=== PATIENT | male | born 1965 | race Caucasian/White ===

== ENCOUNTER → 2017-12-30 09:20 | Outpatient (CLI) | payer OTHER, SELFPAY ==
[2017-12-30 11:11] LABS: Absolute Lymphocyte Count 2.65 X10^3/ul (0.83-4.51); Absolute Neutrophil Count 7.3 X10^3/uL (2.0-7.7); Basophil# 0.05 X10^3/uL; Basophil% 0.4 % (0-1); Eosinophil# 0.19 X10^3/uL; Eosinophils% 1.7 % (0-5); Hemoglobin 15.2 g/dl (13.0-16.5); Lymphocyte # 2.65 X10^3/ul (4.0); Lymphocyte % 23.2 % (19-41); Mean Corp Hgb Conc 33.8 g/gl (32-36); Mean Corpuscular Hgb 29.5 pg (27.0-32.0); Mean Corpuscular Volume 87.2 fL (80-94); Mean Platelet Vol. 9.4 fl (6.2-12.0); Monocyte# 1.23 X10^3/uL; Monocyte% 10.8 % (0-10); Neutrophil # 7.28 X10^3/uL (2.7-7.7); Neutrophil % 63.7 % (47-70); Platelet Count 234 K/mm3 (150-450); RBC Distribution Width CV 13.5 % (11.6-14.6); RBC Distribution Width SD 42.4 fl (35.1-43.9); Red Blood Count 5.16 M/mm3 (4.6-6.2); White Blood Count 11.4 K/mm3 (4.4-11.0)
[2017-12-30 11:12] LABS: POSITIVE COUNT NO; POSITIVE DIFFERENTIAL NO; POSITIVE MORPHOLOGY NO
[2017-12-30 11:23] LABS: Microalbumin,Random Urine 18.7 mg/L (NO RANGE EST.); Microalbumin:Creatinine Ratio 11.6 mg/g CRE (<30 mg/g CRE)
[2017-12-30 11:26] LABS: AST(SGOT) 32 U/L (15-37); Alanine Aminotransfer ALT/SGPT 61 U/L (16-61); Albumin, Serum 3.6 g/dL (3.2-5.0); Alkaline Phosphatase 103 U/L (45-117); BUN 15 mg/dL (7-18); BUN/Creat Ratio 19.2 RATIO (10-20); Calcium,Total 9.1 mg/dL (8.5-10.1); Creatinine, Serum 0.78 mg/dL (0.70-1.30); EST Glomerular Filtration Rate 110 mL/min (>60); Est Glom Filt Rate - Afr Amer 133 mL/min (>60); Globulin 3.5 g/dL (2.2-4.2); Glucose 86 mg/dL (74-106); Protein, Total 7.1 g/dL (6.4-8.2)
[2017-12-30 11:27] LABS: Anion Gap 6 (5-15); Chloride 104 mmol/L (98-107); Cholesterol 181 mg/dL (200); High Density Lipoprotein 44 mg/dL; PSA,Total - Annual Screen 0.66 ng/mL (0.00-4.00); Sodium Level 138 mmol/L (136-145); Triglycerides 140 mg/dL; Very Low Density Lipoprotein 28 mg/dL (5-40)
[2017-12-30 11:32] LABS: Hemoglobin A1c 8.4 % (4.2-6.3)
== END ==
PROVIDERS: Family Provider Family Medicine; PCP Family Medicine; Referring Provider Family Medicine; Visit Provider Family Medicine
DX: E11.49 Type 2 diabetes mellitus with other diabetic neurological complication (principal); I10 Essential (primary) hypertension; E78.1 Pure hyperglyceridemia; Z12.5 Encounter for screening for malignant neoplasm of prostate
CPT/HCPCS: 36415; 80053; 80061; 82043; 82570; 83036; 84153; 85025; G0103

== ENCOUNTER → 2018-12-24 08:28 | Outpatient (CLI) | payer OTHER, SELFPAY ==
[2018-12-24 12:46] LABS: Microalbumin:Creatinine Ratio 17.8 mg/g CRE (<30 mg/g CRE)
== END ==
PROVIDERS: Family Provider Family Medicine; PCP Family Medicine; Visit Provider Family Medicine
DX: Z00.00 Encounter for general adult medical examination without abnormal findings (principal); E11.49 Type 2 diabetes mellitus with other diabetic neurological complication
CPT/HCPCS: 82043; 82570

== ENCOUNTER → 2019-01-04 09:10 | Outpatient (CLI) | payer OTHER, SELFPAY ==
[2019-01-04 12:29] LABS: Absolute Lymphocyte Count 2.77 X10^3/uL (0.83-4.51); Absolute Neutrophil Count 8.6 X10^3/uL (2.0-7.7); Basophil# 0.08 X10^3/uL; Basophil% 0.6 % (0-1); Eosinophil# 0.64 X10^3/uL; Eosinophils% 4.8 % (0-5); Hematocrit 44.2 % (40-54); Hemoglobin 14.4 g/dL (13.0-16.5); Lymphocyte # 2.77 X10^3/ul (4.0); Lymphocyte % 20.6 % (19-41); Mean Corp Hgb Conc 32.6 g/dL (32-36); Mean Corpuscular Hgb 29.4 pg (27.0-32.0); Mean Corpuscular Volume 90.2 fL (80-94); Mean Platelet Vol. 9.4 fl (6.2-12.0); Monocyte# 1.32 X10^3/uL; Monocyte% 9.8 % (0-10); NRBC Flagged by Analyzer 0 % (0-5); Neutrophil # 8.59 X10^3/uL (2.7-7.7); Neutrophil % 63.8 % (47-70); Platelet Count 281 K/mm3 (150-450); RBC Distribution Width SD 42.5 fl (35.1-43.9); White Blood Count 13.5 K/mm3 (4.4-11.0)
[2019-01-04 13:02] LABS: ALB/GLOB Ratio 1.2 RATIO (0.9-2.4); AST(SGOT) 19 U/L (15-37); Alanine Aminotransfer ALT/SGPT 34 U/L (16-61); Albumin, Serum 3.9 g/dL (3.2-5.0); Alkaline Phosphatase 105 U/L (45-117); Anion Gap 6 (5-15); BUN 15 mg/dL (7-18); BUN/Creat Ratio 20.5 RATIO (10-20); Calcium,Total 9.1 mg/dL (8.5-10.1); Chloride 104 mmol/L (98-107); Cholesterol 177 mg/dL (200); Creatinine, Serum 0.73 mg/dL (0.70-1.30); EST Glomerular Filtration Rate 118 mL/min (>60); Est Glom Filt Rate - Afr Amer 143 mL/min (>60); Globulin 3.2 g/dL (2.2-4.2); Glucose 67 mg/dL (74-106); High Density Lipoprotein 51 mg/dL; PSA,Total - Annual Screen 0.71 ng/mL (0.00-4.00); Potassium 3.6 mmol/L (3.5-5.1); Protein, Total 7.1 g/dL (6.4-8.2); Sodium Level 140 mmol/L (136-145); Triglycerides 138 mg/dL; Very Low Density Lipoprotein 28 mg/dL (5-40)
[2019-01-04 13:03] LABS: Hemoglobin A1c 7.3 % (4.2-6.3)
== END ==
PROVIDERS: Family Provider Family Medicine; PCP Family Medicine; Visit Provider Family Medicine
DX: Z00.00 Encounter for general adult medical examination without abnormal findings (principal); E11.49 Type 2 diabetes mellitus with other diabetic neurological complication
CPT/HCPCS: 36415; 80053; 80061; 83036; 84153; 85025; G0103

== ENCOUNTER → 2019-01-07 08:53 | Outpatient (CLI) | payer OTHER, SELFPAY ==
[2019-01-07 12:25] LABS: Absolute Lymphocyte Count 4.38 X10^3/uL (0.83-4.51); Absolute Neutrophil Count 8.3 X10^3/uL (2.0-7.7); Basophil# 0.11 X10^3/uL; Basophil% 0.7 % (0-1); Eosinophils% 5.3 % (0-5); Hematocrit 46.9 % (40-54); Hemoglobin 15.2 g/dL (13.0-16.5); Lymphocyte # 4.38 X10^3/ul (4.0); Lymphocyte % 28.9 % (19-41); Mean Corp Hgb Conc 32.4 g/dL (32-36); Mean Corpuscular Hgb 29.3 pg (27.0-32.0); Mean Corpuscular Volume 90.5 fL (80-94); Mean Platelet Vol. 9.6 fl (6.2-12.0); Monocyte# 1.45 X10^3/uL; Monocyte% 9.6 % (0-10); NRBC Flagged by Analyzer 0 % (0-5); Neutrophil # 8.34 X10^3/uL (2.7-7.7); Neutrophil % 55.2 % (47-70); POSITIVE MORPHOLOGY YES; Platelet Count 342 K/mm3 (150-450); RBC Distribution Width CV 12.9 % (11.6-14.6); RBC Distribution Width SD 42.4 fl (35.1-43.9); Red Blood Count 5.18 M/mm3 (4.6-6.2); White Blood Count 15.1 K/mm3 (4.4-11.0)
[2019-01-07 12:31] LABS: Erythrocyte Sedimentation Rate 9 mm/hr (0-20)
[2019-01-07 12:32] LABS: Differential Indicated SCAN CRITERIA MET
[2019-01-07 12:43] LABS: CRP < 2.90 mg/L (0.0-3.0)
[2019-01-08 12:31] LABS: Pathologist Review Reviewed
== END ==
PROVIDERS: Family Provider Family Medicine; PCP Family Medicine; Visit Provider Family Medicine
DX: D72.9 Disorder of white blood cells, unspecified (principal)
CPT/HCPCS: 85025; 85652; 86140

== ENCOUNTER → 2019-04-14 08:40 | Outpatient (CLI) | payer OTHER, SELFPAY ==
[2019-03-17 09:54] VITALS: BMI 32.9
[2019-04-14 12:20] LABS: Absolute Lymphocyte Count 2.27 X10^3/uL (0.83-4.51); Absolute Neutrophil Count 6.4 X10^3/uL (2.0-7.7); Basophil# 0.09 X10^3/uL; Basophil% 0.9 % (0-1); Eosinophil# 0.43 X10^3/uL; Eosinophils% 4.2 % (0-5); Hemoglobin 14.2 g/dL (13.0-16.5); Lymphocyte # 2.27 X10^3/ul (4.0); Lymphocyte % 22.4 % (19-41); Mean Corpuscular Hgb 28.3 pg (27.0-32.0); Mean Corpuscular Volume 85.7 fL (80-94); Mean Platelet Vol. 10.2 fl (6.2-12.0); Monocyte# 0.94 X10^3/uL; Monocyte% 9.3 % (0-10); NRBC Flagged by Analyzer 0 % (0-5); Neutrophil # 6.35 X10^3/uL (2.7-7.7); Neutrophil % 62.8 % (47-70); Platelet Count 247 K/mm3 (150-450); RBC Distribution Width CV 12.5 % (11.6-14.6); RBC Distribution Width SD 38.6 fl (35.1-43.9); Red Blood Count 5.02 M/mm3 (4.6-6.2); White Blood Count 10.1 K/mm3 (4.4-11.0)
[2019-04-14 12:33] LABS: Hemoglobin A1c 10.6 % (4.2-6.3)
[2019-04-14 12:39] LABS: Glucose 273 mg/dL (74-106)
== END ==
PROVIDERS: Family Provider Family Medicine; PCP Family Medicine; Visit Provider Family Medicine
DX: E11.49 Type 2 diabetes mellitus with other diabetic neurological complication (principal); D72.829 Elevated white blood cell count, unspecified
CPT/HCPCS: 36415; 82947; 83036; 85025

== ENCOUNTER → 2019-12-25 11:19 | Outpatient (CLI) | payer OTHER, SELFPAY ==
[2019-03-17 09:54] VITALS: BMI 32.9
[2019-12-25 12:11] LABS: Absolute Lymphocyte Count 1.92 X10^3/uL (0.83-4.51); Basophil# 0.06 X10^3/uL; Basophil% 0.6 % (0-1); Eosinophil# 0.42 X10^3/uL; Eosinophils% 3.9 % (0-5); Hemoglobin 14.2 g/dL (13.0-16.5); Lymphocyte # 1.92 X10^3/ul (4.0); Mean Corpuscular Volume 87.9 fL (80-94); Mean Platelet Vol. 9.2 fl (6.2-12.0); Monocyte# 1.07 X10^3/uL; NRBC Flagged by Analyzer 0 % (0-5); Neutrophil # 7.01 X10^3/uL (2.7-7.7); Neutrophil % 65.8 % (47-70); Platelet Count 247 K/mm3 (150-450); RBC Distribution Width CV 12.8 % (11.6-14.6); RBC Distribution Width SD 41.2 fl (35.1-43.9); Red Blood Count 4.89 M/mm3 (4.6-6.2); White Blood Count 10.7 K/mm3 (4.4-11.0)
[2019-12-25 12:12] LABS: AST(SGOT) 12 U/L (15-37); Alanine Aminotransfer ALT/SGPT 27 U/L (16-61); Albumin, Serum 3.6 g/dL (3.2-5.0); Alkaline Phosphatase 124 U/L (45-117); Anion Gap 5 (5-15); BUN 16 mg/dL (7-18); Calcium,Total 8.9 mg/dL (8.5-10.1); Chloride 105 mmol/L (98-107); Cholesterol 189 mg/dL (200); EST Glomerular Filtration Rate 106 mL/min (>60); Est Glom Filt Rate - Afr Amer 129 mL/min (>60); Globulin 3.5 g/dL (2.2-4.2); Glucose 145 mg/dL (74-106); High Density Lipoprotein 45 mg/dL; Potassium 3.9 mmol/L (3.5-5.1); Protein, Total 7.1 g/dL (6.4-8.2); Sodium Level 142 mmol/L (136-145); Triglycerides 143 mg/dL; Very Low Density Lipoprotein 29 mg/dL (5-40)
[2019-12-25 12:13] LABS: Hemoglobin A1c 8.8 % (3.8-5.6)
[2019-12-25 12:15] LABS: Microalbumin,Random Urine 12.2 mg/L (NO RANGE EST.); Microalbumin:Creatinine Ratio 12.2 mg/g CRE (<30 mg/g CRE)
== END ==
PROVIDERS: PCP Family Medicine; Referring Provider Family Medicine; Visit Provider Family Medicine
DX: E11.49 Type 2 diabetes mellitus with other diabetic neurological complication (principal); I10 Essential (primary) hypertension; E78.5 Hyperlipidemia, unspecified; D72.829 Elevated white blood cell count, unspecified
CPT/HCPCS: 36415; 80053; 80061; 82043; 82570; 83036; 85025

== ENCOUNTER → 2020-09-09 11:20 | Outpatient (CLI) | payer OTHER, SELFPAY ==
[2019-03-17 09:54] VITALS: BMI 32.9
--- NOTE | 2020-09-09 11:28 | RAD_ITS ---
STUDY: X-RAY - LUMBAR SPINE REASON FOR EXAM: Male, 55 years old. LOW BACK PAIN, B/L RADICULOPATHY TECHNIQUE: 4 view(s) of the lumbar spine were obtained. COMPARISON: None FINDINGS: Normal lumbar lordosis. There is no substantial scoliosis. 5 mm of anterolisthesis of L4 on L5. Normal vertebral bodies and endplates. Normal disc space heights. Facet hypertrophy in the lower lumbar spine consistent with degenerative disc disease. The soft tissue structures are unremarkable. RAD/L/S Spine Min 4 Views IMPRESSION: Degenerative disc disease lower lumbar spine with 5 mm of anterolisthesis of L4 on L5. MRI would be useful. Electronically Signed: Chance Jeffrey MD at 12:03 EDT Tel , Service support ,
== END ==
PROVIDERS: PCP Family Medicine; Referring Provider Family Medicine; Visit Provider Family Medicine
DX: M54.16 Radiculopathy, lumbar region (principal)
CPT/HCPCS: 72110

== ENCOUNTER → 2020-10-07 08:46 | Outpatient (CLI) | payer OTHER, SELFPAY ==
[2019-03-17 09:54] VITALS: BMI 32.9
--- NOTE | 2020-10-07 08:48 | MRI_ITS ---
STUDY: MRI LUMBAR SPINE WITHOUT CONTRAST REASON FOR EXAM: Male, 55 years old. LUMBAR RADICULOPATHY WITH HX DISC HERNIATION TECHNIQUE: Standardized fat and water weighted pulse sequences were obtained in the sagittal and axial planes COMPARISON: November FINDINGS: T11-T12: Normal endplates. Normal disc height, hydration and morphology. Normal bilateral facet joints. Normal central canal and bilateral lateral recesses. Normal bilateral intervertebral neural foramina. T12-L1: Normal endplates. Normal disc height, hydration and morphology. Normal bilateral facet joints. Normal central canal and bilateral lateral recesses. Normal bilateral intervertebral neural foramina. Normal lumbar lordosis. There is no substantial scoliosis. Normal conus medullaris that terminates at the L1. There is grade 1 anterolisthesis of L4 on L5, less than 5 mm without lysis. L1-2: Normal endplates. Normal disc height, hydration and degenerative morphology with bulge and superimposed left central protrusion. Normal bilateral facet joints. There is mild spondylotic thecal sac stenosis. There is no moderate or high-grade foraminal stenosis. L2-3: Normal endplates. Normal disc height, hydration and mildly degenerative morphology. Normal bilateral facet joints. Normal central canal and bilateral lateral recesses. Normal bilateral intervertebral neural foramina. L3-4: Normal endplates. Normal bilateral facet joints. Normal central canal and bilateral lateral recesses. Normal bilateral intervertebral neural foramina. L4-5: Normal endplates. There is severe disc degeneration with both bulge and central extrusion with superior migration of disc material under the anterior longitudinal ligament. Facets are degenerated. Ligamentum flavum is thickened. Thecal sac is severely stenotic. Foramina are moderately stenotic. There is bilateral lateral recess stenosis. L5-S1: Mildly degenerated endplates. Collapsed disc with decreased height and degenerative morphology. There is a right asymmetric disc bulge and superimposed right central and subarticular and foraminal zone disc protrusion. Canal is patent. There is right lateral recess stenosis with compression of the right traversing S1 nerve root. There is moderate right and mild to moderate left foraminal stenosis. Facet joints are degenerated. Normal visualized sacral ala. Normal visualized paraspinous soft tissue structures. Compared 2016 the L4-L5 anterolisthesis is new and disc degeneration is significantly worse. MRI/Spine Lumbar (Routine) IMPRESSION: 1. Severe spondylotic L4-L5 thecal sac stenosis. Neurosurgical consultation advised. 2. L1-L2, L4-L5 and L5-S1 disc protrusions. 3. Right lateral recess and foraminal stenosis at L5-S1. Electronically Signed: Jody Helton MD at 21:06 EDT Tel , Service support ,
== END ==
PROVIDERS: PCP Family Medicine; Referring Provider Family Medicine; Visit Provider Family Medicine
DX: M51.16 Intervertebral disc disorders with radiculopathy, lumbar region (principal)
CPT/HCPCS: 72148

== ENCOUNTER → 2020-11-13 | Outpatient (CLI) | payer OTHER, SELFPAY ==
[2020-10-25 13:05] VITALS: BMI 30.4
--- NOTE | 2020-11-13 15:55 | EKG12_ITS ---
Test Reason : PREOP Blood Pressure : / mmHG Vent. Rate : 121 BPM Atrial Rate : 121 BPM P-R Int : 116 ms QRS Dur : 086 ms QT Int : 320 ms P-R-T Axes : 041 017 051 degrees QTc Int : 454 ms Sinus tachycardia Otherwise normal ECG Confirmed by STIVEN CORTES, ARIADNE ([id number]), purchasing expeditor ALAN THAO ([id number]) on 11/15/2020 2:00:38 PM Referred By: DONALD Confirmed By:ANNABEL SALEEM MD
[2020-11-13 16:48] LABS: Absolute Lymphocyte Count 2.01 X10^3/uL (0.83-4.51); Absolute Neutrophil Count 11.4 X10^3/uL (2.0-7.7); Basophil# 0.06 X10^3/uL; Basophil% 0.4 % (0-1); Eosinophil# 0.31 X10^3/uL; Eosinophils% 2.1 % (0-5); Hematocrit 41.4 % (40-54); Hemoglobin 13.4 g/dL (13.0-16.5); Lymphocyte # 2.01 X10^3/ul (0.83-4.51); Lymphocyte % 13.4 % (19-41); Mean Corp Hgb Conc 32.4 g/dL (32-36); Mean Corpuscular Hgb 27.9 pg (27.0-32.0); Mean Corpuscular Volume 86.3 fL (80-94); Mean Platelet Vol. 9.7 fl (6.2-12.0); Monocyte# 1.11 X10^3/uL; Monocyte% 7.4 % (0-10); NRBC Flagged by Analyzer 0 % (0-5); Neutrophil # 11.43 X10^3/uL (2.7-7.7); Neutrophil % 76.2 % (47-70); Platelet Count 274 K/mm3 (150-450); RBC Distribution Width CV 13.1 % (11.6-14.6); RBC Distribution Width SD 40.9 fl (35.1-43.9)
[2020-11-13 19:10] LABS: HIV - WCH Non-Reactive (Nonreactive)
[2020-11-13 20:06] LABS: ALB/GLOB Ratio 1.1 RATIO (0.9-2.4); AST(SGOT) 18 U/L (15-37); Alanine Aminotransfer ALT/SGPT 29 U/L (16-61); Albumin, Serum 3.5 g/dL (3.2-5.0); Alkaline Phosphatase 118 U/L (45-117); Anion Gap 11 (5-15); BUN 17 mg/dL (7-18); BUN/Creat Ratio 14.7 RATIO (10-20); Calcium,Total 8.9 mg/dL (8.5-10.1); Chloride 102 mmol/L (98-107); Creatinine, Serum 1.16 mg/dL (0.70-1.30); EST Glomerular Filtration Rate 69 mL/min (>60); Est Glom Filt Rate - Afr Amer 83 mL/min (>60); Globulin 3.2 g/dL (2.2-4.2); Glucose 456 mg/dL (74-106); Magnesium 1.9 mg/dL (1.6-2.6); Potassium 4.2 mmol/L (3.5-5.1); Protein, Total 6.7 g/dL (6.4-8.2); Sodium Level 135 mmol/L (136-145)
[2020-11-14 15:51] LABS: Hepatitis B Surface Antibody Non-Reactive
[2020-11-15 06:07] LABS: HEPATITIS B SURFACE AG Negative (Negative); Hepatitis A IgM Antibody Negative (Negative); Hepatitis B Core AB IgM Negative (Negative)
[2020-11-15 10:06] LABS: Hep C Antibodies <0.1 s/co ratio (0.0-0.9); Hepatitis A AB, Total Negative (Negative)
== END | disposition home or self-care (01) ==
LOC: PAT 12-14 12:56
PROVIDERS: Anesthesiology; PCP Family Medicine; Visit Provider Orthopaedic Surgery
DX: Z01.818 Encounter for other preprocedural examination (principal); R00.0 Tachycardia, unspecified
CPT/HCPCS: 36415; 80053; 80074; 83036; 83735; 85025; 86703; 86704; 86705; 86706; 86708; 86709; 86803; 87340; 93005

== ENCOUNTER 2021-04-24 05:33 | Inpatient (IN) | payer BC, SELFPAY ==
[2021-04-18 14:02] LABS: Absolute Lymphocyte Count 1.98 X10^3/uL (0.83-4.51); Absolute Neutrophil Count 4.1 X10^3/uL (2.0-7.7); Basophil# 0.06 X10^3/uL; Basophil% 0.8 % (0-1); Eosinophil# 0.39 X10^3/uL; Eosinophils% 5.1 % (0-5); Hematocrit 39.8 % (40-54); Hemoglobin 12.2 g/dL (13.0-16.5); Lymphocyte # 1.98 X10^3/ul (0.83-4.51); Lymphocyte % 26.1 % (19-41); Mean Corp Hgb Conc 30.7 g/dL (32-36); Mean Corpuscular Hgb 25.5 pg (27.0-32.0); Mean Corpuscular Volume 83.3 fL (80-94); Mean Platelet Vol. 9.7 fl (6.2-12.0); Monocyte% 14.5 % (0-10); NRBC Flagged by Analyzer 0 % (0-5); Neutrophil # 4.05 X10^3/uL (2.7-7.7); Neutrophil % 53.2 % (47-70); Platelet Count 291 K/mm3 (150-450); RBC Distribution Width SD 42.7 fl (35.1-43.9); Red Blood Count 4.78 M/mm3 (4.6-6.2); White Blood Count 7.6 K/mm3 (4.4-11.0)
[2021-04-18 14:22] LABS: Hemoglobin A1c 6.4 % (3.8-5.6)
[2021-04-18 14:29] LABS: Anion Gap 6 (5-15); BUN 22 mg/dL (7-18); BUN/Creat Ratio 26.6 RATIO (10-20); Calcium,Total 8.8 mg/dL (8.5-10.1); Chloride 103 mmol/L (98-107); Creatinine, Serum 0.83 mg/dL (0.70-1.30); EST Glomerular Filtration Rate 102 mL/min (>60); Est Glom Filt Rate - Afr Amer 123 mL/min (>60); Glucose 62 mg/dL (74-106); Potassium 3.9 mmol/L (3.5-5.1); Sodium Level 139 mmol/L (136-145)
[2021-04-18 14:32] LABS: Magnesium 2.2 mg/dL (1.6-2.6)
[2021-04-18 15:10] LABS: HIV - WCH Non-Reactive (Nonreactive); Hepatitis B Surface Antibody Non-Reactive; Hepatitis C Antibody Non-Reactive (Nonreactive)
[2021-04-20 11:29] LABS: Hepatitis A AB, Total Negative (Negative)
--- NOTE | 2021-04-23 10:59 | PCM.HP.BLA ---
History and Physical Date of Ad[facility]: [facility] [id number] [phone] OFFICE VISITDate of Service: 10/25/20 MR#:[id number]:[id number]: DOMINGO GILLILAND CRep #:[id number] Provider:Dr. Tacos Vallecillo, DOAge/Sex: 55/M Location:[place]:Signed Intake Vital Signs 10/25/20 13:05 Height 5 ft 8 in Weight: 200 lb BMI 30.4 Intake Visit Reasons: Lumbar Spine Accompanied by: Self Is patient in pain?: Yes Pain scale (1-10): 8 Allergies No Known Allergies Allergy (Verified 10/25/20 13:05) Medications lisinopril 10 mg PO DAILY 12/13/16 [History Confirmed 10/25/20] metoprolol succinate 50 mg PO BID 12/13/16 [History Confirmed 10/25/20] pravastatin 40 mg PO DAILY 12/13/16 [History Confirmed 10/25/20] meloxicam 15 mg PO DAILY 01/18/19 [History Confirmed 10/25/20] sucralfate 1 gram tablet See Rx Instructions .ROUTE .COMPLEX #120 tablet 02/17/19 [Rx Confirmed 10/25/20] omeprazole 20 mg capsule,delayed release See Rx Instructions .ROUTE .COMPLEX #60 cap 01/25/20 [Rx Confirmed 10/25/20] gabapentin 100 mg capsule 100 mg PO TID cap 10/25/20 [History Confirmed 10/25/20] insulin detemir U-100 100 unit/mL subcutaneous solution 30 unit SUBCUT BID ml 10/25/20 [History Confirmed 10/25/20] metformin 1,000 mg tablet 1,000 mg PO BID tab 10/25/20 [History Confirmed 10/25/20] PFSH Medical History Colon polyp Depression Diabetes mellitus Erectile dysfunction Fatty liver Hyperlipidemia Hypertension Lumbar disc herniation Osteoarthritis of carpometacarpal (CMC) joint of left thumb Surgical History History of colonoscopy Umbilical hernia Family History Other Adopted Social History (Updated 10/25/20 @ 13:09 by Maddie Yousif) adopted: Yes household members: spouse and children housing: house number of children: 2 current occupational status: employed 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 Tacos Vallecillo, DO 10/25/20 0801. DOMINGO GILLILAND is a 55 year old M here today to establish as a new patient. Referral from Dr. Gianfranco Gonzalez for lumbar pain. Onset: three months, worsening. Patient is having left sided back with sciatica that is now into his right side as well with some radiculopathy. Denies any accident, injures, injections, and surgeries. Last physical therapy for his back was approx two years ago. Patient had a lumbar spine x-ray on: 09/09/20 and a lumbar spine MRI on: 10/07/20. Patient has tried the following conservative treatments for six weeks or greater: RICE, OTC NSAIDs, home exercises provided by a provider, meloxicam, oral corticosteroids, narcotic and non-narcotic analgesic medication(s), gericare aide, PT, bracing, and spinal manipulation. Patient has found no relief and would like to further investigate their s/s. Dominog is a most pleasant gentleman 55 years old that has a chief complaint of low back pain and bilateral leg pain. It started first on the left side and then started going to the right side now it is in both. When he walks his legs both started to feel numb if he sits down to rest he gets some improvement. This has been going on for many months but has gradually worsened. He denies any bowel or bladder dysfunction. He denies history of explained weight loss night fever sweats or chills. On examination he has good motor strength of all major muscle groups of both lower extremities. He has no muscle atrophy. He has 1+ patella and 1+ Achilles reflexes bilaterally. He has no long tract signs. Clonus is absent Babinski's are downgoing. I reviewed plain x-rays and MRI scan of the lumbar spine. He has a degenerative spondylolisthesis of L4 on L5 given him a significant stenosis plus an extruded fragment in the midline has gone up. At L5-S1 he has none only degeneration but he has a herniated disc more to the right side. He wishes to bypass epidural steroid injections as he realizes that that is ongoing to help him or at least not for long. He knows that physical therapy is not indicated either because it simply will make him feel worse. He wishes to have a permanent solution. We will schedule him for a 360 degree fusion at L5-S1 and L4-5 with decompression of L4-5 laminectomy at L5-S1 on the right side. At L4-5 I may do each side individually. I told him to bring his in so she could discuss it with us and ask questions. I told him that it would probably be December before we can do his surgery. We will see him 1 week before the surgery as scheduled. Coding Level of Care Code Off vis,new,level 3 Diagnoses Spinal stenosis at L4-L5 level M48.061 HNP (herniated nucleus pulposus), lumbar M51.26 Time Spent (min) 35 Assessment and Plan Assessment and Plan (1) Spinal stenosis at L4-L5 level: Status: Acute (2) HNP (herniated nucleus pulposus), lumbar:
[2021-04-24] VITALS (13 sets, daily range): BP systolic 84–122; BP diastolic 54–71; PULSE 87–103; RESP 15–18; TEMP 36.1–37.3; O2SAT 92–99; BMI 32.5
[2021-04-24] MEDS: Lactated Ringers 1,000 ML 15 ML IV ×6 (06:20→16:30)
[2021-04-24] MEDS: Insulin Lispro 100 UNIT/ML INSULN.PEN SC ×2 (06:38→21:53)
[2021-04-24] MEDS: Acetaminophen 500 MG Tablet 1000 MG PO ×2 (06:39→19:11)
[2021-04-24 07:05] LABS: Bedside Glucose 213 mg/dL (70-110)
--- NOTE | 2021-04-24 07:30 | RAD_ITS ---
STUDY: X-RAY - LUMBAR SPINE REASON FOR EXAM: Male, 55 years old. 360 FUSION L4-5, L5-S1,RIGHT TECHNIQUE: 1 view(s) of the lumbar spine were obtained. COMPARISON: None FINDINGS: The localization instrument is anterior to the L5-S1 disc space. Another localization instrument is seen anterior to the L3-L4 disc space level. RAD/Spine 1 View Any Level IMPRESSION: A localization instrument is seen along the anterior aspect of the L5-S1 disc space level. A second instrument is seen anterior to the L3-L4 disc space level. Electronically Signed: Ramakrishna Orourke MD at 10:06 EST , Service support ,
[2021-04-24] MEDS: Cefazolin 2 GM in 0.9% Normal Saline 100 ML IV (07:57)
[2021-04-24] MEDS: Heparin 10,000 UNITS/10 ML Vial 10000 UNITS (09:30)
[2021-04-24] MEDS: Heparin 10,000 UNITS/10 ML Vial IV (10:00)
--- NOTE | 2021-04-24 10:50 | RAD_ITS ---
STUDY: X-RAY - LUMBAR SPINE REASON FOR EXAM: Male, 55 years old. 360 FUSION L4-5, L5-S1 RIGHT TECHNIQUE: 1 view(s) of the lumbar spine were obtained. COMPARISON: Comparison is made with prior study done earlier today. FINDINGS: The patient is status post anterior fusion with prosthetic disc at the L5-S1 level. RAD/Spine 1 View Any Level IMPRESSION: Status post anterior fusion with prosthetic disc placement at the L5-S1 level. Electronically Signed: Ramakrishna Orourke MD at 12:00 EST , Service support ,
--- NOTE | 2021-04-24 11:05 | RAD_ITS ---
STUDY: X-RAY - LUMBAR SPINE REASON FOR EXAM: Male, 55 years old. IMAGE 3 360 FUSION, IN O.R. PORTABLE TECHNIQUE: 1 view(s) of the lumbar spine were obtained. COMPARISON: None FINDINGS: The localization instrument is seen along the anterior aspect of the L4-L5 disc space. RAD/Spine 1 View Any Level IMPRESSION: The localization instrument is seen along the anterior aspect of the L4-L5 disc space. Electronically Signed: Ramakrishna Orourke MD at 12:00 EST , Service support ,
--- NOTE | 2021-04-24 12:00 | RAD_ITS ---
STUDY: X-RAY - LUMBAR SPINE REASON FOR EXAM: Male, 55 years old. FUSION TECHNIQUE: 1 view(s) of the lumbar spine were obtained. COMPARISON: Comparison is made with prior study done earlier today. FINDINGS: The patient is status post anterior fusion and disc replacement at the L4-L5 and L5-S1 levels. RAD/Spine 1 View Any Level IMPRESSION: The patient is status post anterior fusion and disc replacement at the L4-L5 and L5-S1 levels. Electronically Signed: Ramakrishna Orourke MD at 12:28 EST , Service support ,
--- NOTE | 2021-04-24 12:07 | RAD_ITS ---
STUDY: X-RAY - LUMBAR SPINE REASON FOR EXAM: Male, 55 years old. Fusion L4-5 and L5-S1. TECHNIQUE: A single lateral cross table view view(s) of the lumbar spine were obtained intraoperatively. COMPARISON: 04/24/2021 (1151) FINDINGS: Normal lumbar lordosis. There is evidence of anterior fusion of L4-5 and L5-S1 with large disc spacers. The hardware appears intact. There is a normal alignment of the vertebrae. There is a surgical probe posterior to the L5 vertebral body. Skin retractors are seen at the surface of the lower back. There are multiple surgical clips anterior to the surgical site. RAD/Spine 1 View Any Level IMPRESSION: Intraoperative image performed during a fusion of the lower lumbar spine. Please refer to the operative report for further details. Electronically Signed: Juve Escobedo DO at 17:05 EST Tel [phone], Service support ,
--- NOTE | 2021-04-24 12:10 | OP.PCM_ITS ---
Problems Associated Problem List Diagnoses (1) Spinal stenosis at L4-L5 level: (2) HNP (herniated nucleus pulposus), lumbar: Report of Operation Date of Procedure: 04/24/21 Pre-Operative Diagnosis: Degenerative disc disease Post-Operative Diagnosis: The same Surgery/Procedure Performed:: 1. Anterior lumbar interbody fusion L4-L5 with 16mm 8 degree cage with BMA and anterior plate with 2 30 mm screws in L4 and 2 30 mm screws into L5. 2. Anterior lumbar interbody fusion L5-S1 with 14 mm cage with BMA and anterior plate with 2 30 mm screws into L5 and 2 25 mm screws into S1 Surgeon: Roosevelt Saenz Type of Anesthesia: General Description of Procedure: Surgeon: Dr. Vallecillo co-surgeon Dr. Roosevelt Saenz Operation: This gentleman was brought to the operating room. Underwent appropriate timeout consent. Underwent appropriate monitoring lines were all placed. Underwent general anesthesia. Was prepped and draped in a sterile fashion. We did a left lower quadrant incision and dissected down to the fascia. We incised the fascia to the midline and then out past the rectus into the obliques. We then got into the retroperitoneal plane after freeing up the anterior fascia superior and inferior. We then got onto the iliopsoas and put in the Omni retractor. Using blunt dissection we were able to dissect down into the L5-S1 disc space. Middle sacral vessels were divided between clips and tied. There are several other venous branches that were divided that allowed the vein to retract superior. We confirmed good position of L5-S1 with x-ray. Patient then underwent the discectomy. Dilated up in a cage was placed. Bone marrow aspirate was obtained. We then filled the cage which was 14 mm and placed this in good po sition. Anterior plate was placed. Using the awl and then screws with 30 mm screws into L5 and then 25 mm screws and S1. Confirmed with x-ray that this was in good position. We then remove the retractors up and then dissected down onto the L4-L5 disc space. We confirmed good position of there with x-ray. We then underwent the discectomy and dilated up and put in a 16mm cage. This was filled with the BMA. We then put on a anterior plate and 30 mm screws in L4 and L5. Completion x-ray showed good position of both cages. There is good hemostasis. Several clips were placed around some of the lymphatic leak. We then closed the anterior fascia with running strata fix. Then 2-0 and 3-0 Vicryl's in layers. Monocryl for the skin. Dermabond was placed. Was then flipped over and the p osterior part or all be done and dictated separately by Dr. Vallecillo.
[2021-04-24] MEDS: THROMBIN (RECOMBINANT) 20,000 UNIT VIAL 20000 UNIT TOPICAL (13:58)
[2021-04-24 15:11] LABS: Bedside Glucose 171 mg/dL (70-110)
--- NOTE | 2021-04-24 16:17 | OP.PCM_ITS ---
Report of Operation Date of Procedure: 04/24/21 Description of Surgical Findings:: Preoperative diagnosis: Herniated disc L4-5 with left L5 radiculopathy Degenerative disc disease L5-S1 Postoperative diagnosis: The same Procedure: #1 anterior lumbar interbody fusion L5-S1 CPT code 14880 #2 application of spine plate L5-S1 CPT code 40675/59 #3 application of spine plate L4-5 CPT code 95974/59 #4 anterior interbody fusion L4-5 CPT code 03950/51 #5 insertion of cage L5-S1 CPT code 04097 #6 insertion of cage L4-5 CPT code 88709 Co-surgeon's: Dr. Vallecillo and Dr. Saenz dental hygiene administrative assistant: Divina REYES Second Procurement Services Manager: Kat Curtis RN Anesthesia: General endotracheal anesthesia administered by [facility] Estimated blood loss: Less than 100 cc Drains: None Complications: None Procedure: Patient was taken to the OR where he was placed in the supine position on the operating table he was then placed under general endotracheal anesthesia. A Berger catheter was inserted. Neuro monitoring placed their leads and the patient. The abdomen was then prepped and draped in standard fashion. Surgical approach is described in Dr. Saenz's operative summary. Once L5-S1 was exposed and identified via an intraoperative x-ray I then remove the anterior annulus with a 10 blade. I removed more nucleus from within the disc base with pituitary rongeurs and ring curettes and bowl curettes all the way back to near the posterior longitudinal ligament. I used a yaya bur to remove a little bit of the posterior and an enlarged the sides of the endplate at the bottom of L5 to better fit the cage. We did a trial cages and found that we needed a 14 mm cage we then used a broach starting with a 12 followed by a 14 mm broach. This gave us good bleeding endplate bone. Thorough irrigation was carried out. At that in the interim we placed a Jamshidi needle over the left iliac crest on the anteriorly tamped it into place and obtained 60 cc of BMA from the patient. This was given to the product support technician in the room who spun it down and the stem cells from the rest of the cells and concentrated the stem cells 8-10 times. This was given back to us. I then filled the 14 mm 8 degree cage with spongy demineralized bone matrix. Note that we use the large cage. We then soaked the demineralized bone matrix punch and the patient's own stem cells. This was then tamped into place and the cage countersunk a couple of millimeters. We then used a 27 mm plate note that it was the pre-bent L5-S1 plate. Once centered I held the plate in place by Dr. Saenz use the awl to punch the holes and entered with the appropriate length screws. We used 230 mm screws at L5 and 225 mm screws at S1. Then activated the locking mechanisms. This was seen in the lateral projection on plain x-ray was found to be quite satisfactory. We then moved up [address] Saenz again did more dissection in order to give us good access at L4-5. Once this was done place a needle in place to double check with an x-ray to make sure we were indeed at L4-5 which we were this was then marked using cautery I then cut the anterior annulus with a 10 blade removed it and removed more nucleus from within the disc base with pituitary rongeurs. We also used ring curettes and bowl curettes to remove cartilage off the endplates and all remaining annulus posteriorly. Once the disc space was completely cleared and we had thoroughly irrigated we then took her measurements for the next cage we decided on a 16mm high large cage for this level. The disc base was prepared again using curettes to remove all the cartilage and nucleus. I then used a 14 and then 16 mm broach to broach the space. I then filled the cage with demineralized bone matrix. This was a spongy type it was then soaked in the patient's own stem cells that were concentrated. We then tapped the cage into place and countersunk it a couple of millimeters to 17 mm anterior plate was used it was put slightly off-center to the left to prevent pulsations with the aorta. While I held in place Dr. Saenz punched each individual hole with an awl. Followed by insertion of 30 mm screws at all 4 points, 2 into L4 and 2 into L5. The locking mechanism was activated by Dr. Saenz. Then covered both cages and amniotic membrane to prevent adhesions to the vessels. The closure is then described in Dr. Saenz's operative summary. This is the end of anterior operative summary on Domingo Celestin. This is Dr. Vallecillo dictating.
--- NOTE | 2021-04-24 16:36 | PCM.OPRPT ---
Report of Operation Date of Procedure: 04/24/21 Description of Surgical Findings:: Note that this is the posterior surgery done on this patient. The anterior surgery was described in a separate operative summary. Preoperative diagnosis #1 herniated disc L4-5 with left L5 radiculopathy #2 degenerative disc disease L5-S1 Postoperative diagnosis: The same Procedures: #1 posterior fusion L5-S1 CPT code 43024 #2 laminectomy discectomy L4-5 on the left CPT code 56964 #3 posterior nonsegmental instrumentation L5-S1 CPT code 52956 #4 posterior nonsegmental instrumentation L4-5 CPT code 54049/51 #5 posterior fusion L4-5 CPT code 60098/51 Surgeon: Dr. Vallecillo sales assistant institutional sales: Divina REYES Second Geothermal Operations Engineer: Kat Curtis RN Anesthesia: General endotracheal anesthesia administered by [facility] Estimated blood loss: 325 cc with 125 cc given back via the Cell Saver for a net loss of 200 cc Drains: None (at the time of closure we had excellent hemostasis) Complications: None Procedure: See anterior procedure was completely finished the patient was then turned over onto the prone position on the Lance frame after appropriate positioning with care to protect his bony prominences his genitalia the ulnar nerves of both elbows the brachial plexus and the facial features the back was prepped and draped in standard fashion. Then made a longitudinal incision centered over L4-5. Elevated the paravertebral muscles after opening the lumbar fascia to the left of the spinous process and elevated them off of the lamina of L5 and the lamina of L4. An intraoperative x-ray was taken with a marker in place to assure that we were indeed at the proper level which we were. I continue to elevate To muscles off the lamina of L4 and the top of the lamina of L5. A Tea retractor was then put in place. I then elevated the ligamentum flavum off to the side of the lamina of L4 on the left and performed laminectomy with 45 degree Kerrison rongeurs. I then released the ligamentum flavum off the underside of L4 and removed it with 45 degree Kerrison rongeurs. I also opened a little bit of the top of the lamina of L5. This was done with the Kerrison rongeurs following this I was able to retract the midline structures toward the middle. Note that he has very large epidural vessels and these were slowly but surely cauterized 1 at a time with bipolar cautery. Some of the disc was removed and note that we could not get to all of the disc but likely it was in the midline once I open the lateral recess and remove the disc there there was no more pressure on the nerve roots on the left side. Note that every 10 to 15 minutes in the course of the case we thoroughly irrigated with copious amounts of sterile saline to prevent infection. Following this we prepared for the internal fixation. Note that we used spacers between the spinous process of L4-5 and L5-S1 we measured for them to use the appropriate size spacers that were indeed bony spacers. Once these were in place we applied the internal fixation devices at both levels. These were then tightened and the locking mechanisms were activated at both levels. Note that we prior to doing this of course we placed our SPARC bone in both gutters. We also placed amnionic membrane directly over the laminotomy site to prevent adhesions. Note that we had such good hemostasis at the end of the case that we did not feel we needed to put a drain in so we did not. We then closed the lumbar fascia using [id number] suture with #1 Vicryl followed by closure of subcutaneous tissues with 0 Vicryl and 2-0 Vicryl in layers in interrupted fashion and the skin was approximated using skin clips. Sterile dressings were then applied. This is the end of operative summary on Domingo Celestin. This is Dr. Vallecillo dictating.
[2021-04-24 17:00] LABS: Bedside Glucose 168 mg/dL (70-110)
[2021-04-24] MEDS: Gabapentin 100 MG Capsule PO (19:10)
[2021-04-24] MEDS: Ensure Surgery 237 ML LIQUID PO (19:11)
--- NOTE | 2021-04-24 19:14 | PCM.PN.HOSP ---
Subjective Subjective Patient is a 55-year-old male with a significant history of hypertension; diabetes and anterior lumbar interbody fusion L5-S1 postop day 1; application of spine plates L5-S1 postop day 1; application of spanning plate plate L4-5 postop day 1; anterior interbody fusions L4-L5 postop day 1; insertion of cage L5-S1 postop day 1; and insertion of cage L4-5 postop day 1. Internal medicine service has been consulted for medical management. Patient denies any symptoms at this time. Of note patient blood pressure is low. Objective Data Objective Data Vital Signs: Vital Signs Temp Pulse Resp BP Pulse Ox 97.6 F L 96 16 88/57 L 92 04/24/21 18:14 04/24/21 18:14 04/24/21 18:14 04/24/21 18:14 04/24/21 18:14 Oxygen Flow Rate (L/min) 2 Oxygen Delivery Method Nasal Cannula Weight: 97 kg Body Mass Index (BMI) 32.5 Intake & Output: Intake and Output for Last 24 Hours 04/22/21 04/23/21 04/24/21 23:59 23:59 23:59 Intake Total 5215.5 / 5215.5 Output Total 90 / 90 Balance 5125.5 / 5125.5 Lab / Micro Data Result Diagrams: 04/18/21 13:02 04/18/21 13:02 Labs: Laboratory Results - last 24 hr 04/24/21 06:23: POC Glucose 213 H 04/24/21 14:42: POC Glucose 171 H 04/24/21 16:52: POC Glucose 168 H Micro: Microbiology 04/18/21 13:02 Swab (Method) Nasal Screen MRSA/MSSA - Final Radiography Diagnostic Testing: Radiology Impression Spine X-Ray 04/24/21 07:30 IMPRESSION: A localization instrument is seen along the anterior aspect of the L5-S1 disc space level. A second instrument is seen anterior to the L3-L4 disc space level. Electronically Signed: Ramakrishna Orourke MD at 10:06 EST , Service support , Spine X-Ray 04/24/21 10:50 IMPRESSION: Status post anterior fusion with prosthetic disc placement at the L5-S1 level. Electronically Signed: Ramakrishna Oruorke MD at 12:00 EST , Service support , Spine X-Ray 04/24/21 11:05 IMPRESSION: The localization instrument is seen along the anterior aspect of the L4-L5 disc space. Electronically Signed: Ramakrishna Orourke MD at 12:00 EST , Service support , Spine X-Ray 04/24/21 12:00 IMPRESSION: The patient is status post anterior fusion and disc replacement at the L4-L5 and L5-S1 levels. Electronically Signed: Ramakrishna Orourke MD at 12:28 EST , Service support , Spine X-Ray 04/24/21 12:07 IMPRESSION: Intraoperative image performed during a fusion of the lower lumbar spine. Please refer to the operative report for further details. Electronically Signed: Juve Escobedo DO at 17:05 EST Tel [phone], Service support , Physical Exam Narrative Physical exam: General: Well-nourished, well-developed. Head: Normocephalic, atraumatic, no tenderness Eyes: PERRLA, EOMI ENT, no trauma, moist mucous membranes, no rhinorrhea Neck: Nontender, full range of motion, no spinal tenderness, deformities, step-off CVS: Regular rate and rhythm. S1-S2 present. No murmur, gallop or rub. Respiratory : clear to auscultation bilaterally, chest wall nontender, no wheezing Abdomen: Soft, nontender, nondistended, normal bowel sounds, no masses : Deferred Back: Nontender, no CVA tenderness, no midline spinal tenderness, deformities, step-offs Extremities: Dressing on lower back is dry and intact. Skin: Normal color, no trauma, abrasions Neuro: Alert, oriented, cranial nerves II through XII grossly intact. Psychiatry: Normal mood. Normal affect. Not depressed. Not anxious. Assessment & Plan Assessment/Plan (1) Spinal stenosis at L4-L5 level: (2) Benign hypertension: (3) Diabetes: QUALIFIERS: Diabetes mellitus type: type 2 Diabetes mellitus assistant terminal manager insulin use: with jail use Diabetes mellitus complication status: with hyperglycemia Qualified Code(s): E11.65 - Type 2 diabetes mellitus with hyperglycemia; Z79.4 - manager intermediate (current) use of insulin PLAN: Spinal stenosis Postop day 1. Management by spinal surgeon. Hypotension Hold metoprolol and lisinopril. Trend blood pressure. Trend CBC. Check BNP Diabetes mellitus Review of records show that A1c on 04/18/2021 was 6.4; and on 11/13/2020 was 12. On home metformin; glimepiride and NPH insulin which has been continued by primary. Will check Accu-Cheks. DVT prophylaxis SCDs Charges/Coding Visit Charges Inpatient E&M: 40007 Subs Hosp L2
[2021-04-24 20:11] LABS: Bedside Glucose 215 mg/dL (70-110)
[2021-04-24] MEDS: 0.9% Normal Saline 1,000 ML 999 ML IV (20:39)
[2021-04-24 20:49] LABS: Absolute Lymphocyte Count 1.28 X10^3/uL (0.83-4.51); Absolute Neutrophil Count 14.6 X10^3/uL (2.0-7.7); Basophil# 0.04 X10^3/uL; Basophil% 0.2 % (0-1); Eosinophil# 0.01 X10^3/uL; Eosinophils% 0.1 % (0-5); Hematocrit 32.4 % (40-54); Lymphocyte # 1.28 X10^3/ul (0.83-4.51); Lymphocyte % 6.9 % (19-41); Mean Corp Hgb Conc 30.9 g/dL (32-36); Mean Corpuscular Hgb 25.8 pg (27.0-32.0); Mean Corpuscular Volume 83.5 fL (80-94); Mean Platelet Vol. 9.4 fl (6.2-12.0); Monocyte# 2.32 X10^3/uL; Monocyte% 12.6 % (0-10); NRBC Flagged by Analyzer 0 % (0-5); Neutrophil # 14.62 X10^3/uL (2.7-7.7); Neutrophil % 79.1 % (47-70); POSITIVE DIFFERENTIAL YES; Platelet Count 327 K/mm3 (150-450); RBC Distribution Width CV 13.7 % (11.6-14.6); RBC Distribution Width SD 41.8 fl (35.1-43.9); Red Blood Count 3.88 M/mm3 (4.6-6.2); White Blood Count 18.5 K/mm3 (4.4-11.0)
[2021-04-24 21:06] LABS: Differential Indicated SCAN CRITERIA MET
[2021-04-24 21:25] LABS: Anisocytosis 1+; Microcytosis 1+; Platelet Estimate ADEQUATE (ADEQ); Red Cell Morphology N CHROM NORMAL (NORM C&C)
[2021-04-24 21:26] LABS: Ovalocyte RARE
[2021-04-24] MEDS: Cefazolin 1 GM/50 ML BAG IV (21:53)
[2021-04-24] MEDS: Pravastatin 40 MG Tablet PO (21:53)
[2021-04-24] MEDS: oxyCODONE 5 MG Tablet PO (22:03)
[2021-04-25] VITALS (17 sets, daily range): BP systolic 89–127; BP diastolic 55–68; PULSE 103–125; RESP 16–96; TEMP 36.7–38.8; O2SAT 93–98
[2021-04-25] MEDS: Morphine 4 MG/ML Syringe IV (01:17)
[2021-04-25] MEDS: Acetaminophen 500 MG Tablet 1000 MG PO ×3 (05:05→22:16)
[2021-04-25] MEDS: Gabapentin 100 MG Capsule PO ×3 (05:05→22:16)
[2021-04-25] MEDS: Cefazolin 1 GM/50 ML BAG IV (05:06)
[2021-04-25] MEDS: oxyCODONE 5 MG Tablet PO ×2 (06:53→18:05)
[2021-04-25 06:55] LABS: Absolute Lymphocyte Count 1.99 X10^3/uL (0.83-4.51); Absolute Neutrophil Count 9.9 X10^3/uL (2.0-7.7); Basophil# 0.04 X10^3/uL; Basophil% 0.3 % (0-1); Eosinophil# 0.04 X10^3/uL; Eosinophils% 0.3 % (0-5); Hematocrit 29.9 % (40-54); Hemoglobin 9.7 g/dL (13.0-16.5); Lymphocyte # 1.99 X10^3/ul (0.83-4.51); Lymphocyte % 13.9 % (19-41); Mean Corp Hgb Conc 32.4 g/dL (32-36); Mean Corpuscular Hgb 26.5 pg (27.0-32.0); Mean Corpuscular Volume 81.7 fL (80-94); Mean Platelet Vol. 9.2 fl (6.2-12.0); Monocyte# 2.23 X10^3/uL; Monocyte% 15.6 % (0-10); NRBC Flagged by Analyzer 0 % (0-5); Neutrophil % 69.3 % (47-70); POSITIVE DIFFERENTIAL YES; Platelet Count 290 K/mm3 (150-450); RBC Distribution Width CV 14.1 % (11.6-14.6); RBC Distribution Width SD 41.9 fl (35.1-43.9); Red Blood Count 3.66 M/mm3 (4.6-6.2); White Blood Count 14.3 K/mm3 (4.4-11.0)
[2021-04-25 06:55] LABS: Bedside Glucose 204 mg/dL (70-110)
[2021-04-25 06:58] LABS: Differential Indicated SCAN CRITERIA MET
[2021-04-25 07:10] LABS: Differential Comment SCANNED
[2021-04-25 07:17] LABS: Anion Gap 6 (5-15); BUN 22 mg/dL (7-18); BUN/Creat Ratio 21.8 RATIO (10-20); Chloride 104 mmol/L (98-107); Creatinine, Serum 1.01 mg/dL (0.70-1.30); EST Glomerular Filtration Rate 81 mL/min (>60); Est Glom Filt Rate - Afr Amer 98 mL/min (>60); Estimated Creatinine Clearance 78.07 ml/min; Glucose 196 mg/dL (74-106); Potassium 4.5 mmol/L (3.5-5.1); Sodium Level 136 mmol/L (136-145)
--- NOTE | 2021-04-25 07:48 | PCS.PANDOC ---
PANDEMIC DOCUMENTATION INITIATED: Date: 11/20/2020 Time: 1900 emergency staffing/pandemic documentation
[2021-04-25] MEDS: metFORMIN HCl 1,000 MG Tablet 1000 MG PO (07:53)
[2021-04-25] MEDS: Insulin Lispro 100 UNIT/ML INSULN.PEN SC ×3 (07:54→22:16)
[2021-04-25] MEDS: Glimepiride 4 MG Tablet PO (07:54)
[2021-04-25] MEDS: Insulin NPH Human 100 UNITS/ML PEN 35 UNITS SC (07:54)
--- NOTE | 2021-04-25 09:24 | CASEMGMT ---
JAMISON CERRATO Assessment: Face to Face with pt for initial transition planning/care coordination assessment. RN SAQIB introduced self and role at [facility], pt voices understanding and consents to assessment. Pt is A/O x4 and answers all questions appropriately at this time. Pt sitting up in chair in no distress. Care providers, pharmacy, and demographics verified/updated. Admitting Dx: 360lumbar fusion L5-S1, L4-L5 PCP: Lisa Specialists: Avel, spine surgeon Preferred Pharmacy: [facility] while inpatient Insurance: [employer] Prescription Benefit: yes LW/HPOA: Pt states he has a LW/DPOA and his DPOA is his , Liz Celestin. He is aware this is not on file at [facility] and he may bring in to be scanned into the chart. LNOK: Liz Celestin, Living Arrangements: Pt lives with and 2 adult sons in a two story house with 2 steps to enter without a rail. Pt reports he was I in ADL's and denies concerns at home. Transportation: Pt drives self and denies concerns with transportation. DME/HHC/SNF: Pt has a FWW and a cane he is using from family members. Pt also has a BGM with sufficient supplies. Pt checks his blood sugar twice a day. He also has supplies and adequate supply of insulin. Pt denies hx of HHC or SNF stays. Pt states no concerns with going home at time of dc. Pt states no further concerns/needs. CM to follow. Advised pt to ask CM if any further question/concerns/needs arise, voices understanding. Pt Goal: Home Plan: Home
[2021-04-25 12:21] LABS: Bedside Glucose 176 mg/dL (70-110)
[2021-04-25] MEDS: 0.9% Saline Lock 10 ML Syringe IV (12:35)
--- NOTE | 2021-04-25 12:39 | PCM.PN.HOSP ---
Subjective Subjective Follow-up for postop medical management/Hypotension: Patient was seen and examined. His blood pressures were low with this diastolic in the 80s. He received fluid boluses with improvement. He denied any chest pain or palpitation. He did have dizziness with exertion. Objective Data Objective Data Vital Signs: Vital Signs Temp Pulse Resp BP Pulse Ox 98.0 F 112 H 18 89/61 L 93 04/25/21 12:14 04/25/21 12:14 04/25/21 12:14 04/25/21 12:14 04/25/21 12:14 Oxygen Flow Rate (L/min) 2 Oxygen Delivery Method Room Air Weight: 97 kg Body Mass Index (BMI) 32.5 Intake & Output: Intake and Output for Last 24 Hours 04/23/21 04/24/21 04/25/21 23:59 23:59 23:59 Intake Total 5328.0 / 6328.0 2850 / 2850 Output Total 90 / 490 900 / 900 Balance 5238.0 / 5838.0 1950 / 1950 Lab / Micro Data Result Diagrams: 04/25/21 06:37 04/25/21 06:37 Labs: Laboratory Results - last 24 hr 04/24/21 14:42: POC Glucose 171 H 04/24/21 16:52: POC Glucose 168 H 04/24/21 19:55: POC Glucose 215 H 04/24/21 20:23: WBC 18.5 H, RBC 3.88 L, Hgb 10.0 L, Hct 32.4 L, MCV 83.5, MCH 25.8 L, MCHC 30.9 L, RDW Std Deviation 41.8, RDW Coeff of [place]yl[place] 13.7, Plt Count 327, MPV 9.4, Immature Gran % (Auto) 1.100 H, Neut % (Auto) 79.1 H, Lymph % (Auto) 6.9 L, [place] % (Auto) 12.6 H, Eos % (Auto) 0.1, Baso % (Auto) 0.2, Absolute Neuts (auto) 14.6 H, Absolute Lymphs (auto) 1.28, Nucleated RBC % 0, Differential Comment SEE COMMENT, Diff Path Review May foll, Platelet Estimate ADEQUATE, RBC Morphology N CHROM, Anisocytosis 1+, Microcytosis 1+, Ovalocytes RARE 04/25/21 06:37: WBC 14.3 H, RBC 3.66 L, Hgb 9.7 L, Hct 29.9 L, MCV 81.7, MCH 26.5 L, MCHC 32.4, RDW Std Deviation 41.9, RDW Coeff of [place] 14.1, Plt Count 290, MPV 9.2, Immature Gran % (Auto) 0.600, Neut % (Auto) 69.3, Lymph % (Auto) 13.9 L, [place] % (Auto) 15.6 H, Eos % (Auto) 0.3, Baso % (Auto) 0.3, Absolute Neuts (auto) 9.9 H, Absolute Lymphs (auto) 1.99, Nucleated RBC % 0, Differential Comment SCANNED, Diff Path Review August04/25/21 06:37: Sodium 136, Potassium 4.5, Chloride 104, Carbon Dioxide 26.0, Anion Gap 6, BUN 22 H, Creatinine 1.01, Estim Creat Clear Calc 78.07, Est GFR (MDRD) Af Amer 98, Est GFR (MDRD) Non-Af 81, BUN/Creatinine Ratio 21.8 H, Glucose 196 H, Calcium 8.0 L 04/25/21 06:48: POC Glucose 204 H 04/25/21 12:09: POC Glucose 176 H Micro: Microbiology 04/18/21 13:02 Swab (Method) Nasal Screen MRSA/MSSA - Final Radiography Diagnostic Testing: Radiology Impression Spine X-Ray 04/24/21 12:07 IMPRESSION: Intraoperative image performed during a fusion of the lower lumbar spine. Please refer to the operative report for further details. Electronically Signed: Juve Escobedo DO at 17:05 EST Tel [phone], Service support , Physical Exam Narrative Physical exam: General: Alert, Oriented x3, Cooperative, No apparent distress, Well developed HEENT: Atraumatic Oral: Moist Mucosa Neck: Supple Lungs: Clear to auscultation Cardiovascular: HS I+II, regular, no murmurs Abdomen: Bowel Sounds Present, Soft, Non Tender, dressing over his back is dry, tenderness over the low back. 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 Postop day #1 status post lumbar surgery, patient has pain is fairly controlled Start him on scheduled Tylenol, as needed oxycodone Further surgical recommendation per primary neurosurgery team 2. Hypotension, postop, home metoprolol and lisinopril on hold Blood pressure improved with fluid bolus Continue on gentle IV fluids 3. Type II DM, blood sugars fairly controlled, Hold metformin on account of hypotension Continue on NPH insulin, glimepiride, insulin sliding scale blood glucose checks 4. DVT prophylaxis with SCDs Charges/Coding Visit Charges Inpatient E&M: 10395 Subs Hosp L2
[2021-04-25] MEDS: 0.9% Normal Saline 1,000 ML 999 ML IV (13:06)
[2021-04-25 13:14] LABS: Pathologist Review Reviewed
[2021-04-25 13:17] LABS: Pathologist Review Reviewed
--- NOTE | 2021-04-25 13:25 | PCM.PN.ORT ---
Subjective Subjective Domingo is doing quite well 1 day postop from his 360 degree fusion at L4-5 and L5-S1. His dressings are both dry. He is sitting up in a chair and states that his back pain is not too bad. He is already been up and ambulating with therapy. Basically he has no complaints. Neurologically he is intact in both lower extremities. Progress is satisfactory. Objective Data Objective Data Vital Signs: Vital Signs Temp Pulse Resp BP Pulse Ox 98.0 F 112 H 18 89/61 L 93 04/25/21 12:14 04/25/21 12:14 04/25/21 12:14 04/25/21 12:14 04/25/21 12:14 Oxygen Flow Rate (L/min) 2 Oxygen Delivery Method Room Air Weight: 213 lb 13.574 oz Body Mass Index (BMI) 32.5 Intake & Output: Intake and Output for Last 24 Hours 04/23/21 04/24/21 04/25/21 23:59 23:59 23:59 Intake Total 5328.0 / 6328.0 2850 / 2850 Output Total 90 / 490 900 / 900 Balance 5238.0 / 5838.0 1950 / 1950 Lab / Micro Data Result Diagrams: 04/25/21 06:37 04/25/21 06:37 Labs: Laboratory Results - last 24 hr 04/24/21 14:42: POC Glucose 171 H 04/24/21 16:52: POC Glucose 168 H 04/24/21 19:55: POC Glucose 215 H 04/24/21 20:23: WBC 18.5 H, RBC 3.88 L, Hgb 10.0 L, Hct 32.4 L, MCV 83.5, MCH 25.8 L, MCHC 30.9 L, RDW Std Deviation 41.8, RDW Coeff of Ayl[place] 13.7, Plt Count 327, MPV 9.4, Immature Gran % (Auto) 1.100 H, Neut % (Auto) 79.1 H, Lymph % (Auto) 6.9 L, [place] % (Auto) 12.6 H, Eos % (Auto) 0.1, Baso % (Auto) 0.2, Absolute Neuts (auto) 14.6 H, Absolute Lymphs (auto) 1.28, Nucleated RBC % 0, Differential Comment SEE COMMENT, Diff Path Review Reviewed, Platelet Estimate ADEQUATE, RBC Morphology N CHROM, Anisocytosis 1+, Microcytosis 1+, Ovalocytes RARE 04/25/21 06:37: WBC 14.3 H, RBC 3.66 L, Hgb 9.7 L, Hct 29.9 L, MCV 81.7, MCH 26.5 L, MCHC 32.4, RDW Std Deviation 41.9, RDW Coeff of Ayl[place] 14.1, Plt Count 290, MPV 9.2, Immature Gran % (Auto) 0.600, Neut % (Auto) 69.3, Lymph % (Auto) 13.9 L, [place] % (Auto) 15.6 H, Eos % (Auto) 0.3, Baso % (Auto) 0.3, Absolute Neuts (auto) 9.9 H, Absolute Lymphs (auto) 1.99, Nucleated RBC % 0, Differential Comment SCANNED, Diff Path Review Reviewed 04/25/21 06:37: Sodium 136, Potassium 4.5, Chloride 104, Carbon Dioxide 26.0, Anion Gap 6, BUN 22 H, Creatinine 1.01, Estim Creat Clear Calc 78.07, Est GFR (MDRD) Af Amer 98, Est GFR (MDRD) Non-Af 81, BUN/Creatinine Ratio 21.8 H, Glucose 196 H, Calcium 8.0 L 04/25/21 06:48: POC Glucose 204 H 04/25/21 12:09: POC Glucose 176 H Micro: Microbiology 04/18/21 13:02 Swab (Method) Nasal Screen MRSA/MSSA - Final Radiography Diagnostic Testing: Radiology Impression Spine X-Ray 04/24/21 12:07 IMPRESSION: Intraoperative image performed during a fusion of the lower lumbar spine. Please refer to the operative report for further details. Electronically Signed: Juve Escobedo DO at 17:05 EST Tel [phone], Service support ,
--- NOTE | 2021-04-25 15:19 | CHAPLAIN ---
Type of Pastoral Visit _x__ Initial Visit ___ Follow-up Visit ___ On-call Visit ___ General Patient Visit ___ Spiritual Assessment ___ Family Conference ___ Bereavement ___ Rapid Response ___ Code Blue ___ Other (describe below) Pastoral Care Referral From _x__ Patient ___ Family ___ Nurse ___ Physician ___ Hand Bookbinder ___ Ui Software Developer ___ Other (describe below) Sacrament/Intervention _x__ Active listening ___ Anointing ___ Yarsani ___ Bereavement ___ Communion ___ Sharon exploration ___ ___ Life review _x__ Prayer ___ Reconciliation ___ Sacrament of Sick _x__ Supportive presence ___ Wedding ___ Other (describe below) Pastoral Comments
[2021-04-25 16:45] LABS: Bedside Glucose 109 mg/dL (70-110)
[2021-04-25] MEDS: Pravastatin 40 MG Tablet PO (22:16)
[2021-04-25 22:30] LABS: Bedside Glucose 152 mg/dL (70-110)
[2021-04-25 23:29] LABS: Mucous, Urine 0 SEEN /hpf (<or=2+); Squamous Epithelial Cells - UA 0 SEEN /hpf (0-5)
[2021-04-25 23:36] LABS: Color, Urine Yellow (Yellow); Glucose, Dipstick Normal (Normal); Ketone-Dipstick Negative (Negative); Leukocyte Esterase-Dipstick Negative /ul (Negative); Nitrite-Dipstick Negative (Negative); Occult Blood-Urine 10 /ul (Negative); Protein-Dipstick Negative (Negative); Urine Bilirubin Dipstick Negative (Negative); Urine Clarity Clear (Clear); Urine Urobilinogen Normal (Normal)
[2021-04-25 23:47] LABS: Bacteria RARE /hpf (None Seen); Red Blood Cells-Urine 0-5 SEEN /hpf (0-5); White Blood Cells 0-5 SEEN /hpf (0-5)
[2021-04-26] VITALS (16 sets, daily range): BP systolic 107–151; BP diastolic 53–86; PULSE 100–127; RESP 18; TEMP 36.6–37.7; O2SAT 94–99
[2021-04-26] MEDS: Ibuprofen 400 MG Tablet PO (03:55)
[2021-04-26] MEDS: Acetaminophen 500 MG Tablet 1000 MG PO ×3 (06:02→21:10)
[2021-04-26] MEDS: Gabapentin 100 MG Capsule PO ×3 (06:02→21:10)
[2021-04-26 06:40] LABS: Absolute Lymphocyte Count 1.56 X10^3/uL (0.83-4.51); Basophil# 0.04 X10^3/uL; Basophil% 0.3 % (0-1); Eosinophil# 0.06 X10^3/uL; Eosinophils% 0.4 % (0-5); Hematocrit 25.3 % (40-54); Hemoglobin 7.9 g/dL (13.0-16.5); Lymphocyte # 1.56 X10^3/ul (0.83-4.51); Lymphocyte % 11.4 % (19-41); Mean Corp Hgb Conc 31.2 g/dL (32-36); Mean Corpuscular Hgb 25.9 pg (27.0-32.0); Mean Platelet Vol. 9.4 fl (6.2-12.0); Monocyte% 13.9 % (0-10); NRBC Flagged by Analyzer 0 % (0-5); Neutrophil # 10.02 X10^3/uL (2.7-7.7); Neutrophil % 73.5 % (47-70); POSITIVE DIFFERENTIAL YES; Platelet Count 240 K/mm3 (150-450); RBC Distribution Width CV 14.2 % (11.6-14.6); RBC Distribution Width SD 42.7 fl (35.1-43.9); Red Blood Count 3.05 M/mm3 (4.6-6.2); White Blood Count 13.7 K/mm3 (4.4-11.0)
[2021-04-26 06:45] LABS: Differential Indicated SCAN CRITERIA MET
[2021-04-26 07:04] LABS: ALB/GLOB Ratio 0.8 RATIO (0.9-2.4); AST(SGOT) 25 U/L (15-37); Alanine Aminotransfer ALT/SGPT 36 U/L (16-61); Albumin, Serum 2.4 g/dL (3.2-5.0); Alkaline Phosphatase 82 U/L (45-117); Anion Gap 5 (5-15); BUN 13 mg/dL (7-18); BUN/Creat Ratio 17.5 RATIO (10-20); Calcium,Total 8.2 mg/dL (8.5-10.1); Chloride 108 mmol/L (98-107); Creatinine, Serum 0.74 mg/dL (0.70-1.30); EST Glomerular Filtration Rate 115 mL/min (>60); Est Glom Filt Rate - Afr Amer 139 mL/min (>60); Estimated Creatinine Clearance 106.55 ml/min; Globulin 3.1 g/dL (2.2-4.2); Glucose 201 mg/dL (74-106); Potassium 3.9 mmol/L (3.5-5.1); Protein, Total 5.5 g/dL (6.4-8.2); Sodium Level 138 mmol/L (136-145)
[2021-04-26 07:14] LABS: Differential Comment SCANNED
[2021-04-26 07:15] LABS: Anisocytosis RARE; Microcytosis RARE; Ovalocyte RARE
[2021-04-26] MEDS: oxyCODONE 5 MG Tablet PO ×2 (08:18→14:38)
[2021-04-26] MEDS: Pantoprazole Sodium 20 MG Tablet PO (08:18)
[2021-04-26] MEDS: Glimepiride 4 MG Tablet PO (08:18)
[2021-04-26] MEDS: Insulin NPH Human 100 UNITS/ML PEN 35 UNITS SC (08:19)
[2021-04-26] MEDS: Insulin Lispro 100 UNIT/ML INSULN.PEN SC ×2 (08:19→11:29)
[2021-04-26 11:36] LABS: Bedside Glucose 152 mg/dL (70-110)
--- NOTE | 2021-04-26 12:52 | PN.HOSP_ITS ---
Subjective Subjective Follow-up for postop medical management/Hypotension: Patient was seen and examined. He denied any Dizziness or palpitations. He has been slightly tachycardic. Objective Data Objective Data Vital Signs: Vital Signs Temp Pulse Resp BP Pulse Ox 98.8 F 103 H 18 125/69 H 96 04/26/21 11:28 04/26/21 11:28 04/26/21 11:28 04/26/21 11:28 04/26/21 11:28 Oxygen Flow Rate (L/min) 2 Oxygen Delivery Method Room Air Weight: 97 kg Body Mass Index (BMI) 32.5 Intake & Output: Intake and Output for Last 24 Hours 04/24/21 04/25/21 04/26/21 23:59 23:59 23:59 Intake Total 5328.0 / 6328.0 4700 / 4700 1908.75 / 1908.75 Output Total 90 / 490 900 / 900 1500 / 1500 Balance 5238.0 / 5838.0 3800 / 3800 408.75 / 408.75 Lab / Micro Data Result Diagrams: 04/26/21 13:25 04/26/21 05:54 Labs: Laboratory Results - last 24 hr 04/24/21 20:23: Diff Path Review Reviewed 04/25/21 06:37: Diff Path Review Reviewed 04/25/21 16:42: POC Glucose 109 04/25/21 22:09: POC Glucose 152 H 04/25/21 23:20: Urine Color Yellow, Urine Clarity Clear, Urine pH 5.0, Ur Specific [place] 1.010, Urine Protein Negative, Urine Glucose (UA) Normal, Urine Ketones Negative, Urine Occult Blood 10 H, Urine Nitrite Negative, Urine Bilirubin Negative, Urine Urobilinogen Normal, Ur Leukocyte Esterase Negative, Urine RBC 0-5 SEEN, Urine WBC 0-5 SEEN, Ur Squamous Epith Cells 0 SEEN, Urine Bacteria RARE, Urine Mucus 0 SEEN 04/26/21 05:54: WBC 13.7 H, RBC 3.05 L, Hgb 7.9 L, Hct 25.3 L, MCV 83.0, MCH 25.9 L, MCHC 31.2 L, RDW Std Deviation 42.7, RDW Coeff of Aylin 14.2, Plt Count 240, MPV 9.4, Immature Gran % (Auto) 0.500, Neut % (Auto) 73.5 H, Lymph % (Auto) 11.4 L, [place] % (Auto) 13.9 H, Eos % (Auto) 0.4, Baso % (Auto) 0.3, Absolute Neuts (auto) 10.0 H, Absolute Lymphs (auto) 1.56, Nucleated RBC % 0, Differential Comment SCANNED, Diff Path Review May foll, Anisocytosis RARE, Microcytosis RARE, Ovalocytes RARE 04/26/21 05:54: Sodium 138, Potassium 3.9, Chloride 108 H, Carbon Dioxide 25.0, Anion Gap 5, BUN 13, Creatinine 0.74, Estim Creat Clear Calc 106.55, Est GFR (MDRD) Af Amer 139, Est GFR (MDRD) Non-Af 115, BUN/Creatinine Ratio 17.5, Glucose 201 H, Calcium 8.2 L, Total Bilirubin 0.70, AST 25, ALT 36, Alkaline Phosphatase 82, Total Protein 5.5 L, Albumin 2.4 L, Globulin 3.1, Albumin /Globulin Ratio 0.8 L 04/26/21 11:25: POC Glucose 152 H Micro: Microbiology 04/25/21 23:00 Nasal Secretion SARS-CoV-2 Antigen (Rapid) - Final 04/18/21 13:02 Swab (Method) Nasal Screen MRSA/MSSA - Final Physical Exam Narrative Physical exam: General: Alert, Oriented x3, Cooperative, No apparent distress, Well developed HEENT: Atraumatic Oral: Moist Mucosa Neck: Supple Lungs: Clear to auscultation Cardiovascular: HS I+II, regular, no murmurs Abdomen: Bowel Sounds Present, Soft, Non Tender, dressing over his back is dry, tenderness over the low back. 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 Postop day #2 status post lumbar surgery, patient has pain is fairly controlled Start him on scheduled Tylenol, as needed oxycodone Further surgical recommendation per primary neurosurgery team 2. Hypotension, postop, resolved with IV fluids Home metoprolol resumed at a lower dose Continue to hold lisinopril Dc IVF 3. Type II DM, blood sugars fairly controlled, Continue to hold metformin Continue on NPH insulin, glimepiride, insulin sliding scale blood glucose checks 4. DVT prophylaxis with SCDs Charges/Coding Visit Charges Inpatient E&M: 87577 Subs Hosp L2
--- NOTE | 2021-04-26 12:57 | PCM.PN.ORT ---
Subjective Subjective Domingo is post-op day 2 from a 360 degree fusion at L4-5 and L5-S1. Upon entering the room the patient is seated and resting comfortably. He states that today he is having some back pain, but that his pains are well controlled with pain medication. He is ambulating with PT and having no concerns. In fact, he states that walking makes him feel better. States that he has had some flatulence, but denies having a bowel movement. He is still on a clear liquid diet. He denies shortness of breath, chest pain, nausea, vomiting, fever or chills. He has no complaints. He is neurologically intact in both lower extremities. Abdomen is soft and non-tender to light palpation. His dressings are both dry, but the back dressing was starting to curl up at the distal end. Upon inspection of the back incision it is dry and without signs of infection. This was replaced with a new ABD and tape. Overall, he is doing well. Objective Data Objective Data Vital Signs: Vital Signs Temp Pulse Resp BP Pulse Ox 98.8 F 103 H 18 125/69 H 96 04/26/21 11:28 04/26/21 11:28 04/26/21 11:28 04/26/21 11:28 04/26/21 11:28 Oxygen Flow Rate (L/min) 2 Oxygen Delivery Method Room Air Weight: 213 lb 13.574 oz Body Mass Index (BMI) 32.5 Intake & Output: Intake and Output for Last 24 Hours 04/24/21 04/25/21 04/26/21 23:59 23:59 23:59 Intake Total 5328.0 / 6328.0 4700 / 4700 1908.75 / 1908.75 Output Total 90 / 490 900 / 900 1500 / 1500 Balance 5238.0 / 5838.0 3800 / 3800 408.75 / 408.75 Lab / Micro Data Result Diagrams: 04/27/21 08:00 04/26/21 05:54 Labs: Laboratory Results - last 24 hr 04/24/21 20:23: Diff Path Review Reviewed 04/25/21 06:37: Diff Path Review Reviewed 04/25/21 16:42: POC Glucose 109 04/25/21 22:09: POC Glucose 152 H 04/25/21 23:20: Urine Color Yellow, Urine Clarity Clear, Urine pH 5.0, Ur Specific [place] 1.010, Urine Protein Negative, Urine Glucose (UA) Normal, Urine Ketones Negative, Urine Occult Blood 10 H, Urine Nitrite Negative, Urine Bilirubin Negative, Urine Urobilinogen Normal, Ur Leukocyte Esterase Negative, Urine RBC 0-5 SEEN, Urine WBC 0-5 SEEN, Ur Squamous Epith Cells 0 SEEN, Urine Bacteria RARE, Urine Mucus 0 SEEN 04/26/21 05:54: WBC 13.7 H, RBC 3.05 L, Hgb 7.9 L, Hct 25.3 L, MCV 83.0, MCH 25.9 L, MCHC 31.2 L, RDW Std Deviation 42.7, RDW Coeff of Aylin 14.2, Plt Count 240, MPV 9.4, Immature Gran % (Auto) 0.500, Neut % (Auto) 73.5 H, Lymph % (Auto) 11.4 L, [place] % (Auto) 13.9 H, Eos % (Auto) 0.4, Baso % (Auto) 0.3, Absolute Neuts (auto) 10.0 H, Absolute Lymphs (auto) 1.56, Nucleated RBC % 0, Differential Comment SCANNED, Diff Path Review May foll, Anisocytosis RARE, Microcytosis RARE, Ovalocytes RARE 04/26/21 05:54: Sodium 138, Potassium 3.9, Chloride 108 H, Carbon Dioxide 25.0, Anion Gap 5, BUN 13, Creatinine 0.74, Estim Creat Clear Calc 106.55, Est GFR (MDRD) Af Amer 139, Est GFR (MDRD) Non-Af 115, BUN/Creatinine Ratio 17.5, Glucose 201 H, Calcium 8.2 L, Total Bilirubin 0.70, AST 25, ALT 36, Alkaline Phosphatase 82, Total Protein 5.5 L, Albumin 2.4 L, Globulin 3.1, Albumin/Globulin Ratio 0.8 L 04/26/21 11:25: POC Glucose 152 H Micro: Microbiology 04/25/21 23:00 Nasal Secretion SARS-CoV-2 Antigen (Rapid) - Final 04/18/21 13:02 Swab (Method) Nasal Screen MRSA/MSSA - Final Physical Exam Const alert and oriented x3 General Appearance: cooperative and comfortable Back/Spine Back/Spine Narrative: Abdominal and back dressings are dry. However, back dressing was lifting slightly at the distal portion. This was replaced with an ABD and taped on. No signs of infection. Neurologically intact. Assessment & Plan Assessment/Plan (1) Orthopedic aftercare:
[2021-04-26 13:41] LABS: Hematocrit 26.3 % (40-54); Hemoglobin 8.1 g/dL (13.0-16.5)
[2021-04-26] MEDS: Metoprolol Tartrate 25 MG Tablet 12.5 MG PO ×2 (14:38→21:10)
[2021-04-26] MEDS: 0.9% Saline Lock 10 ML Syringe IV (14:39)
[2021-04-26 16:55] LABS: Bedside Glucose 92 mg/dL (70-110)
[2021-04-26] MEDS: Ferrous Sulfate 325 MG Tablet PO (17:02)
[2021-04-26] MEDS: Ascorbic Acid 500 MG Tablet PO (17:03)
[2021-04-26] MEDS: Pravastatin 40 MG Tablet PO (21:09)
[2021-04-27] VITALS (12 sets, daily range): BP systolic 91–149; BP diastolic 64–80; PULSE 104–112; RESP 16–18; TEMP 36.8–38.1; O2SAT 95–98
[2021-04-27] MEDS: Gabapentin 100 MG Capsule PO ×3 (05:49→20:12)
[2021-04-27] MEDS: oxyCODONE 5 MG Tablet PO ×2 (05:49→18:27)
[2021-04-27] MEDS: Acetaminophen 500 MG Tablet 1000 MG PO ×3 (05:49→20:12)
[2021-04-27 05:50] LABS: Bedside Glucose 103 mg/dL (70-110)
[2021-04-27 08:15] LABS: Bedside Glucose 182 mg/dL (70-110)
[2021-04-27 08:44] LABS: Absolute Lymphocyte Count 2.13 X10^3/uL (0.83-4.51); Absolute Neutrophil Count 10.3 X10^3/uL (2.0-7.7); Basophil# 0.04 X10^3/uL; Basophil% 0.3 % (0-1); Eosinophil# 0.24 X10^3/uL; Eosinophils% 1.7 % (0-5); Hemoglobin 8.3 g/dL (13.0-16.5); Lymphocyte # 2.13 X10^3/ul (0.83-4.51); Lymphocyte % 15.3 % (19-41); Mean Corp Hgb Conc 31.9 g/dL (32-36); Mean Corpuscular Hgb 26.3 pg (27.0-32.0); Mean Corpuscular Volume 82.3 fL (80-94); Mean Platelet Vol. 9.5 fl (6.2-12.0); Monocyte# 1.15 X10^3/uL; Monocyte% 8.2 % (0-10); NRBC Flagged by Analyzer 0 % (0-5); Neutrophil # 10.27 X10^3/uL (2.7-7.7); Neutrophil % 73.7 % (47-70); Platelet Count 251 K/mm3 (150-450); RBC Distribution Width CV 14.2 % (11.6-14.6); RBC Distribution Width SD 43.1 fl (35.1-43.9); Red Blood Count 3.16 M/mm3 (4.6-6.2); White Blood Count 13.9 K/mm3 (4.4-11.0)
[2021-04-27] MEDS: Insulin Lispro 100 UNIT/ML INSULN.PEN SC ×3 (08:48→16:28)
[2021-04-27] MEDS: Insulin NPH Human 100 UNITS/ML PEN 35 UNITS SC ×2 (08:48→16:30)
[2021-04-27] MEDS: Ascorbic Acid 500 MG Tablet PO ×2 (08:53→16:31)
[2021-04-27] MEDS: Glimepiride 4 MG Tablet PO (08:53)
[2021-04-27 09:10] LABS: ALB/GLOB Ratio 0.6 RATIO (0.9-2.4); AST(SGOT) 19 U/L (15-37); Alanine Aminotransfer ALT/SGPT 31 U/L (16-61); Albumin, Serum 2.4 g/dL (3.2-5.0); Alkaline Phosphatase 94 U/L (45-117); Anion Gap 6 (5-15); BUN 11 mg/dL (7-18); BUN/Creat Ratio 14.8 RATIO (10-20); Calcium,Total 8.7 mg/dL (8.5-10.1); Chloride 106 mmol/L (98-107); Creatinine, Serum 0.74 mg/dL (0.70-1.30); EST Glomerular Filtration Rate 115 mL/min (>60); Est Glom Filt Rate - Afr Amer 139 mL/min (>60); Estimated Creatinine Clearance 106.55 ml/min; Globulin 3.8 g/dL (2.2-4.2); Glucose 163 mg/dL (74-106); Potassium 3.8 mmol/L (3.5-5.1); Protein, Total 6.2 g/dL (6.4-8.2); Sodium Level 137 mmol/L (136-145)
[2021-04-27] MEDS: Ferrous Sulfate 325 MG Tablet PO ×2 (11:10→16:28)
[2021-04-27 11:51] LABS: Bedside Glucose 153 mg/dL (70-110)
--- NOTE | 2021-04-27 12:06 | PCM.PN.HOSP ---
Subjective Subjective Follow-up for postop medical management/Hypotension: Patient was seen and examined. He denied any dizziness or palpitations. No acute events Objective Data Objective Data Vital Signs: Vital Signs Temp Pulse Resp BP Pulse Ox 98.2 F 106 H 18 91/66 98 04/27/21 08:44 04/27/21 09:16 04/27/21 08:44 04/27/21 08:51 04/27/21 08:44 Oxygen Flow Rate (L/min) 2 Oxygen Delivery Method Room Air Weight: 97 kg Body Mass Index (BMI) 32.5 Intake & Output: Intake and Output for Last 24 Hours 04/25/21 04/26/21 04/27/21 23:59 23:59 23:59 Intake Total 4700 / 4700 2721.25 / 2721.25 900 / 900 Output Total 900 / 900 1500 / 1500 1600 / 1600 Balance 3800 / 3800 1221.25 / 1221.25 -700 / -700 Lab / Micro Data Result Diagrams: 04/27/21 08:00 04/27/21 08:00 Labs: Laboratory Results - last 24 hr 04/26/21 13:25: Hgb 8.1 L, Hct 26.3 L 04/26/21 16:49: POC Glucose 92 04/26/21 21:09: POC Glucose 103 04/27/21 08:00: WBC 13.9 H, RBC 3.16 L, Hgb 8.3 L, Hct 26.0 L, MCV 82.3, MCH 26.3 L, MCHC 31.9 L, RDW Std Deviation 43.1, RDW Coeff of Aylin 14.2, Plt Count 251, MPV 9.5, Immature Gran % (Auto) 0.800, Neut % (Auto) 73.7 H, Lymph % (Auto) 15.3 L, [place] % (Auto) 8.2, Eos % (Auto) 1.7, Baso % (Auto) 0.3, Absolute Neuts (auto) 10.3 H, Absolute Lymphs (auto) 2.13, Nucleated RBC % 0 04/27/21 08:00: Sodium 137, Potassium 3.8, Chloride 106, Carbon Dioxide 25.0, Anion Gap 6, BUN 11, Creatinine 0.74, Estim Creat Clear Calc 106.55, Est GFR (MDRD) Af Amer 139, Est GFR (MDRD) Non-Af 115, BUN/Creatinine Ratio 14.8, Glucose 163 H, Calcium 8.7, Total Bilirubin 0.60, AST 19, ALT 31, Alkaline Phosphatase 94, Total Protein 6.2 L, Albumin 2.4 L, Globulin 3.8, Albumin/Globulin Ratio 0.6 L 04/27/21 08:13: POC Glucose 182 H 04/27/21 11:05: POC Glucose 153 H Micro: Microbiology 04/25/21 23:30 Urine, Clean Catch Urine Culture - Preliminary Culture exhibits no growth. 04/25/21 23:00 Nasal Secretion SARS-CoV-2 Antigen (Rapid) - Final 04/18/21 13:02 Swab (Method) Nasal Screen MRSA/MSSA - Final Physical Exam Narrative Physical exam: General: Alert, Oriented x3, Cooperative, No apparent distress, Well developed HEENT: Atraumatic Oral: Moist Mucosa Neck: Supple Lungs: Clear to auscultation Cardiovascular: HS I+II, regular, no murmurs Abdomen: Bowel Sounds Present, Soft, Non Tender, dressing over his back is dry, tenderness over the low back. Extremities: No edema Assessment & Plan Assessment/Plan (1) Spinal stenosis at L4-L5 level: (2) Benign hypertension: (3) Diabetes: QUALIFIERS: Diabetes mellitus type: type 2 Diabetes mellitus buttermaker continuous churn insulin use: with buttermaker continuous churn use Diabetes mellitus complication status: with hyperglycemia Qualified Code(s): E11.65 - Type 2 diabetes mellitus with hyperglycemia; Z79.4 - long term care social worker (current) use of insulin PLAN: 1. POD#3 status post lumbar surgery, pain is controlled Continue on on scheduled Tylenol, as needed oxycodone Further surgical recommendations per primary neurosurgery team 2. Hypotension, postop, resolved with IV fluids 3. Hypertension, controlled, continue metoprolol 25 mg twice daily Continue to hold lisinopril 4. Type II DM, blood sugars fairly controlled, Continue to hold metformin; can be resumed on discharge Continue on NPH insulin, glimepiride, insulin sliding scale blood glucose checks 5. DVT prophylaxis with SCDs Charges/Coding Visit Charges Inpatient E&M: 49286 Subs Hosp L2
--- NOTE | 2021-04-27 13:23 | PCM.PN.ORT ---
Objective Data Objective Data Vital Signs: Vital Signs Temp Pulse Resp BP Pulse Ox 98.2 F 106 H 18 91/66 98 04/27/21 08:44 04/27/21 09:16 04/27/21 08:44 04/27/21 08:51 04/27/21 08:44 Oxygen Flow Rate (L/min) 2 Oxygen Delivery Method Room Air Weight: 213 lb 13.574 oz Body Mass Index (BMI) 32.5 Intake & Output: Intake and Output for Last 24 Hours 04/25/21 04/26/21 04/27/21 23:59 23:59 23:59 Intake Total 4700 / 4700 2721.25 / 2721.25 900 / 900 Output Total 900 / 900 1500 / 1500 1600 / 1600 Balance 3800 / 3800 1221.25 / 1221.25 -700 / -700 Lab / Micro Data Result Diagrams: 04/27/21 08:00 04/27/21 08:00 Labs: Laboratory Results - last 24 hr 04/26/21 13:25: Hgb 8.1 L, Hct 26.3 L 04/26/21 16:49: POC Glucose 92 04/26/21 21:09: POC Glucose 103 04/27/21 08:00: WBC 13.9 H, RBC 3.16 L, Hgb 8.3 L, Hct 26.0 L, MCV 82.3, MCH 26.3 L, MCHC 31.9 L, RDW Std Deviation 43.1, RDW Coeff of Aylin 14.2, Plt Count 251, MPV 9.5, Immature Gran % (Auto) 0.800, Neut % (Auto) 73.7 H, Lymph % (Auto) 15.3 L, [place] % (Auto) 8.2, Eos % (Auto) 1.7, Baso % (Auto) 0.3, Absolute Neuts (auto) 10.3 H, Absolute Lymphs (auto) 2.13, Nucleated RBC % 0 04/27/21 08:00: Sodium 137, Potassium 3.8, Chloride 106, Carbon Dioxide 25.0, Anion Gap 6, BUN 11, Creatinine 0.74, Estim Creat Clear Calc 106.55, Est GFR (MDRD) Af Amer 139, Est GFR (MDRD) Non-Af 115, BUN/Creatinine Ratio 14.8, Glucose 163 H, Calcium 8.7, Total Bilirubin 0.60, AST 19, ALT 31, Alkaline Phosphatase 94, Total Protein 6.2 L, Albumin 2.4 L, Globulin 3.8, Albumin/Globulin Ratio 0.6 L 04/27/21 08:13: POC Glucose 182 H 04/27/21 11:05: POC Glucose 153 H Micro: Microbiology 04/25/21 23:30 Urine, Clean Catch Urine Culture - Preliminary Culture exhibits no growth. 04/25/21 23:00 Nasal Secretion SARS-CoV-2 Antigen (Rapid) - Final 04/18/21 13:02 Swab (Method) Nasal Screen MRSA/MSSA - Final Procedure Criteria Elective Risks - COVID COVID Risk Discussion: Domingo is here on postop day #3. Overall he is doing quite well he has some hyposounds and he is passing a lot of gas. He is up and walking around and doing well his back does not hurt all too much and his leg pain is all gone. We will start advancing his diet to a soft diet now and hopefully he will be able to go home tomorrow. His dressings are dry progress is satisfactory.
[2021-04-27 16:41] LABS: Bedside Glucose 198 mg/dL (70-110)
[2021-04-27] MEDS: Metoprolol Tartrate 25 MG Tablet PO (20:11)
[2021-04-27] MEDS: Pravastatin 40 MG Tablet PO (20:11)
[2021-04-27 20:21] LABS: Bedside Glucose 145 mg/dL (70-110)
[2021-04-28] VITALS (8 sets, daily range): BP systolic 122–131; BP diastolic 67–75; PULSE 83–99; RESP 16; TEMP 36.8–37.2; O2SAT 96–98
[2021-04-28] MEDS: oxyCODONE 5 MG Tablet PO ×2 (01:43→12:52)
[2021-04-28 05:57] LABS: Absolute Lymphocyte Count 2.34 X10^3/uL (0.83-4.51); Absolute Neutrophil Count 8.5 X10^3/uL (2.0-7.7); Basophil# 0.06 X10^3/uL; Basophil% 0.5 % (0-1); Eosinophil# 0.53 X10^3/uL; Eosinophils% 4.2 % (0-5); Hematocrit 25.9 % (40-54); Hemoglobin 8.8 g/dL (13.0-16.5); Lymphocyte # 2.34 X10^3/ul (0.83-4.51); Lymphocyte % 18.4 % (19-41); Mean Corpuscular Hgb 26.5 pg (27.0-32.0); Mean Platelet Vol. 9.3 fl (6.2-12.0); Monocyte# 1.22 X10^3/uL; Monocyte% 9.6 % (0-10); NRBC Flagged by Analyzer 0 % (0-5); Neutrophil # 8.47 X10^3/uL (2.7-7.7); Neutrophil % 66.4 % (47-70); Platelet Count 314 K/mm3 (150-450); RBC Distribution Width CV 14.1 % (11.6-14.6); RBC Distribution Width SD 39.9 fl (35.1-43.9); Red Blood Count 3.32 M/mm3 (4.6-6.2); White Blood Count 12.7 K/mm3 (4.4-11.0)
[2021-04-28] MEDS: Gabapentin 100 MG Capsule PO ×2 (06:29→14:46)
[2021-04-28] MEDS: Acetaminophen 500 MG Tablet 1000 MG PO ×2 (06:29→14:45)
[2021-04-28 06:30] LABS: ALB/GLOB Ratio 0.6 RATIO (0.9-2.4); AST(SGOT) 23 U/L (15-37); Alanine Aminotransfer ALT/SGPT 35 U/L (16-61); Albumin, Serum 2.4 g/dL (3.2-5.0); Alkaline Phosphatase 114 U/L (45-117); Anion Gap 6 (5-15); BUN 13 mg/dL (7-18); BUN/Creat Ratio 18.6 RATIO (10-20); Chloride 103 mmol/L (98-107); EST Glomerular Filtration Rate 124 mL/min (>60); Est Glom Filt Rate - Afr Amer 150 mL/min (>60); Estimated Creatinine Clearance 112.64 ml/min; Globulin 4.2 g/dL (2.2-4.2); Glucose 97 mg/dL (74-106); Potassium 3.6 mmol/L (3.5-5.1); Protein, Total 6.6 g/dL (6.4-8.2); Sodium Level 135 mmol/L (136-145)
[2021-04-28 07:05] LABS: Bedside Glucose 104 mg/dL (70-110)
[2021-04-28] MEDS: Glimepiride 4 MG Tablet PO (07:46)
[2021-04-28] MEDS: Ascorbic Acid 500 MG Tablet PO (07:47)
[2021-04-28] MEDS: Insulin NPH Human 100 UNITS/ML PEN 35 UNITS SC (08:17)
[2021-04-28] MEDS: Metoprolol Tartrate 25 MG Tablet PO (10:14)
--- NOTE | 2021-04-28 10:35 | PCM.PN.HOSP ---
Subjective Subjective Follow-up for postop medical management/Hypotension: Patient was seen and examined. He feels well. No new complaint. No acute events Objective Data Objective Data Vital Signs: Vital Signs Temp Pulse Resp BP Pulse Ox 99.0 F 90 16 122/68 H 96 04/28/21 02:40 04/28/21 10:14 04/28/21 02:40 04/28/21 02:40 04/28/21 02:40 Oxygen Flow Rate (L/min) 2 Oxygen Delivery Method Room Air Weight: 97 kg Body Mass Index (BMI) 32.5 Intake & Output: Intake and Output for Last 24 Hours 04/26/21 04/27/21 04/28/21 23:59 23:59 23:59 Intake Total 2721.25 / 2721.25 1300 / 1300 Output Total 1500 / 1500 2575 / 2575 525 / 525 Balance 1221.25 / 1221.25 -1275 / -1275 -525 / -525 Lab / Micro Data Result Diagrams: 04/28/21 05:34 04/28/21 05:34 Labs: Laboratory Results - last 24 hr 04/27/21 11:05: POC Glucose 153 H 04/27/21 16:27: POC Glucose 198 H 04/27/21 20:11: POC Glucose 145 H 04/28/21 05:34: WBC 12.7 H, RBC 3.32 L, Hgb 8.8 L, Hct 25.9 L, MCV 78.0 L D, MCH 26.5 L, MCHC 34.0 D, RDW Std Deviation 39.9, RDW Coeff of Aylin 14.1, Plt Count 314, MPV 9.3, Immature Gran % (Auto) 0.900, Neut % (Auto) 66.4, Lymph % (Auto) 18.4 L, [place] % (Auto) 9.6, Eos % (Auto) 4.2, Baso % (Auto) 0.5, Absolute Neuts (auto) 8.5 H, Absolute Lymphs (auto) 2.34, Nucleated RBC % 0 04/28/21 05:34: Sodium 135 L, Potassium 3.6, Chloride 103, Carbon Dioxide 26.0, Anion Gap 6, BUN 13, Creatinine 0.70, Estim Creat Clear Calc 112.64, Est GFR (MDRD) Af Amer 150, Est GFR (MDRD) Non-Af 124, BUN/Creatinine Ratio 18.6, Glucose 97, Calcium 9.0, Total Bilirubin 0.60, AST 23, ALT 35, Alkaline Phosphatase 114, Total Protein 6.6, Albumin 2.4 L, Globulin 4.2, Albumin/Globulin Ratio 0.6 L 04/28/21 06:28: POC Glucose 104 Micro: Microbiology 04/25/21 23:30 Urine, Clean Catch Urine Culture - Final Culture exhibits no growth. 04/25/21 23:00 Nasal Secretion SARS-CoV-2 Antigen (Rapid) - Final 04/18/21 13:02 Swab (Method) Nasal Screen MRSA/MSSA - Final Physical Exam Narrative Physical exam: General: Alert, Oriented x3, Cooperative, No apparent distress, Well developed HEENT: Atraumatic Oral: Moist Mucosa Neck: Supple Lungs: Clear to auscultation Cardiovascular: HS I+II, regular, no murmurs Abdomen: Bowel Sounds Present, Soft, Non Tender, dressing over his back is dry, tenderness over the low back. Extremities: No edema Assessment & Plan Assessment/Plan (1) Spinal stenosis at L4-L5 level: (2) Benign hypertension: (3) Diabetes: QUALIFIERS: Diabetes mellitus type: type 2 Diabetes mellitus long term acute care registered nurse insulin use: with long term acute care registered nurse use Diabetes mellitus complication status: with hyperglycemia Qualified Code(s): E11.65 - Type 2 diabetes mellitus with hyperglycemia; Z79.4 - correction (current) use of insulin PLAN: 1. POD#4 status post lumbar surgery, pain is controlled Continue on on scheduled Tylenol, as needed oxycodone Further surgical recommendations per primary neurosurgery team 2. Hypotension, postop, resolved with IV fluids 3. Hypertension, controlled, continue metoprolol 25 mg twice daily Continue to hold lisinopril 4. Type II DM, blood sugars fairly controlled, Continue to hold metformin; can be resumed on discharge Continue on NPH insulin, glimepiride, insulin sliding scale blood glucose checks 5. DVT prophylaxis with SCDs Charges/Coding Visit Charges Inpatient E&M: 38979 Subs Hosp L2
[2021-04-28 12:06] LABS: Bedside Glucose 165 mg/dL (70-110)
[2021-04-28] MEDS: Ferrous Sulfate 325 MG Tablet PO (12:50)
--- NOTE | 2021-04-28 14:55 | PCM.DC ---
Discharge Instructions Diet Discharge Diet: 2000 mg Sodium Diet Activity Discharge Activity: Return to Normal Activity Follow Up Care Test Results: Test results from this visit will be discussed in further detail at your follow-up appointment, if applicable. Discharge Plan Admission Admit Date/Time: 04/24/21 05:33 Primary Reason for Your Visit: Back surgery Attending Provider: Tacos Vallecillo Primary Care Provider: Gianfranco Gonzalez Consulting Providers: Paulina Mckeon ; Trisha Carreon ; Robb Garza ; Erick Avelar ; Dieter Mcarthur ; Olivia Sesay ; Sanjiv Coats ; Kian Powers ; Josué Pradhan ; Robbi Charles ; Cindy Benson ; Gianfranco Thurston ; Liza Beckham ; Romero Morgan ; Ezequiel Brenner ; Fabiano Rader ; Bert Pierce ; Mariana Bell ; Penelope Qiu NP ; Nhan Kwong ; Bess Reynolds ; Hayley Lopez Instructions Additional Instructions / Restrictions: Continue to do your exercises as you have been taught. You can take the dressing off tomorrow. Okay to shower on 04/08/21. Follow-up with Dr. Vallecillo and your primary care doctor within 1-2 weeks. Take note of changes to your medications. Check your blood pressure daily. Let your primary care doctor know if your blood pressure is less than 90/60 Discharge Orders/Prescriptions Prescriptions: New acetaminophen 500 mg Tablet 1,000 mg PO Q8 PRN (Reason: Pain (Scale Score 7-10)) Qty: 0 RF: 0 ascorbic acid (vitamin C) 500 mg Tablet 500 mg PO BIDCM 30 Days Qty: 60 RF: 0 ferrous sulfate [FeroSul] 325 mg (65 mg iron) Tablet 325 mg PO 1200,1700 30 Days Qty: 60 RF: 0 metoprolol tartrate 25 mg Tablet 25 mg PO BID 30 Days Qty: 60 RF: 0 sennosides-docusate sodium [Senokot-S] 8.6-50 mg tablet 2 tab-cap PO BID PRN (Reason: constipation) 15 Days Qty: 60 RF: 0 oxycodone 5 mg capsule 5 mg PO Q6H PRN (Reason: pain) 5 Days Qty: 20 RF: 0 Continued gabapentin 100 mg capsule 100 mg PO TID RF: 0 metformin 1,000 mg tablet 1,000 mg PO BID RF: 0 pravastatin 40 MG tablet 40 mg PO QHS RF: 0 omeprazole 20 mg capsule,delayed release(DR/EC) 20 mg PO DAILY PRN PRN (Reason: GERD) RF: 0 glimepiride 4 mg tablet 4 mg PO DAILY RF: 0 Novolin N NPH U-100 Insulin 100 unit/mL Suspension 35 unit SUBCUT 1200 RF: 0 Discontinued tramadol 50 mg tablet 50 mg PO BID RF: 0 metoprolol succinate 50 MG tablet extended release 24 hr 50 mg PO BID RF: 0 lisinopril 10 MG tablet 10 mg PO DAILY RF: 0 meloxicam 15 MG tablet 15 mg PO DAILY RF: 0 No Action Novolin N NPH U-100 Insulin 100 unit/mL Suspension 35 unit SUBCUT 1800 RF: 0 Referrals / Follow Up: Tacos Vallecillo DO [STAFF PHYSICIAN] - Within 2 Weeks Gianfranco Gonzalez DO [Primary Care Provider] - Within 2 Weeks Disposition Disposition (needs filled in before D/C Order can be placed): Home, Self Care
[2021-04-30 09:24] LABS: Pathologist Review Reviewed
--- NOTE | 2021-05-07 16:03 | DS.PCM_ITS ---
Providers Date of Admission: 04/24/21 Primary Care Physician: Dr. Gianfranco Gonzalez, Consultations 04/24/21 18:06 Consult: Hospitalist Routine Consulting Provider: Gudelia Sneed Reason for Consult: Medical Management EMERGENT Consult: No MD Notified: Yes Date Notified: 04/24/21 Time Notified: 19:00 Method of Notification: Text Reason For Visit: 360 LUMBAR FUSION L5-S1, L4- L5 Diagnosis Discharge Diagnosis (1) Spinal stenosis at L4-L5 level: Status: Acute Code(s): M48.061 - Spinal stenosis, lumbar region without neurogenic claudication (2) Benign hypertension: Status: Chronic Code(s): I10 - Essential (primary) hypertension (3) Diabetes: Status: Chronic Code(s): E11.9 - Type 2 diabetes mellitus without complications Qualifiers: Diabetes mellitus type: type 2 Diabetes mellitus termite control servicer insulin use: with shelter use Diabetes mellitus complication status: with hyperglycemia Qualified Code(s): E11.65 - Type 2 diabetes mellitus with hyperglycemia; Z79.4 - nursing home (current) use of insulin Medications at Discharge Home Medications pravastatin 40 mg PO QHS 12/13/16 gabapentin 100 mg capsule 100 mg PO TID cap 10/25/20 metformin 1,000 mg tablet 1,000 mg PO BID tab 10/25/20 omeprazole 20 mg PO DAILY PRN PRN 11/13/20 Novolin N NPH U-100 Insulin 35 unit SUBCUT 1200 04/11/21 glimepiride 4 mg PO DAILY 04/11/21 insulin NPH isoph U-100 human [Novolin N NPH U-100 Insulin] 35 unit SUBCUT 1800 04/11/21 acetaminophen 1,000 mg PO Q8 PRN #0 tab 04/28/21 ascorbic acid (vitamin C) 500 mg PO BIDCM 30 Days #60 tab 04/28/21 ferrous sulfate [FeroSul] 325 mg PO 1200,1700 30 Days #60 tab 04/28/21 metoprolol tartrate 25 mg PO BID 30 Days #60 tab 04/28/21 oxycodone 5 mg PO Q6H PRN 5 Days #20 cap 04/28/21 sennosides-docusate sodium [Senokot-S] 2 tab-cap PO BID PRN 15 Days #60 tab 04/28/21 Hospital Course Summary of Care Provided Hospital Course: This is Dr. Vallecillo dictating a discharge summary on Domingo Celestin. This patient was admitted on April 24, 2021. The date of admission he underwent 360 degree fusion at the L4-5 and L5-S1 levels. He tolerated the procedure well. He did well postoperatively. As all 360 degree fusion patient's he had a temporary ileus that resolved quickly. At discharge he was doing well. He was ambulating well with a walker. Neurologically he was intact. Both of his incisions were healing well. Was given post 360 protocol regarding his activities. He was to see me in my office 13 days later. He was told that he could shower 2 days after discharge. The dressings were to be removed the next day and left open to the air. He was told to advance his diet slowly over the course of several days. For now he is not to drive. Consultations while in the hospital was for hospitalist for medical management. He was kept on his normal medications for home. This is the end of discharge summary on Domingo Celestin. This is Dr. Vallecillo dictating. Weight / BMI Weight Weight: 213 lb 13.574 oz Body Mass Index (BMI) 32.5 ABG / Lab / Microbiology Data Result Diagrams: 04/28/21 05:34 04/28/21 05:34 Microbiology: Microbiology 04/26/21 00:10 Blood Culture (Wb) - Anticubital Left Blood Culture - Final No growth in 5 days. 04/25/21 23:15 Blood Culture (Wb) - Anticubital Right Blood Culture - Final No growth in 5 days. 04/25/21 23:30 Urine, Clean Catch Urine Culture - Final Culture exhibits no growth. 04/25/21 23:00 Nasal Secretion SARS-CoV-2 Antigen (Rapid) - Final 04/18/21 13:02 Swab (Method) Nasal Screen MRSA/MSSA - Final D/C Instructions Discharge Diet: 2000 mg Sodium Diet Meaningful Use Info Meaningful Use Diagnoses (Choose all that apply): None applicable Discharge Plan Admission Admit Date/Time: 04/24/21 05:33 Primary Reason for Your Visit: Back surgery Attending Provider: Tacos Vallecillo Primary Care Provider: Gianfranco Gonzalez Consulting Providers: Paulina Mckeon ; Trisha Carreon ; Robb Garza ; Erick Avelar ; Dieter Mcarthur ; Olivia Sesay ; Sanjiv Coats ; Kian Powers ; Josué Pradhan ; Robbi Charles ; Cindy Benson ; Gianfranco Thurston ; Liza Beckham ; Romero Morgan ; Ezequiel Brenner ; Fabiano Rader ; Bert Pierce ; Mariana Bell ; Penelope Qiu NP ; Nhan Kwong ; Bess Reynolds ; Hayley Lopez Instructions Additional Instructions / Restrictions: Continue to do your exercises as you have been taught. You can take the dressing off tomorrow. Okay to shower on 04/08/21. Follow-up with Dr. Vallecillo and your primary care doctor within 1-2 weeks. Take note of changes to your medications. Check your blood pressure daily. Let your primary care doctor know if your blood pressure is less than 90/60 Discharge Orders/Prescriptions Prescriptions: New acetaminophen 500 mg Tablet 1,000 mg PO Q8 PRN (Reason: Pain (Scale Score 7-10)) Qty: 0 RF: 0 ascorbic acid (vitamin C) 500 mg Tablet 500 mg PO BIDCM 30 Days Qty: 60 RF: 0 ferrous sulfate [FeroSul] 325 mg (65 mg iron) Tablet 325 mg PO 1200,1700 30 Days Qty: 60 RF: 0 metoprolol tartrate 25 mg Tablet 25 mg PO BID 30 Days Qty: 60 RF: 0 sennosides-docusate sodium [Senokot-S] 8.6-50 mg tablet 2 tab-cap PO BID PRN (Reason: constipation) 15 Days Qty: 60 RF: 0 oxycodone 5 mg capsule 5 mg PO Q6H PRN (Reason: pain) 5 Days Qty: 20 RF: 0 Continued gabapentin 100 mg capsule 100 mg PO TID RF: 0 metformin 1,000 mg tablet 1,000 mg PO BID RF: 0 pravastatin 40 MG tablet 40 mg PO QHS RF: 0 omeprazole 20 mg capsule,delayed release(DR/EC) 20 mg PO DAILY PRN PRN (Reason: GERD) RF: 0 glimepiride 4 mg tablet 4 mg PO DAILY RF: 0 Novolin N NPH U-100 Insulin 100 unit/mL Suspension 35 unit SUBCUT 1200 RF: 0 Discontinued tramadol 50 mg tablet 50 mg PO BID RF: 0 metoprolol succinate 50 MG tablet extended release 24 hr 50 mg PO BID RF: 0 lisinopril 10 MG tablet 10 mg PO DAILY RF: 0 meloxicam 15 MG tablet 15 mg PO DAILY RF: 0 No Action Novolin N NPH U-100 Insulin 100 unit/mL Suspension 35 unit SUBCUT 1800 RF: 0 Referrals / Follow Up: Tacos Vallecillo DO [STAFF PHYSICIAN] - Within 2 Weeks Gianfranco Gonzalez DO [Primary Care Provider] - Within 2 Weeks Disposition Disposition (needs filled in before D/C Order can be placed): Home, Self Care
== END 2021-04-28 16:53 | disposition home or self-care (01) | DRG 460 ==
LOC: ACINP 05:36 → MS3 16:53
PROVIDERS: Anesthesiology; Hospitalist; Internal Medicine; Admitting Provider Orthopaedic Surgery; PCP Family Medicine; Referring Provider Orthopaedic Surgery; Visit Provider Orthopaedic Surgery
PROC: 0SG30A0 Fusion of Lumbosacral Joint with Interbody Fusion Device, Anterior Approach, Anterior Column, Open Approach (ICD-10-PCS; principal; 2021-04-24 07:00)
DX: M48.061 Spinal stenosis, lumbar region without neurogenic claudication (principal); E11.65 Type 2 diabetes mellitus with hyperglycemia; Z79.4 Long term (current) use of insulin; E78.5 Hyperlipidemia, unspecified; M51.17 Intervertebral disc disorders with radiculopathy, lumbosacral region; M43.16 Spondylolisthesis, lumbar region; M51.16 Intervertebral disc disorders with radiculopathy, lumbar region; I10 Essential (primary) hypertension; M18.12 Unilateral primary osteoarthritis of first carpometacarpal joint, left hand; M51.26 Other intervertebral disc displacement, lumbar region; K21.9 Gastro-esophageal reflux disease without esophagitis; I95.81 Postprocedural hypotension; Z87.891 Personal history of nicotine dependence; R00.0 Tachycardia, unspecified; Z79.899 Other long term (current) drug therapy; F32.A Depression, unspecified; E66.9 Obesity, unspecified; Z20.822 Contact with and (suspected) exposure to COVID-19; Z68.32 Body mass index [BMI] 32.0-32.9, adult
CPT/HCPCS: 36415; 72020; 80048; 80053; 81001; 82962; 83036; 83735; 85014; 85018; 85025; 86703; 86706; 86708; 86803; 87040; 87081; 87086; 87426; 97116; 97162; 97530; 99251; 99406; C1713; J7030; J7040; J7120; A4216; G0463; J0330

== ENCOUNTER → 2021-12-12 | Outpatient (CLI) | payer BC, SELFPAY ==
[2021-12-12 13:17] LABS: Absolute Lymphocyte Count 2.31 X10^3/uL (0.83-4.51); Absolute Neutrophil Count 6.6 X10^3/uL (2.0-7.7); Basophil# 0.08 X10^3/uL; Basophil% 0.8 % (0-1); Eosinophil# 0.56 X10^3/uL; Eosinophils% 5.3 % (0-5); Hematocrit 38.8 % (40-54); Hemoglobin 11.9 g/dL (13.0-16.5); Lymphocyte # 2.31 X10^3/ul (0.83-4.51); Lymphocyte % 21.8 % (19-41); Mean Corp Hgb Conc 30.7 g/dL (32-36); Mean Corpuscular Hgb 25.6 pg (27.0-32.0); Mean Corpuscular Volume 83.4 fL (80-94); Mean Platelet Vol. 9.3 fl (6.2-12.0); Monocyte# 1.03 X10^3/uL; Monocyte% 9.7 % (0-10); NRBC Flagged by Analyzer 0 % (0-5); Neutrophil # 6.59 X10^3/uL (2.7-7.7); Neutrophil % 61.9 % (47-70); Platelet Count 292 K/mm3 (150-450); RBC Distribution Width CV 14.2 % (11.6-14.6); Red Blood Count 4.65 M/mm3 (4.6-6.2); White Blood Count 10.6 K/mm3 (4.4-11.0)
[2021-12-12 13:52] LABS: AST(SGOT) 16 U/L (15-37); Alanine Aminotransfer ALT/SGPT 34 U/L (16-61); Albumin, Serum 3.4 g/dL (3.2-5.0); Alkaline Phosphatase 94 U/L (45-117); Anion Gap 7 (5-15); BUN 18 mg/dL (7-18); BUN/Creat Ratio 21.9 RATIO (10-20); Calcium,Total 8.8 mg/dL (8.5-10.1); Chloride 106 mmol/L (98-107); Cholesterol 167 mg/dL (200); Creatinine, Serum 0.82 mg/dL (0.70-1.30); EST Glomerular Filtration Rate 102 mL/min (>60); Est Glom Filt Rate - Afr Amer 123 mL/min (>60); Globulin 3.5 g/dL (2.2-4.2); Glucose 141 mg/dL (74-106); High Density Lipoprotein 37 mg/dL; PSA,Total - Annual Screen 1.03 ng/mL (0.00-4.00); Potassium 4.2 mmol/L (3.5-5.1); Protein, Total 6.9 g/dL (6.4-8.2); Sodium Level 139 mmol/L (136-145); Thyroid Stim Hormone (TSH) 1.59 uIU/mL (0.358-3.74); Triglycerides 183 mg/dL; Very Low Density Lipoprotein 37 mg/dL (5-40)
[2021-12-12 14:11] LABS: Hemoglobin A1c 6.3 % (3.8-5.6)
[2021-12-12 14:14] LABS: Microalbumin,Random Urine 30.5 mg/L (NO RANGE EST.); Microalbumin:Creatinine Ratio 15.2 mg/g CRE (<30 mg/g CRE)
== END | disposition home or self-care (01) ==
LOC: LAB 12:07
PROVIDERS: PCP Family Medicine; Referring Provider Family Medicine; Visit Provider Family Medicine
DX: Z00.00 Encounter for general adult medical examination without abnormal findings (principal); E11.49 Type 2 diabetes mellitus with other diabetic neurological complication; I10 Essential (primary) hypertension; Z12.5 Encounter for screening for malignant neoplasm of prostate
CPT/HCPCS: 36415; 80053; 80061; 82043; 82570; 83036; 84153; 84443; 85025; G0103

== ENCOUNTER → 2023-01-23 | Outpatient (CLI) | payer BC, SELFPAY ==
[2023-01-23 12:00] LABS: Absolute Lymphocyte Count 2.34 X10^3/uL (0.83-4.51); Absolute Neutrophil Count 5.8 X10^3/uL (2.0-7.7); Basophil# 0.07 X10^3/uL; Basophil% 0.7 % (0-1); Eosinophil# 0.43 X10^3/uL; Eosinophils% 4.4 % (0-5); Hematocrit 39.5 % (40-54); Lymphocyte # 2.34 X10^3/ul (0.83-4.51); Lymphocyte % 23.9 % (19-41); Mean Corp Hgb Conc 30.4 g/dL (32-36); Mean Corpuscular Hgb 25.6 pg (27.0-32.0); Mean Corpuscular Volume 84.4 fL (80-94); Mean Platelet Vol. 9.1 fl (6.2-12.0); Monocyte# 1.09 X10^3/uL; Monocyte% 11.1 % (0-10); NRBC Flagged by Analyzer 0 % (0-5); Neutrophil % 59.3 % (47-70); Platelet Count 320 K/mm3 (150-450); RBC Distribution Width CV 15.6 % (11.6-14.6); RBC Distribution Width SD 48.3 fl (35.1-43.9); Red Blood Count 4.68 M/mm3 (4.6-6.2); White Blood Count 9.8 K/mm3 (4.4-11.0)
[2023-01-23 13:34] LABS: AST(SGOT) 14 U/L (15-37); Alanine Aminotransfer ALT/SGPT 30 U/L (16-61); Albumin, Serum 3.5 g/dL (3.2-5.0); Alkaline Phosphatase 77 U/L (45-117); Anion Gap 4 (5-15); BUN 23 mg/dL (7-18); BUN/Creat Ratio 26.1 RATIO (10-20); Calcium,Total 8.7 mg/dL (8.5-10.1); Chloride 109 mmol/L (98-107); Cholesterol 162 mg/dL (200); Creatinine, Serum 0.88 mg/dL (0.70-1.30); EST Glomerular Filtration Rate 94 mL/min (>60); Est Glom Filt Rate - Afr Amer 114 mL/min (>60); Globulin 3.4 g/dL (2.2-4.2); Glucose 126 mg/dL (74-106); High Density Lipoprotein 44 mg/dL; PSA,Total - Annual Screen 1.28 ng/mL (0.00-4.00); Potassium 4.3 mmol/L (3.5-5.1); Protein, Total 6.9 g/dL (6.4-8.2); Sodium Level 140 mmol/L (136-145); Triglycerides 93 mg/dL; Very Low Density Lipoprotein 19 mg/dL (5-40)
[2023-01-23 13:45] LABS: Microalbumin,Random Urine 84.8 mg/L (NO RANGE EST.); Microalbumin:Creatinine Ratio 39.8 mg/g CRE (<30 mg/g CRE)
[2023-01-23 19:50] LABS: Hemoglobin A1c 6.6 % (3.8-5.6)
== END | disposition home or self-care (01) ==
LOC: LAB 11:19
PROVIDERS: PCP Family Medicine; Referring Provider Family Medicine; Visit Provider Family Medicine
DX: Z00.00 Encounter for general adult medical examination without abnormal findings (principal); E11.49 Type 2 diabetes mellitus with other diabetic neurological complication
CPT/HCPCS: 36415; 80053; 80061; 82043; 82570; 83036; 84153; 85025; G0103

== ENCOUNTER → 2023-01-28 | Outpatient (CLI) | payer BC, SELFPAY | END | disposition home or self-care (01) | LOC: LAB.FUTURE 13:42 | PROVIDERS: PCP Family Medicine; Referring Provider Family Medicine; Visit Provider Family Medicine | DX: E11.49 Type 2 diabetes mellitus with other diabetic neurological complication (principal); I10 Essential (primary) hypertension; E78.5 Hyperlipidemia, unspecified ==

== ENCOUNTER 2023-04-11 06:28 | Day surgery (SDC) | payer BC, SELFPAY ==
--- OUTSIDE RECORDS SUMMARY | 2023-04-11 06:31 | XMS RPT_ITS | CCD ---
Author Name Unknown Address [address] [place] [address] Organization [facility] Care Team Providers Care Vascular Nurse Name Role Phone Alicia CORTES, Marshall Mae [phone] Medications Completed/Discontinued Medications Medication Drug Class(es) Dates Sig (Normalized) Sig (Original) aspirin 81 mg oral strip (5 sources) Nonsteroidal Anti-inflammatory Drug Start: 11-22-2016 ADULT ASPIRIN EC LOW STRENGTH 81 MG [facility] ASPIRIN [id number] Marshall Vargas MD Problems Active Problems Problem Classification Problem Date Documented Da te Episodic/Chronic Diabetes mellitus without complication (5 sources) Type 1 diabetes mellitus; Translations: [Type 1 diabetes mellitus without complications] Onset: 11-22-2016 11-22-2016 Chronic Disorders of lipid metabolism (5 sources) Hypercholesterolemi a; Translations: [Disorder of bile acid and cholesterol metabolism, unspecified] Onset: 11-22-2016 11-22-2016 Chronic Essential hypertension (5 sources) Hypertensive disorder; Translations: [Essential (primary) hypertension] Onset: 11-22-2016 11-22-2016 Chronic Unclassified (3 sources) Screening for malignant neoplasm of colon ; Translations: [Encounter for screening for malignant neoplasm of colon] Onset: 11-22-2016 11-25-2016 Past or Other Problems Problem Classification Problem Date Documented Da te Episodic/Chronic Abdominal hernia (5 sources) Umbilical hernia; Translations: [Umbilical hernia without obstruction or gangrene] Onset: 11-22-2016 11-25-2016 Episodic Abdominal pain (5 sources) Left lower quadrant pain; Translations: [Left lower quadrant pain] Onset: 11-22-2016 11-22-2016 Episodic Results Test Name Value Interpretation Reference Range Facil ity Vital Signs Date Time Vital Sign Value Performing Clinician Facility 12-04-2016 08:40-0400 BMI (Body Mass Index) 34.67 kg/m2 Marshall Vargas MD [facility] [employer] Work Phone: 12-04-2016 08:40-0400 Height 173.99 cm Marshall Vargas MD [facility] [employer] Work Phone: 12-04-2016 08:40-0400 Respiratory Rate 18 /min Marshall Vargas MD [facility] [employer] Work Phone: 12-04-2016 08:40-0400 Weight 104.96 kg Marshall Vargas MD [facility] [employer] Work Phone: 11-22-2016 14:42-0400 BMI (Body Mass Index) 34.4 kg/m2 Marshall Vargas MD [facility] Work Phone: 11-22-2016 14:42-0400 BP Diastolic 73 mm[Hg] Marshall Vargas MD [facility] [employer] Work Phone: 11-22-2016 14:42-0400 BP Systolic 149 mm[Hg] Marshall Vargas MD [facility] [employer] Work Phone: 11-22-2016 14:42-0400 Height 173.99 cm Marshall Vargas MD [facility] [employer] Work Phone: 11-22-2016 14:42-0400 Pulse (Heart Rate) 71 /min Marshall Vargas MD [facility] [employer] Work Phone: 11-22-2016 14:42-0400 Respiratory Rate 18 /min Marshall Vargas MD [facility] [employer] Work Phone: 11-22-2016 14:42-0400 Weight 104.15 kg Marshall Vargas MD [facility] [employer] Work Phone: Procedures Date Procedure Procedure Detail Performing Clinician Start: 11-22-2016 End: 12-13-2016 Diagnostic colonoscopy Marshall akbar MD Work Phone: Start: 11-22-2016 Screening for malign ant neoplasm of colon Screening, colon ca Marshall Vargas MD Plan of Treatment Date Care Activity Detail Author Start: 12-13-2016 End: 12-13-2016 Appointment Appointment [facility] [employer] Work Phone: Start: 11-22-2016 End: 11-25-2016 Ct abd & pelvis w/o contrast CT Abdomen and pelvis; without contrast material [facility] Work Phone: Start: 11-22-2016 End: 12-12-2016 Diagnostic colonoscopy Colonoscopy [facility] Work Phone: Additional Source Comments FOR RECORDS PERTAINING TO PATIENTS WHO ARE OR HAVE BEEN ENROLLED IN A CHEMICAL DEPENDENCY/SUBSTANCEABUSE PROGRAM, SOME INFORMATION MAY BE OMITTED. This clinical summary was aggregated from multiple sources. Caution should be exercised in using it in the provision of clinical care. This summary normalizes information from multiple sources, and as a consequence, information in this document may materially change the coding, format and clinical context of patient data. In addition, data may be omitted in some cases. CLINICAL DECISIONS SHOULD BE BASED ON THE PRIMARY CLINICAL RECORDS. [facility] [employer] [facility]. provides no warranty or guarantee of the accuracy or completeness of information in this document.
--- NOTE | 2023-04-11 06:49 | PCM.HP.BLA ---
History and Physical Date of Admission: 04/11/23 Intake Vital Signs 04/24/2217:43 02/25/2311:04 Height 5 ft 8 in 5 ft 8 in Weight: 216 lb BMI 32.8 BP 137/84 H Blood Pressure Location Rt brachial Position Sitting Respiration 17 Pulse 88 Pulse Source Monitor Temp 97 F L Temp Source Temporal Pulse Oximetry (%) 98 Oxygen Delivery Method room air Intake Visit Reasons: Gastroesophageal reflux disease (GERD) Chief Complaint: gerd Is patient in pain?: Yes Allergies No Known Allergies Allergy (Verified 02/25/23 11:06) Medications metformin 1,000 mg tablet 1,000 mg PO BID blood glucose 10/25/20 [History Confirmed 02/25/23] glimepiride 4 mg tablet 4 mg PO DAILY DIABETES 04/11/21 [History Confirmed 02/25/23] insulin NPH isoph U-100 human 100 unit/mL subcutaneous suspension (Novolin N NPH U-100 Insulin isophane) 35 unit subcut 1200 DIABETES 04/11/21 [History Confirmed 02/25/23] insulin NPH isoph U-100 human 100 unit/mL subcutaneous suspension (Novolin N NPH U-100 Insulin isophane) 35 unit subcut 1800 DIABETES 04/11/21 [History Confirmed 02/25/23] acetaminophen 500 mg tablet 1,000 mg (2 x 500 mg) PO Q8 PRN Pain (Scale Score 7-10) #0 tabs 04/28/21 [Rx Confirmed 04/24/22] ascorbic acid (vitamin C) 500 mg tablet 500 mg PO BIDCM 30 days #60 tabs 04/28/21 [Rx Confirmed 04/24/22] ferrous sulfate 325 mg (65 mg iron) tablet (FeroSul) 325 mg PO 1200,1700 30 days #60 tabs 04/28/21 [Rx Confirmed 04/24/22] metoprolol tartrate 25 mg tablet 25 mg PO BID 30 days #60 tabs 04/28/21 [Rx Confirmed 02/25/23] sennosides 8.6 mg-docusate sodium 50 mg tablet (Senokot-S) 2 tab-cap (2 x 8.6-50 mg) PO BID PRN constipation 15 days #60 tabs 04/28/21 [Rx Confirmed 04/24/22] lisinopril 10 mg tablet 10 mg PO DAILY 02/25/23 [History Confirmed 02/25/23] meloxicam 15 mg tablet 15 mg PO DAILY 02/25/23 [History Confirmed 02/25/23] omeprazole 40 mg capsule,delayed release 40 mg PO DAILY #60 caps 02/25/23 [Rx Confirmed 02/25/23] sucralfate 1 gram tablet (Carafate) 1 g PO QACHS 2 weeks #56 tabs 02/25/23 [Rx Confirmed 02/25/23] PFSH Medical History (Updated 02/25/23 @ 11:04 by Mabel Osborne) Anxiety Back pain Benign hypertension Colon polyp Depression Diabetes Dietary restriction Erectile dysfunction Fatty liver Gastric reflux Hemoglobin A1C greater than 9%, indicating poor diabetic control High cholesterol Hyperlipidemia Hypertension Insulin dependent diabetes mellitus Lumbar disc herniation Obesity Osteoarthritis of carpometacarpal (CMC) joint of left thumb Smoker Wears glasses Surgical History History of colonoscopy History of umbilical hernia repair Hx of bilateral inguinal hernia repair Hx of meniscectomy of right knee Family History Other Adopted Social History adopted: Yes household members: spouse and children housing: house number of children: 2 current occupational status: employed 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 He reports that he was here 4 years ago and saw me and he was put on a PPI and reports that he has been doing well since. He was taken off of his PPI and then he reports all of his reflux came back but he did not try to restart the PPI. He says he is constantly having reflux and epigastric pain. ROS General General: No weight change, appetite, fatigue, colon cancer, breast cancer or weakness HEENT HEENT: No difficulty swallowing, eye injury, eye surgery, swollen glands or hoarseness Endo Endocrine: Yes diabetes mellitus; No thyroid disease, thyroid cancer, Hair loss, heat intolerance or cold intolerance Skin Skin: No rash or changing moles Musc Musculoskeletal: Yes gout; No back problems, arthritis, rheumatoid arthritis or joint pain Cardio Cardiovascular: Yes high blood pressure; No murmur, pacemaker, heart disease, atrial fibrillation, heart attack, heart stent, palpitations, shortness of breat with exertion or chest pain Psych Psychiatric: No depression, anxiety or hearing voices Resp Respiratory: No shortness of breath, No sleep apnea, No cough, No COPD, No asthma, No emphysema and No wheezing Gastro Gastrointestinal: Yes abdominal pain, Yes nausea or vomiting, No diarrhea, No constipation, No blood in stool, Yes acid reflux, No hemorrhoids, No ulcers, No gallbladder problem and No black,tarry stools Eric Hematologic: No blood thinners, No blood disorders, No bleeding, No anemia and No blood clots Neuro Neurologic: No system reviewed and no additional complaints, except as documented, No as per HPI, No abnormal gait, No abnormal hearing, No abnormal movements, No abnormal speech, No behavioral changes, No burning sensations, No confusion, No convulsions, No disequilibrium, No dizziness, No localized weakness, No frequent falls, No headache(s), No lack of coordination, No loss of vision, No memory loss, No numbness, No other visual disturbances, No radicular pain, No restless legs, No sensory deficit, No syncope, No tingling, No tremor(s), No weakness and No other Exam Const General: cooperative Orientation: alert and oriented x3 HENMT Head: normal to inspection Neck Neck: normal visual inspection and full ROM Chest Chest palpation & inspection: normal inspection of the chest Resp Effort & Inspection: normal respiratory effort Auscultation: clear to auscultation bilaterally Cardio Rate: regular rate Rhythm: regular rhythm GI Inspection: non-distended Palpation: soft and nontender Skin General: no rashes or lesions noted Neuro General: patient alert and patient oriented x3 Extrem General: full ROM Psych Appearance: grossly normal Mental Status: mental status grossly normal Assessment and Plan Assessment and Plan (1) Gastroesophageal reflux disease: Qualifiers: Esophagitis presence: esophagitis presence not specified Qualified Code(s): K21.9 - Gastro-esophageal reflux disease without esophagitis Plan: The patient has GERD. He has longstanding GERD and I cannot see any record of EGD so I would recommend performing EGD at this time. I will also put him back on a PPI until EGD can be performed. I explained endoscopy in detail to the patient. I explained the risks including but not limited to stroke or heart attack with anesthesia, perforation of the GI tract, bleeding, infection. I explained that any of these could necessitate further emergency surgery. The patient understands and all questions were answered sufficiently. The patient wishes to proceed with procedure. Marshall Vargas MD Pager: [facility] [address] [place] [address] [address] [place] [address] Office: I have seen the patient and reviewed the H&P. There are no changes
[2023-04-11 06:55] VITALS: BP 110/66; PULSE 82; RESP 16; TEMP 36.6; O2SAT 98; BMI 33.8
[2023-04-11] MEDS: Lactated Ringers 1,000 ML 15 ML IV (07:13)
[2023-04-11 07:35] LABS: Bedside Glucose 128 mg/dL (74-106)
[2023-04-11 07:52] VITALS: BP 110/66; BP 99/57; PULSE 77; RESP 17; TEMP 36.3; O2SAT 93
[2023-04-11 07:55] VITALS: BP 110/66; BP 96/57; PULSE 79; RESP 18; O2SAT 94
[2023-04-11 08:00] VITALS: BP 110/66; BP 93/55; PULSE 79; RESP 18; O2SAT 95
--- NOTE | 2023-04-11 08:00 | OP.EGD_ITS ---
Patient Name: Domingo Celestin Procedure Date: 04/11/2023 7:34 AM Date of : 1965 Age: 57 Procedure: Upper GI endoscopy Indications: Epigastric abdominal pain Providers: Marshall Vargas MD Referring MD: Marshall Vargas MD Medicines: Monitored Anesthesia Care Patient Profile: This is a 57 year old male. Refer to note in patient chart for documentation of history and physical. Complications: No immediate complications. Estimated blood loss: Minimal. Procedure: Pre-Anesthesia Assessment: - Prior to the procedure, a History and Physical was performed, and patient medications and allergies were reviewed. The patient's tolerance of previous anesthesia was also reviewed. The risks and benefits of the procedure and the sedation options and risks were discussed with the patient. All questions were answered, and informed consent was obtained. Prior Anticoagulants: The patient has taken no anticoagulant or antiplatelet agents. After reviewing the risks and benefits, the patient was deemed in satisfactory condition to undergo the procedure. After obtaining informed consent, the endoscope was passed under direct vision. Throughout the procedure, the patient's blood pressure, pulse, and oxygen saturations were monitored continuously. The Endoscope was introduced through the mouth, and advanced to the third part of duodenum. The upper GI endoscopy was accomplished without difficulty. The patient tolerated the procedure well. Scope In: 7:44:07 AM Scope Out: 7:47:04 AM Total Procedure Duration Time 0 hours 2 minutes 57 seconds Findings: The esophagus was normal. The stomach was normal. The examined duodenum was normal. A large amount of food (residue) was found in the entire examined stomach. Impression: - Normal esophagus. - Normal stomach. - Normal examined duodenum. - A large amount of food (residue) in the stomach. - No specimens collected. Recommendation: - Discharge patient to home. - Resume previous diet. - Continue present medications. - Do a gastric emptying study at appointment to be scheduled. Procedure Code(s): --- Professional --- 41455, Esophagogastroduodenoscopy, flexible, transoral; diagnostic, including collection of specimen(s) by brushing or washing, when performed (separate procedure) Diagnosis Code(s): --- Professional --- R10.13, Epigastric pain CPT copyright 2021 [employer]. All rights reserved. The codes documented in this report are preliminary and upon certified medical coder review may be revised to meet current compliance requirements. Marshall Vargas MD 04/11/2023 7:59:30 AM This report has been signed electronically. Number of Addenda: 0 Note Initiated On: 04/11/2023 7:34 AM
--- NOTE | 2023-04-11 08:00 | OP.CCLET_ITS ---
04/11/2023 Gianfranco Gonzalez [address] [place] [address] Re : Upper GI endoscopy procedure for Domingo Sabi Dear Dr. Gonzalez This procedure was performed on Tuesday, April 11, 2023. My impressions and recommendations are as follows: Impressions : - Normal esophagus. - Normal stomach. - Normal examined duodenum. - A large amount of food (residue) in the stomach. - No specimens collected. Recommendations : - Discharge patient to home. - Resume previous diet. - Continue present medications. - Do a gastric emptying study at appointment to be scheduled. My findings are described in the full procedure note, which is enclosed. If I can be of further assistance, please feel free to contact me at Doctor phone number(s): , Work: . Sincerely, Marshall Vargas MD 04/11/2023 7:59:30 AM This report has been signed electronically.
[2023-04-11 08:08] VITALS: BP 110/66; BP 98/64; PULSE 77; RESP 16; TEMP 36.4; O2SAT 94
[2023-04-11 08:21] VITALS: BP 110/66
== END 2023-04-11 08:27 | disposition home or self-care (01) ==
LOC: EN 06:30 → AC 06:31
PROVIDERS: PCP Family Medicine; Referring Provider Family Medicine; Visit Provider Surgery
PROC: 0DJ08ZZ Inspection of Upper Intestinal Tract, Via Natural or Artificial Opening Endoscopic (ICD-10-PCS; CPT 43235; principal; 2023-04-11 07:25)
DX: R10.13 Epigastric pain (principal); Z79.4 Long term (current) use of insulin; E11.9 Type 2 diabetes mellitus without complications; K21.9 Gastro-esophageal reflux disease without esophagitis; Z79.84 Long term (current) use of oral hypoglycemic drugs; E66.9 Obesity, unspecified; F17.210 Nicotine dependence, cigarettes, uncomplicated; Z68.32 Body mass index [BMI] 32.0-32.9, adult; E78.5 Hyperlipidemia, unspecified; I10 Essential (primary) hypertension
CPT/HCPCS: 43235; 82962; J7120

== ENCOUNTER → 2023-04-25 | Outpatient (CLI) | payer BC, SELFPAY ==
--- NOTE | 2023-04-25 11:57 | NM_ITS ---
CLINICAL: 57-year-old male with history of clinical gastroparesis. SEMI-SOLID PHASE 99m Tc SULFUR COLLOID GASTRIC EMPTYING STUDY COMPARISON: None available FINDINGS: The patient was administered 1.1 mCi of 99m Tc sulfur colloid mixed with oatmeal and consumed per os. Image acquisitions in the anterior-posterior projections were obtained for 60 minutes. There is prompt visualization of the stomach. There is no gastroesophageal reflux identified. The T ? raw data emptying was calculated to be 36.89 minutes, (Normal: 12-56 minutes). NM/Gastric Emptying Study IMPRESSION: 1. NORMAL 99m Tc sulfur colloid semi-solid phase (oatmeal) gastric emptying imaging examination. A. There is normal and preserved semi-solid phase gastric emptying compared to normal controls. (Annie et al, J Nucl Med Tech 38: 186, 2010). Electronically Signed: Chance Emanuel DO at 16:02 EST ,
--- OUTSIDE RECORDS SUMMARY | 2023-04-25 12:03 | XMS RPT_ITS | CCD ---
Author Name Unknown Address [address] [place] [address] Organization [facility] Care Team Providers Care Ob/Gyn Name Role Phone Alicia CORTES, Marshall Mae [phone] Medications Completed/Discontinued Medications Medication Drug Class(es) Dates Sig (Normalized) Sig (Original) aspirin 81 mg oral strip (5 sources) Nonsteroidal Anti-inflammatory Drug Start: 11-22-2016 ADULT ASPIRIN EC LOW STRENGTH 81 MG [facility] ASPIRIN [id number] Marshall Vargas MD Problems Active Problems Problem [...] Mass Index) 34.67 kg/m2 Marshall Vargas MD [facility] [employer] Work Phone: 12-04-2016 08:40-0400 Height 173.99 cm Marshall Vargas MD [facility] [employer] Work Phone: 12-04-2016 08:40-0400 Respiratory Rate 18 /min Marshall Vargas MD [facility] [employer] Work Phone: 12-04-2016 08:40-0400 Weight 104.96 kg Marshall Vargas MD [facility] [employer] Work Phone: 11-22-2016 14:42-0400 BMI (Body Mass Index) 34.4 kg/m2 Marshall Vargas MD [facility] [employer] Work Phone: 11-22-2016 14:42-0400 BP Diastolic 73 mm[Hg] Marshall Vargas MD [facility] [employer] Work Phone: 11-22-2016 14:42-0400 BP Systolic 149 mm[Hg] Marshall Vargas MD [facility] [employer] Work Phone: 11-22-2016 14:42-0400 Height 173.99 cm Marshall Vargas MD [facility] [employer] Work Phone: 11-22-2016 14:42-0400 Pulse (Heart Rate) 71 /min Marshall Vargas MD [facility] [employer] Work Phone: 11-22-2016 14:42-0400 Respiratory Rate 18 /min Marshall Vargas MD [facility] [employer] Work Phone: 11-22-2016 14:42-0400 Weight 104.15 kg Marshall Vargas MD [facility] [employer] Work Phone: Procedures Date Procedure Procedure Detail Performing Clinician Start: 11-22-2016 End: 12-13-2016 Diagnostic colonoscopy Marshall akbar MD Work Phone: Start: 11-22-2016 Screening for malign ant neoplasm of colon Screening, colon ca Marshall Vargas MD Plan of Treatment Date Care Activity Detail Author Start: 12-13-2016 End: 12-13-2016 Appointment Appointment [facility] [employer] Work Phone: Start: 11-22-2016 End: 11-25-2016 Ct abd & pelvis w/o contrast CT Abdomen and pelvis; without contrast material [facility] [employer] Work Phone: Start: 11-22-2016 End: 12-12-2016 Diagnostic colonoscopy Colonoscopy [facility] [employer] Work Phone: Additional Source Comments FOR RECORDS [...] BE BASED ON THE PRIMARY CLINICAL RECORDS. [facility] [employer] [facility]. provides no warranty or guarantee of the accuracy or completeness of information in this document.
== END | disposition home or self-care (01) ==
LOC: NM 11:55
PROVIDERS: PCP Family Medicine; Referring Provider Surgery; Visit Provider Surgery
DX: Z87.19 Personal history of other diseases of the digestive system (principal)
CPT/HCPCS: 78264; A9541

== ENCOUNTER → 2023-05-30 | Outpatient (CLI) | payer BC, SELFPAY ==
--- NOTE | 2023-05-30 07:39 | CT_ITS ---
STUDY: CT ABDOMEN AND PELVIS WITH CONTRAST REASON FOR EXAM: Male, 57 years old. Left upper quadrant abdominal pain for several months. RADIATION DOSAGE (If Supplied By Facility): CTDIvol = ( 17.37 ) mGy, DLP = ( 1185.66 ) mGycm TECHNIQUE: Transaxial images were obtained from the dome of the diaphragm to the symphysis pubis with oral contrast. Oral and amp; IV Readi-CAT and amp; 100mL Isovue-370 was administered. Sagittal and coronal images were reconstructed. Individualized dose optimization techniques were used for this CT. COMPARISON: Comparison is made with prior study dated November 30, 2016. FINDINGS: The visualized lung bases are unremarkable. Coronary artery calcification. There is decreased attenuation of the liver consistent with steatosis. The gallbladder is contracted. Questionable sludge or tiny gallstones within the contracted gallbladder. Correlation with ultrasound is recommended if clinically indicated. Mild splenomegaly. Normal pancreas. Normal bilateral adrenal glands. There is a 2.8 cm cyst in the upper pole of the right kidney. Tiny nonobstructive right intrarenal calculi in the lower pole. 2 mm calculus in the mid posterior calyx of the left kidney. Normal visualized stomach. Normal small intestine. There are scattered colonic diverticula consistent with diverticulosis. The appendix is visualized and appears normal. Normal abdominal aorta. Normal inferior vena cava. There is borderline retroperitoneal lymphadenopathy with enlarged nodes no greater than 10mm in the short axis diameter. Normal urinary bladder. There are prostatic calcifications. There is evidence of prior umbilical hernia repair with a mesh. Patient is status post 360 degree fixation at the L4-L5 and L5-S1 levels with prosthetic disc placement. CT/Abdomen/Pelvis WITH Contrast IMPRESSION: Fatty infiltration of the liver. Mild splenomegaly. Sigmoid diverticulosis. Contracted gallbladder. Questionable tiny gallstones versus sludge within the gallbladder lumen. Correlation with ultrasound is recommended. Nonobstructive right intrarenal calculi. Electronically Signed: Ramakrishna Orourke MD at 10:58 EST ,
--- NOTE | 2023-05-30 07:39 | US_ITS ---
STUDY: ABDOMINAL ULTRASOUND - RIGHT UPPER QUADRANT REASON FOR VISIT: Male, 57 years old gallstones, epigastric pain, nausea TECHNIQUE: Ultrasound evaluation of the right upper quadrant was performed with real-time and static diaz-scale imaging. TECHNICAL QUALITY: Adequate. COMPARISON: Comparison is made with prior CT scan of abdomen and pelvis done earlier today. FINDINGS: Liver: The liver measures 14.1 cm. There is increased echogenicity consistent with fatty infiltration. The bile ducts are within normal limits. There is hepatic color flow. The direction of portal flow is hepatopetal. There is no demonstrated mass lesion. Gallbladder: There is a contracted gallbladder. The gallbladder wall measures 2 mm. There is a negative sonographic Lowery''s sign. There is no pericholecystic fluid. Increased echoes are seen within the contracted gallbladder. This may be a combination of tiny gallstones and sludge within the gallbladder lumen. Common Bile Duct (C.B.D.): The common bile duct measures 2.7 mm. Pancreas: Normal size of the head, body and tail of the pancreas. There is normal echogenicity of the pancreas. There is no demonstrated pancreatic mass or cyst. Right Kidney: Normal size of the right kidney. The right kidney measures 11.6 cm x 5.9 cm x 6.7 cm. Normal renal cortex. The right cortex measures 2.1 cm. 2.3 cm x 2.3 cm x 2.1 cm cyst in the upper pole. 2. Nonobstructive right intrarenal calculi. The larger measures 8 mm x 6 mm x 3 mm. There is no right hydronephrosis. US/Gallbladder IMPRESSION: Fatty infiltration of the liver. Contracted gallbladder containing sludge and findings suggesting small gallstones. Right renal cyst and nonobstructive right intrarenal calculi. Electronically Signed: Ramakrishna Orourke MD at 12:40 EST ,
--- OUTSIDE RECORDS SUMMARY | 2023-05-30 07:48 | XMS RPT_ITS | CCD ---
Author Name Unknown Address [address] [place] [address] Organization [facility] Care Team Providers Care Electrical Service Technician Name Role Phone Alicia CORTES, Marshall Mae [phone] Medications Completed/Discontinued Medications Medication Drug Class(es) Dates Sig (Normalized) Sig (Original) aspirin 81 mg oral strip (5 sources) Nonsteroidal Anti-inflammatory Drug Start: 11-22-2016 ADULT ASPIRIN EC LOW STRENGTH 81 MG [facility] ASPIRIN [id number] Marshall Vargas MD Problems Active Problems Problem [...] Mass Index) 34.67 kg/m2 Marshall Vargas MD [facility] [employer] Work Phone: 12-04-2016 08:40-0400 Height 173.99 cm Marshall Vargas MD [facility] [employer] Work Phone: 12-04-2016 08:40-0400 Respiratory Rate 18 /min Marshall Vargas MD [facility] [employer] Work Phone: 12-04-2016 08:40-0400 Weight 104.96 kg Marshall Vargas MD [facility] [employer] Work Phone: 11-22-2016 14:42-0400 BMI (Body Mass Index) 34.4 kg/m2 Marshall Vargas MD [facility] [employer] Work Phone: 11-22-2016 14:42-0400 BP Diastolic 73 mm[Hg] Marshall Vargas MD [facility] [employer] Work Phone: 11-22-2016 14:42-0400 BP Systolic 149 mm[Hg] Marshall Vargas MD [facility] [employer] Work Phone: 11-22-2016 14:42-0400 Height 173.99 cm Marshall Vargas MD [facility] [employer] Work Phone: 11-22-2016 14:42-0400 Pulse (Heart Rate) 71 /min Marshall Vargas MD [facility] [employer] Work Phone: 11-22-2016 14:42-0400 Respiratory Rate 18 /min Marshall Vargas MD [facility] [employer] Work Phone: 11-22-2016 14:42-0400 Weight 104.15 kg Marshall Vargas MD [facility] [employer] Work Phone: Procedures Date Procedure Procedure Detail Performing Clinician Start: 11-22-2016 End: 12-13-2016 Diagnostic colonoscopy Marshall akbar MD Work Phone: Start: 11-22-2016 Screening for malign ant neoplasm of colon Screening, colon ca Marshall Vargas MD Plan of Treatment Date Care Activity Detail Author Start: 12-13-2016 End: 12-13-2016 Appointment Appointment [facility] [employer] Work Phone: Start: 11-22-2016 End: 11-25-2016 Ct abd & pelvis w/o contrast CT Abdomen and pelvis; without contrast material [facility] [employer] Work Phone: Start: 11-22-2016 End: 12-12-2016 Diagnostic colonoscopy Colonoscopy [facility] [employer] Work Phone: Additional Source Comments FOR RECORDS [...] BE BASED ON THE PRIMARY CLINICAL RECORDS. [facility] [employer] [facility]. provides no warranty or guarantee of the accuracy or completeness of information in this document.
[2023-05-30 08:25] LABS: CREATININE FINGERSTICK 1.1 mg/dL (0.70-1.30); EGFR FINGERSTICK > 60.0000 mL/min (>60)
== END | disposition home or self-care (01) ==
LOC: CT 07:38
PROVIDERS: PCP Family Medicine; Referring Provider Surgery; Visit Provider Surgery
DX: R10.9 Unspecified abdominal pain (principal); K21.9 Gastro-esophageal reflux disease without esophagitis
CPT/HCPCS: 74177; 76705; Q9967; A4216

== ENCOUNTER 2023-07-09 10:21 | Day surgery (SDC) | payer BC, SELFPAY ==
--- NOTE | 2023-07-01 10:14 | EKG12_ITS ---
Test Reason : PREOP Blood Pressure : / mmHG Vent. Rate : 080 BPM Atrial Rate : 080 BPM P-R Int : 122 ms QRS Dur : 084 ms QT Int : 354 ms P-R-T Axes : 028 021 030 degrees QTc Int : 408 ms Normal sinus rhythm Normal ECG Confirmed by Jethro Castillo ([id number]), video effects editor ISAIAH RICO ([id number]) on 07/02/2023 9:42:17 AM Referred By: Marshall Vargas Confirmed By:Jethro Castillo
[2023-07-01 11:16] LABS: Hematocrit 35.3 % (40-54); Hemoglobin 10.7 g/dL (13.0-16.5); Mean Corp Hgb Conc 30.3 g/dL (32-36); Mean Corpuscular Hgb 25.2 pg (27.0-32.0); Mean Corpuscular Volume 83.3 fL (80-94); Platelet Count 294 K/mm3 (150-450); RBC Distribution Width CV 15.9 % (11.6-14.6); RBC Distribution Width SD 47.5 fl (35.1-43.9); Red Blood Count 4.24 M/mm3 (4.6-6.2); White Blood Count 9.5 K/mm3 (4.4-11.0)
[2023-07-01 11:43] LABS: Anion Gap 8 (5-15); BUN 20 mg/dL (7-18); BUN/Creat Ratio 20.9 RATIO (10-20); Chloride 108 mmol/L (98-107); Creatinine, Serum 0.96 mg/dL (0.70-1.30); EST Glomerular Filtration Rate 85 mL/min (>60); Est Glom Filt Rate - Afr Amer 103 mL/min (>60); Glucose 80 mg/dL (74-106); Potassium 4.1 mmol/L (3.5-5.1); Sodium Level 143 mmol/L (136-145)
[2023-07-01 11:59] LABS: Hemoglobin A1c 7.1 % (3.8-5.6)
[2023-07-09] VITALS (13 sets, daily range): BP systolic 103–145; BP diastolic 57–82; PULSE 82–98; RESP 12–16; TEMP 36–37; O2SAT 91–99; BMI 33.2
--- NOTE | 2023-07-09 | IMM_PTH ---
PATIENT: NENO GILLILAND LOC: [facility] U#:[id number] AGE/SX: 58/M ROOM: RE07/09/[address]: Dr. Marshall Vargas MD : 1965 BED: DIS: 07/09/2023 SPEC #: [id number] RECD: 07/10/23 16:03 STATUS: COLBY REQ #: [id number] MAL: 07/09/23 00:[address]: Marshall Vargas DEPT: IMMUNOHISTOCHEMISTRY RECD BY: Kristian Noel ENTERED: 07/10/23 16:03 SP TYPE: IMMUNO OTHR DR: MD Dr. Gianfranco Hernández DO Tissues: Liver, NOS Procedures: CD20 (add) CD45 (add) CD5 (add) CD79A (add) CD3 (initial) PHYSICIAN & INSTITUTION [place] [address] SPECIMEN INFORMATION: Tissue Source: A. Liver biopsy Clinical Info: Left upper quadrant abdominal pain Specimen Number: [id number] CPT code: 90108,51508v5 METHODOLOGY: Deparaffinized sections of prefer/formalin-fixed tissue or PAP/DQ stained slides are incubated with monoclonal/polyclonal antibodies/oligonucleotide probes. Localization is made via biotin free immunoperoxidase method. Appropriate controls are performed and reacted as expected. Results on target cell population are indicated in the following table: RESULTS: ANTIBODY / CLONE RESULT Block A CD3 (PS1) positive CD5 (SP10) positive CD20 (L26) positive CD45 (RP2/18) positive CD79a (11E3) positive These tests were developed and their performance characteristics determined by [facility]. They may not have been cleared or approved by the U.S. Food and Drug Administration. The FDA has determined that such clearance or approval is not necessary. The above immunohistochemical/dualISH markers are ordered and reviewed by the Pathologist. INTERPRETATION: A. Liver biopsy: A few minute lymphoid aggregates, polytypic in nature, favor benign. SJ/mr 07/11/23
--- NOTE | 2023-07-09 10:51 | PCM.HP.BLA ---
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 Is patient in pain?: No Allergies No Known Allergies Allergy (Verified 06/09/23 08:07) Medications metformin 1,000 mg tablet 1,000 mg PO BID blood glucose 10/25/20 [History Confirmed 06/09/23] glimepiride 4 mg tablet 4 mg PO DAILY DIABETES 04/11/21 [History Confirmed 06/09/23] insulin NPH isoph U-100 human 100 unit/mL subcutaneous suspension (Novolin N NPH U-100 Insulin isophane) 35 unit subcut 1200 DIABETES 04/11/21 [History Confirmed 06/09/23] insulin NPH isoph U-100 human 100 unit/mL subcutaneous suspension (Novolin N NPH U-100 Insulin isophane) 35 unit subcut 1800 DIABETES 04/11/21 [History Confirmed 06/09/23] acetaminophen 500 mg tablet 1,000 mg (2 x 500 mg) PO Q8 PRN Pain (Scale Score 7-10) #0 tabs 04/28/21 [Rx Confirmed 06/09/23] ascorbic acid (vitamin C) 500 mg tablet 500 mg PO BIDCM 30 days #60 tabs 04/28/21 [Rx Confirmed 06/09/23] ferrous sulfate 325 mg (65 mg iron) tablet (FeroSul) 325 mg PO 1200,1700 30 days #60 tabs 04/28/21 [Rx Confirmed 06/09/23] metoprolol tartrate 25 mg tablet 25 mg PO BID 30 days #60 tabs 04/28/21 [Rx Confirmed 06/09/23] sennosides 8.6 mg-docusate sodium 50 mg tablet (Senokot-S) 2 tab-cap (2 x 8.6-50 mg) PO BID PRN constipation 15 days #60 tabs 04/28/21 [Rx Confirmed 06/09/23] lisinopril 10 mg tablet 10 mg PO DAILY 02/25/23 [History Confirmed 06/09/23] meloxicam 15 mg tablet 15 mg PO DAILY 02/25/23 [History Confirmed 06/09/23] omeprazole 40 mg capsule,delayed release 40 mg PO DAILY #60 caps 02/25/23 [Rx Confirmed 06/09/23] PFSH Medical History (Updated 06/09/23 @ 08:10 by Fela Fontenot) Abdominal pain Arthritis Back pain Benign hypertension Colon polyp Depression Diabetes Dietary restriction Erectile dysfunction Fatty liver Gallstones Gastric reflux Hemoglobin A1C greater than 9%, indicating poor diabetic control High cholesterol Hyperlipidemia Hypertension Insulin dependent diabetes mellitus Left upper quadrant abdominal pain Leg cramps Obesity Osteoarthritis of carpometacarpal (CMC) joint of left thumb Smoker Wears glasses Surgical History History of colonoscopy History of esophagogastroduodenoscopy (EGD) History of fusion of lumbar spine History of umbilical hernia repair Hx of bilateral inguinal hernia repair Hx of meniscectomy of right knee Family History Other Adopted Social History adopted: Yes household members: spouse and children housing: house number of children: 2 current occupational status: employed 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 The patient had EGD and during EGD was found that he had food bezoar inside the stomach. He was sent for a gastric emptying study which is normal. He was still having left upper quadrant pain so we sent for a CT and ultrasound of the gallbladder. CAT and ultrasound the gallbladder suggested sludge and stones in the gallbladder. Patient still having left upper quadrant pain a few times a day. ROS General General: No weight change, appetite, fatigue, colon cancer, breast cancer or weakness HEENT HEENT: No difficulty swallowing, eye injury, eye surgery, swollen glands or hoarseness Endo Endocrine: Yes diabetes mellitus; No thyroid disease, thyroid cancer, Hair loss, heat intolerance or cold intolerance Skin Skin: No rash or changing moles Musc Musculoskeletal: Yes gout; No back problems, arthritis, rheumatoid arthritis or joint pain Cardio Cardiovascular: Yes high blood pressure; No murmur, pacemaker, heart disease, atrial fibrillation, heart attack, heart stent, palpitations, shortness of breat with exertion or chest pain Psych Psychiatric: No depression, anxiety or hearing voices Resp Respiratory: No shortness of breath, No sleep apnea, No cough, No COPD, No asthma, No emphysema and No wheezing Gastro Gastrointestinal: Yes abdominal pain, Yes nausea or vomiting, No diarrhea, No constipation, No blood in stool, Yes acid reflux, No hemorrhoids, No ulcers, No gallbladder problem and No black,tarry stools Eric Hematologic: No blood thinners, No blood disorders, No bleeding, No anemia and No blood clots Neuro Neurologic: No system reviewed and no additional complaints, except as documented, No as per HPI, No abnormal gait, No abnormal hearing, No abnormal movements, No abnormal speech, No behavioral changes, No burning sensations, No confusion, No convulsions, No disequilibrium, No dizziness, No localized weakness, No frequent falls, No headache(s), No lack of coordination, No loss of vision, No memory loss, No numbness, No other visual disturbances, No radicular pain, No restless legs, No sensory deficit, No syncope, No tingling, No tremor(s), No weakness and No other Exam Const General: cooperative Orientation: alert and oriented x3 HENMT Head: normal to inspection Neck Neck: normal visual inspection and full ROM Chest Chest palpation & inspection: normal inspection of the chest Resp Effort & Inspection: normal respiratory effort Auscultation: clear to auscultation bilaterally Cardio Rate: regular rate Rhythm: regular rhythm GI Inspection: non-distended Palpation: soft and nontender Skin General: no rashes or lesions noted Neuro General: patient alert and patient oriented x3 Extrem General: full ROM Psych Appearance: grossly normal Mental Status: mental status grossly normal Assessment and Plan Assessment and Plan (1) Left upper quadrant abdominal pain: Status: Acute Plan: Patient is still having ongoing left upper quadrant pain. Gastric emptying study was normal. He had an ultrasound and CT which only showed sludge and stones in the gallbladder and no other abnormalities. Given the fact that is the only positive we have had on his abdominal workup I do recommend laparoscopic cholecystectomy at this point. I did discuss that this may not take care of his pain but it was the only area of concern we could find on all of his workup. I explained that there are some people that feel gallbladder pain in the left upper quadrant. Patient understands and is willing to proceed with laparoscopic cholecystectomy. I discussed the procedure in detail with the patient. I discussed the risks, benefits, and alternatives of the procedure. I discussed the risks including but not limited to bleeding, infection, injury to surrounding organs such as the liver, bile duct, bowels. I did discuss the possibility of having to convert to an open procedure as well as the possibility that if any injuries occurred this may necessitate further surgery at a tertiary care center. Marshall Vargas MD Pager: [facility] [address] [place] [address], [address] [place] [address] Office: I have examined the patient and the H&P has been reviewed. There are no clinical changes since date of exam.
[2023-07-09] MEDS: Lactated Ringers 1,000 ML 15 ML IV (10:57)
--- NOTE | 2023-07-09 11:00 | RAD_ITS ---
STUDY: INTRAOPERATIVE CHOLANGIOGRAM. REASON FOR EXAM: Male, 58 years old. PAIN -- -- 18.7 SEC FLUORO, 12.10 MGY, 1 CINE RUN TECHNIQUE: An intraoperative cholangiogram was performed by the surgeon. Imaging was submitted. COMPARISON: None. FINDINGS: The visualized intra and extrahepatic biliary ducts are unremarkable. Free flow of contrast into the duodenum. RAD/Cholangiogram/ O R,Initial IMPRESSION: Normal intraoperative cholangiogram. Electronically Signed: Ramakrishna Orourke MD at 13:04 EDT ,
[2023-07-09 11:25] LABS: Bedside Glucose 129 mg/dL (74-106)
[2023-07-09] MEDS: Cefotetan 2 GM in 0.9% NS 100 ML IV (11:37)
--- NOTE | 2023-07-09 12:00 | LIVB_PTH ---
PATIENT: NENO GILLILAND [place] [facility] [id number] AGE/SX: 58/M ROOM: RE07/09/[address]: Dr. Marshall Vargas MD : 1965 BED: DIS: 07/09/2023 SPEC #: [id number] RECD: 07/09/23 13:14 STATUS: COLBY RE #: [id number] MAL: 07/09/23 12:[address]: Marshall Vargas DEPT: SURGICAL PATHOLOGY RECD BY: Alexandria Faulkner ENTERED: 07/09/23 14:00 SP TYPE: LIVER BX OTHR DR: MD Dr. Gianfranco Hernández DO Tissues: A - Liver, NOS B - Gallbladder, NOS Procedures: PAS with Diastase (control) Trichrome (control) Special Stain Group II Special Stain Group I PAS Stain (control) Surgery Specimen Level III Surgery Specimen Level V AFB Stain (control) GMS Stain (control) Retic (control) Iron Stain (control) HEADER OPERATION: Laparoscopic, Cholecystectomy with IOC PRE-OP DIAGNOSIS: Left upper quadrant abdominal pain TISSUE SUBMITTED: A- Liver biopsy, B- Gallbladder MICROSCOPIC DIAGNOSIS A. Liver, core biopsy: Liver parenchymal tissue with focal minimal macro and micro vesicular steatosis, lobular and portal chronic inflammation. See microscopic description and comment. B. Gallbladder, cholecystectomy: Chronic cholecystitis and cholelithiasis. SJ/mr 07/10/23 COMMENT A. Correlation with clinical, laboratory findings and appropriate follow up are necessary. Immunohistochemistry ([id number]) supports shows lymphoid aggregates to be polytypic in nature, favor benign. If there is high suspicion of hepatitis, correlation with laboratory studies is necessary. Case has been reviewed in consultation with Dr. Sweet who concurs with the above diagnosis. IDC:AM MICROSCOPIC DESCRIPTION Slides are reviewed. A. The specimen shows liver parenchymal tissue with preserved lobular architecture. Hepatocytes shows minimal macro and micro vesicular steatosis. A few lipogranuloma and non-necrotizing granulomas are also noted. Focal minimal lobular inflammation is noted. Portal area shows mild to moderate chronic inflammatory cell infiltrate predominantly consists of lymphocyte and a few eosinophils. Significant interface inflammation is not seen. Minute lymphoid aggregates and non-necrotizing granuloma and lipogranulomas are also noted. Iron stain shows absent iron. Reticulate stain shows preserved lobular architecture. Trichrome stain shows increased portal and periportal fibrosis. Bridging fibrosis or cirrhosis is not seen. PAS stain with or without diastase do not show any abnormal accumulation of protein. Special stains for acid fast bacilli and fungi are negative for organisms. All stains are performed with appropriate match controls. GROSS DESCRIPTION A. Received in fixative is one container labeled with the patient's name and designated Liver biopsy. The specimen consists of two elongated fragments of jean soft tissue that in aggregate measure 1.5cm in length and 0.1cm in diameter. The specimen is totally submitted in one cassette. B. Received is one container labeled with the patient's name and designated gallbladder. The specimen consists of a gallbladder measuring 5.0 cm in length and up to 2.5 cm in diameter. The external surface is pink-jean, smooth and glistening for the most part. Focally it is granular, hemorrhagic and contains cautery artifact. The gallbladder contains small amount of yellow mucoid bile and multiple black irregular stones and stone fragments measuring in aggregate 2.0 x 1.5 x 1.0cm and 0.2 to 2.0 cm in greatest dimension. The mucosa is bile-stained and without any mass lesions. The gallbladder wall measures up to 0.3cm in thickness. Certified Respiratory Therapist sections from the gallbladder and the cystic duct are submitted in one cassette. / RADHA: 07/09/23 TC:3 CPT: 21791 ,05610,[id number],[id number]
[2023-07-09] MEDS: Bupiv/Epi 0.25% 30 ML Vial (12:19)
--- NOTE | 2023-07-09 12:20 | OP.PCM_ITS ---
Report of Operation Date of Procedure: 07/09/23 Pre-Operative Diagnosis: Biliary colic and cholelithiasis Post-Operative Diagnosis: Same Surgery/Procedure Performed:: 1. Laparoscopic cholecystectomy with cholangiograms 2. Laparoscopic liver biopsy Description of Surgical Findings:: The patient had a cirrhotic appearing liver and it was biopsied Type of Anesthesia: General/Regional Specimen's removed: Liver biopsy and gallbladder Estimated Blood Loss (mL): 20 Description of Procedure: After obtaining informed consent patient was brought back to the operating room. General anesthesia was induced. The abdomen was prepped and draped in usual sterile fashion. A small midline incision was made superior to the umbilicus and deepened to the level of fascia. The fascia was elevated and incised. Next the peritoneum was elevated and incised in the same fashion. Finger sweep was performed and the Seo trocar was placed into the abdomen. The balloon was inflated. The abdomen was inflated to 15 mmHg. Next a camera was introduced into the abdomen and the abdomen was inspected. Next under direct visualization three 5-mm ports were placed one subxiphoid and 2 subcostal. Next the gallbladder was elevated and retracted toward the right shoulder. The peritoneum was stripped from the gallbladder. The infundibulum was located and retracted laterally. Next the triangle of Calot was dissected and the cystic duct and cystic artery were identified. Cholangiograms were performed. The Abel clamp was used to clamp across the infundibulum and the catheter needle was inserted into the gallbladder. Under fluoroscopy contrast was instilled into the gallbladder and the common duct, cystic duct as well as proximal hepatic ducts were identified. There was good filling of the duodenum. There were no filling defects noted in the common bile duct. The clamp was removed as well as the needle and the infundibulum was grasped once more. Three hemolock clips were placed across the cystic duct. The cystic duct was then divided leaving 2 clips on the stump. The cystic artery was clipped and divided in the same fashion. The hook cautery was then used to take the gallbladder off of the gallbladder bed. Hemostasis was obtained. Gallbladder fossa was irrigated and no active bleeding or bile leakage was noted. Next the camera was introduced in the subxiphoid port. An Endopouch bag was placed through the umbilical port and the gallbladder was placed into it. The gallbladder was then removed through the umbilical incision. The camera was then reinserted through the umbilical port. The gallbladder fossa was inspected once more and noted to be hemostatic with no leaking bile. The abdomen was suctioned dry. The liver did appear to have cirrhotic changes. I performed a laparoscopic liver biopsy of the right lobe of the liver anteriorly using a Naren-Cut biopsy needle. The area was cauter ized and there was good hemostasis. The 5 mm ports were removed under direct visualization. The umbilical port was then removed and the air was removed from the abdomen. Next using an 0 Vicryl suture the umbilical fascia was closed in a [id number] fashion. The umbilical port site was irrigated local anesthetic was administered to all the incisions. All the incisions were closed with inte rrupted subcuticular 4-0 Monocryl sutures followed by Steri-Strips and dressings. The patient was awoken and taken to PACU in stable condition. Admit VTE Documentation VTE Mechan Device Prophylaxis: SCD's
--- NOTE | 2023-07-09 12:23 | DCINST_ITS ---
Discharge Instructions Procedure Gallbladder Diet Discharge Diet: Light diet - advance as tolerated Activity Discharge Activity: May Not Drive (for 2-3 days or while taking narcotic pain medications.) and - (Do not drive, work heavy equipment or sign legal documents for 24 hours.) May shower in (days): 1 Lifting Restrictions: 20 lbs for 2 weeks Additional Activity Instructions:: Pain medication may cause nausea. You should typically eat light foods as you take your pain medications. Pain medication may also cause constipation. If this is a problem for you, please discuss with your doctor. Dressing / Incision Call your doctor if your incision/area has: Continuous Slow Oozing, Sudden Increased Bleeding, Increased Pain/ Swelling, Increased Redness and Foul Smelling Discharge Call your doctor if you observe: Fever of 101 or Higher Suture Line Care: Avoid Pulling/Pushing and Avoid Pinching/Bending Remove Dressing in: 2 days Additional Dressing/Incision Instructions:: Leave operative bandaids on for 2 days. When you remove dressing, leave Steri-Strips on until your follow-up appointment, or until the Steri-Strips fall off on their own. Follow Up Care Please Follow Up With: Marshall Vargas MD When: Please call to schedule 2 week follow up appointment. [phone] Test Results: Test results from this visit will be discussed in further detail at your follow- up appointment, if applicable. Discharge Plan Admission Attending Provider: Marshall Vargas Primary Care Provider: Gianfranco Gonzalez Consulting Providers: Tommy Mullins Discharge Orders/Prescriptions Prescriptions: New oxycodone 5 mg Tablet 5 - 10 mg PO Q4H PRN PRN (Reason: Pain Score 4-10/10) 5 Days Qty: 20 0RF Continued metformin 1,000 mg tablet 1,000 mg PO BID Patient Comments: TAKE 1 TABLET BY MOUTH TWICE DAILY meloxicam 15 mg tablet 15 mg PO DAILY lisinopril 10 mg tablet 10 mg PO DAILY omeprazole 40 mg capsule,delayed release(DR/EC) 40 mg PO DAILY Qty: 60 1RF glimepiride 4 mg tablet 4 mg PO DAILY Novolin N NPH U-100 Insulin 100 unit/mL Suspension 35 unit SUBCUT 1200 Novolin N NPH U-100 Insulin 100 unit/mL Suspension 32 unit SUBCUT 1800 acetaminophen 500 mg Tablet 1,000 mg PO Q8 PRN (Reason: Pain (Scale Score 7-10)) Qty: 0 0RF ascorbic acid (vitamin C) 500 mg Tablet 500 mg PO BIDCM 30 Days Qty: 60 0RF ferrous sulfate [FeroSul] 325 mg (65 mg iron) Tablet 325 mg PO 1200,1700 30 Days Qty: 60 0RF metoprolol tartrate 25 mg Tablet 25 mg PO BID 30 Days Qty: 60 0RF Referrals / Follow Up: Gianfranco Gonzalez DO [Primary Care Provider] - Disposition Disposition (needs filled in before D/C Order can be placed): Home, Self Care
[2023-07-09] MEDS: Acetaminophen 325 MG Tablet 650 MG PO ×2 (15:19→15:25)
[2023-07-09] MEDS: oxyCODONE 5 MG Tablet PO (15:19)
== END 2023-07-09 16:15 | disposition home or self-care (01) ==
LOC: SDC 10:22 → AC 10:22
PROVIDERS: Anesthesiology; PCP Family Medicine; Referring Provider Surgery; Visit Provider Surgery
PROC: (CPT 47610; principal; 2023-07-09 11:40)
DX: K80.10 Calculus of gallbladder with chronic cholecystitis without obstruction (principal); K73.9 Chronic hepatitis, unspecified; E11.9 Type 2 diabetes mellitus without complications; Z79.4 Long term (current) use of insulin; F17.210 Nicotine dependence, cigarettes, uncomplicated; Z68.32 Body mass index [BMI] 32.0-32.9, adult; E78.00 Pure hypercholesterolemia, unspecified; K83.8 Other specified diseases of biliary tract; E66.9 Obesity, unspecified; Z79.84 Long term (current) use of oral hypoglycemic drugs; I10 Essential (primary) hypertension; Z98.1 Arthrodesis status; Z87.19 Personal history of other diseases of the digestive system
CPT/HCPCS: 47563; 47379; 00790; 36415; 74300; 76000; 80048; 82962; 83036; 85027; 88304; 88307; 88312; 88313; 88341; 88342; 93005; 94640; J7120; J2405

== ENCOUNTER → 2023-07-28 | Outpatient (CLI) | payer BC, SELFPAY ==
[2023-07-28 15:23] LABS: Absolute Neutrophil Count 5.5 X10^3/uL (2.0-7.7); Basophil# 0.07 X10^3/uL; Basophil% 0.8 % (0-1); Eosinophil# 0.36 X10^3/uL; Eosinophils% 4.2 % (0-5); Hematocrit 35.6 % (40-54); Hemoglobin 10.7 g/dL (13.0-16.5); Mean Corp Hgb Conc 30.1 g/dL (32-36); Mean Corpuscular Volume 83.2 fL (80-94); Mean Platelet Vol. 9.5 fl (6.2-12.0); Monocyte# 0.81 X10^3/uL; Monocyte% 9.5 % (0-10); NRBC Flagged by Analyzer 0 % (0-5); Neutrophil # 5.51 X10^3/uL (2.7-7.7); Platelet Count 316 K/mm3 (150-450); RBC Distribution Width CV 15.1 % (11.6-14.6); RBC Distribution Width SD 45.5 fl (35.1-43.9); Red Blood Count 4.28 M/mm3 (4.6-6.2); White Blood Count 8.5 K/mm3 (4.4-11.0)
[2023-07-28 16:04] LABS: Ferritin 8 ng/mL (26-388); Iron 29 ug/dL (65-175); LDH 190 U/L (87-241); Vitamin B12 117 pg/mL (211-911)
== END | disposition home or self-care (01) ==
LOC: BFHLAB 11:09
PROVIDERS: PCP Family Medicine; Referring Provider Family Medicine; Visit Provider Family Medicine
DX: D64.9 Anemia, unspecified (principal)
CPT/HCPCS: 36415; 82607; 82728; 83540; 83615; 85025

== ENCOUNTER 2024-01-16 19:31 | Emergency (ER) | payer BC, SELFPAY ==
[2024-01-16 19:33] VITALS: BP 109/65; PULSE 145; RESP 20; TEMP 36.7; O2SAT 98; O2SAT 99; BMI 30.4
--- NOTE | 2024-01-16 20:03 | CT_ITS ---
EXAM: CT HEAD WITHOUT INTRAVENOUS CONTRAST CLINICAL INDICATION: vertigo,syncope TECHNIQUE: Multiple axial images were obtained of the head without intravenous contrast. This CT exam was performed using one or more of the following dose reduction techniques: automated exposure control, adjustment of the mA and/or kV according to patient size, and/or use of iterative reconstruction technique. RADIATION DOSE: CTDIvol = 44.99 mGy, DLP = 829.85 mGy-cm. COMPARISON: No relevant prior studies available. FINDINGS: BRAIN AND EXTRA-AXIAL SPACES: Unremarkable. No intra- or extra-axial hemorrhage. No evidence of acute infarct. No intracranial mass or mass effect. There is preservation of the diaz/white matter interface. Posterior fossa structures are unremarkable. Ventricles are appropriate for age. No hydrocephalus. Basal cisterns are patent. BONES/JOINTS: Unremarkable. No discrete lytic or blastic abnormalities. SINUSES: Unremarkable as visualized. Clear. MASTOID AIR CELLS: Unremarkable. Clear. ORBITS: Visualized globes, extraocular muscles, optic nerves and retrobulbar fat appear unremarkable. CT/Brain/Head without Contrast IMPRESSION: Negative head/brain CT without intravenous contrast. Electronically Signed: Dina Montiel MD at 21:03 EDT ,
--- NOTE | 2024-01-16 20:05 | EX.ED.DYSGE1 ---
HPI History of Present Illness Chief Complaint: Syncope Detail of Chief Complaint: Syncope and dizziness Informant: patient and spouse/S.O. Narrative Narrative: Patient presents to the emergency department with complaint of syncopal episode tonight. Patient states that he has been having some dizziness that was mild for approximately 5 days. He was seen by his primary care physician yesterday and started on prednisone because he had some discomfort in his ears. This morning he woke up and was still dizzy could not get out of bed. Complains of severe dizziness with standing and had turning and position. He had nausea and vomiting today with this. Patient then had a syncopal episode while standing fell to the ground and was unconscious for about 2 minutes or so. Patient denies chest pain. He denies abdominal pain. He denies recent illness otherwise. [facility] Medical History Gallstones Left upper quadrant abdominal pain Abdominal pain Arthritis Leg cramps Insulin dependent diabetes mellitus High cholesterol Back pain Dietary restriction Smoker Wears glasses Obesity Benign hypertension Diabetes Hemoglobin A1C greater than 9%, indicating poor diabetic control Gastric reflux Osteoarthritis of carpometacarpal (CMC) joint of left thumb Depression Colon polyp Erectile dysfunction Fatty liver Hyperlipidemia Hypertension Home Medications ?Medication ?Instructions ?Recorded ?Last Taken ?Type metformin 1,000 mg tablet 1,000 mg PO BID blood glucose 10/25/20 07/08/23 History glimepiride 4 mg tablet 4 mg PO DAILY DIABETES 04/11/21 07/08/23 History ferrous sulfate 325 mg (65 mg 325 mg PO 1200,1700 30 days #60 04/28/21 07/07/23 Rx iron) tablet (FeroSul) tabs lisinopril 10 mg tablet 10 mg PO DAILY 02/25/23 07/08/23 History meloxicam 15 mg tablet 15 mg PO DAILY 02/25/23 07/08/23 History blood-glucose meter,continuous #1 ea 09/18/23 Unknown Rx (FreeStyle Eriberto 3 Imnaha) blood-glucose sensor (FreeStyle #2 ea 09/18/23 Unknown Rx Eriberto 3 Sensor device) insulin NPH isoph U-100 human 100 35 unit subcut BID 09/18/23 Unknown History unit/mL (3 mL) subcutaneous pen (Humulin N NPH U-100 Insulin KwikPen) metoprolol succinate 50 mg 50 mg PO BID 09/18/23 Unknown History tablet,extended release 24 hr insulin NPH isoph U-100 human 100 32 unit subcut DAILY 01/16/24 Unknown History unit/mL subcutaneous suspension (Humulin N NPH U-100 Insulin (isophane susp)) Allergy/AdvReac Type Severity Reaction Status Date / Time No Known Allergies Allergy Verified 01/16/24 19:32 Family History Other Adopted Surgical History Status post cholecystectomy History of esophagogastroduodenoscopy (EGD) History of fusion of lumbar spine Hx of meniscectomy of right knee Hx of bilateral inguinal hernia repair History of umbilical hernia repair History of colonoscopy Social History adopted: Yes household members: spouse and children housing: house number of children: 2 current occupational status: employed 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 [employer] Smoking Status: Current every day smoker tobacco type: cigarettes Tobacco: How many years used: 30 alcohol intake: never what type of physical activity do you participate in: walking frequency: 3-4 times per week do you feel safe at home: Yes ROS ROS ED Review of Systems ROS Unobtainable: other Constitutional Constitutional ED: Reports lethargy; Denies chills, fever(s), sweats or weight loss Eyes Eyes: Denies blurry vision, change in vision or diplopia ENT ENT ED: Denies rhinorrhea or sore throat Cardiovascular Cardiovascular: Denies chest pain, orthopnea or racing heartbeat Respiratory/Chest Respiratory/Chest: Denies cough, dyspnea, dyspnea on exertion, orthopnea or sputum Gastrointestinal Gastrointestinal: Reports nausea and vomiting; Denies abdominal pain or diarrhea Genitourinary Genitourinary ED: Denies dysuria, hematuria or urinary frequency Musculoskeletal Musculoskeletal: Denies arthralgias, back pain, myalgias or neck pain Integumentary Denies abscess, Abrasions or rash Neurologic Neurologic: Reports other Details: Vertigo ; Denies headache(s) or weakness Psychiatric Psychiatric: Denies anxiety, depression or suicidal thoughts Endocrine Endocrinology: Denies polydipsia, polyphagia or polyuria Hematologic/Lymphatic Hematologic/Lymphatic: Denies easy bleeding, easy bruising or lymphadenopathy Allergic/Immunologic Allergic/Immunologic ED: Denies mouth swelling, tongue swelling or urticaria EXAM Physical Exam Const Vital Signs: 01/16/24 19:33 01/16/24 19:38 01/16/24 21:32 Temperature 98.0 F Temperature Source Oral Pulse Rate 145 H 136 H Respiratory Rate 20 H 20 H Respiratory Effort Normal Non-Labored Respiratory Pattern Normal Blood Pressure 109/65 102/62 Blood Pressure Mean 79 75 Blood Pressure Source Blood Pressure Position Blood Pressure Location Pulse Ox 99 100 Oxygen Delivery Method Room Air Room Air 01/16/24 21:32 01/16/24 21:48 01/16/24 21:55 Temperature 98.5 F 98.5 F Temperature Source Oral Pulse Rate 139 H 136 H 136 H Respiratory Rate 21 H 20 H 20 H Respiratory Effort Respiratory Pattern Blood Pressure 102/62 107/62 102/62 Blood Pressure Mean 75 77 75 Blood Pressure Source Blood Pressure Position Blood Pressure Location Pulse Ox 99 100 100 Oxygen Delivery Method Room Air Room Air 01/16/24 22:26 Temperature Temperature Source Pulse Rate 138 H Respiratory Rate 18 Respiratory Effort Respiratory Pattern Blood Pressure 102/62 Blood Pressure Mean 75 Blood Pressure Source Monitor Blood Pressure Position Semi-Fowlers Blood Pressure Location Right Arm Pulse Ox 97 Oxygen Delivery Method Room Air Positive well nourished and well developed Constitutional Narrative: Power General Appearance ED: well developed and NAD HEENT Reports TM's clear and moist mucous membranes normocephalic and atraumatic; Negative for trauma or tenderness Tympanic Membrane ED: Yes TM's clear Eyes PERRL and EOMs intact bilaterally General Eye ED: Negative for pale conjunctiva or scleral icterus Neck no lymphadenopathy, supple and no JVD General: Negative for tenderness Chest Wall inspection of chest normal and palpation of chest normal Chest: Negative for tenderness Resp clear to auscultation bilaterally Resp Narrative: Mild tachypnea Effort and Inspection: Negative for respiratory distress or pain with movement Auscultation: Negative for rhonchi, wheezes or diminished lung sounds Cardio regular rhythm, S1 normal heart sound, S2 normal heart sound and no murmurs; Negative for regular rate Rate: tachycardic Peripheral Pulses: pulses 2+ throughout GI normal to inspection, nondistended, normoactive bowel sounds, soft to palpation, non-tender, non-distended and no masses GI Narrative: Rectal exam performed and patient has black tarry stool and some maroon-colored stool Back/Spine no CVA tenderness and no thoracic nor lumbar tenderness Extremity normal to inspection General Extremety ED: Negative for edema General Extremity: Negative for edema Neuro oriented x3, CN's II-XII intact bilaterally, no sensory deficits noted and gait normal Neuro Narrative: Attempted Hallpike maneuver however patient could not tolerate very well. There was some subtle nystagmus noted when head turned to the right when I laid him down. He became nauseated. Sensorium / Orientation: awake, alert, oriented to person, oriented to place and oriented to time Motor Exam: strength 5/5 throughout and strength abnormal Psych mental status grossly normal Skin no rashes or lesions noted and no wounds MDM MDM MDM Narrative Medical decision making narrative: Patient presents to the emergency department with complaint of dizziness and syncopal episode. CT scan of the brain without contrast obtained was unremarkable. EKG obtained showed a sinus tachycardia with ventricular rate of 145 bpm with no acute ST segment changes. Patient had a CBC with differential that showed an elevated white count of 52,000 with hemoglobin of 5.5 and platelet count of of 472. Chemistries significant for a glucose of 496 with a BUN of 54 and creatinine of 1.89. CO2 was 13 and anion gap was 21. Lactate was 11.5. LFTs unremarkable. Troponin was elevated at 979. Hemoglobin did not return right away and only had that resolved later in the visit. After noting he had a hemoglobin of 5.5 I asked about blood in stool or black tarry stool and he states that yes he did have some black stool today and there may have been some blood in it. On rectal exam he was noted to have maroon-colored stool and black tarry stools. Patient was started on Protonix IV. He was given 2 L normal saline fluid boluses. He was started on a insulin drip. I ordered 2 units of trauma blood. Case discussed with hospitalist who recommended transfer to tertiary care center. Discussed case with [facility] MICU physician who accepted transfer to their facility. Patient will be transferred via helicopter given critical condition. Lab Data Attestation: I reviewed the patient's lab results. Labs: Laboratory Results - last 24 hr 01/16/24 01/16/24 01/16/24 19:40 20:53 21:22 WBC 51.8 H* RBC 1.80 L Hgb 5.5 L* Hct 18.5 L MCV 102.8 H MCH 30.6 MCHC 29.7 L RDW Std Deviation 61.0 H RDW Coeff of Aylin 17.2 H Plt Count 472 H MPV 10.1 Immature Gran % (Auto) 4.600 H Neut % (Auto) 66.8 Lymph % (Auto) 18.4 L [place] % (Auto) 9.8 Eos % (Auto) 0.1 Baso % (Auto) 0.3 Absolute Neuts (auto) 34.6 H Absolute Lymphs (auto) 9.55 H Nucleated RBC % 0.8 Diff Path Review May foll Platelet Estimate ADEQUATE Polychromasia 1+ Anisocytosis 2+ PT INR APTT D-Dimer Quant (PE/DVT) 0.27 Sodium 138 Potassium 4.6 Chloride 104 Carbon Dioxide 13.0 L Anion Gap 21 H BUN 54 H Creatinine 1.86 H Estim Creat Clear Calc 46.21 Est GFR (MDRD) Af Amer 48 L Est GFR (MDRD) Non-Af 40 L BUN/Creatinine Ratio 29.0 H Glucose 459 H* Lactic Acid 11.5 H* Calcium 8.8 Total Bilirubin 0.20 AST 11 L ALT 22 Alkaline Phosphatase 70 Troponin I High Sens 979 H* Total Protein 5.5 L Albumin 2.9 L Globulin 2.6 Albumin/Globulin Ratio 1.1 Acetone Level NEGATIVE POC Glucose 443 H 01/16/24 22:00 WBC RBC Hgb Hct MCV MCH MCHC RDW Std Deviation RDW Coeff of Aylin Plt Count MPV Immature Gran % (Auto) Neut % (Auto) Lymph % (Auto) [place] % (Auto) Eos % (Auto) Baso % (Auto) Absolute Neuts (auto) Absolute Lymphs (auto) Nucleated RBC % Diff Path Review Platelet Estimate Polychromasia Anisocytosis PT 20.8 H INR 1.8 APTT 31.4 D-Dimer Quant (PE/DVT) Sodium Potassium Chloride Carbon Dioxide Anion Gap BUN Creatinine Estim Creat Clear Calc Est GFR (MDRD) Af Amer Est GFR (MDRD) Non-Af BUN/Creatinine Ratio Glucose Lactic Acid Calcium Total Bilirubin AST ALT Alkaline Phosphatase Troponin I High Sens Total Protein Albumin Globulin Albumin/Globulin Ratio Acetone Level POC Glucose ABG Data ABG results: ABG 01/16/24 22:06 Specimen Type ART Sample Site R Radial pH 7.36 Bicarbonate Actual 15.6 L Total CO2 17 Base Excess -10 L O2 Saturation 96 ABG pCO2 27.4 L ABG pO2 85 Estrada Test Positive O2 Delivery Device Room Air Vent Mode Not entered Radiography Diagnostic Testing: Clinical Impression(s) from Imaging Studies Brain CT 01/16/24 20:03 IMPRESSION: Negative head/brain CT without intravenous contrast. Electronically Signed: Dina Montiel MD at 21:03 EDT Reading Location ID and State: [facility] / [place] Tel , Service support , EKG Initial EKG: Attestation: I personally reviewed and interpreted this EKG as follows: Comments: Sinus tachycardia with ventricular rate of 145 bpm with no acute ST segment changes Critical Care Time Critical care time (excluding procedures): 30-74 minutes, Including time spent:, Discussing w/Patient &/or Family/Education Courses Sales Representative, Discussing w/Consultants, Arranging Admission or Transfer, Performing Direct Patient Care at Bedside and - Discharge Plan Triage Chief Complaint: Syncope ED Provider: Juan Forman Dx/Rx/DC Orders Clinical Impression: Acute upper GI bleed, Leukocytosis, SHY (acute kidney injury), DKA (diabetic ketoacidosis), Anemia, Elevated troponin Prescriptions: No Action metformin 1,000 mg tablet 1,000 mg PO BID Patient Comments: TAKE 1 TABLET BY MOUTH TWICE DAILY meloxicam 15 mg tablet 15 mg PO DAILY lisinopril 10 mg tablet 10 mg PO DAILY metoprolol succinate 50 mg tablet extended release 24 hr 50 mg PO BID Humulin N NPH Insulin KwikPen 100 unit/mL (3 mL) insulin pen 35 unit subcut BID (DME) FreeStyle Eriberto 3 Sensor Device See Rx Instructions .Route Qty: 2 5RF Rx Instructions: 1 sensor q 14 days (DME) FreeStyle Eriberto 3 Imnaha Misc See Rx Instructions .Route Qty: 1 0RF Rx Instructions: As directed glimepiride 4 mg tablet 4 mg PO DAILY ferrous sulfate [FeroSul] 325 mg (65 mg iron) Tablet 325 mg PO 1200,1700 30 Days Qty: 60 0RF Humulin N NPH U-100 Insulin 100 unit/mL suspension 32 unit subcut DAILY Primary Care Provider: Gianfranco Gonzalez Referrals: Gianfranco Gonzalez, DO [Primary Care Provider] - Print Language: Kazakh Disposition Disposition: DC/Tx to Another Type of HCF
[2024-01-16 20:14] LABS: Absolute Lymphocyte Count 9.55 X10^3/uL (0.83-4.51); Absolute Neutrophil Count 34.6 X10^3/uL (2.0-7.7); Basophil# 0.16 X10^3/uL; Basophil% 0.3 % (0-1); Eosinophil# 0.03 X10^3/uL; Eosinophils% 0.1 % (0-5); Hematocrit 18.5 % (40-54); Lymphocyte # 9.55 X10^3/ul (0.83-4.51); Lymphocyte % 18.4 % (19-41); Mean Corp Hgb Conc 29.7 g/dL (32-36); Mean Corpuscular Hgb 30.6 pg (27.0-32.0); Mean Corpuscular Volume 102.8 fL (80-94); Mean Platelet Vol. 10.1 fl (6.2-12.0); Monocyte# 5.05 X10^3/uL; Monocyte% 9.8 % (0-10); NRBC Flagged by Analyzer 0.8 % (0-5); Neutrophil % 66.8 % (47-70); POSITIVE COUNT YES; POSITIVE DIFFERENTIAL YES; POSITIVE MORPHOLOGY YES; Platelet Count 472 K/mm3 (150-450); RBC Distribution Width CV 17.2 % (11.6-14.6)
[2024-01-16] MEDS: LORazepam 2 MG/ML Syringe 1 MG IV (20:18)
[2024-01-16] MEDS: Ondansetron 4 MG/2 ML Vial IV (20:18)
[2024-01-16] MEDS: Meclizine HCl 25 MG Tablet PO (20:18)
[2024-01-16] MEDS: 0.9% Normal Saline (1000mL) 1,000 ML 1000 ML IV (20:19)
[2024-01-16 20:23] LABS: White Blood Count 51.8 K/mm3 (4.4-11.0)
[2024-01-16 20:24] LABS: Differential Indicated SCAN CRITERIA MET
[2024-01-16 20:41] LABS: ALB/GLOB Ratio 1.1 RATIO (0.9-2.4); AST(SGOT) 11 U/L (15-37); Alanine Aminotransfer ALT/SGPT 22 U/L (16-61); Albumin, Serum 2.9 g/dL (3.2-5.0); Alkaline Phosphatase 70 U/L (45-117); Anion Gap 21 (5-15); BUN 54 mg/dL (7-18); Calcium,Total 8.8 mg/dL (8.5-10.1); Chloride 104 mmol/L (98-107); Creatinine, Serum 1.86 mg/dL (0.70-1.30); EST Glomerular Filtration Rate 40 mL/min (>60); Est Glom Filt Rate - Afr Amer 48 mL/min (>60); Estimated Creatinine Clearance 46.21 ml/min; Globulin 2.6 g/dL (2.2-4.2); Glucose 459 mg/dL (74-106); Potassium 4.6 mmol/L (3.5-5.1); Protein, Total 5.5 g/dL (6.4-8.2); Sodium Level 138 mmol/L (136-145); Troponin-I HS 979 pg/mL (3.0-78.0)
[2024-01-16 20:52] LABS: Hemoglobin 5.5 g/dL (13.0-16.5)
[2024-01-16 20:54] LABS: Platelet Estimate ADEQUATE (ADEQ)
[2024-01-16 20:55] LABS: Anisocytosis 2+; Polychromasia 1+
[2024-01-16] MEDS: Insulin Lispro 100 UNIT in 0.9% Normal Saline (100mL Bag) 99 ML 9.1 UNIT CONT INF (21:19)
[2024-01-16] MEDS: 0.9% Normal Saline (1000mL) 1,000 ML 999 ML IV (21:19)
[2024-01-16 21:29] LABS: D-Dimer Quantitative (DVT/PE) 0.27 FEU/ug/m (0.27-0.49)
[2024-01-16 21:32] VITALS: BP 102/62; PULSE 136; PULSE 139; RESP 20; RESP 21; O2SAT 100; O2SAT 99
[2024-01-16 21:33] LABS: Lactic Acid 11.5 mmol/L (0.4-1.9)
[2024-01-16 21:44] LABS: Bedside Glucose 443 mg/dL (74-106)
[2024-01-16 21:48] VITALS: BP 107/62; PULSE 136; RESP 20; TEMP 36.9; O2SAT 100
[2024-01-16 21:55] VITALS: BP 102/62; PULSE 136; RESP 20; TEMP 36.9; O2SAT 100
[2024-01-16 22:09] LABS: Allen Test Positive; Base Excess -10 mmol/L (-2 to +2); Bicarbonate 15.6 mmol/L (22-26); Blood Gas Specimen Type ART; Mode Not entered; O2 Delivery Device Room Air; PO2 85 mmHG (75-100); SITE R Radial; SO2 96 % (95-99); Total Carbon Dioxide 17 mmol/L; pCO2 27.4 mmHg (35-45); pH 7.36 (7.35-7.45)
[2024-01-16 22:22] LABS: International Normalized Ratio 1.8; Prothrombin Time (Protime)PT. 20.8 SECONDS (11.7-14.9)
[2024-01-16 22:23] LABS: Partial Thromboplast Time 31.4 Seconds (24.1-36.2)
[2024-01-16 22:26] VITALS: BP 102/62; PULSE 138; RESP 18; O2SAT 97
--- NOTE | 2024-01-16 22:27 | ED.RN ---
Trauma blood hung, verified with second RN, no fenwal bracelet available
[2024-01-16] MEDS: Piperacil/Tazobactam 4.5 GM in 0.9% Normal Saline (100mL MB+) 100 ML IV (23:09)
[2024-01-16 23:38] LABS: Bedside Glucose 302 mg/dL (74-106)
[2024-01-17 00:59] LABS: Reflex Lactate? Y
[2024-01-19 13:37] LABS: Pathologist Review Reviewed
== END 2024-01-16 23:20 | disposition short-term general hospital (02) ==
PROVIDERS: Emergency Provider Emergency Medicine; PCP Family Medicine; Visit Provider Emergency Medicine
DX: K92.2 Gastrointestinal hemorrhage, unspecified (principal); E11.10 Type 2 diabetes mellitus with ketoacidosis without coma; Z79.4 Long term (current) use of insulin; N17.9 Acute kidney failure, unspecified; E78.00 Pure hypercholesterolemia, unspecified; R79.89 Other specified abnormal findings of blood chemistry; R55 Syncope and collapse; D64.9 Anemia, unspecified; I10 Essential (primary) hypertension; D72.829 Elevated white blood cell count, unspecified; F17.210 Nicotine dependence, cigarettes, uncomplicated; Z79.84 Long term (current) use of oral hypoglycemic drugs; Z79.899 Other long term (current) drug therapy
CPT/HCPCS: 36430; 36600; 70450; 80053; 82009; 82803; 82962; 83605; 84484; 85025; 85379; 85610; 85730; 86900; 86901; 87040; 87631; 93005; 96361; 96374; 96375; 99284; J7030; J7040; P9016; A4216; J2405

== ENCOUNTER → 2024-01-30 | Outpatient (CLI) | payer BC, SELFPAY ==
--- OUTSIDE RECORDS SUMMARY | 2024-01-30 15:03 | XMS RPT_ITS | CCD ---
Author Organization [facility] Care Team Providers Care Manager Business Continuity Name Role Phone Alicia CORTES, Marshall Rivas Unavailable PROVIDER, UNKNOWN Attending Unavailable PROVIDER, UNKNOWN Admitting Unavailable IZZY YOUNG Admitting Unavailable SHEKHAR WALLS Attending Unavailable AREN AGUIRRE Referring Unavailable MICHAEL RAIN Consulting Unavailable COREY ADAMS Attending Unavailable ZOILA KELLOGG Referring Unavailable STEVE GONZALEZ Primary Care Unavailable COREY ADAMS Attending Unavailable ZOILA KELLOGG Referring Unavailable STEVE GONZALEZ Primary Care Unavailable Medications Completed/Discontinued Medications Medication Drug Class(es) Dates Sig (Normalized) Sig (Original) aspirin 81 mg oral strip (5 sources) Nonsteroidal Anti-inflammatory Drug Start: 11-22-2016 ADULT ASPIRIN EC LOW STRENGTH 81 MG [facility] ASPIRIN [id number] Marshall Vargas MD Start: 11-22-2016 ADULT ASPIRIN EC LOW STRENGTH 81 MG [facility] ASPIRIN [id number] Marshall Vargas MD glimepiride 2 mg oral tablet (5 sources) Sulfonylurea Start: 11-22-2016 take 1 tablet by mouth twice daily AMARYL 2 MG TABS One tablet by mouth twice daily GLIMEPIRIDE [id number] Marshall Vargas MD INSULIN DETEMIR (5 sources) Insulin Analogue Start: 11-22-2016 LEVEMIR 100 UNIT/ML SOLN 20 u daily INSULIN DETEMIR [id number] Marshall Vargas MD Start: 11-22-2016 LEVEMIR 100 UN IT/ML SOLN 20 u daily INSULIN DETEMIR [id number] Marshall Vargas MD lisinopril 10 mg oral tablet (5 sources) Angiotensin Converting Enzyme Inhibitor Start: 11-22-2016 take 1 tablet by mouth once daily LISINOPRIL 10 MG TABS One tablet by mouth daily LISINOPRIL [id number] Marshall Vargas MD metFORMIN hydrochloride 500 mg oral tablet (5 sources) Biguanide Start: 11-22-2016 take 1 tablet by mouth twice daily GLUCOPHAGE 500 MG TABS One tablet by mouth twice daily METFORMIN HCL [id number] Marshall Vargas MD metoprolol tartrate 50 mg oral tablet (5 sources) beta-Adrenergic Anival Start: 11-22-2016 LOPRESSOR 50 MG TABS METOPROLOL TARTRATE [id number] Marshall Vargas MD pravastatin sodium 40 mg oral tablet (5 sources) HMG-CoA Reductase Inhibitor Start: 11-22-2016 PRAVACHOL 40 MG TABS PRAVASTATIN SODIUM [id number] Marshall Vargas MD tadalafil 20 mg oral tablet (5 sources) Phosphodiesterase 5 Inhibitor Start: 11-22-2016 CIALIS 20 MG TABS TADALAFIL [id number] Marshall Vargas MD Problems Active Problems Problem Classification Problem Date Documented Da te Episodic/Chronic Diabetes mellitus without complication (5 sources) Type 1 diabetes mellitus; Translations: [Type 1 diabetes mellitus without complications] Onset: 7 11-22-2016 Chronic Disorders of lipid metabolism (5 sources) Hypercholesterolemia; Translations: [Disorder of bile acid and cholesterol metabolism, unspecified] Onset: 7 11-22-2016 Chronic Essential hypertension (5 sources) Hypertensive disorder; Translations: [Essential (primary) hypertension] Onset: 7 11-22-2016 Chronic Gastrointestinal hemorrhage (1 source) Gastrointestinal hemorrhage, unspecified; Translations: [Gastrointestinal hemorrhage, unspecified gastrointestinal hemorrhage type] Onset: 4 Episodic Unclassified (3 sources) Screening for malignant neoplasm of colon ; Translations: [Encounter for screening for malignant neoplasm of colon] Onset: 7 11-25-2016 Past or Other Problems Problem Classification Problem Date Documented Da te Episodic/Chronic Abdominal hernia (5 sources) Umbilical hernia; Translations: [Umbilical hernia without obstruction or gangrene] Onset: 11-22-2016 11-25-2016 Episodic Abdominal pain (5 sources) Left lower quadrant pain; Translations: [Left lower quadrant pain] Onset: 11-22-2016 11-22-2016 Episodic Results Test Name Value Interpretation Reference Range Facility CBC W Auto Differential pane l (Bld)on 01-22-2024 Basophils (Bld) [#/Vol] 0.04 10*3/uL Normal <0.11 [facility] Comment on above: Order Comment: Speci men Type: BLOOD SPECIMEN Ordering Facility: [facility] Address: [address] [place] [address] Performed By: #### 7 -7 #### [facility] CLIA [id number] [address] [place] Basophils/100 WBC (Bld) 0.3 % Normal [facility] Comment on above: Order Comment: Speci men Type: BLOOD SPECIMEN Ordering Facility: [facility] Address: [address] [place] [address] Performed By: #### 7 7 #### [facility] CLIA [id number] [address] OF [facility] Differential cell count method Nom (Bld) Auto Normal [facility] Comment on above: Order Comment: Speci men Type: BLOOD SPECIMEN Ordering Facility: [facility] Address: [address] [place] [address] Performed By: #### 7 18-7 #### [facility] CLIA [id number] [address] [place] Eosinophils (Bld) [#/Vol] 0.49 10*3/uL High <0.46 [facility] Comment on above: Order Comment: Speci men Type: BLOOD SPECIMEN Ordering Facility: [facility] Address: [address] [place] [address] Performed By: #### 7 18-7 #### [facility] CLIA [id number] [address] Eosinophils/100 WBC (Bld) 3.9 % Normal [facility] Comment on above: Order Comment: Speci men Type: BLOOD SPECIMEN Ordering Facility: [facility] Address: [address] [place] [address] Performed By: #### 7 18-7 #### [facility] CLIA [id number] [address] Erythrocyte distribution width (RBC) [Ratio] 15.1 % High 11.5-15.0 [facility] Comment on above: Order Comment: Speci men Type: BLOOD SPECIMEN Ordering Facility: [facility] Address: [address] [place] [address] Performed By: #### 7 18-7 #### [facility] CLIA [id number] [address] Hematocrit (Bld) [Volume fraction] 25.3 % Low 39.0-51.0 [facility] Comment on above: Order Comment: Speci men Type: BLOOD SPECIMEN Ordering Facility: [facility] Address: [address] [place] [address] Performed By: #### 7 18-7 #### [facility] CLIA [id number] [address] Hemoglobin (Bld) [Mass/Vol] 7.9 g/dL Low 13.0-17.0 [facility] Comment on above: Order Comment: Speci men Type: BLOOD SPECIMEN Ordering Facility: [facility] Address: [address] [place] [address] Performed By: #### 7 18-7 #### [facility] CLIA [id number] [address] Immature granulocytes (Bld) [#/Vol] 0.10 10*3/uL High <0.10 [facility] Comment on above: Order Comment: Speci men Type: BLOOD SPECIMEN Ordering Facility: [facility] Address: [address] [place] [address] Performed By: #### 7 18-7 #### [facility] CLIA [id number] [address] Immature granulocytes/100 WBC (Bld) 0.8 % Normal [facility] Comment on above: Order Comment: Speci men Type: BLOOD SPECIMEN Ordering Facility: [facility] Address: [address] [place] [address] Performed By: #### 7 18-7 #### [facility] CLIA [id number] [address] [place] Lymphocytes (Bld) [#/Vol] 2.40 10*3/uL Normal 1.00-4.00 [facility] Comment on above: Order Comment: Speci men Type: BLOOD SPECIMEN Ordering Facility: [facility] Address: [address] [place] [address] Performed By: #### 7 18-7 #### [facility] CLIA [id number] [address] Lymphocytes/100 WBC (Bld) 19.3 % Normal [facility] Comment on above: Order Comment: Speci men Type: BLOOD SPECIMEN Ordering Facility: [facility] Address: [address] [place] [address] Performed By: #### 7 18-7 #### [facility] CLIA [id number] [address] [place] [facility] MCH (RBC) [Entitic mass] 28.5 pg Normal 26.0-34.0 [facility] Comment on above: Order Comment: Speci men Type: BLOOD SPECIMEN Ordering Facility: [facility] Address: [address] [place] [address] Performed By: #### 7 18-7 #### [facility] CLIA [id number] [address] MCHC (RBC) [Mass/Vol] 31.2 g/dL Normal 30.5-36.0 [facility] Comment on above: Order Comment: Speci men Type: BLOOD SPECIMEN Ordering Facility: [facility] Address: [address] [place] [address] Performed By: #### 7 18-7 #### [facility] CLIA [id number] [address] [place] MCV (RBC) [Entitic vol] 91.3 fL Normal 80.0-100.0 [facility] Comment on above: Order Comment: Speci men Type: BLOOD SPECIMEN Ordering Facility: [facility] Address: [address] [place] [address] Performed By: #### 7 18-7 #### [facility] CLIA [id number] [address] [place] Monocytes (Bld) [#/Vol] 1.43 10*3/uL High <0.87 [facility] Comment on above: Order Comment: Speci men Type: BLOOD SPECIMEN Ordering Facility: [facility] Address: [address] [place] [address] Performed By: #### 7 18-7 #### [facility] CLIA [id number] [address] Monocytes/100 WBC (Bld) 11.5 % Normal [facility] Comment on above: Order Comment: Speci men Type: BLOOD SPECIMEN Ordering Facility: [facility] Address: [address] [place] [address] Performed By: #### 7 18-7 #### [facility] CLIA [id number] [address] [place] Neutrophils (Bld) [#/Vol] 7.95 10*3/uL High 1.45-7.50 [facility] Comment on above: Order Comment: Speci men Type: BLOOD SPECIMEN Ordering Facility: [facility] Address: [address] [place] [address] Performed By: #### 7 18-7 #### [facility] CLIA [id number] [address] [place] Neutrophils/100 WBC (Bld) 64.2 % Normal [facility] Comment on above: Order Comment: Speci men Type: BLOOD SPECIMEN Ordering Facility: [facility] Address: [address] [place] [address] Performed By: #### 7 18-7 #### [facility] CLIA [id number] [address] [place] Nucleated RBC (Bld) [#/Vol] 10*3/uL Normal <0.01 [facility] Comment on above: Order Comment: Speci men Type: BLOOD SPECIMEN Ordering Facility: [facility] Address: [address] [place] [address] Performed By: #### 7 18-7 #### [facility] CLIA [id number] [address] [place] Nucleated RBC/100 WBC (Bld) [Ratio] 0.0 /100 WBC Normal [facility] Comment on above: Order Comment: Speci men Type: BLOOD SPECIMEN Ordering Facility: [facility] Address: [address] [place] [address] Performed By: #### 7 18-7 #### [facility] CLIA [id number] [address] [place] [address] [place] Platelet mean volume (Bld) [Entitic vol] 10.0 fL Normal 9.0-12.7 [facility] Comment on above: Order Comment: Speci men Type: BLOOD SPECIMEN Ordering Facility: [facility] Address: [address] [place] [address] Performed By: #### 7 18-7 #### [facility] CLIA [id number] [address] [place] Platelets (Bld) [#/Vol] 298 10*3/uL Normal 150-400 [facility] Comment on above: Order Comment: Speci men Type: BLOOD SPECIMEN Ordering Facility: [facility] Address: [facility] [place] [address] Performed By: #### 7 18-7 #### [facility] CLIA [id number] [address] [place] [address] [place] RBC (Bld) [#/Vol] 2.77 10*6/uL Low 4.20-6.00 [facility] Comment on above: Order Comment: Speci men Type: BLOOD SPECIMEN Ordering Facility: [facility] Address: [address] [place] [id number] Performed By: #### 7 18-7 #### [facility] CLIA [id number] [address] [facility] WBC (Bld) [#/Vol] 12.41 10*3/uL High 3.70-11.00 [facility] Comment on above: Order Comment: Specandrei men Type: BLOOD SPECIMEN Ordering Facility: [facility] Address: [address] [place] [id number] Performed By: #### 7 18-7 #### [facility] CLIA [id number] [address] CNDSon 01-22-2024 CNDS HNO ID: [id number] Author: SHEKHAR WALLS MD Service: Hospital Medicine Author Type: Physician Type: Discharge Summary Filed: 01/22/2024 17:00 Note Text: DISCHARGE SUMMARY PATIENT NAME: Domingo Gillis Code Status: Full Code Highest Readmission Risk Score: 14 The 30 day readmissions risk score is derived from an internally validated risk model which evaluates patient level characteristics, utilization history, medication orders and lab results up until the day of discharge. Patients with a score of 40 or above are considered highest risk for readmission. Specific patient level drivers will be listed at the bottom of the summary. Admission Information Admission Information ADMIT DATE: 01/16/2024 DISCHARGE DATE: 01/22/2024 MY DOCTORS AND MEDICAL TEAM: My Main Hospital Doctor: Shekhar Walls MD Primary Care Provider: Steve Gonzalez DO My Medical Team Members: Treatment Team: Attending Provider: Shekhar Walls MD Consulting: Savanna Castellon MD Primary Service: LUANNE EDGAR Consulting: Michael Rain MD MY CONDITION AT DISCHARGE: REASON I WAS IN THE HOSPITAL: SUMMARY OF WHAT HAPPENED WHILE I WAS IN THE HOSPITAL: Patient was admitted for . Mr. Gillis presented with dizziness, nausea, vomiting, abdominal pain with an episode of loss of consciousness while standing with black tarry stool. In the ED he was tachycardic, relatively hypotensive with hemoglobin of 5.5 and hyperglycemia 496 with elevated anion gap. He was initially admitted to MICU for acute anemia with suspected GI bleed, SHY and DKA. 1. Anemia suspected to be acute due to suspected due to acute blood loss: Hemoglobin on admission 5.9. No previous blood work to compare. S/p 2 units PRBC at outside hospital and here another 5 units of PRBC. MCV in the 90s. Reticulocyte's 8.7 Vitamin B12 low at 223. Iron studies suggest iron deficiency. Treated with IV Ferrlecit-received 2 doses of 125 mg. At discharge-will continue on home oral iron. Also treated with 1 dose of IM cyanocobalamin 1000 mcg x 1. At discharge-oral cyanocobalamin. Evaluated by cilnical scientist and underwent endoscopic evaluation as below. Given EGD and colonoscopy were unrevealing for GI bleed, hemato- oncology was consulted to rule out any non-GI causes. Haptoglobin and LDH are not suggestive of hemolysis. Methylmalonic acid level pending. Homocystine level normal. Celiac disease panel has been ordered and the full result is pending. Serum protein electrophoresis, immunofixation are pending GI recommended outpatient follow-up where they may consider CT enterography and capsule endoscopy. Hemato- oncology recommended outpatient follow-up. 2. Reported melena suspected GI bleed: Takes Excedrin about twice a week. S/p EGD 01/18-normal. S/p colonoscopy 01/20-nonthrombosed external hemorrhoids; nonbleeding internal reach, rectal polyp-s/p removal with cold biopsy forceps (sent for pathology); rest of colon normal. Treated with IV PPI. At discharge-continue on oral PPI empirically Bowel movements now normal. Eval by gastroenterology. GI recommended workup for non-GI causes for anemia. GI also recommend outpatient follow-up where they may consider CT enterography and capsule endoscopy 3. Diabetic ketoacidosis on admission: A1c 6.2 (but was done with severe anemia) At home-on glimepiride 4 mg daily, metformin 1 g twice daily and NPH 32 units daily. Initially treated with IV insulin and IV fluid resuscitation. Treated with NPH, preprandial humalog and SSI. Recommended to continue on NPH and preprandial Humalog 4. SHY: Creatinine on admission at [facility] 1.8. Treated with IV hydration. Home meloxicam on hold Creatinine improved to 0.8 Other medical conditions 1. Hypertension: On metoprolol. Home lisinopril on hold. 2. Hyperlipidemia: At home-rosuvastatin 3. Arthritis: Meloxicam held He will be discharged home. He has been recommended follow-up PCP in a week, cilnical scientist and hemato-oncologist. Recommended to check CBC in a week OTHER PROBLEMS/DIAGNOSIS: Principal Problem: Acute blood loss anemia Active Problems: DKA, type 2, not at goal (HCC) SHY (acute kidney injury) (HCC) Nicotine use disorder, F17.2 Type 2 diabetes mellitus with hyperglycaemia (HCC) Type 2 diabetes mellitus with hyperglycemia, with long-term current use of insulin (HCC) Acute GI bleeding Class 1 obesity due to excess calories with serious comorbidity and body mass index (BMI) of 30.0 to 30.9 in adult Resolved Problems: * No resolved hospital problems. * OPERATIONS PERFORMED WHILE IN THE HOSPITAL: IMPORTANT TEST/PROCEDURES: TEST RESULTS NOT AVAILABLE AT THIS TIME: The plan for following up on pending results below is Lab results-cyanocobalamin level, celiac disease panel, SPEP, MALINDA are pending. Assistant Auto Center Manager and hemato-oncologist to follow these results. Discharge Disposition Dis (more content not included)... Normal [facility] CONSULTon 01-22-2024 CONSULT HNO ID: [id number] Author: SUNNY ADORNO MD Service: Hematology/Oncology Author Type: Physician Type: Consults Filed: 01/22/2024 16:26 Note Text: Hematology/oncology inpatient consultation Domingo Gillis 1965 January 22, 2024 HPI: Domingo Gillis is a 58 year old male who presented with dizziness, nausea, vomiting, abdominal pain and an episode of syncope in the setting of black tarry stool for 2 to 3 days prior to admission. Upon presentation he was tachycardic, relatively hypotensive, and had a hemoglobin of 5.9 g/dL and hyperglycemia with an anion gap. He was admitted to the MICU for acute anemia and suspected GI bleed with SHY and DKA. Since admission he has received 5 units of packed red blood cells. B12 was low (223). Iron studies consistent with iron deficiency (ferritin 25, iron saturation 8.2%). We are consulted to evaluate his anemia. Haptoglobin 287. EGD on 01/19/2024 was normal. Colonoscopy on 01/21/2024 identified nonthrombosed external hemorrhoids, nonbleeding internal hemorrhoids, rectal polyp (path pending) and no other abnormal findings identified. Bowel movements have normalized. Gastroenterology recommended anemia evaluation for non-GI causes of anemia. Celiac panel pending. We had a comprehensive discussion today. He eats well. His bowel movements are usually normal. He does not have typical symptoms of celiac disease. We reviewed workup to date. He agrees with proceeding as outlined. All of his questions were answered to his satisfaction. PAST MEDICAL HISTORY Diagnosis Date Delayed emergence from general anesthesia Diabetes (HCC) Hypertension PAST SURGICAL HISTORY Procedure Laterality Date BACK SURGERY HX HERNIA REPAIR HX TOTAL KNEE REPLACEMENT Left Current Facility-Administered Medications Medication Dose Route Frequency Provider Last Rate Last Admin insulin lispro 10 Units injection (rapid acting) (ADMElog) 10 Units SUBCUTANEOUS w MEALS Corey Adams MD 10 Units at 01/22/24 0857 insulin NPH 20 Units injection (intermediate acting) 20 Units SUBCUTANEOUS BID 8A/BEDTIME Corey Adams MD 20 Units at 01/22/24 0855 cyanocobalamin 1,000 mcg tab(s) (VITAMIN B-12) 1,000 mcg ORAL DAILY Corey Adams MD 1,000 mcg at 01/22/24 0859 lidocaine 10 mg/mL (1 %) 10-100 mg injection (XYLOCAINE) 1-10 mL INTRADERMAL DIRECTED PRN Corey Adams MD pantoprazole DR 40 mg tab(s) (PROTONIX) 40 mg ORAL DAILY (6 AM) Shekhar Walls MD 40 mg at 01/22/24 0600 ferric gluconate 125 mg in NaCl 0.9% 100 mL (FERRLECIT) 125 mg INTRAVENOUS DAILY AT 6 PM Shekhar Walls MD Stopped at 01/21/24 1804 metoprolol tartrate (short acting) 12.5 mg tab(s) (LOPRESSOR) 12.5 mg ORAL q 12 H Corey Adams MD 12.5 mg at 01/21/242000 acetaminophen 650 mg tab(s) (TYLENOL) 650 mg ORAL q 4 H PRN Corey Adams MD 650 mg at 01/20/24 1708 insulin lispro injection (rapid acting) (ADMElog) SUBCUTANEOUS w MEALS Corey Adams MD 2 Units at 01/22/24 0857 NaCl 0.9% iv flush bag 20 mL INTRAVENOUS PRN Corey Adams MD dextrose 15 gram/32 mL 15 g (TRUEPLUS) 15 g ORAL PRN Corey Adams MD Or glucagon 1 mg injection 1 mg INTRAMUSCULAR PRN Corey Adams MD Or dextrose 10% iv bolus 12.5 g INTRAVENOUS PRN Corey Adams MD ALLERGIES No Known Allergies No family history on file. Social History Tobacco Use Smoking status: Every Day Current packs/day: 0.00 Types: Cigarettes Last attempt to quit: 01/16/1994 Years since quittin.0 Smokeless tobacco: Never Substance Use Topics Alcohol use: Not Currently Drug use: Never Review of Systems A complete ROS is negative or noncontributory other than as mentioned in the HPI Physical Exam Vitals reviewed. Constitutional: General: He is not in acute distress. Appearance: He is not ill-appearing. HENT: Head: Normocephalic. Cardiovascular: Rate and Rhythm: Normal rate and regular rhythm. Pulmonary: Effort: No respiratory distress. Breath sounds: No stridor. Abdominal: General: There is no distension. Tenderness: There is no abdominal tenderness. There is no guarding or rebound. Musculoskeletal: General: No swelling or tenderness. Skin: Coloration: Skin is not jaundiced. Findings: No rash. Neurological: General: No focal deficit present. Mental Status: He is alert. Psychiatric: Mood and Affect: Mood normal. Behavior: Behavior normal. BP 103/60 Pulse 92 Temp (Src) 97 (Temporal) Resp 19 Ht 5' 8 (1.73m) Wt 194 lb 0.1 oz (88.0kg) SpO2 97% BMI 29.51 kg/(m2). O2 Therapy: Room Air Labs: Reviewed Radiology: Reviewed Pathology: Reviewed Assessment and Plan: 01/22/2024: Inpatient consultation hematology/oncology: Domingo is a pleasant 58-year-old gentleman who presented with dizziness, nausea, vomiting, abdominal pain, DKA, acute kidney injury, black tarry stool for 2 to 3 days prior to admi (more content not included)... Normal [facility] CONSULT PROGon 01-22-2024 CONSULT PROG HNO ID: [id number] Author: SAVANNA CASTELLON MD Service: Endocrinology Author Type: Physician Type: Consult Progress Note Filed: 01/22/2024 07:52 Note Text: ENDOCRINOLOGY CONSULT PROGRESS NOTE SERVICE DATE: 01/22/2024 SERVICE TIME: 5:45 AM Subjective INTERVAL HPI: Following for DM type 2. Notes and orders reviewed. Below is pertinent historical data that will be updated during this visit to reflect the patients current status. Diet: DIET CARBOHYDRATE CONTROLLED p.o intake good, following diet. Activity:Up AdLib Review of Systems: No nausea, no diarrhea. No lightheadedness or dizziness. 01/17: Currently on NPH 24 units bid, humalog 8 units qac tid plus correction scale 1 qac; BS's improving, still >200. 01/18: NPO for EGD today. BS >300 last pm, better after humalog increased. 01/19: Tr to stepdown. FBS ok. 01/20: BS >300 at 11 am. Was on clear liquid last p.m.; insulin held last pm/hs (pt declined NPH last night ?). 01/21: Had colonoscopy on 01/20. NPH and SSI was NOT given in am despite clear orders ?? HPI: Mr. Domingo Gillis is a 58 year old male with a 10+ year history of Diabetes Mellitus Type 2 hyperglycemia who was admitted on 01/16/2024 for GI bleed, currently receiving blood (2 units of PRBC). Past medical history significant for type 2 diabetes, hypertension. Patient presented to [place] ED from home with 5-day history of lightheadedness, dizziness, 1 episode of dark stool and a syncopal episode the day of admission. He was transferred to ICU at [facility] for management of GI bleed and DKA. Was started on IV insulin drip and IV fluids. Anion gap normalized and recently converted to subcu insulin. Received 1 dose of NPH 32 units this morning. Blood sugar still elevated in the 200s. Patient awake alert and oriented. States BS's at home fairly controlled 120-160 mg/dl. No family h/o diabetes mellitus Current Facility-Administered Medications Medication Dose Route Frequency NaCl 0.9% iv flush bag 20 mL INTRAVENOUS PRN dextrose 15 gram/32 mL 15 g (TRUEPLUS) 15 g ORAL PRN Or glucagon 1 mg injection 1 mg INTRAMUSCULAR PRN Or dextrose 10% iv bolus 12.5 g INTRAVENOUS PRN insulin lispro injection (rapid acting) (ADMElog) SUBCUTANEOUS w MEALS acetaminophen 650 mg tab(s) (TYLENOL) 650 mg ORAL q 4 H PRN metoprolol tartrate (short acting) 12.5 mg tab(s) (LOPRESSOR) 12.5 mg ORAL q 12 H insulin lispro 10 Units injection (rapid acting) (ADMElog) 10 Units SUBCUTANEOUS w MEALS insulin NPH 20 Units injection (intermediate acting) 20 Units SUBCUTANEOUS BID 8A/BEDTIME cyanocobalamin 1,000 mcg tab(s) (VITAMIN B-12) 1,000 mcg ORAL DAILY lidocaine 10 mg/mL (1 %) 10-100 mg injection (XYLOCAINE) 1-10 mL INTRADERMAL DIRECTED PRN pantoprazole DR 40 mg tab(s) (PROTONIX) 40 mg ORAL DAILY (6 AM) ferric gluconate 125 mg in NaCl 0.9% 100 mL (FERRLECIT) 125 mg INTRAVENOUS DAILY AT 6 PM Objective PHYSICAL EXAM: BP 103/60 Pulse 106 Temp (Src) 98.2 (Temporal) Resp 16 Ht 5' 8 (1.73m) Wt 194 lb 0.1 oz (88.0kg) SpO2 93% BMI 29.51 kg/(m2). O2 Therapy: Room Air Appearance: Well appearing, alert, in no acute distress, well-hydrated. Eyes: PERRLA, conjunctiva and sclera normal Neck: Supple, no adenopathy; thyroid symmetric, normal size, no bruits Heart: RR with tachycardia; no murmur Lungs: clear to auscultation, no labored breathing Abdomen: bowel sounds normoactive, no bruits, soft, non-tender, non-distended, no organomegaly or palpable masses Extremities: No deformities, edema, skin discoloration, clubbing or cyanosis Neuro: Awake, alert and oriented x 3, No gross deficits Skin: Color, texture, turgor normal. No rashes or lesions DATA: Diagnostic tests reviewed for today's visit: Most recent labs and imaging results.Last 24 hr BS reviewed. Recent Labs 01/22/24 0717 01/22/24 0013 01/21/24 1959 01/21/24 1602 01/21/24 0708 01/20/242007 GLUC -- 212* -- -- -- -- PCGLUCOSE 199* -- 204* 343* 203* 151* Assessment/Plan Diabetes mellitus type 2, insulin requiring; diagnosed >10 years ago; at home on glimepiride 4 mg daily, metformin 1 g twice daily and NPH 32 units daily. - Hemoglobin A1c will not be accurate as patient received transfusion of packed red blood cells. 01/16; DKA resolved with IN insulin. On NPH bid and Humalog 8 units tid qac with SSI 01/17: Continue NPH 24 units bid; increase prandial humalog to 12 units qac tid (hold if NPO) plus correction scale 1 qac tid. Do not hold NPH if NPO (give 16 units bid while NPO) 01/18: BS >200, >300 once. Cont NPH 24-0-0-24 and Humalog 12 units tid qac. Change SSI to med dose. 01/19: BS Stable in am, >300 at 11 am(am insulin given late at 9 am). Rx contd. 01/20: BS 89 last pm, insulin held. Pt declined NPH last night; FBS >200. NPO for colonoscopy today. - Reduce NPH 20 units bid; 1/2 dose if NPO. Reduce Humalog to 10 units tid with SSI. 01/21: Blood sugar over 300 last p.m.; AM NPH n (more content not included)... Normal [facility] COPPER BLOODon 01-22-2024 Copper [Mass/Vol] 114 ug/dL Normal 70-140 [facility] Comment on above: Order Comment: Speci men Type: BLOOD SPECIMEN Ordering Facility: [facility] Address: [address] [place] [address] Result Comment: This test was developed, and its performance characteristics determined by the [facility] Department of Pathology and Laboratory Medicine. It has not been cleared or approved by the FDA. The [facility] Department of Pathology and Laboratory Medicine is regulated under CLIA as qualified to perform high-complexity testing. This test is used for clinical purposes. It should not be regarded as investigational or for research. Performed By: #### T SCR #### [facility] CLIA [id number] [address] [place] Folate SerPl-mCncon 01-22-20 Folate [Mass/Vol] 13.6 ng/mL Normal >4.7 [facility] Comment on above: Order Comment: Speci men Type: BLOOD SPECIMEN Ordering Facility: [facility] Address: [address] [place] [address] Performed By: #### 7 18-7 #### [facility] CLIA [id number] [address] [place] Hcys SerPl-sCncon 01-22-2024 Homocysteine [Moles/Vol] 13.4 umol/L Normal <15.1 [facility] Comment on above: Order Comment: Speci men Type: BLOOD SPECIMEN Ordering Facility: [facility] Address: [address] [place] [address] Performed By: #### 7 18-7 #### [facility] CLIA [id number] [address] [place] Hgb Bld-mCncon 01-22-2024 Hemoglobin (Bld) [Mass/Vol] 8.8 g/dL Low 13.0-17.0 [facility] Comment on above: Order Comment: Speci men Type: BLOOD SPECIMENOrdering Facility: [facility] Address: [address] [place] [address] Performed By: #### 7 18-7 ####[facility] [id number] [address] [place] Hemoglobin (Bld) [Mass/Vol] 8.6 g/dL Low 13.0-17.0 [facility] Comment on above: Order Comment: Speci men Type: BLOOD SPECIMEN Ordering Facility: [facility] Address: [address] [place] [address] Performed By: #### 7 18-7 #### [facility] CLIA [id number] [address] OF [facility] IMMUNOFIXATION SCREEN, SERUM on 01-22-2024 MPA RESULT No M protein is identified. Normal No M protein is identified. [facility] Comment on above: Order Comment: Speci men Type: BLOOD SPECIMENOrdering Facility: [facility] Address: [address] [place] [address] Performed By: #### I FESC ####[facility] [id number] [address] [place] STAFF REVIEW (MPA) Reviewed by Adan Valladares M.D. Normal [facility] Comment on above: Order Comment: Speci men Type: BLOOD SPECIMENOrdering Facility: [facility] Address: [address] [place] [address] Performed By: #### I FES ####[facility] [id number] [place] [address] [place] Methylmalonate SerPl-sCncon 01-22-2024 Methylmalonate [Moles/Vol] 0.59 umol/L High <=0.40 [facility] Comment on above: Order Comment: Speci men Type: BLOOD SPECIMEN Ordering Facility: [facility] Address: [address] [place] [address] Result Comment: This test was developed, and its performance characteristics determined by the [facility] Department of Pathology and Laboratory Medicine. It has not been cleared or approved by the FDA. The [facility] Department of Pathology and Laboratory Medicine is regulated under CLIA as qualified to perform high-complexity testing. This test is used for clinical purposes. It should not be regarded as investigational or for research. Performed By: #### 7 18-7 #### [facility] CLIA [id number] [address] [place] PROTEIN ELECTROPHORESIS SERU M (P)on 01-22-2024 Albumin [Mass/Vol] 3.05 g/dL Low 3.43-5.41 [facility] Comment on above: Order Comment: Speci men Type: BLOOD SPECIMEN Ordering Facility: [facility] Address: [address] [place] [address] Performed By: #### T SCR #### [facility] CLIA [id number] [address] Alpha 1 globulin Elph [Mass/Vol] 0.41 g/dL Normal 0.18-0.43 [facility] Comment on above: Order Comment: Speci men Type: BLOOD SPECIMEN Ordering Facility: [facility] Address: [address] [place] [address] Performed By: #### T SCR #### [facility] CLIA [id number] [address] Alpha 2 globulin Elph [Mass/Vol] 0.77 g/dL Normal 0.42-0.98 [facility] Comment on above: Order Comment: Speci men Type: BLOOD SPECIMEN Ordering Facility: [facility] Address: [address] [place] [address] Performed By: #### T SCR #### [facility] CLIA [id number] [address] Beta globulin Elph [Mass/Vol] 0.77 g/dL Normal 0.61-1.17 [facility] Comment on above: Order Comment: Speci men Type: BLOOD SPECIMEN Ordering Facility: [facility] Address: [address] [place] [address] Performed By: #### T SCR #### [facility] CLIA [id number] [address] Gamma globulin Elph [Mass/Vol] 0.40 g/dL Low 0.53-1.51 [facility] Comment on above: Order Comment: Speci men Type: BLOOD SPECIMEN Ordering Facility: [facility] Address: [address] [place] [address] Performed By: #### T SCR #### [facility] CLIA [id number] [address] INTERPRETATION COMMENT FOR PROTEIN ELECTROPHORESIS Hypogammaglobulinemia is present, which can be seen in the setting of monoclonal gammopathy. If clinically indicated, monoclonal protein analysis and serum free light chain analysis are suggested to evaluate further for monoclonal gammopathy. Normal [facility] Comment on above: Order Comment: Speci men Type: BLOOD SPECIMEN Ordering Facility: [facility] Address: [address] [place] [address] Performed By: #### T SCR #### [facility] CLIA [id number] [address] M-PROTEIN LOCATION Normal [facility] Comment on above: Order Comment: Speci men Type: BLOOD SPECIMEN Ordering Facility: [facility] Address: [address] [place] [address] Result Comment: Not Applicable. Performed By: #### T SCR #### [facility] CLIA [id number] [address] Protein Fractions [Interp] No definitive M protein is identified on protein electrophoresis. Normal No definitive M protein is identified on protein electrophore sis. [facility] Comment on above: Order Comment: Speci men Type: BLOOD SPECIMEN Ordering Facility: [facility] Address: [address] [place] [address] Performed By: #### T SCR #### [facility] [place] [id number] [address] Protein.monoclonal Elph [Mass/Vol] 0.00 g/dL Normal <=0.00 [facility] Comment on above: Order Comment: Speci men Type: BLOOD SPECIMEN Ordering Facility: [facility] Address: [address] [place] [address] Performed By: #### T SCR #### [facility] [place] [id number] [address] SPE STAFF REVIEW Reviewed by Dr. German Hollingsworth MD [facility] Comment on above: Order Comment: Speci men Type: BLOOD SPECIMEN Ordering Facility: [facility] Address: [address] [place] [address] Performed By: #### T SCR #### [facility] CLIA [id number] [address] [place] Prot SerPl-mCncon 01-22-2024 Protein [Mass/Vol] 5.4 g/dL Low 6.3-8.0 [facility] Comment on above: Order Comment: Speci men Type: BLOOD SPECIMEN Ordering Facility: [facility] Address: [address] [place] [address] Performed By: #### C ONABO #### [facility] CLIA [id number] [address] [place] Renal function 2000 panelon 01-22-2024 Albumin [Mass/Vol] 3.2 g/dL Low 3.9-4.9 [facility] Comment on above: Order Comment: Speci men Type: BLOOD SPECIMEN Ordering Facility: [facility] Address: [address] [place] [address] Performed By: #### 7 18-7 #### [facility] CLIA [id number] [address] [place] Anion gap [Moles/Vol] 9 mmol/L Normal 8-15 [facility] Comment on above: Order Comment: Speci men Type: BLOOD SPECIMEN Ordering Facility: [facility] Address: [address] [place] [address] Performed By: #### 7 18-7 #### [facility] CLIA [id number] [address] STATES OF [facility] Calcium [Mass/Vol] 8.4 mg/dL Low 8.5-10.2 [facility] Comment on above: Order Comment: Speci men Type: BLOOD SPECIMEN Ordering Facility: [facility] Address: [address] [place] [address] Performed By: #### 7 18-7 #### [facility] CLIA [id number] [address] [place] Chloride [Moles/Vol] 100 mmol/L Normal 98-107 [facility] Comment on above: Order Comment: Speci men Type: BLOOD SPECIMEN Ordering Facility: [facility] Address: [address] [place] [address] Performed By: #### 7 18-7 #### [facility] CLIA [id number] [address] CO2 [Moles/Vol] 25 mmol/L Normal 22-30 [facility] Comment on above: Order Comment: Speci men Type: BLOOD SPECIMEN Ordering Facility: [facility] Address: [address] [place] [address] Performed By: #### 7 18-7 #### [facility] CLIA [id number] [address] [place] Creatinine [Mass/Vol] 0.88 mg/dL Normal 0.73-1.22 [facility] Comment on above: Order Comment: Speci men Type: BLOOD SPECIMEN Ordering Facility: [facility] Address: [address] [place] [address] Performed By: #### 7 18-7 #### [facility] CLIA [id number] [address] Creatinine and Glomerular filtration rate.predicted panel (S/P/Bld) 98 mL/min/1.73m??? Normal >=60 [facility] Comment on above: Order Comment: Speci men Type: BLOOD SPECIMEN Ordering Facility: [facility] Address: [address] [place] [address] Result Comment: Freda mated Glomerular Filtration Rate (eGFR) is calculated using the 2020 CKD-EPI creatinine equation. This equation utilizes serum creatinine, sex, and age as parameters. The creatinine assay has traceable calibration to isotope dilution-mass spectrometry. Refer to KDIGO guidelines for clinical interpretation. In patients with unstable renal function, e.g. those with acute kidney injury, the eGFR may not accurately reflect actual GFR. Performed By: #### 7 18-7 #### [facility] CLIA [id number] [address] [place] Glucose [Mass/Vol] 212 mg/dL High 74-99 [facility] Comment on above: Order Comment: Speci men Type: BLOOD SPECIMEN Ordering Facility: [facility] Address: [address] [place] [address] Result Comment: The [place] Diabetes Association (ADA) provides guidance for cutoff values for fasting glucose and random glucose. The ADA defines fasting as no caloric intake for at least 8 hours. Fasting plasma glucose results between 100 to 125 mg/dL indicate increased risk for diabetes (prediabetes). Fasting plasma glucose results greater than or equal to 126 mg/dL meet the criteria for diagnosis of diabetes. In the absence of unequivocal hyperglycemia, results should be confirmed by repeat testing. In a patient with classic symptoms of hyperglycemia or hyperglycemic crisis, random plasma glucose results greater than or equal to 200 mg/dL meet the criteria for diagnosis of diabetes. Reference: Standards of Medical Care in Diabetes 2016, [place] [employer] Association. Diabetes Care. 2016.39(Suppl 1). Performed By: #### 7 18-7 #### [facility] CLIA [id number] [address] [place] Phosphate [Mass/Vol] 3.7 mg/dL Normal 2.7-4.8 [facility] Comment on above: Order Comment: Speci men Type: BLOOD SPECIMEN Ordering Facility: [facility] Address: [address] [place] [address] Performed By: #### 7 18-7 #### [facility] CLIA [id number] 1 [place] [address] [place] Potassium [Moles/Vol] 4.7 mmol/L Normal 3.7-5.1 [facility] Comment on above: Order Comment: Speci men Type: BLOOD SPECIMEN Ordering Facility: [facility] Address: [address] [place] [address] Performed By: #### 7 18-7 #### [facility] CLIA [id number] 1 [place] [address] [place] Sodium [Moles/Vol] 134 mmol/L Low 136-144 [facility] Comment on above: Order Comment: Speci men Type: BLOOD SPECIMEN Ordering Facility: [facility] Address: [address] [place] [address] Performed By: #### 7 18-7 #### [facility] CLIA [id number] 1 [place] [address] [place] Urea nitrogen [Mass/Vol] 17 mg/dL Normal 9-24 [facility] Comment on above: Order Comment: Speci men Type: BLOOD SPECIMEN Ordering Facility: [facility] Address: [facility] [address] Performed By: #### 7 18-7 #### [facility] CLIA [id number] 1 [place] [id number] [place] ANES POSTPROC EVALon 024 ANES POSTPROC EVAL HNO ID: [id number] Author: ALAINA TERAN MD Service: Anesthesiology Author Type: Anesthesiologist Type: Anesthesia Postprocedure Evaluation Filed: 01/21/2024 13:41 Note Text: POST ANESTHESIA EVALUATION NOTE : 1965 Procedure Summary Date: 01/21/24 Room / Location: [facility] Anesthesia Start: 1129 Anesthesia Stop: 1154 Procedure: COLONOSCOPY DIAGNOSTIC Diagnosis: (Iron deficiency anemia) Scheduled Providers: Corey Adams MD Responsible Provider: Alaina Teran MD Anesthesia Type: MAC ASA Status: 4 Anesthesia Type: MAC Last Vitals Vitals Value Taken Time BP 102/72 01/21/24 1237 Temp 36.7 ?C (98 ?F) 01/21/24 1152 HR SpO2 97 01/21/24 1242 Resp 19 01/21/24 1242 SpO2 94 % 01/21/24 1242 Vitals shown include unfiled device data. Post Anesthesia Patient Status Patient Evaluation: PACU. PACU/ICU Patient Condition: stable. Anticipated Disposition: inpatient floor planned admission. Neurological Status: aware and responsive. Cardiovascular Status: stable. Pain Management: clinically adequate Postoperative Hydration: acceptable. Intraoperative Events: no significant anesthesia events Post Operative Nausea/Vomiting Status: no significant post operative nausea or vomiting Recommendation: further care per PACU/ICU/floor team. Anesthesia Observations No Documentation SIGNATURE: Alaina Teran MD PATIENT NAME: Domingo Gillis DATE: January 21, 2024 TIME: 1:41 PM CSN: [id number] Normal [facility] ANES PRE-OPon 01-21-2024 ANES PRE-OP HNO ID: [id number] Author: ALAINA TERAN MD Service: Anesthesiology Author Type: Anesthesiologist Type: Anesthesia Preprocedure Evaluation Filed: 01/21/2024 10:45 Note Text: ANESTHESIOLOGY DAY OF SURGERY NOTE : 1965 Procedure Information Date/Time: 01/21/24 1130 Scheduled providers: Corey Adams MD Procedure: COLONOSCOPY DIAGNOSTIC Location: [facility] Estimated body mass index is 29.5 kg/m? as calculated from the following: Height as of 01/20/24: 172.7 cm (5' 8 ). Weight as of 01/20/24: 88 kg (194 lb 0.1 oz). Most recent hematocrit and potassium results: Hematocrit 31.7 01/21/2024 Potassium 4.6 01/18/2024 Other history: Admit 01/15 with GI bleed and DKA, s/p 5 units pRBCs S/p EGD 01/18 WNL Hgb 9.6 T2DM - OFF insulin gtt, gap closed; A1c 6.2 HTN +tobacco - 04/10 ppd Relevant Problems ENDO (+) Type 2 diabetes mellitus with hyperglycemia, with long-term current use of insulin (HCC) -RENAL (+) SHY (acute kidney injury) ([facility]) I - PHYSICAL EVALUATION AIRWAY Patient intubated: No. Tracheostomy tube not present Mallampati: III. TM distance: >3 FB. Neck ROM: full ROM without neurological symptoms. Mouth opening: adequate. Short neck: no. Thick neck: no DENTAL Dental findings: teeth intact. II - ANESTHESIA PLAN ASA Score: 4 Anesthetic Plan: MAC The patient is a current smoker. NPO Status: adequate Beta Anival Monitoring Plan Monitoring plan: standard ASA. Post Procedure Analgesic Plan Informed Consent Anesthetic risks, benefits, alternatives, personnel and consent discussed: yes. Patient / Responsible Alliance Party agrees to proceed: yes Patient / Surrogate agrees to blood products: Yes Significant changes in the patient condition since the History and Physical, not otherwise documented in primary service progress note: no. Potential Anesthesia issues that may suggest increased risk of complications or contraindication to planned procedure: none. No vitals data found for the desired time range. Facility-Administered Medications as of 01/21/2024 Medication Dose Route Frequency insulin lispro 10 Units injection (rapid acting) (ADMElog) 10 Units SUBCUTANEOUS w MEALS insulin NPH 20 Units injection (intermediate acting) 20 Units SUBCUTANEOUS BID 8A/BEDTIME cyanocobalamin 1,000 mcg tab(s) (VITAMIN B-12) 1,000 mcg ORAL DAILY lidocaine 10 mg/mL (1 %) 10-100 mg injection (XYLOCAINE) 1-10 mL INTRADERMAL DIRECTED PRN metoprolol tartrate (short acting) 12.5 mg tab(s) (LOPRESSOR) 12.5 mg ORAL q 12 H acetaminophen 650 mg tab(s) (TYLENOL) 650 mg ORAL q 4 H PRN pantoprazole 40 mg injection (PROTONIX) 40 mg INTRAVENOUS BID AC (0600/1600) insulin lispro injection (rapid acting) (ADMElog) SUBCUTANEOUS w MEALS NaCl 0.9% iv flush bag 20 mL INTRAVENOUS PRN dextrose 15 gram/32 mL 15 g (TRUEPLUS) 15 g ORAL PRN Or glucagon 1 mg injection 1 mg INTRAMUSCULAR PRN Or dextrose 10% iv bolus 12.5 g INTRAVENOUS PRN No current outpatient medications on file as of 01/21/2024. I have interviewed and examined the patient. I have reviewed the medical record and/or the pre-anesthesia evaluation, pertinent labs, and test results. This contains updated information obtained within 48 hours of Surgery/Procedure. SIGNATURE: Alaina Teran MD PATIENT NAME: Domingo Gillis DATE: January 21, 2024 TIME: 10:29 AM CSN: [id number] Normal [facility] CBC panel Auto (Bld)on 01-20 Erythrocyte distribution width (RBC) [Ratio] 15.9 % High 11.5-15.0 [facility] Comment on above: Order Comment: Specandrei ritter Type: BLOOD SPECIMEN Ordering Facility: [facility] Address: [address] [place] [address] Performed By: #### C ONABO #### [facility] CLIA [id number] [address] [place] [address] [place] Hematocrit (Bld) [Volume fraction] 31.7 % Low 39.0-51.0 [facility] Comment on above: Order Comment: Ana ritter Type: BLOOD SPECIMEN Ordering Facility: [facility] Address: [facility] [place] [address] Performed By: #### C ONABO #### [facility] CLIA [id number] 1 [place] [address] [place] Hemoglobin (Bld) [Mass/Vol] 9.6 g/dL Low 13.0-17.0 [facility] Comment on above: Order Comment: Speci men Type: BLOOD SPECIMEN Ordering Facility: [facility] Address: [address] [place] [address] Performed By: #### C ONABO #### [facility] CLIA [id number] [address] MCH (RBC) [Entitic mass] 29.3 pg Normal 26.0-34.0 [facility] Comment on above: Order Comment: Speci men Type: BLOOD SPECIMEN Ordering Facility: [facility] Address: [address] [place] [address] Performed By: #### C ONABO #### [facility] CLIA [id number] [address] MCHC (RBC) [Mass/Vol] 30.3 g/dL Low 30.5-36.0 [facility] Comment on above: Order Comment: Speci men Type: BLOOD SPECIMEN Ordering Facility: [facility] Address: [address] [place] [address] Performed By: #### C ONABO #### [facility] CLIA [id number] [address] MCV (RBC) [Entitic vol] 96.6 fL Normal 80.0-100.0 [facility] Comment on above: Order Comment: Speci men Type: BLOOD SPECIMEN Ordering Facility: [facility] Address: [address] [place] [address] Performed By: #### C ONABO #### [facility] CLIA [id number] [address] Nucleated RBC (Bld) [#/Vol] 0.02 10*3/uL High <0.01 [facility] Comment on above: Order Comment: Speci men Type: BLOOD SPECIMEN Ordering Facility: [facility] Address: [address] [place] [address] Performed By: #### C ONABO #### [facility] CLIA [id number] [address] [place] Platelet mean volume (Bld) [Entitic vol] 10.3 fL Normal 9.0-12.7 [facility] Comment on above: Order Comment: Speci men Type: BLOOD SPECIMEN Ordering Facility: [facility] Address: [address] [place] [address] Performed By: #### C ONABO #### [facility] CLIA [id number] [address] [place] Platelets (Bld) [#/Vol] 262 10*3/uL Normal 150-400 [facility] Comment on above: Order Comment: Speci men Type: BLOOD SPECIMEN Ordering Facility: [facility] Address: [address] [place] [address] Performed By: #### C ONABO #### [facility] CLIA [id number] [address] RBC (Bld) [#/Vol] 3.28 10*6/uL Low 4.20-6.00 [facility] Comment on above: Order Comment: Speci men Type: BLOOD SPECIMEN Ordering Facility: [facility] Address: [address] [place] [address] Performed By: #### C ONABO #### [facility] CLIA [id number] [address] [place] WBC (Bld) [#/Vol] 16.04 10*3/uL High 3.70-11.00 [facility] Comment on above: Order Comment: Speci men Type: BLOOD SPECIMEN Ordering Facility: [facility] Address: [address] [place] [address] Performed By: #### C ONABO #### [facility] CLIA [id number] [address] CONSULT PROGon 01-21-2024 CONSULT PROG HNO ID: [id number] Author: SAVANNA CASTELLON MD Service: Endocrinology Author Type: Physician Type: Consult Progress Note Filed: 01/21/2024 08:28 Note Text: ENDOCRINOLOGY CONSULT PROGRESS NOTE SERVICE DATE: 01/21/2024 SERVICE TIME: 5:49 AM Subjective INTERVAL HPI: Following for DM type 2. Notes and orders reviewed. Below is pertinent historical data that will be updated during this visit to reflect the patients current status. Diet: DIET NPO Activity:Up AdLib Review of Systems: No nausea, no pain abdomen, no diarrhea. No blood in stools. 01/17: Currently on NPH 24 units bid, humalog 8 units qac tid plus correction scale 1 qac; BS's improving, still >200. 01/18: NPO for EGD today. BS >300 last pm, better after humalog increased. 01/19: Tr to stepdown. FBS ok. 01/20: BS >300 once, then stable. Was on clear liquid last p.m.; insulin held last pm/hs (pt declined NPH last night). - For colonoscopy today. HPI: Mr. Domingo Gillis is a 58 year old male with a 10+ year history of Diabetes Mellitus Type 2 hyperglycemia who was admitted on 01/16/2024 for GI bleed, currently receiving blood (2 units of PRBC). Past medical history significant for type 2 diabetes, hypertension. Patient presented to [place] ED from home with 5-day history of lightheadedness, dizziness, 1 episode of dark stool and a syncopal episode the day of admission. He was transferred to ICU at [facility] for management of GI bleed and DKA. Was started on IV insulin drip and IV fluids. Anion gap normalized and recently converted to subcu insulin. Received 1 dose of NPH 32 units this morning. Blood sugar still elevated in the 200s. Patient awake alert and oriented. States BS's at home fairly controlled 120-160 mg/dl. No family h/o diabetes mellitus Current Facility-Administered Medications Medication Dose Route Frequency NaCl 0.9% iv flush bag 20 mL INTRAVENOUS PRN dextrose 15 gram/32 mL 15 g (TRUEPLUS) 15 g ORAL PRN Or glucagon 1 mg injection 1 mg INTRAMUSCULAR PRN Or dextrose 10% iv bolus 12.5 g INTRAVENOUS PRN pantoprazole 40 mg injection (PROTONIX) 40 mg INTRAVENOUS BID AC (0600/1600) insulin lispro injection (rapid acting) (ADMElog) SUBCUTANEOUS w MEALS acetaminophen 650 mg tab(s) (TYLENOL) 650 mg ORAL q 4 H PRN insulin lispro 12 Units injection (rapid acting) (ADMElog) 12 Units SUBCUTANEOUS w MEALS insulin NPH 24 Units injection (intermediate acting) 24 Units SUBCUTANEOUS BID 8A/BEDTIME metoprolol tartrate (short acting) 12.5 mg tab(s) (LOPRESSOR) 12.5 mg ORAL q 12 H Objective PHYSICAL EXAM: BP 95/67 Pulse 97 Temp (Src) 97.4 (Temporal) Resp 16 Ht 5' 8 (1.73m) Wt 194 lb 0.1 oz (88.0kg) SpO2 95% BMI 29.51 kg/(m2). O2 Therapy: Room Air Appearance: Well appearing, alert, in no acute distress, well-hydrated. Eyes: PERRLA, conjunctiva and sclera normal Neck: Supple, no adenopathy; thyroid symmetric, normal size, no bruits Heart: RR with tachycardia; no murmur Lungs: clear to auscultation, no labored breathing Abdomen: bowel sounds normoactive, no bruits, soft, non-tender, non-distended, no organomegaly or palpable masses Extremities: No deformities, edema, skin discoloration, clubbing or cyanosis Neuro: Awake, alert and oriented x 3, No gross deficits Skin: Color, texture, turgor normal. No rashes or lesions DATA: Diagnostic tests reviewed for today's visit: Most recent labs and imaging results.Last 24 hr BS reviewed. Recent Labs 01/21/24 0708 01/20/24 2008 01/20/24 1606 01/20/24 1107 01/20/24 0724 PCGLUCOSE 203* 151* 89 304* 291* Assessment/Plan Diabetes mellitus type 2, insulin requiring; diagnosed >10 years ago; at home on glimepiride 4 mg daily, metformin 1 g twice daily and NPH 32 units daily. - Hemoglobin A1c will not be accurate as patient received transfusion of packed red blood cells. 01/16; DKA resolved with IN insulin. On NPH bid and Humalog 8 units tid qac with SSI 01/17: Continue NPH 24 units bid; increase prandial humalog to 12 units qac tid (hold if NPO) plus correction scale 1 qac tid. Do not hold NPH if NPO (give 16 units bid while NPO) 01/18: BS >200, >300 once. Cont NPH 24-0-0-24 and Humalog 12 units tid qac. Change SSI to med dose. 01/19: BS Stable in am, >300 at 11 am(am insulin given late at 9 am). Rx contd. 01/20: BS 89 last pm, insulin held. Pt declined NPH last night; FBS >200. NPO for colonoscopy today. - Reduce NPH 20 units bid; 1/2 dose if NPO. Reduce Humalog to 10 units tid with SSI. HAGMA with DKA and lactic acidosis; resolved GI bleed; EGD normal on 01/18. For colonoscopy. Anemia due to acute blood loss; given blood transfusion Acute kidney injury; resolved post fluid resuscitation and transfusion Diabetic peripheral neuropathy - Some elements copied from my notes, which have been updated where appropriate, and all reflect current medical decision making from today, January 21, 2024 - Physical Exam was complete (more content not included)... Normal [facility] Colonoscopyon 01-21-2024 Colonoscopy [facility] Gastrointestinal Endoscopy Patient Name: Domingo Gillis Procedure Date: 01/21/2024 11:21 AM Date of : 1965 Admit Type: Inpatient Room: [place] [address] Gender: Male Note Status: Finalized Attending MD: Corey Adams MD, [id number] Procedure: Colonoscopy Indications: Iron deficiency anemia Providers: Corey Adams MD Patient Profile: Refer to note in patient chart for documentation of history and physical. Last Colonoscopy: Referring Physician: Zoila Kellogg (Referring MD) Medicines: Monitored Anesthesia Care, See the Anesthesia note for documentation of the administered medications Complications: No immediate complications. Procedure: Pre-Anesthesia Assessment: - Prior to the procedure, a History and Physical was performed, and patient medications and allergies were reviewed. The patient's tolerance of previous anesthesia was also reviewed. The risks and benefits of the procedure and the sedation options and risks were discussed with the patient. All questions were answered, and informed consent was obtained. Prior Anticoagulants: The patient has taken no anticoagulant or antiplatelet agents. ASA Grade Assessment: See anesthesia record. After reviewing the risks and benefits, the patient was deemed in satisfactory condition to undergo the procedure. After I obtained informed consent, the scope was passed under direct vision. Throughout the procedure, the patient's blood pressure, pulse, and oxygen saturations were monitored continuously. The Colonoscope was introduced through the anus and advanced to the terminal ileum, with identification of the appendiceal orifice and IC valve. I was present and participated during the entire procedure, including non-kessler portions, and during the administration and monitoring of Moderate Sedation. The colonoscopy was performed without difficulty. The patient tolerated the procedure well. The quality of the bowel preparation was good. The ileocecal valve, appendiceal orifice, and rectum were photographed. Scope Withdrawal Time: 0 hours 9 minutes 0 seconds Moderate Sedation: MAC anesthesia was administered by the anesthesia team. Exam was performed under monitored anesthesia care (MAC) Findings: The exam was otherwise without abnormality on direct and retroflexion views. The digital rectal exam findings include non-thrombosed external hemorrhoids. Pertinent negatives include normal sphincter tone and no palpable rectal lesions. Non-bleeding internal hemorrhoids were found during retroflexion. The hemorrhoids were small. A 2 mm polyp was found in the rectum. The polyp was sessile. The polyp was removed with a cold biopsy forceps. Resection and retrieval were complete. The pathology specimen was placed into Bottle Number 1. The terminal ileum appeared normal. The colon (entire examined portion) appeared normal. Estimated Blood Loss: Estimated blood loss was minimal. Impression: - The examination was otherwise normal on direct and retroflexion views. - Non-thrombosed external hemorrhoids found on digital rectal exam. - Non-bleeding internal hemorrhoids. - One 2 mm polyp in the rectum, removed with a cold biopsy forceps. Resected and retrieved. - The examined portion of the ileum was normal. - The entire examined colon is normal. Recommendation: - Patient has a contact number available for emergencies. The signs and symptoms of potential delayed complications were discussed with the patient. Return to normal activities tomorrow. Written discharge instructions were provided to the patient. - Resume previous diet. - Continue present medications. - Repeat colonoscopy in 7-10 years for surveillance based on pathology results. - Return to referring physician as previously scheduled. - The patient is not currently taking anticoagulant or antiplatelet agents. Procedure Code(s): --- Professional --- 37181, Colonoscopy, flexible; with biopsy, single or multiple --- Technical --- 96042, Colonoscopy, flexible; with biopsy, single or multiple Diagnosis Code(s): --- Professional --- K64.4, Residual hemorrhoidal skin tags K64.8, Other hemorrhoids D12.8, Benign neoplasm of rectum D50.9, Iron deficiency anemia, unspecified --- Technical --- K64.4, Residual hemorrhoidal skin tags K64.8, Other hemorrhoids D12.8, Benign neoplasm of rectum D50.9, Iron deficiency anemia, unspecified CPT copyright 2020 [employer]. All rights reserved. The codes documented in this report are preliminary and upon senior chemical process engineer review may be revised to meet current compliance requirements. Attending Participation: I personally performed the entire procedure. Scope In: 11:33:39 AM Scope Out: 11:46:31 AM MD Corey Allan MD 01/21/2024 12:03:40 PM (more content not included)... Normal [facility] Endomysium IgA Titr Ser IFon 01-21-2024 Endomysium IgA IF (S) [Titer] <1:10 Normal <1:10, Test Not Indicated [facility] Comment on above: Order Comment: Ana ritter Type: BLOOD SPECIMEN Ordering Facility: [facility] Address: [address] [place] [address] Performed By: #### 7 18-7 #### [facility] CLIA [id number] [address] OF [facility] GLIADIN (DEAMIDATED) AB, IGA on 01-21-2024 GLIAD DEAMIDATED IGA QUAL Negative Normal Negative, Test not Indicated [facility] Comment on above: Order Comment: Ana ritter Type: BLOOD SPECIMENOrdering Facility: [facility] Address: [address] [place] [address] Result Comment: This is used as an aid in diagnosis of celiac disease. Clinical correlation is required. The following results were obtained with an Com[employer] QUANTA Lite Gliadin IgA CRISTINA Gliadin. Gliadin IgA values obtained with different manufacturers' assay methods may not be used interchangeably. The magnitude of the reported IgA levels cannot be correlated to an endpoint titer. Performed By: #### G NIKOLE SANDOVAL ####[facility] [id number] [place] [address] [place] Gliadin peptide IgA Qn (S) 3 Units Normal <20 [facility] Comment on above: Order Comment: Speci men Type: BLOOD SPECIMENOrdering Facility: [facility] Address: [address] [place] [address] Performed By: #### NIKOLE EUCEDA ####[facility] [id number] [place] [address] [place] GLIADIN (DEAMIDATED) AB, IGG on 01-21-2024 GLIAD DEAMIDATED IGG QUAL Negative Normal Negative, Test not Indicated [facility] Comment on above: Order Comment: Speci men Type: BLOOD SPECIMENOrdering Facility: [facility] Address: [address] [place] [address] Result Comment: This test is used as an aid in diagnosis of celiac disease in IgA-deficient individuals only. Clinical correlation is required. The following results were obtained with an ComHear QUANTA Lite Gliadin IgG CRISTINA Gliadin. Gliadin IgG values obtained with different manufacturers' assay methods may not be used interchangeably. The magnitude of the reported IgG levels cannot be correlated to an endpoint titer. Performed By: #### NIKOLE EUCEDA ####[facility] [id number] [place] [address] [place] Gliadin peptide IgG Qn (S) 5 Units Normal <20 [facility] Comment on above: Order Comment: Speci men Type: BLOOD SPECIMENOrdering Facility: [facility] Address: [address] [place] [address] Performed By: #### NIKOLE EUCEDA ####[facility] [id number] [place] [id number] [place] Haptoglob SerPl-mCncon 01-20 Haptoglobin [Mass/Vol] 287 mg/dL High 31-238 [facility] Comment on above: Order Comment: Speci men Type: BLOOD SPECIMEN Ordering Facility: [facility] Address: [address] [place] [address] Performed By: #### 7 18-7 #### [facility] CLIA [id number] [address] [place] Hgb Bld-mCncon 01-21-2024 Hemoglobin (Bld) [Mass/Vol] 8.5 g/dL Low 13.0-17.0 [facility] Comment on above: Order Comment: [facility]i [facility] Type: BLOOD SPECIMENOrdering Facility: [facility] Address: [address] [place] [address] Performed By: #### 7 18-7 ####[facility]ORY[facility]IA [id number] [address] [place] IgA SerPl-mCncon 01-21-2024 IgA [Mass/Vol] 177 mg/dL Normal 70-400 [facility] Comment on above: Order Comment: Speci [facility] Type: BLOOD SPECIMENOrdering Facility: [facility] Address: [address] [place] [address] Performed By: #### K [facility], 2458-8 ####[facility] [id number] [place] [address] [place] KAPPA/CERVANTES,FREE,SERon 2023 Immunoglobulin light chains.kappa.free (S) [Mass/Vol] 23.3 mg/L High 3.3-19.4 [facility] Comment on above: Order Comment: [facility] Type: BLOOD SPECIMEN Ordering Facility: [facility] Address: [address] [place] [address] Result Comment: Rare ly, increased serum free light chains levels may not be detected or accurately quantified due to prozone phenomenon or in high viscosity samples using this immunoturbidimetric assay. Correlation with other laboratory results and clinical findings is recommended. The [place] Free Light Chain was performed using the Binding Site Optilite immunoturbidimetric method. Result obtained with different assay methods or kits cannot be used interchangeably. Performed By: #### C ONABO #### [facility] [place] [id number] [address] STATES OF [facility] Immunoglobulin light chains.kappa/Immunog lobulin light chains.lambda (S) [Mass ratio] 1.09 Normal 0.26-1.65 [facility] Comment on above: Order Comment: Speci men Type: BLOOD SPECIMEN Ordering Facility: [facility] Address: [address] [place] [address] Performed By: #### C ONABO #### [facility] [place] [id number] [address] [place] Immunoglobulin light chains.lambda.free [Mass/Vol] 21.3 mg/L Normal 5.7-26.3 [facility] Comment on above: Order Comment: Speci men Type: BLOOD SPECIMEN Ordering Facility: [facility] Address: [address] [place] [address] Result Comment: Rare ly, increased serum free light chains levels may not be detected or accurately quantified due to prozone phenomenon or in high viscosity samples using this immunoturbidimetric assay. Correlation with other laboratory results and clinical findings is recommended. The [place] Free Light Chain was performed using the Binding Site Optilite immunoturbidimetric method. Result obtained with different assay methods or kits cannot be used interchangeably. Performed By: #### C ONABO #### [facility] [place] [id number] [address] [place] LDH SerPl-cCncon 01-21-2024 LDH [Catalytic activity/Vol] 273 U/L High 135-225 [facility] Comment on above: Order Comment: Speci men Type: BLOOD SPECIMEN Ordering Facility: [facility] Address: [address] [place] [address] Performed By: #### 7 18-7 #### [facility] [id number] [address] [place] Retics #on 01-21-2024 Reticulocytes (Bld) [#/Vol] 0.52521 10*3/uL High 0.018-0.100 [facility] Comment on above: Order Comment: Speci men Type: BLOOD SPECIMEN Ordering Facility: [facility] Address: [address] [place] [address] Performed By: #### C ONABO #### [facility] CLIA [id number] [address] [place] Reticulocytes (Bld) [#/Vol]o n 01-21-2024 Reticulocytes/100 RBC (Bld) 8.7 % High 0.4-2.0 [facility] Comment on above: Order Comment: Speci men Type: BLOOD SPECIMEN Ordering Facility: [facility] Address: [address] [place] [address] Performed By: #### C ONABO #### [facility] CLIA [id number] [address] SURGICAL PATHOLOGYon CASE REPORT Normal [facility] Comment on above: Order Comment: Speci men Type: TISSUE SPECIMEN Ordering Facility: [facility] Address: [address] [place] [address] Result Comment: Surg ical Pathology Report Case: [id number] Authorizing Provider: Corey Adams MD Collected: 01/21/2024 11:49 AM Ordering Location: [facility] Received: 01/22/2024 09:07 AM Pathologist: Dixie Jasmine MD Specimen: Rectum, Polyp Performed By: #### S #### [facility] CLIA [id number] [address] FINAL DIAGNOSIS Normal [facility] Comment on above: Order Comment: Speci men Type: TISSUE SPECIMEN Ordering Facility: [facility] Address: [address] [place] [address] Result Comment: A. C olon, rectum, polyp: - Hyperplastic polyp. Performed By: #### S #### [facility] CLIA [id number] [address] OF [facility] FINAL PERFORMING LAB Normal [facility] Comment on above: Order Comment: Speci men Type: TISSUE SPECIMEN Ordering Facility: [facility] Address: [address] [place] [address] Result Comment: Diag nostic interpretation performed at [facility], [address] [place] [address] CLIA# [id number] Dialysis Nurse: Dieter Wolfe M.D. Performed By: #### S #### [facility] CLIA [id number] [address] [place] [address] GROSS DESCRIPTION Normal [facility] Comment on above: Order Comment: [facility] Type: TISSUE SPECIMEN Ordering Facility: [facility] Address: [address] [place] [address] Result Comment: A. R ectum, Polyp Received in formalin labeled rectum polyp are multiple jean segments of tissue aggregating to 0.5 x 0.3 x 0.1 cm. The specimens are totally submitted in formalin in 1 cassette. Gross examination performed at [facility], [address] [place] [address] KVB January 22, 2024 11:24 AM Performed By: #### S #### [facility] CLIA [id number] [address] [place] [address] tTG IgA Qn (S)on 01-21-2024 TRANSGLUTAMINASE IGA ABS INTERPRETATION Negative Normal Negative [facility] Comment on above: Order Comment: Speci men Type: BLOOD SPECIMEN Ordering Facility: [facility] Address: [address] [place] [address] Result Comment: The following results were obtained with ComHear QUANTA Lite R h-tTG IgA CRISTINA.???R h-tTG IgA values obtained with different manufacturers' assay methods may not be used interchangeably. The magnitude of the reported IgA levels cannot be correlated to an endpoint???concentration. This is used as an aid in diagnosis of celiac disease. Clinical correlation is required. Performed By: #### C ONABO #### [facility] CLIA [id number] [address] [place] [address] tTG IgA Ser-aCncon 10-16-202 4 tTG IgA Qn (S) <2 Normal <4 [facility] Comment on above: Order Comment: Speci men Type: BLOOD SPECIMEN Ordering Facility: [facility] Address: [address] [place] [address] Performed By: #### C ONABO #### [facility] CLIA [id number] [address] tTG IgG Qn (S)on 01-21-2024 TRANSGLUTAMINASE IGG ABS INTERPRETATION Negative Normal Negative [facility] Comment on above: Order Comment: Speci men Type: BLOOD SPECIMEN Ordering Facility: [facility] Address: [address] [place] [address] Result Comment: The following results were obtained with [employer] R h-tTG IgG CRISTINA.???R h-tTG IgG values obtained with different manufacturers' assay methods may not be used interchangeably. The magnitude of the reported IgG levels cannot be correlated to an endpoint???concentration. This test is used as an aid in diagnosis of celiac disease in IgA-deficient individuals only. Clinical correlation is required. Performed By: #### C ONABO #### [facility] CLIA [id number] [address] tTG IgG Ser-aCncon 4 tTG IgG Qn (S) <2 Normal <6 [facility] Comment on above: Order Comment: Speci men Type: BLOOD SPECIMEN Ordering Facility: [facility] Address: [address] [place] [address] Performed By: #### C ONABO #### [facility] CLIA [id number] [address] CBC panel Auto (Bld)on 01-19 Erythrocyte distribution width (RBC) [Ratio] 16.3 % High 11.5-15.0 [facility] Comment on above: Order Comment: Speci men Type: BLOOD SPECIMENOrdering Facility: [facility] Address: [address] [place] [address] Performed By: #### 5 8410-2 ####[facility] LABORATORYCLIA [id number] [address] OF [facility] Hematocrit (Bld) [Volume fraction] 25.0 % Low 39.0-51.0 [facility] Comment on above: Order Comment: Speci men Type: BLOOD SPECIMENOrdering Facility: [facility] Address: [address] [place] [address] Performed By: #### 5 8410-2 ####[facility] LABORATORYCLIA [id number] [address] Hemoglobin (Bld) [Mass/Vol] 8.1 g/dL Low 13.0-17.0 [facility] Comment on above: Order Comment: Speci men Type: BLOOD SPECIMENOrdering Facility: [facility] Address: [address] [place] [address] Performed By: #### 5 8410-2 ####[facility] LABORATORYCLIA [id number] [address] MCH (RBC) [Entitic mass] 29.6 pg Normal 26.0-34.0 [facility] Comment on above: Order Comment: Speci men Type: BLOOD SPECIMENOrdering Facility: [facility] Address: [address] [place] [address] Performed By: #### 5 8410-2 ####[facility] LABORATORYCLIA [id number] [address] [place] MCHC (RBC) [Mass/Vol] 32.4 g/dL Normal 30.5-36.0 [facility] Comment on above: Order Comment: Speci men Type: BLOOD SPECIMENOrdering Facility: [facility] Address: [address] [place] [address] Performed By: #### 5 8410-2 ####[facility] LABORATORYCLIA [id number] [address] MCV (RBC) [Entitic vol] 91.2 fL Normal 80.0-100.0 [facility] Comment on above: Order Comment: Speci men Type: BLOOD SPECIMENOrdering Facility: [facility] Address: [address] [place] [address] Performed By: #### 5 8410-2 ####[facility] LABORATORYCLIA [id number] [address] [place] Nucleated RBC (Bld) [#/Vol] 0.06 10*3/uL High <0.01 [facility] Comment on above: Order Comment: Speci men Type: BLOOD SPECIMENOrdering Facility: [facility] Address: [address] [place] [address] Performed By: #### 5 8410-2 ####[facility] LABORATORYCLIA [id number] [address] [place] Platelet mean volume (Bld) [Entitic vol] 9.7 fL Normal 9.0-12.7 [facility] Comment on above: Order Comment: Speci men Type: BLOOD SPECIMENOrdering Facility: [facility] Address: [address] [place] [address] Performed By: #### 5 8410-2 ####[facility] LABORATORYCLIA [id number] [address] [place] Platelets (Bld) [#/Vol] 257 10*3/uL Normal 150-400 [facility] Comment on above: Order Comment: Speci men Type: BLOOD SPECIMENOrdering Facility: [facility] Address: [address] [place] [address] Performed By: #### 5 8410-2 ####[facility] LABORATORYCLIA [id number] [address] [place] RBC (Bld) [#/Vol] 2.74 10*6/uL Low 4.20-6.00 [facility] Comment on above: Order Comment: Speci men Type: BLOOD SPECIMENOrdering Facility: [facility] Address: [address] [place] [address] Performed By: #### 5 8410-2 ####[facility] LABORATORYCLIA [id number] [address] [place] WBC (Bld) [#/Vol] 12.11 10*3/uL High 3.70-11.00 [facility] Comment on above: Order Comment: Speci men Type: BLOOD SPECIMENOrdering Facility: [facility] Address: [address] [id number] Performed By: #### 5 8410-2 ####[facility] LABORATORYCLIA [id number] [place] [address] [place] CONSULT PROGon 01-20-2024 CONSULT PROG HNO ID: [id number] Author: NARDA SNOW MD Service: Endocrinology Author Type: Physician Type: Consult Progress Note Filed: 01/20/2024 16:40 Note Text: ENDOCRINOLOGY CONSULT PROGRESS NOTE SERVICE DATE: 01/20/2024 SERVICE TIME: 2:38 PM Subjective INTERVAL HPI: Following for DM type 2. Notes and orders reviewed. Below is pertinent historical data that will be updated during this visit to reflect the patients current status. Diet: DIET LIQUID DIET NPO after mn for colonoscopy tomorrow Activity:Up AdLib Review of Systems: no N/V Currently on NPH 24 units bid, humalog 12 units qac tid plus correction scale modified qac; BS's imprving; A1c not accurate Recent Labs 01/20/24 1606 01/20/24 1107 01/20/24 0724 01/18/24 0803 01/18/24 0518 GLUC -- -- -- -- 219* PCGLUCOSE 89 304* 291* < > -- < > = values in this interval not displayed. Mr. Domingo Gillis is a 58 year old male with a 10+ year history of Diabetes Mellitus Type 2 hyperglycemia who was admitted on 01/16/2024 for GI bleed, currently receiving blood (2 units of PRBC). Past medical history significant for type 2 diabetes, hypertension. Patient presented to [place] ED from home with 5-day history of lightheadedness, dizziness, 1 episode of dark stool and a syncopal episode the day of admission. He was transferred to ICU at [facility] for management of GI bleed and DKA. Was started on IV insulin drip and IV fluids. Anion gap normalized and recently converted to subcu insulin. Received 1 dose of NPH 32 units this morning. Blood sugar still elevated in the 200s. Patient awake alert and oriented. States BS's at home fairly controlled 120-160 mg/dl. No family h/o diabetes mellitus Current Facility-Administered Medications Medication Dose Route Frequency NaCl 0.9% iv flush bag 20 mL INTRAVENOUS PRN dextrose 15 gram/32 mL 15 g (TRUEPLUS) 15 g ORAL PRN Or glucagon 1 mg injection 1 mg INTRAMUSCULAR PRN Or dextrose 10% iv bolus 12.5 g INTRAVENOUS PRN pantoprazole 40 mg injection (PROTONIX) 40 mg INTRAVENOUS BID AC (0600/1600) insulin lispro injection (rapid acting) (ADMElog) SUBCUTANEOUS w MEALS acetaminophen 650 mg tab(s) (TYLENOL) 650 mg ORAL q 4 H PRN insulin lispro 12 Units injection (rapid acting) (ADMElog) 12 Units SUBCUTANEOUS w MEALS insulin NPH 24 Units injection (intermediate acting) 24 Units SUBCUTANEOUS BID 8A/BEDTIME metoprolol tartrate (short acting) 12.5 mg tab(s) (LOPRESSOR) 12.5 mg ORAL q 12 H polyethylene glycol 3350 238 g oral powder 238 g ORAL ONCE bisacodyl EC 10 mg tab(s) (DULCOLAX) 10 mg ORAL ONCE Objective PHYSICAL EXAM: BP 124/71 Pulse 97 Temp (Src) 97 (Temporal) Resp 16 Ht 5' 8 (1.73m) Wt 194 lb 0.1 oz (88.0kg) SpO2 98% BMI 29.51 kg/(m2). O2 Therapy: Room Air Appearance: Well appearing, alert, in no acute distress, well-hydrated, well nourished. Eyes: PERRLA, conjunctiva and sclera normal Neck: Supple, no adenopathy; thyroid symmetric, normal size, no bruits Heart: tachycardic murmur, gallop, or rubs. No ectopy Lungs clear to auscultation, no labored breathing Abdomen bowel sounds normoactive, no bruits, soft, non-tender, non-distended, without organomegaly or palpable masses, no tenderness to palpation Extremities: No deformities, edema, skin discoloration, clubbing or cyanosis. Good capillary refill. Neuro: Awake, alert and oriented x 3, No involuntary motions., and Reflexes symmetrical Skin: Color, texture, turgor normal. No rashes or lesions DATA: Diagnostic tests reviewed for today's visit: Most recent labs and imaging results. Assessment/Plan Diabetes mellitus type 2 diagnosed more than 10 years ago at home on glimepiride 4 mg daily, metformin 1 g twice daily and NPH 32 units daily. Hemoglobin A1c will not be accurate as patient received transfusion of packed red blood cells. Continue NPH 24 units bid; prandial humalog to12 units qac tid (hold if NPO; give half dose if on liquid diet) plus correction 1:25 if BS>150mg/dl qac tid; Do not hold NPH if NPO (give 16 units bid while NPO) monitor BS's qac and qhs (q 6 hours if NPO) maintain BS 140 -180 during this hospitalization; will make recommendation for home going regimen when closed to being discharged; d/c glimepiride and hold metformin for now. HAGMA with DKA and lactic acidosis; Anemia due to acute blood loss Acute kidney injury resolved post fluid resuscitation and transfusion Obesity Diabetic peripheral neuropathy GI bleed Impression: Some elements copied from my notes , which have been updated where appropriate, and all reflect current medical decision making from 01/20/2024 Physical Exam listed was completed in entirety 01/20/2024 and is unchanged except where noted. SIGNATURE: Narda Snow MD PATIENT NAME: Domingo Gillis DATE: January 20, 2024 TIME: 4:40 PM PAGER: [phone] Normal [facility] CONSULT PROG HNO ID: [id number] Author: ZOILA KELLOGG APRN.[employer] Service: Gastroenterology Author Type: Nurse Practitioner Type: Consult Progress Note Filed: 01/20/2024 14:12 Note Text: GI CONSULT PROGRESS NOTE SERVICE DATE: 01/20/2024 SERVICE TIME: 0915 AM CONSULTING SERVICE: Gastroenterology Subjective INTERVAL HPI: GI following for anemia. Pt now out of ICU. AANDO x 3. Denies any GI complaints. Hgb 7.9. s/p normal EGD 01/18. Current Facility-Administered Medications Medication Dose Route Frequency NaCl 0.9% iv flush bag 20 mL INTRAVENOUS PRN dextrose 15 gram/32 mL 15 g (TRUEPLUS) 15 g ORAL PRN Or glucagon 1 mg injection 1 mg INTRAMUSCULAR PRN Or dextrose 10% iv bolus 12.5 g INTRAVENOUS PRN pantoprazole 40 mg injection (PROTONIX) 40 mg INTRAVENOUS BID AC (0600/1600) insulin lispro injection (rapid acting) (ADMElog) SUBCUTANEOUS w MEALS acetaminophen 650 mg tab(s) (TYLENOL) 650 mg ORAL q 4 H PRN insulin lispro 12 Units injection (rapid acting) (ADMElog) 12 Units SUBCUTANEOUS w MEALS insulin NPH 24 Units injection (intermediate acting) 24 Units SUBCUTANEOUS BID 8A/BEDTIME metoprolol tartrate (short acting) 12.5 mg tab(s) (LOPRESSOR) 12.5 mg ORAL q 12 H Objective PHYSICAL EXAM: Physical Exam Performed: GENERAL: AANDO x 3 ABDOMEN: soft, non-tender to palpation BP 106/81 Pulse 114 Temp (Src) 97.9 (Temporal) Resp 18 Ht 5' 8 (1.73m) Wt 194 lb 0.1 oz (88.0kg) SpO2 92% BMI 29.51 kg/(m2). O2 Therapy: Room Air DATA: Diagnostic tests reviewed for today's visit: Most recent labs WBC (k/uL) Date Value 01/20/2024 12.11 (H) RBC (m/uL) Date Value 01/20/2024 2.74 (L) Hemoglobin (g/dL) Date Value 01/20/2024 7.9 (L) Hematocrit (%) Date Value 01/20/2024 25.0 (L) MCV (fL) Date Value 01/20/2024 91.2 MCH (pg) Date Value 01/20/2024 29.6 MCHC (g/dL) Date Value 01/20/2024 32.4 RDW-CV (%) Date Value 01/20/2024 16.3 (H) Platelet Count (k/uL) Date Value 01/20/2024 257 MPV (fL) Date Value 01/20/2024 9.7 Glucose (mg/dL) Date Value 01/18/2024 219 (H) BUN (mg/dL) Date Value 01/18/2024 33 (H) Creatinine (mg/dL) Date Value 01/18/2024 0.87 Sodium (mmol/L) Date Value 01/18/2024 135 (L) Potassium (mmol/L) Date Value 01/18/2024 4.6 Chloride (mmol/L) Date Value 01/18/2024 102 CO2 (mmol/L) Date Value 01/18/2024 24 Protein, Total (g/dL) Date Value 01/17/2024 4.8 (L) Albumin (g/dL) Date Value 01/17/2024 3.3 (L) Calcium, Total (mg/dL) Date Value 01/18/2024 8.3 (L) Alkaline Phosphatase (U/L) Date Value 01/17/2024 74 Bilirubin, Total (mg/dL) Date Value 01/17/2024 0.4 AST (U/L) Date Value 01/17/2024 24 ALT (U/L) Date Value 01/17/2024 17 EGD 01/18 Impression: - Z-line regular, 42 cm from the incisors. - Normal esophagus. - Normal stomach. - Normal duodenal bulb, second portion of the duodenum and third portion of the duodenum. - No specimens collected. Recommendation: - Patient has a contact number available for emergencies. The signs and symptoms of potential delayed complications were discussed with the patient. Return to normal activities tomorrow. Written discharge instructions were provided to the patient. - Resume previous diet. - Continue present medications. - Resume anticoagulant medication and antiplatelet medication at prior doses today. Impression/Recommendatio ns Anemia- with concern for UGIB with melena on meloxicam at home. NO OAC. No current overt GI bleeding. Hgb 7.9 s/p 5 total units PRBC since admission. No prior EGD. Per pt colon 7 years ago with polyps. EGD 01/18 normal -Monitor H/H- transfuse as needed -Monitor and document all episodes GI bleeding -Continue PPI BID IV -Avoid NSAIDs as able -clear liquid diet -Discussed with GI attending, will plan for colonoscopy tomorrow 01/20 for further evaluation. Npo after midnight. Pt agreeable DKA- s/p insulin drip in ICU. Now on regular floor.Endocrinology following Some documentation from previous visit has been copied and pasted, documentation has been reviewed and edited as necessary to reflect today's visit GI attending: Dr. 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 SIGNATURE: Zoila Kellogg APRN.[employer] PATIENT NAME: Domingo Gillis DATE: January 20, 2024 TIME: 9:58 AM Normal [facility] Hgb Bld-mCncon 01-20-2024 Hemoglobin (Bld) [Mass/Vol] 8.7 g/dL Low 13.0-17.0 [facility] Comment on above: Order Comment: Speci men Type: BLOOD SPECIMEN [facility] Address: [address] [place] [address] Performed By: #### C ONABO #### [facility] CLIA [id number] [address] [place] Hemoglobin (Bld) [Mass/Vol] 7.9 g/dL Low 13.0-17.0 [facility] Comment on above: Order Comment: Speci men Type: BLOOD SPECIMEN [facility]: [facility] Address: [address] [place] [address] Performed By: #### 7 18-7 #### [facility] CLIA [id number] [address] [place] Vit [facility] Cobalamin (Vitamin B12) [Mass/Vol] 223 pg/mL Low 232-1245 [facility] Comment on above: Order Comment: Speci men Type: BLOOD SPECIMEN [facility] Address: [address] [place] [address] Performed By: #### 7 18-7 #### [facility] CLIA [id number] [address] STATES OF [facility] CBC panel Auto (Bld)on 01-18 Erythrocyte distribution width (RBC) [Ratio] 16.6 % High 11.5-15.0 [facility] Comment on above: Order Comment: Speci men Type: BLOOD SPECIMEN [facility] Address: [address] [place] [address] Performed By: #### 7 18-7 #### [facility] CLIA [id number] [address] STATES OF [facility] Hematocrit (Bld) [Volume fraction] 23.0 % Low 39.0-51.0 [facility] Comment on above: Order Comment: Speci men Type: BLOOD SPECIMEN [facility] Address: [address] [place] [address] Performed By: #### 7 18-7 #### [facility] CLIA [id number] [address] Hemoglobin (Bld) [Mass/Vol] 7.6 g/dL Low 13.0-17.0 [facility] Comment on above: Order Comment: Speci men Type: BLOOD SPECIMEN [facility] Address: [address] [place] [address] Performed By: #### 7 18-7 #### [facility] CLIA [id number] [address] MCH (RBC) [Entitic mass] 30.2 pg Normal 26.0-34.0 [facility] Comment on above: Order Comment: Speci men Type: BLOOD SPECIMEN [facility] Address: [address] [place] [address] Performed By: #### 7 18-7 #### [facility] CLIA [id number] [address] MCHC (RBC) [Mass/Vol] 33.0 g/dL Normal 30.5-36.0 [facility] Comment on above: Order Comment: Speci men Type: BLOOD SPECIMEN [facility] Address: [address] [place] [address] Performed By: #### 7 18-7 #### [facility] CLIA [id number] [address] MCV (RBC) [Entitic vol] 91.3 fL Normal 80.0-100.0 [facility] Comment on above: Order Comment: Speci men Type: BLOOD SPECIMEN [facility] Address: [address] [place] [address] Performed By: #### 7 18-7 #### [facility] CLIA [id number] [address] Nucleated RBC (Bld) [#/Vol] 0.12 10*3/uL High <0.01 [facility] Comment on above: Order Comment: Speci men Type: BLOOD SPECIMEN [facility] Address: [address] [place] [address] Performed By: #### 7 18-7 #### [facility] CLIA [id number] [address] [place] Platelet mean volume (Bld) [Entitic vol] 9.8 fL Normal 9.0-12.7 [facility] Comment on above: Order Comment: Speci men Type: BLOOD SPECIMEN [facility] Address: [address] [place] [address] Performed By: #### 7 18-7 #### [facility] CLIA [id number] [address] [place] Platelets (Bld) [#/Vol] 210 10*3/uL Normal 150-400 [facility] Comment on above: Order Comment: Speci men Type: BLOOD SPECIMEN [facility] Address: [address] [place] [address] Performed By: #### 7 18-7 #### [facility] CLIA [id number] [address] [place] RBC (Bld) [#/Vol] 2.52 10*6/uL Low 4.20-6.00 [facility] Comment on above: Order Comment: Speci men Type: BLOOD SPECIMEN [facility] Address: [address] [place] [address] Performed By: #### 7 18-7 #### [facility] CLIA [id number] [address] [place] WBC (Bld) [#/Vol] 15.30 10*3/uL High 3.70-11.00 [facility] Comment on above: Order Comment: Speci men Type: BLOOD SPECIMEN [facility] Address: [address] [place] [address] Performed By: #### 7 18-7 #### [facility] CLIA [id number] 1 [place] [address] [place] CONSULT PROGon 01-19-2024 CONSULT PROG HNO ID: [id number] Author: SAVANNA CASTELLON MD Service: Endocrinology Author Type: Physician Type: Consult Progress Note Filed: 01/19/2024 08:02 Note Text: ENDOCRINOLOGY CONSULT PROGRESS NOTE SERVICE DATE: 01/19/2024 SERVICE TIME: 5:53 AM Subjective INTERVAL HPI: Following for DM type 2. Notes and orders reviewed. Below is pertinent historical data that will be updated during this visit to reflect the patients current status. Diet: DIET NPO p.o intake fair on 01/17, ~ 75% Activity: Bedrest for now Review of Systems: No dizziness, no nausea. No pain abdomen. 01/17: Currently on NPH 24 units bid, humalog 8 units qac tid plus correction scale 1 qac; BS's improving, still >200. 01/18: NPO for EGD today. BS >300 last pm, better after humalog increased. Recent Labs 01/18/24 2030 01/18/24 1724 01/18/24 1121 01/18/24 0803 01/18/24 0518 01/17/24 0940 01/17/24 0914 01/17/24 0635 01/17/24 0543 01/17/24 0133 01/17/24 0123 GLUC -- -- -- -- 219* -- 225* -- 236* -- 294* GLB -- -- -- -- -- -- -- -- -- -- 277* PCGLUCOSE 154* 319* 257* < > -- < > -- < > -- < > -- < > = values in this interval not displayed. HPI: Mr. Domingo Gillis is a 58 year old male with a 10+ year history of Diabetes Mellitus Type 2 hyperglycemia who was admitted on 01/16/2024 for GI bleed, currently receiving blood (2 units of PRBC). Past medical history significant for type 2 diabetes, hypertension. Patient presented to [place] ED from home with 5-day history of lightheadedness, dizziness, 1 episode of dark stool and a syncopal episode the day of admission. He was transferred to ICU at [facility] for management of GI bleed and DKA. Was started on IV insulin drip and IV fluids. Anion gap normalized and recently converted to subcu insulin. Received 1 dose of NPH 32 units this morning. Blood sugar still elevated in the 200s. Patient awake alert and oriented. States BS's at home fairly controlled 120-160 mg/dl. No family h/o diabetes mellitus Current Facility-Administered Medications Medication Dose Route Frequency NaCl 0.9% iv flush bag 20 mL INTRAVENOUS PRN dextrose 15 gram/32 mL 15 g (TRUEPLUS) 15 g ORAL PRN Or glucagon 1 mg injection 1 mg INTRAMUSCULAR PRN Or dextrose 10% iv bolus 12.5 g INTRAVENOUS PRN pantoprazole 40 mg injection (PROTONIX) 40 mg INTRAVENOUS BID AC (0600/1600) insulin lispro injection (rapid acting) (ADMElog) SUBCUTANEOUS w MEALS insulin NPH 24 Units injection (intermediate acting) 24 Units SUBCUTANEOUS q 12 H acetaminophen 650 mg tab(s) (TYLENOL) 650 mg ORAL q 4 H PRN insulin lispro 12 Units injection (rapid acting) (ADMElog) 12 Units SUBCUTANEOUS w MEALS Objective PHYSICAL EXAM: BP 103/66 Pulse 106 Temp (Src) 99.3 (Oral) Resp 20 Ht 5' 8 (1.73m) Wt 194 lb 0.1 oz (88.0kg) SpO2 92% BMI 29.51 kg/(m2). O2 Therapy: Room Air Appearance: Well appearing, alert, in no acute distress, well-hydrated. Eyes: PERRLA, conjunctiva and sclera normal Neck: Supple, no adenopathy; thyroid symmetric, normal size, no bruits Heart: RR with tachycardia; no murmur Lungs: clear to auscultation, no labored breathing Abdomen: bowel sounds normoactive, no bruits, soft, non-tender, non-distended, no organomegaly or palpable masses Extremities: No deformities, edema, skin discoloration, clubbing or cyanosis Neuro: Awake, alert and oriented x 3, No gross deficits Skin: Color, texture, turgor normal. No rashes or lesions DATA: Diagnostic tests reviewed for today's visit: Most recent labs and imaging results. Assessment/Plan Diabetes mellitus type 2 diagnosed >10 years ago; at home on glimepiride 4 mg daily, metformin 1 g twice daily and NPH 32 units daily. - Hemoglobin A1c will not be accurate as patient received transfusion of packed red blood cells. 01/16; DKA resolved with IN insulin. On NPH bid and Humalog 8 units tid qac with SSI 01/17: Continue NPH 24 units bid; increase prandial humalog to 12 units qac tid (hold if NPO) plus correction scale 1 qac tid. Do not hold NPH if NPO (give 16 units bid while NPO) 01/18: BS >200, >300 once. Cont NPH 24-0-0-24 and Humalog 12 units tid qac. Change SSI to med dose. - Monitor BS's qac and qhs (q 6 hours if NPO) maintain BS 140 -180 during this hospitalization. - Will give recommendation for home going regimen when closed to being discharged; d/c glimepiride and hold metformin for now. HAGMA with DKA and lactic acidosis; resolved GI bleed; for EGD today Anemia due to acute blood loss; given blood transfusion Acute kidney injury; resolved post fluid resuscitation and transfusion Diabetic peripheral neuropathy Dr Snow (pager # [phone]) to cover for me from January 19, 2024 4:30 PM till 01/20/2024 9 PM - Some elements copied from previous endocrine notes, which have been updated where appropriate, and all reflect current medical decision making from today, January 19, 2024 - Physical Exam was completed in (more content not included)... Normal [facility] Hgb Bld-mCncon 01-19-2024 Hemoglobin (Bld) [Mass/Vol] 8.1 g/dL Low 13.0-17.0 [facility] Comment on above: Order Comment: Ana ritter Type: BLOOD SPECIMENOrdering Facility: [facility] Address: [address] [place] [address] Performed By: #### 7 18-7 ####[facility] LABORATORYCLIA [id number] [place] [address] [place] Hemoglobin (Bld) [Mass/Vol] 7.7 g/dL Low 13.0-17.0 [facility] Comment on above: Order Comment: Ana ritter Type: BLOOD SPECIMEN Order[facility] Facility: [facility] Address: [address] [place] [address] Performed By: #### T SCR #### [facility] CLIA [id number] [address] [place] Hemoglobin (Bld) [Mass/Vol] 6.6 g/dL Low 13.0-17.0 [facility] Comment on above: Order Comment: Speci men Type: BLOOD SPECIMENOrdering Facility: [facility] Address: [facility] [place] [address] Performed By: #### 7 18-7 ####[facility] LABORATORYCLIA [id number] [place] [address] [place] Upper GI endoscopy 024 Upper GI endoscopy [facility] Gastrointestinal Endoscopy Patient Name: Domingo Gillis Procedure Date: 01/19/2024 3:22 PM Date of : 1965 Admit Type: Inpatient Room: [place] [address] Gender: Male Note Status: Finalized Attending MD: Corey Adams MD, [id number] Procedure: Upper GI endoscopy Indications: Iron deficiency anemia, Heme positive stool Providers: Corey Adams MD Patient Profile: Refer to note in patient chart for documentation of history and physical. Referring Physician: Zoila Kellogg (Referring MD) Medicines: See the Anesthesia note for documentation of the administered medications, Midazolam 4 mg IV, Fentanyl 100 micrograms IV Complications: No immediate complications. Estimated blood loss: Minimal. Procedure: Pre-Anesthesia Assessment: - Prior to the procedure, a History and Physical was performed, and patient medications and allergies were reviewed. The patient's tolerance of previous anesthesia was also reviewed. The risks and benefits of the procedure and the sedation options and risks were discussed with the patient. All questions were answered, and informed consent was obtained. Prior Anticoagulants: The patient has taken no anticoagulant or antiplatelet agents. ASA Grade Assessment: See anesthesia record. After reviewing the risks and benefits, the patient was deemed in satisfactory condition to undergo the procedure. After obtaining informed consent, the endoscope was passed under direct vision. Throughout the procedure, the patient's blood pressure, pulse, and oxygen saturations were monitored continuously. The Endoscope was introduced through the mouth, and advanced to the third part of duodenum. I was present and participated during the entire procedure, including non-kessler portions, and during the administration and monitoring of Moderate Sedation. The upper GI endoscopy was accomplished without difficulty. The patient tolerated the procedure well. Moderate Sedation: See medications. All parameters were monitored Moderate (conscious) sedation was personally administered by the endoscopist. The following parameters were monitored: oxygen saturation, heart rate, blood pressure, respiratory rate, EKG, adequacy of pulmonary ventilation, and response to care. Findings: The Z-line was regular and was found 42 cm from the incisors. The examined esophagus was normal. The entire examined stomach was normal, including retroflexion views of the GE junction. The duodenal bulb, second portion of the duodenum and third portion of the duodenum were normal. Estimated Blood Loss: Estimated blood loss: none. Impression: - Z-line regular, 42 cm from the incisors. - Normal esophagus. - Normal stomach. - Normal duodenal bulb, second portion of the duodenum and third portion of the duodenum. - No specimens collected. Recommendation: - Patient has a contact number available for emergencies. The signs and symptoms of potential delayed complications were discussed with the patient. Return to normal activities tomorrow. Written discharge instructions were provided to the patient. - Resume previous diet. - Continue present medications. - Resume anticoagulant medication and antiplatelet medication at prior doses today. Procedure Code(s): --- Professional --- 20520, Esophagogastroduodenosco py, flexible, transoral; diagnostic, including collection of specimen(s) by brushing or washing, when performed (separate procedure) --- Technical --- 28472, Esophagogastroduodenosco py, flexible, transoral; diagnostic, including collection of specimen(s) by brushing or washing, when performed (separate procedure) Diagnosis Code(s): --- Professional --- D50.9, Iron deficiency anemia, unspecified R19.5, Other fecal abnormalities --- Technical --- D50.9, Iron deficiency anemia, unspecified R19.5, Other fecal abnormalities CPT copyright 2020 [employer]. All rights reserved. The codes documented in this report are preliminary and upon senior chemical process engineer review may be revised to meet current compliance requirements. Attending Participation: I was present and participated during the entire procedure from insertion to removal of the endoscope. Scope In: 3:56:45 PM Scope Out: 3:59:12 PM MD Corey Allan MD 01/19/2024 6:31:28 PM This report has been signed electronically by Corey Adams MD Number of Addenda: 0 Note Initiated On: 01/19/2024 3:22 PM Normal [facility] Basic metabolic 2000 panelon 01-18-2024 Anion gap [Moles/Vol] 9 mmol/L Normal 8-15 [facility] Comment on above: Order Comment: Speci men Type: BLOOD SPECIMEN [facility] Address: [address] [place] [address] Performed By: #### T SCR #### [facility] CLIA [id number] 1 [place] [address] [place] Calcium [Mass/Vol] 8.3 mg/dL Low 8.5-10.2 [facility] Comment on above: Order Comment: Speci men Type: BLOOD SPECIMEN [facility] Address: [address] [place] [address] Performed By: #### T SCR #### [facility] CLIA [id number] 1 [place] [address] [place] Chloride [Moles/Vol] 102 mmol/L Normal 98-107 [facility] Comment on above: Order Comment: Speci men Type: BLOOD SPECIMEN [facility] Address: [address] [place] [address] Performed By: #### T SCR #### [facility] CLIA [id number] 1 [place] [address] [place] CO2 [Moles/Vol] 24 mmol/L Normal 22-30 [facility] Comment on above: Order Comment: Speci men Type: BLOOD SPECIMEN [facility] Address: [address] [place] [address] Performed By: #### T SCR #### [facility] CLIA [id number] 1 [place] [address] [place] Creatinine [Mass/Vol] 0.87 mg/dL Normal 0.73-1.22 [facility] Comment on above: Order Comment: Ana ritter Type: BLOOD SPECIMEN [facility] Address: [address] [place] [address] Performed By: #### T SCR #### [facility] CLIA [id number] [address] [place] Creatinine and Glomerular filtration rate.predicted panel (S/P/Bld) 99 mL/min/1.73m??? Normal >=60 [facility] Comment on above: Order Comment: Ana ritter Type: BLOOD SPECIMEN [facility] Address: [address] [place] [address] Result Comment: Freda mated Glomerular Filtration Rate (eGFR) is calculated using the 2020 CKD-EPI creatinine equation. This equation utilizes serum creatinine, sex, and age as parameters. The creatinine assay has traceable calibration to isotope dilution-mass spectrometry. Refer to KDIGO guidelines for clinical interpretation. In patients with unstable renal function, e.g. those with acute kidney injury, the eGFR may not accurately reflect actual GFR. Performed By: #### T SCR #### [facility] CLIA [id number] 1 [place] [address] [place] Glucose [Mass/Vol] 219 mg/dL High 74-99 [facility] Comment on above: Order Comment: Ana stone Type: BLOOD SPECIMEN [facility] Address: [address] [place] [address] Result Comment: The [employer] (ADA) provides guidance for cutoff values for fasting glucose and random glucose. The ADA defines fasting as no caloric intake for at least 8 hours. Fasting plasma glucose results between 100 to 125 mg/dL indicate increased risk for diabetes (prediabetes). Fasting plasma glucose results greater than or equal to 126 mg/dL meet the criteria for diagnosis of diabetes. In the absence of unequivocal hyperglycemia, results should be confirmed by repeat testing. In a patient with classic symptoms of hyperglycemia or hyperglycemic crisis, random plasma glucose results greater than or equal to 200 mg/dL meet the criteria for diagnosis of diabetes. Reference: Standards of Medical Care in Diabetes 2016, [employer]. Diabetes Care. 2016.39(Suppl 1). Performed By: #### T SCR #### [facility] CLIA [id number] [address] STATES [place] [facility] Potassium [Moles/Vol] 4.6 mmol/L Normal 3.7-5.1 [facility] Comment on above: Order Comment: Speci men Type: BLOOD SPECIMEN [facility] Address: [address] [place] [address] Performed By: #### T SCR #### [facility] CLIA [id number] [address] STATES OF [facility] Sodium [Moles/Vol] 135 mmol/L Low 136-144 [facility] Comment on above: Order Comment: Speci men Type: BLOOD SPECIMEN [facility] Address: [address] [place] [address] Performed By: #### T SCR #### [facility] CLIA [id number] [address] [place] [facility] Urea nitrogen [Mass/Vol] 33 mg/dL High 9-24 [facility] Comment on above: Order Comment: Speci men Type: BLOOD SPECIMEN [facility] Address: [address] [place] [address] Performed By: #### T SCR #### [facility] CLIA [id number] [address] CBC panel Auto (Bld)on 01-17 Erythrocyte distribution width (RBC) [Ratio] 17.4 % High 11.5-15.0 [facility] Comment on above: Order Comment: Speci men Type: BLOOD SPECIMEN [facility] Address: [address] [place] [address] Performed By: #### 7 18-7 #### [facility] CLIA [id number] [address] OF [facility] Hematocrit (Bld) [Volume fraction] 22.2 % Low 39.0-51.0 [facility] Comment on above: Order Comment: Speci men Type: BLOOD SPECIMEN [facility] Address: [address] [place] [address] Performed By: #### 7 18-7 #### [facility] CLIA [id number] [address] Hemoglobin (Bld) [Mass/Vol] 7.3 g/dL Low 13.0-17.0 [facility] Comment on above: Order Comment: Speci men Type: BLOOD SPECIMEN [facility] Address: [address] [place] [address] Performed By: #### 7 18-7 #### [facility] CLIA [id number] [address] MCH (RBC) [Entitic mass] 30.0 pg Normal 26.0-34.0 [facility] Comment on above: Order Comment: Speci men Type: BLOOD SPECIMEN [facility] Address: [address] [place] [address] Performed By: #### 7 18-7 #### [facility] CLIA [id number] [address] [place] [facility] MCHC (RBC) [Mass/Vol] 32.9 g/dL Normal 30.5-36.0 [facility] Comment on above: Order Comment: Speci men Type: BLOOD SPECIMEN [facility] Address: [address] [place] [address] Performed By: #### 7 18-7 #### [facility] CLIA [id number] [address] MCV (RBC) [Entitic vol] 91.4 fL Normal 80.0-100.0 [facility] Comment on above: Order Comment: Speci men Type: BLOOD SPECIMEN [facility] Address: [address] [place] [address] Performed By: #### 7 18-7 #### [facility] CLIA [id number] [address] Nucleated RBC (Bld) [#/Vol] 0.26 10*3/uL High <0.01 [facility] Comment on above: Order Comment: Speci men Type: BLOOD SPECIMEN [facility] Address: [address] [place] [address] Performed By: #### 7 18-7 #### [facility] CLIA [id number] [address] [place] Platelet mean volume (Bld) [Entitic vol] 9.8 fL Normal 9.0-12.7 [facility] Comment on above: Order Comment: Speci men Type: BLOOD SPECIMEN [facility] Address: [address] [place] [address] Performed By: #### 7 18-7 #### [facility] CLIA [id number] [address] [place] Platelets (Bld) [#/Vol] 244 10*3/uL Normal 150-400 [facility] Comment on above: Order Comment: Speci men Type: BLOOD SPECIMEN [facility] Address: [address] [place] [address] Performed By: #### 7 18-7 #### [facility] CLIA [id number] [address] [place] RBC (Bld) [#/Vol] 2.43 10*6/uL Low 4.20-6.00 [facility] Comment on above: Order Comment: Speci men Type: BLOOD SPECIMEN [facility] Address: [address] [place] [address] Performed By: #### 7 18-7 #### [facility] CLIA [id number] [address] [place] WBC (Bld) [#/Vol] 23.75 10*3/uL High 3.70-11.00 [facility] Comment on above: Order Comment: Speci men Type: BLOOD SPECIMEN [facility] Address: [address] [place] [address] Performed By: #### 7 18-7 #### [facility] CLIA [id number] [address] [place] CONSULT PROGon 01-18-2024 CONSULT PROG HNO ID: [id number] Author: NARDA SNOW MD Service: Endocrinology Author Type: Physician Type: Consult Progress Note Filed: 01/18/2024 16:08 Note Text: ENDOCRINOLOGY CONSULT PROGRESS NOTE SERVICE DATE: 01/18/2024 SERVICE TIME: 10:38 AM Subjective INTERVAL HPI: Following for DM type 2. Notes and orders reviewed. Below is pertinent historical data that will be updated during this visit to reflect the patients current status. Diet: DIET REGULAR DIET NPO Activity:Bedrest Review of Systems: no N/V Currently on NPH 24 units bid, humalog 8 units qac tid plus correction scale 1 qac; BS's imprving; A1c not accurate Recent Labs 01/18/24 0803 01/18/24 0518 01/17/24 2109 01/17/24 1702 01/17/24 0940 01/17/24 0914 01/17/24 0635 01/17/24 0543 01/17/24 0133 01/17/24 0123 GLUC -- 219* -- -- -- 225* -- 236* -- 294* GLB -- -- -- -- -- -- -- -- -- 277* PCGLUCOSE 227* -- 281* 265* < > -- < > -- < > -- < > = values in this interval not displayed. Mr. Domingo Gillis is a 58 year old male with a 10+ year history of Diabetes Mellitus Type 2 hyperglycemia who was admitted on 01/16/2024 for GI bleed, currently receiving blood (2 units of PRBC). Past medical history significant for type 2 diabetes, hypertension. Patient presented to [place] ED from home with 5-day history of lightheadedness, dizziness, 1 episode of dark stool and a syncopal episode the day of admission. He was transferred to ICU at [facility] for management of GI bleed and DKA. Was started on IV insulin drip and IV fluids. Anion gap normalized and recently converted to subcu insulin. Received 1 dose of NPH 32 units this morning. Blood sugar still elevated in the 200s. Patient awake alert and oriented. States BS's at home fairly controlled 120-160 mg/dl. No family h/o diabetes mellitus Current Facility-Administered Medications Medication Dose Route Frequency NaCl 0.9% iv flush bag 20 mL INTRAVENOUS PRN dextrose 15 gram/32 mL 15 g (TRUEPLUS) 15 g ORAL PRN Or glucagon 1 mg injection 1 mg INTRAMUSCULAR PRN Or dextrose 10% iv bolus 12.5 g INTRAVENOUS PRN pantoprazole 40 mg injection (PROTONIX) 40 mg INTRAVENOUS BID AC (0600/1600) insulin lispro injection (rapid acting) (ADMElog) SUBCUTANEOUS w MEALS insulin NPH 24 Units injection (intermediate acting) 24 Units SUBCUTANEOUS q 12 H insulin lispro 8 Units injection (rapid acting) (ADMElog) 8 Units SUBCUTANEOUS w MEALS acetaminophen 650 mg tab(s) (TYLENOL) 650 mg ORAL q 4 H PRN Objective PHYSICAL EXAM: BP 90/60 Pulse 127 Temp (Src) 99 (Oral) Resp 13 Ht 5' 8 (1.73m) Wt 197 lb 5 oz (89.5kg) SpO2 97% BMI 30.01 kg/(m2). O2 Therapy: Room Air Appearance: Well appearing, alert, in no acute distress, well-hydrated, well nourished. Eyes: PERRLA, conjunctiva and sclera normal Neck: Supple, no adenopathy; thyroid symmetric, normal size, no bruits Heart: tachycardic murmur, gallop, or rubs. No ectopy Lungs clear to auscultation, no labored breathing Abdomen bowel sounds normoactive, no bruits, soft, non-tender, non-distended, without organomegaly or palpable masses, no tenderness to palpation Extremities: No deformities, edema, skin discoloration, clubbing or cyanosis. Good capillary refill. Neuro: Awake, alert and oriented x 3, No involuntary motions., and Reflexes symmetrical Skin: Color, texture, turgor normal. No rashes or lesions DATA: Diagnostic tests reviewed for today's visit: Most recent labs and imaging results. Assessment/Plan Diabetes mellitus type 2 diagnosed more than 10 years ago at home on glimepiride 4 mg daily, metformin 1 g twice daily and NPH 32 units daily. Hemoglobin A1c will not be accurate as patient received transfusion of packed red blood cells. Continue NPH 24 units bid; increase prandial humalog to12 units qac tid (hold if NPO) plus correction scale 1 qac tid; Do not hold NPH if NPO (give 16 units bid while NPO) monitor BS's qac and qhs (q 6 hours if NPO) maintain BS 140 -180 during this hospitalization; will make recommendation for home going regimen when closed to being discharged; d/c glimepiride and hold metformin for now. HAGMA with DKA and lactic acidosis; Anemia due to acute blood loss Acute kidney injury resolved post fluid resuscitation and transfusion Obesity Diabetic peripheral neuropathy GI bleed Impression: Some elements copied from my notes , which have been updated where appropriate, and all reflect current medical decision making from 01/18/2024 Physical Exam listed was completed in entirety 01/18/2024 and is unchanged except where noted. SIGNATURE: Narda Snow MD PATIENT NAME: Domingo Gillis DATE: January 18, 2024 TIME: 10:37 AM PAGER: [phone] Normal [facility] Ferritin SerPl-mCncon 2023 Ferritin [Mass/Vol] 26.0 ng/mL Low 30.3-565.7 [facility] Comment on above: Order Comment: Specandrei ritter Type: BLOOD SPECIMEN [facility] Address: [address] [place] [address] Performed By: #### T SCR #### [facility] [place] [id number] [address] [place] [address] [place] Hgb Bld-mCncon 01-18-2024 Hemoglobin (Bld) [Mass/Vol] 6.7 g/dL Low 13.0-17.0 [facility] Comment on above: Order Comment: Speci stone Type: BLOOD SPECIMEN [facility] Address: [address] [place] [place] [id number] Performed By: #### T SCR #### [facility] CLIA [id number] [address] [place] Hemoglobin (Bld) [Mass/Vol] 6.8 g/dL Low 13.0-17.0 [facility] Comment on above: Order Comment: Speci men Type: BLOOD SPECIMEN [facility] Address: [address] [place] [address] Performed By: #### 7 18-7 #### [facility] CLIA [id number] [address] Iron and Iron binding capaci ty panelon 01-18-2024 Iron [Mass/Vol] 22 ug/dL Low 41-186 [facility] Comment on above: Order Comment: Speci men Type: BLOOD SPECIMEN [facility] Address: [address] [place] [address] Performed By: #### T SCR #### [facility] CLIA [id number] [address] Iron binding capacity [Mass/Vol] 269 ug/dL Normal 232-386 [facility] Comment on above: Order Comment: Speci men Type: BLOOD SPECIMEN [facility] Address: [address] [place] [address] Performed By: #### T SCR #### [facility] CLIA [id number] [address] Iron saturation [Mass fraction] 8.2 % Low 15.0-57.0 [facility] Comment on above: Order Comment: Speci men Type: BLOOD SPECIMEN [facility] Address: [address] [place] [address] Performed By: #### T SCR #### [facility] CLIA [id number] [address] B-HYDROXYBUTYRATEon 01-17-20 24 Beta hydroxybutyrate [Moles/Vol] 0.37 mmol/L High <0.28 [facility] Comment on above: Order Comment: Speci men Type: BLOOD SPECIMEN [facility] Address: [address] [place] [address] Performed By: #### C ONABO #### [facility] CLIA [id number] [address] [place] Basic metabolic 2000 panelon 01-17-2024 Anion gap [Moles/Vol] 10 mmol/L Normal 8-15 [facility] Comment on above: Order Comment: Speci men Type: BLOOD SPECIMENOrdering Facility: [facility] Address: [address] [place] [address] Performed By: #### 2 4321-2 ####[facility]ORY[facility]IA [id number] [place] [address] [place] Calcium [Mass/Vol] 7.9 mg/dL Low 8.5-10.2 [facility] Comment on above: Order Comment: Speci men Type: BLOOD SPECIMENOrdering Facility: [facility] Address: [address] [place] [address] Performed By: #### 2 4321-2 ####[facility]ORYCLIA [id number] [place] [address] [place] Chloride [Moles/Vol] 108 mmol/L High 98-107 [facility] Comment on above: Order Comment: Speci men Type: BLOOD SPECIMENOrdering Facility: [facility] Address: [address] [place] [address] Performed By: #### 2 4321-2 ####[facility]ATORYCLIA [id number] [place] [address] [place] CO2 [Moles/Vol] 21 mmol/L Low 22-30 [facility] Comment on above: Order Comment: Speci men Type: BLOOD SPECIMENOrdering Facility: [facility] Address: [address] [place] [address] Performed By: #### 2 4321-2 ####[facility]ORY[facility] [id number] [place] [address] [place] Creatinine [Mass/Vol] 1.16 mg/dL Normal 0.73-1.22 [facility] Comment on above: Order Comment: Speci men Type: BLOOD SPECIMENOrdering Facility: [facility] Address: [address] [place] [address] Performed By: #### 2 4321-2 ####[facility] [id number] [place] [address] [place] Creatinine and Glomerular filtration rate.predicted panel (S/P/Bld) 72 mL/min/1.73m??? Normal >=60 [facility] Comment on above: Order Comment: Ana ritter Type: BLOOD SPECIMENOrdering Facility: [facility] Address: [address] [place] [address] Result Comment: Freda mated Glomerular Filtration Rate (eGFR) is calculated using the 2020 CKD-EPI creatinine equation. This equation utilizes serum creatinine, sex, and age as parameters. The creatinine assay has traceable calibration to isotope dilution-mass spectrometry. Refer to KDIGO guidelines for clinical interpretation. In patients with unstable renal function, e.g. those with acute kidney injury, the eGFR may not accurately reflect actual GFR. Performed By: #### 2 4321-2 ####[facility]ORYCLIA [id number] [place] [address] [place] Glucose [Mass/Vol] 225 mg/dL High 74-99 [facility] Comment on above: Order Comment: Ana ritter Type: BLOOD SPECIMENOrdering Facility: [facility] Address: [address] [place] [address] Result Comment: The [place] [employer] (ADA) provides guidance for cutoff values for fasting glucose and random glucose. The ADA defines fasting as no caloric intake for at least 8 hours. Fasting plasma glucose results between 100 to 125 mg/dL indicate increased risk for diabetes (prediabetes). Fasting plasma glucose results greater than or equal to 126 mg/dL meet the criteria for diagnosis of diabetes. In the absence of unequivocal hyperglycemia, results should be confirmed by repeat testing. In a patient with classic symptoms of hyperglycemia or hyperglycemic crisis, random plasma glucose results greater than or equal to 200 mg/dL meet the criteria for diagnosis of diabetes. Reference: Standards of Medical Care in Diabetes 2016, [place] [employer]. Diabetes Care. 2016.39(Suppl 1). Performed By: #### 2 4321-2 ####[facility] LABORATORYCLIA [id number] [place] [id number] [place] Potassium [Moles/Vol] 4.7 mmol/L Normal 3.7-5.1 [facility] Comment on above: Order Comment: Speci men Type: BLOOD SPECIMENOrdering Facility: [facility] Address: [address] [place] [address] Performed By: #### 2 4321-2 ####[facility]ORATORYCLIA [id number] [place] [address] [place] Sodium [Moles/Vol] 139 mmol/L Normal 136-144 [facility] Comment on above: Order Comment: Speci men Type: BLOOD SPECIMENOrdering Facility: [facility] Address: [address] [place] [address] Performed By: #### 2 4321-2 ####[facility]ORATORYCLIA [id number] [place] [address] [place] Urea nitrogen [Mass/Vol] 50 mg/dL High 9-24 [facility] Comment on above: Order Comment: Speci men Type: BLOOD SPECIMENOrdering Facility: [facility] Address: [address] [place] [address] Performed By: #### 2 4321-2 ####[facility] LABORATORYCLIA [id number] [place] [address] [place] Anion gap [Moles/Vol] 10 mmol/L Normal 8-15 [facility] Comment on above: Order Comment: Speci men Type: BLOOD SPECIMENOrdering Facility: [facility] Address: [address] [place] [address] Performed By: #### 1 9123-9, 82062-4 ####[facility]ATORYCLIA [id number] [place] [address] [place] Calcium [Mass/Vol] 8.1 mg/dL Low 8.5-10.2 [facility] Comment on above: Order Comment: Speci men Type: BLOOD SPECIMENOrdering Facility: [facility] Address: [address] [place] [address] Performed By: #### 1 9123-9, 21342-6 ####[facility]ORATORYCLIA [id number] [place] [address] [place] Chloride [Moles/Vol] 109 mmol/L High 98-107 [facility] Comment on above: Order Comment: Speci men Type: BLOOD SPECIMENOrdering Facility: [facility] Address: [address] [place] [address] Performed By: #### 1 9123-9, 32399-9 ####[facility] LABORATORYCLIA [id number] [address] OF [facility] CO2 [Moles/Vol] 21 mmol/L Low 22-30 [facility] Comment on above: Order Comment: Speci men Type: BLOOD SPECIMENOrdering Facility: [facility] Address: [address] [place] [address] Performed By: #### 1 91239, ####[facility]RAWFORDSVILLECLIA [id number] [address] Creatinine [Mass/Vol] 1.17 mg/dL Normal 0.73-1.22 [facility] Comment on above: Order Comment: Speci men Type: BLOOD SPECIMENOrdering Facility: [facility] Address: [address] [place] [address] Performed By: #### 1 91239, ####[facility]RAWFORDSVILLECLIA [id number] [address] Creatinine and Glomerular filtration rate.predicted panel (S/P/Bld) 71 mL/min/1.73m??? Normal >=60 [facility] Comment on above: Order Comment: Speci men Type: BLOOD SPECIMENOrdering Facility: [facility] Address: [address] [place] [address] Result Comment: Freda mated Glomerular Filtration Rate (eGFR) is calculated using the 2020 CKD-EPI creatinine equation. This equation utilizes serum creatinine, sex, and age as parameters. The creatinine assay has traceable calibration to isotope dilution-mass spectrometry. Refer to KDIGO guidelines for clinical interpretation. In patients with unstable renal function, e.g. those with acute kidney injury, the eGFR may not accurately reflect actual GFR. Performed By: #### 1 9123-9, 61750-4 ####[facility] LABORATORYCLIA [id number] [place] [address] [place] Glucose [Mass/Vol] 236 mg/dL High 74-99 [facility] Comment on above: Order Comment: Ana ritter Type: BLOOD SPECIMENOrdering Facility: [facility] Address: [address] [place] [address] Result Comment: The [place] Diabetes Association (ADA) provides guidance for cutoff values for fasting glucose and random glucose. The ADA defines fasting as no caloric intake for at least 8 hours. Fasting plasma glucose results between 100 to 125 mg/dL indicate increased risk for diabetes (prediabetes). Fasting plasma glucose results greater than or equal to 126 mg/dL meet the criteria for diagnosis of diabetes. In the absence of unequivocal hyperglycemia, results should be confirmed by repeat testing. In a patient with classic symptoms of hyperglycemia or hyperglycemic crisis, random plasma glucose results greater than or equal to 200 mg/dL meet the criteria for diagnosis of diabetes. Reference: Standards of Medical Care in Diabetes 2016, [place] [employer]. Diabetes Care. 2016.39(Suppl 1). Performed By: #### 1 9123-9, 56011-3 ####[facility] LABORATORYCLIA [id number] [place] [address] [place] Potassium [Moles/Vol] 5.0 mmol/L Normal 3.7-5.1 [facility] Comment on above: Order Comment: Ana ritter Type: BLOOD SPECIMENOrdering Facility: [facility] Address: [address] [place] [address] Performed By: #### 1 9123-9, 92542-0 ####[facility] LABORATORYCLIA [id number] [place] [address] [place] Sodium [Moles/Vol] 140 mmol/L Normal 136-144 [facility] Comment on above: Order Comment: Ana ritter Type: BLOOD SPECIMENOrdering Facility: [facility] Address: [address] [place] [address] Performed By: #### 1 9123-9, 44413-1 ####[facility] LABORATORYCLIA [id number] [place] [address] [place] Urea nitrogen [Mass/Vol] 52 mg/dL High 9-24 [facility] Comment on above: Order Comment: Speci men Type: BLOOD SPECIMENOrdering Facility: [facility] Address: [address] [place] [address] Performed By: #### 1 9123-9, 25738-5 ####[facility]ORATORYCLIA [id number] [place] [address] [place] Anion gap [Moles/Vol] 12 mmol/L Normal 8-15 [facility] Comment on above: Order Comment: Speci men Type: BLOOD SPECIMENOrdering Facility: [facility] Address: [address] [place] [address] Performed By: #### 2 4321-2 ####[facility] LABORATORYCLIA [id number] [place] [address] [place] Calcium [Mass/Vol] 8.5 mg/dL Normal 8.5-10.2 [facility] Comment on above: Order Comment: Speci men Type: BLOOD SPECIMENOrdering Facility: [facility] Address: [address] [place] [address] Performed By: #### 2 4321-2 ####[facility] LABORATORYCLIA [id number] [place] [address] [place] Chloride [Moles/Vol] 106 mmol/L Normal 98-107 [facility] Comment on above: Order Comment: Speci men Type: BLOOD SPECIMENOrdering Facility: [facility] Address: [address] [place] [address] Performed By: #### 2 4321-2 ####[facility]ORATORYCLIA [id number] [place] [address] [place] CO2 [Moles/Vol] 20 mmol/L Low 22-30 [facility] Comment on above: Order Comment: Speci men Type: BLOOD SPECIMENOrdering Facility: [facility] Address: [address] [place] [address] Performed By: #### 2 4321-2 ####[facility]ORATORYCLIA [id number] [place] [address] [place] Creatinine [Mass/Vol] 1.27 mg/dL High 0.73-1.22 [facility] Comment on above: Order Comment: Ana ritter Type: BLOOD SPECIMENOrdering Facility: [facility] Address: [address] [place] [address] Performed By: #### 2 4321-2 ####[facility] LABORATORYCLIA [id number] [address] Creatinine and Glomerular filtration rate.predicted panel (S/P/Bld) 65 mL/min/1.73m??? Normal >=60 [facility] Comment on above: Order Comment: Ana ritter Type: BLOOD SPECIMENOrdering Facility: [facility] Address: [address] [place] [address] Result Comment: Freda mated Glomerular Filtration Rate (eGFR) is calculated using the 2020 CKD-EPI creatinine equation. This equation utilizes serum creatinine, sex, and age as parameters. The creatinine assay has traceable calibration to isotope dilution-mass spectrometry. Refer to KDIGO guidelines for clinical interpretation. In patients with unstable renal function, e.g. those with acute kidney injury, the eGFR may not accurately reflect actual GFR. Performed By: #### 2 4321-2 ####[facility] LABORATORYCLIA [id number] [address] [place] Glucose [Mass/Vol] 282 mg/dL High 74-99 [facility] Comment on above: Order Comment: Ana ritter Type: BLOOD SPECIMENOrdering Facility: [facility] Address: [address] [place] [address] Result Comment: The [place] Diabetes Association (ADA) provides guidance for cutoff values for fasting glucose and random glucose. The ADA defines fasting as no caloric intake for at least 8 hours. Fasting plasma glucose results between 100 to 125 mg/dL indicate increased risk for diabetes (prediabetes). Fasting plasma glucose results greater than or equal to 126 mg/dL meet the criteria for diagnosis of diabetes. In the absence of unequivocal hyperglycemia, results should be confirmed by repeat testing. In a patient with classic symptoms of hyperglycemia or hyperglycemic crisis, random plasma glucose results greater than or equal to 200 mg/dL meet the criteria for diagnosis of diabetes. Reference: Standards of Medical Care in Diabetes 2016, [place] [employer]. Diabetes Care. 2016.39(Suppl 1). Performed By: #### 2 4321-2 ####[facility] LABORATORYCLIA [id number] [address] [place] [facility] Potassium [Moles/Vol] 5.1 mmol/L Normal 3.7-5.1 [facility] Comment on above: Order Comment: Speci men Type: BLOOD SPECIMENOrdering Facility: [facility] Address: [address] [place] [address] Performed By: #### 2 4321-2 ####[facility] LABORATORYCLIA [id number] [address] Sodium [Moles/Vol] 138 mmol/L Normal 136-144 [facility] Comment on above: Order Comment: Jorge Luisi stone Type: BLOOD SPECIMENOrdering Facility: [facility] Address: [address] [place] [address] Performed By: #### 2 4321-2 ####[facility] LABORATORYCLIA [id number] [address] [place] [facility] Urea nitrogen [Mass/Vol] 56 mg/dL High 9-24 [facility] Comment on above: Order Comment: Jorge Luisi men Type: BLOOD SPECIMENOrdering Facility: [facility] Address: [address] [place] [address] Performed By: #### 2 4321-2 ####[facility] LABORATORYCLIA [id number] [address] CBC panel Auto (Bld)on 01-16 Erythrocyte distribution width (RBC) [Ratio] 16.1 % High 11.5-15.0 [facility] Comment on above: Order Comment: Speci men Type: BLOOD SPECIMENOrdering Facility: [facility] Address: [address] [place] [address] Performed By: #### 5 8410-2 ####[facility] LABORATORYCLIA [id number] [address] Hematocrit (Bld) [Volume fraction] 18.1 % Low 39.0-51.0 [facility] Comment on above: Order Comment: Speci men Type: BLOOD SPECIMENOrdering Facility: [facility] Address: [address] [place] [address] Performed By: #### 5 8410-2 ####[facility] LABORATORYCLIA [id number] [address] [place] Hemoglobin (Bld) [Mass/Vol] 5.9 g/dL Critically low 13.0-17.0 [facility] Comment on above: Order Comment: Speci men Type: BLOOD SPECIMENOrdering Facility: [facility] Address: [address] [place] [address] Result Comment: No c lot detected. Performed By: #### 5 8410-2 ####[facility]ORATORYCLIA [id number] [address] [place] MCH (RBC) [Entitic mass] 31.6 pg Normal 26.0-34.0 [facility] Comment on above: Order Comment: Speci men Type: BLOOD SPECIMENOrdering Facility: [facility] Address: [address] [place] [address] Performed By: #### 5 8410-2 ####[facility] LABORATORYCLIA [id number] [address] [place] MCHC (RBC) [Mass/Vol] 32.6 g/dL Normal 30.5-36.0 [facility] Comment on above: Order Comment: Speci men Type: BLOOD SPECIMENOrdering Facility: [facility] Address: [address] [place] [address] Performed By: #### 5 8410-2 ####[facility] LABORATORYCLIA [id number] [address] [place] MCV (RBC) [Entitic vol] 96.8 fL Normal 80.0-100.0 [facility] Comment on above: Order Comment: Speci men Type: BLOOD SPECIMENOrdering Facility: [facility] Address: [address] [place] [address] Performed By: #### 5 8410-2 ####[facility] LABORATORYCLIA [id number] [place] [address] [place] Nucleated RBC (Bld) [#/Vol] 0.31 10*3/uL High <0.01 [facility] Comment on above: Order Comment: Speci men Type: BLOOD SPECIMENOrdering Facility: [facility] Address: [address] [place] [address] Performed By: #### 5 8410-2 ####[facility] LABORATORYCLIA [id number] [address] [place] Platelet mean volume (Bld) [Entitic vol] 10.0 fL Normal 9.0-12.7 [facility] Comment on above: Order Comment: Speci men Type: BLOOD SPECIMENOrdering Facility: [facility] Address: [address] [place] [address] Performed By: #### 5 8410-2 ####[facility] LABORATORYCLIA [id number] [address] [place] Platelets (Bld) [#/Vol] 307 10*3/uL Normal 150-400 [facility] Comment on above: Order Comment: Speci men Type: BLOOD SPECIMENOrdering Facility: [facility] Address: [address] [place] [address] Performed By: #### 5 8410-2 ####[facility] LABORATORYCLIA [id number] [place] [address] [place] RBC (Bld) [#/Vol] 1.87 10*6/uL Low 4.20-6.00 [facility] Comment on above: Order Comment: Speci men Type: BLOOD SPECIMENOrdering Facility: [facility] Address: [address] [place] [address] Performed By: #### 5 8410-2 ####[facility] LABORATORYCLIA [id number] [place] [address] [place] WBC (Bld) [#/Vol] 34.46 10*3/uL High 3.70-11.00 [facility] Comment on above: Order Comment: Speci men Type: BLOOD SPECIMENOrdering Facility: [facility] Address: [address] [place] [address] Performed By: #### 5 8410-2 ####[facility] LABORATORYCLIA [id number] [address] CONFIRM BLOOD TYPEon 024 ABO O Normal [facility] Comment on above: Order Comment: Speci men Type: BLOOD SPECIMEN [facility] Address: [address] [place] [address] Performed By: #### C ONABO #### [facility] CLIA [id number] [address] Rh Nom (Bld) Positive Normal [facility] Comment on above: Order Comment: Speci men Type: BLOOD SPECIMEN [facility] Address: [address] [place] [address] Performed By: #### C ONABO #### [facility] CLIA [id number] [address] CONSULTon 01-17-2024 CONSULT HNO ID: [id number] Author: NARDA SNOW MD Service: Endocrinology Author Type: Physician Type: Consults Filed: 01/18/2024 10:37 Note Text: INITIAL CONSULT ENDOCRINOLOGY SERVICE DATE: 01/17/2024 SERVICE TIME: 1:03 PM Requesting Provider: Nathalie Falk MD Opinion/Advice Regarding: Management of DKA with hyperglycemia Service: Endocrinology Consult Service (Dr Snow covering for Dr Castellon) Subjective HPI: Mr. Domingo Gillis is a 58 year old male with a 10+ year history of Diabetes Mellitus Type 2 hyperglycemia who was admitted on 01/16/2024 for GI bleed, currently receiving blood (2 units of PRBC). Past medical history significant for type 2 diabetes, hypertension. Patient presented to [place] ED from home with 5-day history of lightheadedness, dizziness, 1 episode of dark stool and a syncopal episode the day of admission. He was transferred to ICU at [facility] for management of GI bleed and DKA. Was started on IV insulin drip and IV fluids. Anion gap normalized and recently converted to subcu insulin. Received 1 dose of NPH 32 units this morning. Blood sugar still elevated in the 200s. Patient awake alert and oriented. States BS's at home fairly controlled 120-160 mg/dl. No family h/o diabetes mellitus DIET REGULAR Recent Labs 01/17/24 1236 01/17/24 1127 01/17/24 0940 01/17/24 0914 01/17/24 0635 01/17/24 0543 01/17/24 0133 01/17/24 0123 GLUC -- -- -- 225* -- 236* -- 294* GLB -- -- -- -- -- -- -- 277* PCGLUCOSE 226* 267* 237* -- < > -- < > -- < > = values in this interval not displayed. No past medical history on file. No past surgical history on file. No family history on file. Social History Tobacco Use Smoking status: Every Day Current packs/day: 0.00 Types: Cigarettes Last attempt to quit: 01/16/1994 Years since quittin.0 MEDICATIONS: metFORMIN (GLUCOPHAGE) 1,000 mg tablet, Take 1,000 mg by mouth two times a day., Disp: , Rfl: glimepiride (AMARYL) 4 mg tablet, Take 4 mg by mouth once daily., Disp: , Rfl: lisinopril (ZESTRIL) 10 mg tablet, Take 10 mg by mouth once daily., Disp: , Rfl: meloxicam (MOBIC) 15 mg tablet, Take 15 mg by mouth once daily., Disp: , Rfl: metoprolol succinate ER (TOPROL XL) 50 mg 24 hr tablet, Take 50 mg by mouth two times a day., Disp: , Rfl: insulin NPH human isophane (INSULIN NPH ISOPH U-100 HUMAN SUBCUTANEOUS), Inject 32 Units subcutaneously two times a day., Disp: , Rfl: Current Facility-Administered Medications Medication Dose Route Frequency NaCl 0.9% iv flush bag 20 mL INTRAVENOUS PRN insulin regular 100 units in NaCl 0.9% 100 mL - DKA/HYPERGLYCEMIA NOMOGRAM 0.5-25.9 Units/hr INTRAVENOUS CONTINUOUS dextrose 15 gram/32 mL 15 g (TRUEPLUS) 15 g ORAL PRN Or glucagon 1 mg injection 1 mg INTRAMUSCULAR PRN Or dextrose 10% iv bolus 12.5 g INTRAVENOUS PRN pantoprazole 40 mg injection (PROTONIX) 40 mg INTRAVENOUS BID AC (0600/1600) acetaminophen 650 mg tab(s) (TYLENOL) 650 mg ORAL q 4 H PRN insulin NPH 32 Units injection (intermediate acting) 32 Units SUBCUTANEOUS q 12 H insulin lispro injection (rapid acting) (ADMElog) SUBCUTANEOUS w MEALS ALLERGIES No Known Allergies COMPLETE REVIEW OF SYSTEMS: WEIGHT: Stable EYES: Normal HYDRATION: No polydypsia or thirst CARDIAC: No chest pain, dyspnea, palpitations or edema RESPIRATORY: Negative for cough, wheezing or shortness of breath GI: as per HPI; no N/V : no dysuria, frequency, hesitancy, hematuria, polyuria or nocturia SKIN: normal MUSCULOSKELETAL: No joint pain, stiffness, swelling, cramping or weakness NERVOUS SYSTEM: no numbness, paresthesias, weakness, cramping, burning or dizziness ALL OTHER SYSTEMS: normal Objective PHYSICAL EXAM: BP 100/68 Pulse (!) 133 Temp 37.2 ?C (99 ?F) (Oral) Resp 23 Ht 172.7 cm (5' 8 ) Wt 92.3 kg (203 lb 7.8 oz) SpO2 98% BMI 30.94 kg/m? Body mass index is 30.94 kg/m?. Appearance: Well appearing, alert, in no acute distress, well-hydrated, well nourished. Eyes: PERRLA, conjunctiva and sclera normal Neck: Supple, no adenopathy; thyroid symmetric, normal size, no bruits Heart: tachycardic murmur, gallop, or rubs. No ectopy Lungs Lungs clear to auscultation, tachypneic Abdomen bowel sounds normoactive, no bruits, soft, non-tender, non-distended, without organomegaly or palpable masses, no tenderness to palpation Extremities: No deformities, edema, skin discoloration, clubbing or cyanosis. Good capillary refill. Neuro: Awake, alert and oriented x 3, No involuntary motions., and Reflexes symmetrical Skin: Color, texture, turgor normal. No rashes or lesions Laboratory Results: Hemoglobin (g/dL) Date Value 01/17/2024 6.3 Hematocrit (%) Date Value 01/17/2024 18.1 WBC (k/uL) Date Value 01/17/2024 34.46 Platelet Count (k/uL) Date Value 01/17/2024 307 Potassium (mmol/L) Date Value 01/17/2024 4.7 Sodium (mmol/L) Date Value 01/17/2024 139 Magnesium (mg (more content not included)... Normal [facility] CONSULT HNO ID: [id number] Author: DIXIE WALLACE MD Service: Gastroenterology Author Type: Physician Type: Consults Filed: 01/17/2024 12:19 Note Text: INITIAL CONSULT GASTROENTEROLOGY SERVICE DATE: 01/17/2024 SERVICE TIME: 12:00 NOON Consulting Service: Gastroenterology Chief Complaint: Anemia Opinion/advice regarding: Anemia Subjective HPI: Mr. Domingo Gillis is a 58 year old male with h/o-Arthritis, on meloxicam 15 mg, DM, Hypertension,who presented to [facility] from [place] on 01/16/2024 with complaints of dizziness and syncope. Patient woke up on 01/15 with severe dizziness and had difficulty getting out of bed, patient had a syncopal episode while standing, fell to the ground and was unconscious for about 2 minutes without loss of sphincter control, abnormal movements, or postictal status. In [place] ED, labs were significant for leukocytosis (52,000), low hemoglobin (5.5), hyperglycemia (496), HAGMA (21), BUN (54), creatinine(1.89), Troponemia (979), INR (1.8), PT (20.8). Patient was started on Protonix IV, given 2 L normal saline, started on insulin drip, transfused 1 unit of blood, and transferred to [facility] via helicopter where he was transfused 2 unit of blood. Currently denies abdominal pain, hematochezia, hematemesis , nausea, vomiting, fever , chills . Per records rectal exam was remarkable for maroon-colored stool and black tarry stool. No previous EGD. Last colonoscopy was done 7 years ago, polyps removed. He is due for a colonoscopy. Past Medical History : As stated above Past surgical history : Non-contributory Family history- No family history of colon cancer Social History Tobacco Use Smoking status: Every Day Current packs/day: 0.00 Types: Cigarettes Last attempt to quit: 01/16/1994 Years since quittin.0 MEDICATIONS: Prior to Admission Medications: metFORMIN (GLUCOPHAGE) 1,000 mg tabletTake 1,000 mg by mouth two times a day.Disp: Rfl: glimepiride (AMARYL) 4 mg tabletTake 4 mg by mouth once daily.Disp: Rfl: lisinopril (ZESTRIL) 10 mg tabletTake 10 mg by mouth once daily.Disp: Rfl: meloxicam (MOBIC) 15 mg tabletTake 15 mg by mouth once daily.Disp: Rfl: metoprolol succinate ER (TOPROL XL) 50 mg 24 hr tabletTake 50 mg by mouth two times a day.Disp: Rfl: insulin NPH human isophane (INSULIN NPH ISOPH U-100 HUMAN SUBCUTANEOUS)Inject 32 Units subcutaneously two times a day.Disp: Rfl: Current Facility-Administered Medications Medication Dose Route Frequency NaCl 0.9% iv flush bag 20 mL INTRAVENOUS PRN insulin regular 100 units in NaCl 0.9% 100 mL - DKA/HYPERGLYCEMIA NOMOGRAM 0.5-25.9 Units/hr INTRAVENOUS CONTINUOUS dextrose 15 gram/32 mL 15 g (TRUEPLUS) 15 g ORAL PRN Or glucagon 1 mg injection 1 mg INTRAMUSCULAR PRN Or dextrose 10% iv bolus 12.5 g INTRAVENOUS PRN pantoprazole 40 mg injection (PROTONIX) 40 mg INTRAVENOUS BID AC (0600/1600) acetaminophen 650 mg tab(s) (TYLENOL) 650 mg ORAL q 4 H PRN insulin NPH 32 Units injection (intermediate acting) 32 Units SUBCUTANEOUS q 12 H ALLERGIES No Known Allergies GI SPECIFIC REVIEW OF SYSTEMS: OTHER ROS: Negative except stated in the HPI. Objective PHYSICAL EXAM: BP 108/67 Pulse (!) 134 Temp 37.2 ?C (99 ?F) (Oral) Resp 25 Ht 172.7 cm (5' 8 ) Wt 92.3 kg (203 lb 7.8 oz) SpO2 96% BMI 30.94 kg/m? GENERAL- AAO x 3, no distress HEENT: Moist mucus membranes, no carotid bruit LUNGS: Clear to auscultation bilaterally CARDIAC: S1, S2 heard, no murmur appreciated ABDOMEN: Soft, non-tender without guarding or rigidity, normal bowel sounds EXTREMITIES: No pedal edema DATA: Diagnostic Tests Reviewed for Today's Visit: Most recent labs and imaging results. Impression/Recommendatio ns Principal Problem: Mr. Domingo Gillis is a 58 year old male with h/o-Arthritis, on meloxicam 15 mg, DM, Hypertension,who presented to [facility] from [place] on 01/16/2024 with complaints of dizziness and syncope. In [place] ED, labs were significant for leukocytosis (52,000), low hemoglobin (5.5), hyperglycemia (496), HAGMA (21), BUN (54), creatinine(1.89), Troponemia (979), INR (1.8), PT (20.8). Patient was started on Protonix IV, given 2 L normal saline, started on insulin drip, transfused 1 unit of blood, and transferred to [facility] via helicopter where he was transfused 2 unit of blood. Currently denies abdominal pain, hematochezia, hematemesis , nausea, vomiting, fever , chills . Per records rectal exam was remarkable for maroon-colored stool and black tarry stool. No previous EGD. Last colonoscopy was done 7 years ago, polyps removed. He is due for a colonoscopy. # Anemia with dark stools - r/o Upper gi source versus lower gi # DKA- on insulin in the ICU #Leucocytosis etiology unclear, wotk up pre primary team. Plan- Transfuse to goal Hb > 7 C/w Protonix q12 Will plan for EGD and colonoscopy, timing depending on clinical course preferably when (more content not included)... Normal [facility] Comp Metab 1999 Pnl SerPlon 01-17-2024 Chloride [Moles/Vol] 108 mmol/L Normal 102-109 [facility] Comment on above: Order Comment: Speci men Type: BLOOD SPECIMENOrdering Facility: [facility] Address: [address] [place] [address] Performed By: #### 2 4323-8 ####[facility] LABORATORYCLIA [id number] [place] [address] [place] Order Comment: Speci men Type: VENOUS BLOOD SPECIMENOrdering Facility: [facility] Address: [address] [place] [address] Performed By: #### 2 4344-4 ####[facility] LABORATORYCLIA [id number] [address] OF [facility] Comprehensive metabolic 2000 panelon 01-17-2024 Albumin [Mass/Vol] 3.3 g/dL Low 3.9-4.9 [facility] Comment on above: Order Comment: Speci men Type: BLOOD SPECIMENOrdering Facility: [facility] Address: [address] [place] [address] Performed By: #### 2 4323-8 ####[facility] LABORATORYCLIA [id number] [address] [place] ALP [Catalytic activity/Vol] 74 U/L Normal 38-113 [facility] Comment on above: Order Comment: Speci men Type: BLOOD SPECIMENOrdering Facility: [facility] Address: [address] [place] [address] Performed By: #### 2 4323-8 ####[facility] LABORATORYCLIA [id number] [address] [place] [facility] ALT With P-5'-P [Catalytic activity/Vol] 17 U/L Normal 10-54 [facility] Comment on above: Order Comment: Speci men Type: BLOOD SPECIMENOrdering Facility: [facility] Address: [address] [place] [address] Performed By: #### 2 4323-8 ####[facility] LABORATORYCLIA [id number] [address] [place] [facility] Anion gap [Moles/Vol] 12 mmol/L Normal 8-15 [facility] Comment on above: Order Comment: Speci men Type: BLOOD SPECIMENOrdering Facility: [facility] Address: [address] [place] [address] Performed By: #### 2 4323-8 ####[facility]ORATORYCLIA [id number] [place] [address] [place] AST With P-5'-P [Catalytic activity/Vol] 24 U/L Normal 14-40 [facility] Comment on above: Order Comment: Speci men Type: BLOOD SPECIMENOrdering Facility: [facility] Address: [address] [place] [address] Performed By: #### 2 4323-8 ####[facility]ORATORYCLIA [id number] [address] [place] Bilirubin [Mass/Vol] 0.4 mg/dL Normal 0.2-1.3 [facility] Comment on above: Order Comment: Speci men Type: BLOOD SPECIMENOrdering Facility: [facility] Address: [address] [place] [address] Performed By: #### 2 4323-8 ####[facility] LABORATORYCLIA [id number] [place] [address] [place] Calcium [Mass/Vol] 8.4 mg/dL Low 8.5-10.2 [facility] Comment on above: Order Comment: Speci men Type: BLOOD SPECIMENOrdering Facility: [facility] Address: [address] [place] [address] Performed By: #### 2 4323-8 ####[facility] LABORATORYCLIA [id number] [address] [place] CO2 [Moles/Vol] 20 mmol/L Low 22-30 [facility] Comment on above: Order Comment: Speci men Type: BLOOD SPECIMENOrdering Facility: [facility] Address: [address] [place] [address] Performed By: #### 2 4323-8 ####[facility] LABORATORYCLIA [id number] [address] [place] Creatinine [Mass/Vol] 1.26 mg/dL High 0.73-1.22 [facility] Comment on above: Order Comment: Speci men Type: BLOOD SPECIMENOrdering Facility: [facility] Address: [address] [place] [address] Performed By: #### 2 4323-8 ####[facility] LABORATORYCLIA [id number] [address] [place] Creatinine and Glomerular filtration rate.predicted panel (S/P/Bld) 65 mL/min/1.73m??? Normal >=60 [facility] Comment on above: Order Comment: Ana ritter Type: BLOOD SPECIMENOrdering Facility: [facility] Address: [address] [place] [address] Result Comment: Freda mated Glomerular Filtration Rate (eGFR) is calculated using the 2020 CKD-EPI creatinine equation. This equation utilizes serum creatinine, sex, and age as parameters. The creatinine assay has traceable calibration to isotope dilution-mass spectrometry. Refer to KDIGO guidelines for clinical interpretation. In patients with unstable renal function, e.g. those with acute kidney injury, the eGFR may not accurately reflect actual GFR. Performed By: #### 2 4323-8 ####[facility] LABORATORYCLIA [id number] [place] [address] [place] Glucose [Mass/Vol] 294 mg/dL High 74-99 [facility] Comment on above: Order Comment: Ana ritter Type: BLOOD SPECIMENOrdering Facility: [facility] Address: [address] [place] [address] Result Comment: The [place] Diabetes Association (ADA) provides guidance for cutoff values for fasting glucose and random glucose. The ADA defines fasting as no caloric intake for at least 8 hours. Fasting plasma glucose results between 100 to 125 mg/dL indicate increased risk for diabetes (prediabetes). Fasting plasma glucose results greater than or equal to 126 mg/dL meet the criteria for diagnosis of diabetes. In the absence of unequivocal hyperglycemia, results should be confirmed by repeat testing. In a patient with classic symptoms of hyperglycemia or hyperglycemic crisis, random plasma glucose results greater than or equal to 200 mg/dL meet the criteria for diagnosis of diabetes. Reference: Standards of Medical Care in Diabetes 2016, [employer] Diabetes Association. Diabetes Care. 2016.39(Suppl 1). Performed By: #### 2 4323-8 ####[facility] LABORATORYCLIA [id number] [place] [address] [place] Potassium [Moles/Vol] 5.1 mmol/L Normal 3.7-5.1 [facility] Comment on above: Order Comment: Ana ritter Type: BLOOD SPECIMENOrdering Facility: [facility] Address: [address] [place] [id number] Performed By: #### 2 4323-8 ####[facility] LABORATORYCLIA [id number] [place] [address] [place] Protein [Mass/Vol] 4.8 g/dL Low 6.3-8.0 [facility] Comment on above: Order Comment: Speci men Type: BLOOD SPECIMENOrdering Facility: [facility] Address: [address] [place] [address] Performed By: #### 2 4323-8 ####[facility] LABORATORYCLIA [id number] [place] [id number] [place] Sodium [Moles/Vol] 140 mmol/L Normal 136-144 [facility] Comment on above: Order Comment: Speci men Type: BLOOD SPECIMENOrdering Facility: [facility] Address: [address] [place] [address] Performed By: #### 2 4323-8 ####[facility] LABORATORYCLIA [id number] [address] [place] Urea nitrogen [Mass/Vol] 56 mg/dL High 9-24 [facility] Comment on above: Order Comment: Speci men Type: BLOOD SPECIMENOrdering Facility: [facility] Address: [address] [place] [address] Performed By: #### 2 4323-8 ####[facility] LABORATORYCLIA [id number] [place] [id number] [place] ECG COMPLETEon 01-17-2024 ECG COMPLETE Ventricular Rate : 1 39 BPM Atrial Rate : 139 BPM P-R Interval : 118 ms QRS Duration : 74 ms Q-T Interval : 294 ms QTC Calculation(Bazett) : 447 ms Calculated P [place] : 50 degrees Calculated R [place] : 16 degrees Calculated T [place] : 71 degrees SINUS TACHYCARDIA LOW VOLTAGE QRS CANNOT RULE OUT ANTERIOR INFARCT , AGE UNDETERMINED ABNORMAL ECG NO PREVIOUS ECGS AVAILABLE Confirmed by MD WILKS VINAY ([id number]) on 01/19/2024 5:05:55 PM NAME : DOMINGO GILLIS PID : [id number] : 1965 Gender : Male Race : ORD : [id number] Procedure Date : Jan 17 2024 09:44:31 Edit Date : Jan 19 2024 17:05:57 Diagnosis: SINUS TACHYCARDIA LOW VOLTAGE QRS CANNOT RULE OUT ANTERIOR INFARCT , AGE UNDETERMINED ABNORMAL ECG NO PREVIOUS ECGS AVAILABLE Confirmed by MD WILKS VINAY ([id number]) on 01/19/2024 5:05:55 PM Test Reason : Arrhythmia Location : [address] : [place] [address] Overread By : MD WILKS VINAY Edited By : MD WILKS VINAY Referred By : AREN AGUIRRE Acquired by : DIXIE LARA Normal [facility] Gas and Carbon monoxide pane l (BldV)on 01-17-2024 BASE DEFICIT, VENOUS -4 mmol/L Low -2-0 [facility] Comment on above: Order Comment: Speci men Type: VENOUS BLOOD SPECIMENOrdering Facility: [facility] Address: [address] [place] [address] Performed By: #### 2 4344-4 ####[facility] LABORATORYCLIA [id number] [address] [place] Body temperature 98.6 [degF] Normal [facility] Comment on above: Order Comment: Speci men Type: VENOUS BLOOD SPECIMENOrdering Facility: [facility] Address: [address] [place] [address] Performed By: #### 2 4344-4 ####[facility] LABORATORYCLIA [id number] [address] [place] Calcium.ionized (BldV) [Mass/Vol] 1.19 mmol/L Normal 1.08-1.30 [facility] Comment on above: Order Comment: Speci men Type: VENOUS BLOOD SPECIMENOrdering Facility: [facility] Address: [address] [place] [address] Performed By: #### 2 4344-4 ####[facility] LABORATORYCLIA [id number] [address] [place] Calcium.ionized adjusted to pH 7.4 (BldA) [Moles/Vol] 1.17 mmol/L Normal 1.08-1.30 [facility] Comment on above: Order Comment: Speci men Type: VENOUS BLOOD SPECIMENOrdering Facility: [facility] Address: [address] [place] [address] Performed By: #### 2 4344-4 ####[facility] LABORATORYCLIA [id number] [address] OF [facility] Carboxyhemoglobin (BldV) [Mass fraction] 3.1 % High 0.0-2.0 [facility] Comment on above: Order Comment: Speci men Type: VENOUS BLOOD SPECIMENOrdering Facility: [facility] Address: [address] [place] [address] Result Comment: Carb oxyhemoglobin Reference Range for Smokers: 2.0-8.0% Performed By: #### 2 4344-4 ####[facility] LABORATORYCLIA [id number] [address] [place] CO2 (BldV) [Partial pressure] 37 mm[Hg] Low 42-55 [facility] Comment on above: Order Comment: Speci men Type: VENOUS BLOOD SPECIMENOrdering Facility: [facility] Address: [address] [place] [address] Performed By: #### 2 4344-4 ####[facility] LABORATORYCLIA [id number] [address] [place] Glucose [Mass/Vol] 277 mg/dL High 60-105 [facility] Comment on above: Order Comment: Speci men Type: VENOUS BLOOD SPECIMENOrdering Facility: [facility] Address: [address] [place] [address] Performed By: #### 2 4344-4 ####[facility] LABORATORYCLIA [id number] [place] [id number] [place] HCO3 (Bld) [Moles/Vol] 21 mmol/L Low 24-28 [facility] Comment on above: Order Comment: Speci men Type: VENOUS BLOOD SPECIMENOrdering Facility: [facility] Address: [address] [place] [address] Performed By: #### 2 4344-4 ####[facility] LABORATORYCLIA [id number] [address] [place] Hematocrit (Bld) [Volume fraction] 18.7 % Low 39.0-51.0 [facility] Comment on above: Order Comment: Speci men Type: VENOUS BLOOD SPECIMENOrdering Facility: [facility] Address: [address] [place] [address] Performed By: #### 2 4344-4 ####[facility] LABORATORYCLIA [id number] [address] [place] Hemoglobin (Bld) [Mass/Vol] 5.9 g/dL Critically low 13.0-17.0 [facility] Comment on above: Order Comment: Speci men Type: VENOUS BLOOD SPECIMENOrdering Facility: [facility] Address: [address] [place] [address] Performed By: #### 2 4344-4 ####[facility] LABORATORYCLIA [id number] [address] [place] Lactate [Moles/Vol] 3.3 mmol/L High 0.5-2.2 [facility] Comment on above: Order Comment: Speci men Type: VENOUS BLOOD SPECIMENOrdering Facility: [facility] Address: [address] [place] [address] Performed By: #### 2 4344-4 ####[facility] LABORATORYCLIA [id number] [address] [place] Methemoglobin (Bld) [Mass fraction] 1.6 % High 0.0-1.5 [facility] Comment on above: Order Comment: Speci men Type: VENOUS BLOOD SPECIMENOrdering Facility: [facility] Address: [address] [place] [address] Performed By: #### 2 4344-4 ####[facility] LABORATORYCLIA [id number] [address] [place] O2 THERAPY RA=Room Air Normal [facility] Comment on above: Order Comment: Speci men Type: VENOUS BLOOD SPECIMENOrdering Facility: [facility] Address: [address] [place] [address] Performed By: #### 2 4344-4 ####[facility]ORATORYCLIA [id number] [address] [place] Oxygen (BldV) [Partial pressure] 95 mm[Hg] High 35-45 [facility] Comment on above: Order Comment: Speci men Type: VENOUS BLOOD SPECIMENOrdering Facility: [facility] Address: [address] [place] [address] Performed By: #### 2 4344-4 ####[facility] LABORATORYCLIA [id number] [address] [place] Oxygen saturation in Venous blood 97 % High 60-85 [facility] Comment on above: Order Comment: Speci men Type: VENOUS BLOOD SPECIMENOrdering Facility: [facility] Address: [address] [place] [address] Performed By: #### 2 4344-4 ####[facility] LABORATORYCLIA [id number] [address] [place] Oxyhemoglobin (BldV) [Mass fraction] 92 % High 60-85 [facility] Comment on above: Order Comment: Speci men Type: VENOUS BLOOD SPECIMENOrdering Facility: [facility] Address: [address] [place] [address] Performed By: #### 2 4344-4 ####[facility] LABORATORYCLIA [id number] [place] [address] [place] pH (BldV) 7.37 [pH] Normal 7.32-7.42 [facility] Comment on above: Order Comment: Speci men Type: VENOUS BLOOD SPECIMENOrdering Facility: [facility] Address: [address] [place] [address] Performed By: #### 2 4344-4 ####[facility] LABORATORYCLIA [id number] [address] [place] Potassium [Moles/Vol] 4.9 mmol/L Normal 3.5-5.0 [facility] Comment on above: Order Comment: Speci men Type: VENOUS BLOOD SPECIMENOrdering Facility: [facility] Address: [address] [place] [address] Performed By: #### 2 4344-4 ####[facility] LABORATORYCLIA [id number] [address] [place] Sodium [Moles/Vol] 138 mmol/L Normal 136-144 [facility] Comment on above: Order Comment: Jorge Luisi men Type: VENOUS BLOOD SPECIMENOrdering Facility: [facility] Address: [address] [place] [address] Performed By: #### 2 4344-4 ####[facility] LABORATORYCLIA [id number] [address] [place] HIGH SENSITIVITY TROPONIN To n 01-17-2024 Troponin T.cardiac High sensitivity method [Mass/Vol] 544 ng/L High <12 [facility] Comment on above: Order Comment: Jorge Luisi men Type: BLOOD SPECIMEN [facility] Address: [address] [place] [address] Performed By: #### 7 18-7 #### [facility] CLIA [id number] [place] HbA1c (Bld)on 01-17-2024 Average glucose Estimated from glycated hemoglobin (Bld) [Mass/Vol] 131 mg/dL Normal [facility] Comment on above: Order Comment: Jorge Luisi men Type: BLOOD SPECIMENOrdering Facility: [facility] Address: [address] [place] [address] Result Comment: eAG: (Estimated average glucose) is a calculated value from HgbA1c and is personnel representative of the average blood glucose level in the last 2-3 month period. Performed By: #### 5 5454-3 ####[facility] LABCLIA [id number] [facility] [place]74[place] [address] [place] HbA1c (Bld) [Mass fraction] 6.2 % High 4.3-5.6 [facility] Comment on above: Order Comment: Ana men Type: BLOOD SPECIMENOrdering Facility: [facility] Address: [address] [place] [address] Result Comment: [place] Diabetes Association guidelines indicate that patients with HgbA1c in the range 5.7-6.4% are at increased risk for development of diabetes, and intervention by lifestyle modification may be beneficial. HgbA1c greater or equal to 6.5% is considered diagnostic of diabetes. Performed By: #### 5 5454-3 ####[facility] LABCLIA [id number] [facility] [place] [address] [place] Hgb Bld-ncon 01-17-2024 Hemoglobin (Bld) [Mass/Vol] 7.5 g/dL Low 13.0-17.0 [facility] Comment on above: Order Comment: Speci men Type: BLOOD SPECIMENOrdering Facility: [facility] Address: [address] [place] [address] Performed By: #### 7 18-7 ####[facility] LABORATORYCLIA [id number] [place] [address] [place] Hemoglobin (Bld) [Mass/Vol] 7.9 g/dL Low 13.0-17.0 [facility] Comment on above: Order Comment: Speci men Type: BLOOD SPECIMEN [facility] Address: [address] [place] [address] Performed By: #### C ONABO #### [facility] CLIA [id number] [address] [place] [address] [place] Hemoglobin (Bld) [Mass/Vol] 6.3 g/dL Low 13.0-17.0 [facility] Comment on above: Order Comment: Speci men Type: BLOOD SPECIMEN [facility] Address: [address] [place] [address] Performed By: #### 7 18-7 #### [facility] CLIA [id number] [address] [place] [address] [place] Hemoglobin (Bld) [Mass/Vol] 7.1 g/dL Low 13.0-17.0 [facility] Comment on above: Order Comment: Speci men Type: BLOOD SPECIMEN [facility] Address: [address] [place] [address] Performed By: #### C ONABO #### [facility] CLIA [id number] [address] [place] [address] [place] Hemoglobin (Bld) [Mass/Vol] 6.4 g/dL Low 13.0-17.0 [facility] Comment on above: Order Comment: Ana ritter Type: BLOOD SPECIMENOrdering Facility: [facility] Address: [address] [place] [address] Performed By: #### 7 18-7 ####[facility] LABORATORYCLIA [id number] [address] [place] Magnesium SerPl-mCncon 01-16 Magnesium [Mass/Vol] 1.8 mg/dL Normal 1.7-2.3 [facility] Comment on above: Order Comment: Ana ritter Type: BLOOD SPECIMENOrdering Facility: [facility] Address: [address] [place] [address] Performed By: #### 1 9123-9, 89142-4 ####[facility] LABORATORYCLIA [id number] [place] [address] [place] PT panel Coag (PPP)on 2023 INR Coag (PPP) [Relative time] 1.1 {INR} Normal 0.9-1.3 [facility] Comment on above: Order Comment: Ana ritter Type: BLOOD SPECIMENOrdering Facility: [facility] Address: [address] [place] [address] Result Comment: Edna min K Antagonist (VKA) Therapeutic Range: INR 2 to 3 (Target INR of 2.5) Note: For patients treated with VKA drugs, such as warfarin, the [employer] 2012 Guideline recommends a therapeutic INR range of 2 to 3 (target INR of 2.5). This recommendation includes high-risk patients with antiphospholipid syndrome with previous arterial or venous thromboembolism, current-generation mechanical or bioprosthetic aortic heart valve replacement. Note: Patients with mechanical aortic valve replacement and additional risk factors for thromboembolic events (atrial fibrillation, previous thromboembolism, LV dysfunction, hypercoagulable conditions) or an older generation mechanical AVR (i.e., ball in-Cage) or any mechanical MVR should have a INR therapeutic range of 2.5 to 3.5 (target INR of 3). David GH, et al. Chest 2012, 141:7S-47S Wali RA, et al. [facility] 2017, 70: 252-289 Performed By: #### 3 4528-0 ####[facility] LABORATORYCLIA [id number] [address] [place] PT Coag (PPP) [Time] 11.9 s Normal 9.7-13.0 [facility] Comment on above: Order Comment: Speci men Type: BLOOD SPECIMENOrdering Facility: [facility] Address: [address] [place] [address] Performed By: #### 3 4528-0 ####[facility] LABORATORYCLIA [id number] [address] STAPHYLOCOCCUS AUREUS AND MR SA SCREEN, PCR, NASALon 01-17-2024 S. aureus and MRSA panel AIDA+probe (Nose) Not detected Normal Not Detected [facility] Comment on above: Order Comment: Speci men Type: BLOOD SPECIMEN Ordering Facility: [facility] Address: [address] [place] [address] Performed By: #### 7 18-7 #### [facility] CLIA [id number] [address] TYPE + SCREENon 01-17-2024 ABO O Normal [facility] Comment on above: Order Comment: Speci men Type: BLOOD SPECIMEN [facility] Address: [address] [place] [address] Performed By: #### T SCR #### [facility] CLIA [id number] [address] Rh Nom (Bld) Positive Normal [facility] Comment on above: Order Comment: Speci men Type: BLOOD SPECIMEN [facility] Address: [address] [place] [address] Performed By: #### T SCR #### [facility] CLIA [id number] [address] TYPE AND SCREEN EXPIRATION 01/20/2024 23:59 Normal [facility] Comment on above: Order Comment: Speci men Type: BLOOD SPECIMEN [facility] Address: [facility] [place] [address] Performed By: #### T SCR #### [facility] CLIA [id number] [address] Urinalysis complete panel (U )on 01-17-2024 Bilirubin Ql (U) Negative Normal Negative [facility] Comment on above: Order Comment: Speci men Type: BLOOD SPECIMEN [facility] Address: [address] [place] [address] Performed By: #### T SCR #### [facility] CLIA [id number] [address] Clarity (Unsp spec) Clear Normal Clear [facility] Comment on above: Order Comment: Speci men Type: BLOOD SPECIMEN [facility] Address: [address] [place] [address] Performed By: #### T SCR #### [facility] CLIA [id number] [address] Color (U) Colorless Normal yellow [facility] Comment on above: Order Comment: Speci men Type: BLOOD SPECIMEN [facility] Address: [address] [place] [address] Performed By: #### T SCR #### [facility] CLIA [id number] [address] Glucose Test strip (U) [Mass/Vol] 4+ Abnormal Trace, Negative [facility] Comment on above: Order Comment: Speci men Type: BLOOD SPECIMEN [facility] Address: [address] [place] [address] Performed By: #### T SCR #### [facility] CLIA [id number] [address] Hemoglobin Ql (U) Negative Normal Negative, Trace [facility] Comment on above: Order Comment: Speci men Type: BLOOD SPECIMEN [facility] Address: [address] [place] [address] Performed By: #### T SCR #### [facility] CLIA [id number] [address] [facility] Ketones Ql (U) Negative Normal Negative, Trace [facility] Comment on above: Order Comment: Speci men Type: BLOOD SPECIMEN [facility] Address: [address] [place] [address] Performed By: #### T SCR #### [facility] CLIA [id number] [address] Leukocyte esterase Test strip Ql (U) Negative Normal Negative, 25 Mo/uL [facility] Comment on above: Order Comment: Speci men Type: BLOOD SPECIMEN [facility] Address: [address] [place] [address] Performed By: #### T SCR #### [facility] CLIA [id number] [address] STATES OF [facility] Nitrite Ql (U) Negative Normal Negative [facility] Comment on above: Order Comment: Speci men Type: BLOOD SPECIMEN [facility] Address: [address] [place] [address] Performed By: #### T SCR #### [facility] CLIA [id number] [address] [place] pH (U) 5.5 [pH] Normal 5.0-8.0 [facility] Comment on above: Order Comment: Speci men Type: BLOOD SPECIMEN [facility] Address: [address] [place] [address] Performed By: #### T SCR #### [facility] CLIA [id number] [address] [place] Protein (U) [Mass/Vol] Negative Normal Trace, Negative [facility] Comment on above: Order Comment: Speci men Type: BLOOD SPECIMEN [facility] Address: [address] [place] [address] Performed By: #### T SCR #### [facility] CLIA [id number] [address] RBC LM.HPF (Urine sed) [#/Area] 0-3 /HPF Normal 0-3 /HPF [facility] Comment on above: Order Comment: Speci men Type: BLOOD SPECIMEN [facility] Address: [address] [place] [address] Performed By: #### T SCR #### [facility] CLIA [id number] [address] Specific gravity (U) [Rel density] 1.025 Normal 1.005-1.030 [facility] Comment on above: Order Comment: Speci men Type: BLOOD SPECIMEN [facility] Address: [address] [place] [address] Performed By: #### T SCR #### [facility] CLIA [id number] [address] Urobilinogen Ql (U) Normal Normal Normal [facility] Comment on above: Order Comment: Speci men Type: BLOOD SPECIMEN [facility] Address: [address] [place] [address] Performed By: #### T SCR #### [facility] CLIA [id number] [address] WBC LM.HPF (Urine sed) [#/Area] 0-5 /HPF Normal 0-5 /HPF [facility] Comment on above: Order Comment: Speci men Type: BLOOD SPECIMEN [facility] Address: [address] [place] [address] Performed By: #### T SCR #### [facility] CLIA [id number] [address] [place] XR CHEST 1V FRONTALon 2023 XR CHEST 1V FRONTAL * * *Final Report* * * DATE OF EXAM: Jan 17 2024 1:00AM AKX [id number] - XR CHEST 1V FRONTAL / PROCEDURE REASON: Cough * * * * Physician Interpretation * * * * EXAMINATION: CHEST RADIOGRAPH (SINGLE VIEW AP OR PA) CLINICAL HISTORY: Cough MQ: XC1_5 Comparison: None RESULT: Lines, tubes, and devices: None. Lungs and pleura: No consolidation. No lung mass. No pleural effusion. Cardiomediastinal silhouette: Normal cardiomediastinal silhouette. Other: . IMPRESSION: No acute radiographic abnormality. Clinic Supervisor: PSCB Transcribe Date/Time: Jan 17 2024 3:12A Dictated by : CHUCHO ULLOA MD This examination was interpreted and the report reviewed and electronically signed by: CHUCHO ULLOA MD on Jan 17 2024 3:13AM EST [id number] Normal [facility] EKGon 01-16-2024 Electrocardiogram Ventricular Rate : 1 43 BPM Atrial Rate : 143 BPM P-R Interval : 118 ms QRS Duration : 72 ms Q-T Interval : 296 ms QTC Calculation(Bazett) : 456 ms Calculated P [place] : 30 degrees Calculated R [place] : 27 degrees Calculated T [place] : 48 degrees SINUS TACHYCARDIA CANNOT RULE OUT ANTERIOR INFARCT , AGE UNDETERMINED ABNORMAL ECG NO PREVIOUS ECGS AVAILABLE Confirmed by MD WILKS VINAY ([id number]) on 01/19/2024 5:03:08 PM NAME : DOMINGO GILLIS PID : [id number] : 1965 Gender : Male Race : ORD : Procedure Date : Jan 16 2024 23:54:06 Edit Date : Jan 19 2024 17:03:09 Diagnosis: SINUS TACHYCARDIA CANNOT RULE OUT ANTERIOR INFARCT , AGE UNDETERMINED ABNORMAL ECG NO PREVIOUS ECGS AVAILABLE Confirmed by MD WILKS VINAY ([id number]) on 01/19/2024 5:03:08 PM Test Reason : Location : [address] : [place] [address] Overread By : MD WILKS VINAY Edited By : MD WILKS VINAY Referred By : AREN AGUIRRE Acquired by : DIXIE LARA [facility] HISTORY PHYSICALon HISTORY PHYSICAL HNO ID: [id number] Author: IZZY YOUNG MD Service: Critical Care Author Type: Resident Type: H&P Filed: 01/17/2024 05:15 Note Text: -------- Attestation signed by Izzy Young MD at 01/17/2024 5:15 AM (Updated) Critical Care Staff Note [facility] STAFF PHYSICIAN NOTE OF PERSONAL INVOLVEMENT IN CARE I have reviewed the history and physical examination obtained and documented by the resident and I personally participated in the kessler components. I have discussed the case and management of the patient's care. The following comments revise or confirm relevant kessler components of the note. IMPRESSION AND PLAN: Narrative Summary: Mr. Florian Gillis is a 58 year old male with DM II, HTN present to [place] ED from home with 5 day history of lightheadedness, dizziness, 1 episode of dark stool a syncopal episode today. He was transferred to ICU for management of GI bleed and DKA. Patient is perfusing well Acute blood loss anemia in the setting of UGIB S/p 2 PRBC. IV PPI. Follow HH. Transfuse hgb <7. GI evaluation SHY - pre-renal. S/p fluid resuscitation. Has adequate urinary output HAGMA - sonja closed. DKA Insulin. IVF Follow BMP Transition to SQ insulin in AM. HCPOA/NOK: Janay Gillis (Spouse) Goals of care: Full Code LDAs of Note: Lines, Drains, and Airways Line Duration Peripheral 01/16/24 2300 Left Wrist 20 Gauge <1 day Peripheral 01/17/24 0100 Left Arm 20 Gauge <1 day Peripheral 01/17/24 0100 Right Forearm 20 Gauge <1 day ICU Checklist -------- A= Assess, Prevent, Manage Pain C= Choice of Sedation and Analgesia B= Both Spontaneous Awakening and Breathing Trials D= Delirium: Assess, Prevent and Manage E= Early Mobility/Excercise ICU Mobility: F= Family Engagement and Empowerment ICU Disposition: Prevention: VTE Prophylaxis: This patient has a high probability of sudden, clinically significant deterioration, which requires the highest level of physician preparedness to intervene urgently. I managed/supervised life or organ supporting interventions that required frequent physician assessment. I devoted my full attention to the direct care of this patient for the amount of time indicated below. Time I spent with family or surrogate(s) is included only if the patient was incapable of providing the necessary information or participating in medical decision making. Time devoted to teaching and to any procedures I billed separately is not included. Critical Care Documentation: The patient has the following organ/system impairment(s): Acute blood loss, Acute kidney injury, and Severe metabolic disorder Time spent providing critical care services: 50 minutes. SIGNATURE: Izzy Young MD [facility]: [phone] DATE of SERVICE: 01/17/2024 TIME of SERVICE: 5:06 AM -------- MICU HANDP PATIENT NAME: Domingo Gillis REASON FOR ADMISSION: Acute GI bleeding, Anemia DATE: January 16, 2024 Subjective HPI Mr. Domingo Gillis is a 58 year old male with PMH: -Arthritis, on meloxicam 15 mg -Diabetes mellitus type 2, Metformin 1 g twice daily, glimepiride 4 mg, NPH 35 units twice daily -Hyperlipidemia, -Hypertension, lisinopril 10 mg, metoprolol 50 mg -GERD, -Depression, -Erectile dysfunction, -Benign colon polyp, s/t polypectomy about 7 years ago Patient presented to [facility] from [place] on 01/16/2024 with complaints of Dizziness and syncope. Patient has been complaining of dizzy spells for the past 5 days. His PCP started him on prednisone because of dizzy spells, ear discomfort exacerbated by standing and turning his head, associated with nausea and vomiting. Patient woke up on 01/15 with severe dizziness and had difficulty getting out of bed, patient had a syncopal episode while standing, fell to the ground and was unconscious for about 2 minutes without loss of sphincter control, abnormal movements, or postictal status. In [place] ED, patient was sinus tachycardic (136), hypotensive (102/62). labs were significant for leukocytosis (52,000), low hemoglobin (5.5), hyperglycemia (496), HAGMA (21), BUN (54), creatinine(1.89), Troponemia (979), INR (1.8), PT (20.8). Rectal exam was remarkable for maroon-colored stool and black tarry stool. Patient was started on Protonix IV, given 2 L normal saline, started on insulin drip, transfused 1 unit of blood, and transferred to [facility] via helicopter where he was transfused 2 unit of blood. Review of Systems Constitutional: Positive for appetite change (decreased for the past few days) and fatigue (for the past few days). Negative for chills, fever and unexpected weight change. HENT: Positive for rhinorrhea. Negative for n (more content not included)... Normal [facility] Lab Report: Bedside Glucoseo n 12-13-2016 Glucose 218 mg/dL High 70-110 [facility] [employer] Work Phone: Glucose mass conc 218 mg/dL High 70-110 [facility] [employer] Work Phone: Office Visit: f/u CTon 12-04 Alcoholism counseling (procedure) no Invalid Interpretation Code [facility] [employer] Work Phone: Documentation of current medications (procedure) Done Invalid Interpretation Code [facility] [employer] Work Phone: Fall risk assessment No Invalid Interpretation Code [facility] [employer] Work Phone: Protein mass conc Done [facility] [employer] Work Phone: Protein mass conc no [facility] [employer] Work Phone: Tobacco smoking status NHIS Never Invalid Interpretation Code [facility] [employer] Work Phone: Tobacco smoking status NHIS Former smoker [facility] [employer] Work Phone: Tobacco use CPHS Former smoker Invalid Interpretation Code [facility] [employer] Work Phone: Office Visit: abd painon Alcoholism counseling (procedure) no Invalid Interpretation Code [facility] [employer] Work Phone: Documentation of current medications (procedure) Done Invalid Interpretation Code [facility] [employer] Work Phone: Fall risk assessment No Invalid Interpretation Code [facility] [employer] Work Phone: Tobacco smoking status NHIS Never Invalid Interpretation Code [facility] [employer] Work Phone: Tobacco use HS Former smoker Invalid Interpretation Code [facility] [employer] Work Phone: Vital Signs Date Time Vital Sign Value Performing Clinician Facility 12-04-2016 08:40-0400 BMI (Body Mass Index) 34.67 kg/m2 Marshall Vargas MD [facility] [employer] Work Phone: 12-04-2016 08:40-0400 Height 173.99 cm Marshall Vargas MD [facility] [employer] Work Phone: 12-04-2016 08:40-0400 Respiratory Rate 18 /min Marshall Vargas MD [facility] [employer] Work Phone: 12-04-2016 08:40-0400 Weight 104.96 kg Marsahll Vargas MD [facility] [employer] Work Phone: 11-22-2016 14:42-0400 BMI (Body Mass Index) 34.4 kg/m2 Marshall Vargas MD [facility] [employer] Work Phone: 11-22-2016 14:42-0400 BP Diastolic 73 mm[Hg] Marshall Vargas MD [facility] [employer] Work Phone: 11-22-2016 14:42-0400 BP Systolic 149 mm[Hg] Marshall Vargas MD [facility] [employer] Work Phone: 11-22-2016 14:42-0400 Height 173.99 cm Marshall Vargas MD [facility] [employer] Work Phone: 11-22-2016 14:42-0400 Pulse (Heart Rate) 71 /min Marshall Vargas MD [facility] [employer] Work Phone: 11-22-2016 14:42-0400 Respiratory Rate 18 /min Marshall Vargas MD [facility] [employer] Work Phone: 11-22-2016 14:42-0400 Weight 104.15 kg Marshall Vargas MD [facility] [employer] Work Phone: Encounters Encounter Date Encounter Type Care Provider Facility Start: 01-21-2024 End: 01-21-2024 Evaluation and management of inpatient MEREDYTHE A BASILIA Facility:[facility] Start: 01-19-2024 End: 01-19-2024 Evaluation and management of inpatient MEREDYTHE A BASILIA Facility:[facility] Start: 01-17-2024 End: 01-17-2024 ambulatory UNKNOWN PROVIDER Facility:[facility] Start: 01-16-2024 End: 01-22-2024 Evaluation and management of inpatient ANAS ARTUR Facility:[facility] Procedures Date Procedure Procedure Detail Performing Clinician Start: 01-17-2024 Antibody screen IZZY VERA Comment on above: Order Comment: Speci men Type: BLOOD SPECIMEN Ordering Facility[facility] Address: [address] [place] [address] Performed By: #### T SCR #### [facility] [place] [id number] [address] [place] [address] [place] Start: 11-22-2016 End: 12-13-2016 Diagnostic colonoscopy Marshall akbar MD Work Phone: Start: 11-22-2016 Screening for malign ant neoplasm of colon Screening, colon ca Marshall Vargas MD Plan of Treatment Date Care Activity Detail Author Start: 12-13-2016 End: 12-13-2016 Appointment Appointment [facility] [employer] Work Phone: Start: 11-22-2016 End: 11-25-2016 Ct abd & pelvis w/o contrast CT Abdomen and pelvis; without contrast material [facility] [employer] Work Phone: Start: 11-22-2016 End: 12-12-2016 Diagnostic colonoscopy Colonoscopy [facility] [employer] Work Phone: Payers Date Payer Category Payer Blue [place] Blue [facility] [id number] 1965 Unknown [id number] Clinical Notes 01-17-2024 to 01-22-2024 Note Date & Type Note Facility 01-22-2024 Note HNO ID: [id number] Author: JOSÉ MIGUEL RODGERS, RN Service: Nursing Author Type: Registered Nurse Type: Progress Notes Filed: 01/22/2024 19:03 Note Text: Patients IV was removed. Discharge instructions explained. Work note provided to patient upon discharge. Patient walked to the elevator and received and ride from his . [facility] 01-21-2024 Note HNO ID: [id number] Author: SHEKHAR WALLS MD Service: Hospital Medicine Author Type: Physician Type: Progress Notes Filed: 01/21/2024 16:49 Note Text: DEPARTMENT OF HOSPITAL MEDICINE PROGRESS NOTE SERVICE DATE: 01/21/2024 SERVICE TIME: 3:58 PM Hospital Medicine/Primary Attending: Shekhar Walls MD NIGHT AND WEEKEND COVERAGE: After 7pm please page [phone] CHIEF COMPLAINT: Syncope. Dizziness. Black tarry stool SUBJECTIVE: For 2 days he had black tarry stool, about 3 bowel movements a day. He also had upper abdominal pain for a day. He was lightheaded dizzy and passed out. For about 4 days, he was having some dizziness and saw PCP for possible ear infection. At baseline does not get any chest pain or shortness of breath with activities. Now denies any abdomen pain nausea or vomiting dizziness chest pain. Had bowel movements OBJECTIVE: PHYSICAL EXAM: BP 103/60 Pulse 102 Temp (Src) 98.3 (Temporal) Resp 16 Ht 5' 8 (1.73m) Wt 194 lb 0.1 oz (88.0kg) SpO2 93% BMI 29.51 kg/(m2). O2 Therapy: Room Air GENERAL: Alert, no distress, cooperative, SKIN: Skin color, texture, turgor warm. OROPHARYNX: Lips, mucosa, and tongue moist LUNGS: Lungs clear to auscultation, Air entry good, Unlabored breathing. CARDIAC: Normal S1 and S2; no rubs, murmurs, or gallops ABDOMEN: Abdomen soft, non-tender, non-distended, BS normal EXTREMITIES: No edema. NEURO: Awake and alert. Moving all 4 limbs MEDICATIONS: Current Facility-Administered Medications Medication Dose Route Frequency NaCl 0.9% iv flush bag 20 mL INTRAVENOUS PRN dextrose 15 gram/32 mL 15 g (TRUEPLUS) 15 g ORAL PRN Or glucagon 1 mg injection 1 mg INTRAMUSCULAR PRN Or dextrose 10% iv bolus 12.5 g INTRAVENOUS PRN pantoprazole 40 mg injection (PROTONIX) 40 mg INTRAVENOUS BID AC (0600/1600) insulin lispro injection (rapid acting) (ADMElog) SUBCUTANEOUS w MEALS acetaminophen 650 mg tab(s) (TYLENOL) 650 mg ORAL q 4 H PRN metoprolol tartrate (short acting) 12.5 mg tab(s) (LOPRESSOR) 12.5 mg ORAL q 12 H insulin lispro 10 Units injection (rapid acting) (ADMElog) 10 Units SUBCUTANEOUS w MEALS insulin NPH 20 Units injection (intermediate acting) 20 Units SUBCUTANEOUS BID 8A/BEDTIME cyanocobalamin 1,000 mcg tab(s) (VITAMIN B-12) 1,000 mcg ORAL DAILY lidocaine 10 mg/mL (1 %) 10-100 mg injection (XYLOCAINE) 1-10 mL INTRADERMAL DIRECTED PRN DATA: Diagnostic tests reviewed for today's visit: CBC, Coags, BMP, Mg, Phos Recent Labs 01/21/24 1449 01/21/24 0038 01/20/24 1540 01/20/24 0639 01/20/24 0418 01/19/24 1718 01/19/24 0432 WBC -- 16.04* -- -- 12.11* -- 15.30* HB 8.5* 9.6* 8.7* < > 8.1* < > 7.6* HCT -- 31.7* -- -- 25.0* -- 23.0* PLT -- 262 -- -- 257 -- 210 < > = values in this interval not displayed. Liver Function, Amylase, AND Lipase Cardiac Enzymes Heme: Recent Labs 10/16/24 0038 RETICP 8.7* ABSRETIC 0.281* No results found for: UALBCR Assessment/Plan Patient Active Hospital Problem List: Acute blood loss anemia Date Noted: 01/17/2024 DKA, type 2, not at goal (HCC) Date Noted: 01/16/2024 SHY (acute kidney injury) ([facility]) Date Noted: 01/17/2024 Nicotine use disorder, F17.2 Date Noted: 01/17/2024 Type 2 diabetes mellitus with hyperglycaemia (HCC) Date Noted: 01/17/2024 Type 2 diabetes mellitus with hyperglycemia, with long-term current use of insulin (HCC) Date Noted: 01/19/2024 Acute GI bleeding Date Noted: 01/19/2024 Class 1 obesity due to excess calories with serious comorbidity and body mass index (BMI) of 30.0 to 30.9 in adult Date Noted: 01/20/2024 ASSESSMENT: Mr. Gillis presented with dizziness, nausea, vomiting, abdominal pain with an episode of loss of consciousness while standing with black tarry stool. In the ED he was tachycardic, relatively hypotensive with hemoglobin of 5.5 and hyperglycemia 496 with elevated anion gap. He was initially admitted to MICU for acute anemia with suspected GI bleed, SHY and DKA. 1. Anemia suspected to be acute due to suspected due to acute blood loss: Hemoglobin on admission 5.9. No previous blood work to compare. S/p total 5 units of PRBC. MCV in the 90s. Reticulocyte's 8.7 Vitamin B12 low at 223. Iron studies suggest iron deficiency. 2. Reported melena suspected GI bleed: Takes Excedrin about twice a week. S/p EGD 01/18-normal. S/p colonoscopy 01/20-nonthrombosed external hemorrhoids; nonbleeding internal reach, rectal polyp-s/p removal with cold biopsy forceps (sent for pathology); rest of colon normal. On IV PPI Bowel movements now normal. Eval by gastroenterology. GI recommended workup for non-GI causes for anemia; celiac panel ordered; as outpatient GI follow-up if non-GI causes of anemia workup is negative 3. Diabetic ketoacidosis on admission: At home-on glimepiride 4 mg daily, metformin 1 g twice daily and NPH 32 units daily. Initially treated with IV insulin and IV fluid resuscitati (more content not included)... [facility] 01-21-2024 Note HNO ID: [id number] Author: TL RANDLE RN Service: PICC Team Author Type: Registered Nurse Type: Progress Notes Filed: 01/21/2024 14:37 Note Text: PICC/VASCULAR ACCESS PROGRESS NOTE SERVICE DATE: 01/21/2024 SERVICE TIME: 1435 Procedure for placement of intravenous catheter with use of ultrasound guidance and need for catheter explained to patient with verbal understanding given by patient. Following hospital protocol, a 20g 2.25inch Bard AccuCath catheter was sterilely placed using ultrasound guidance to right arm without difficulty on the first attempt. Catheter with brisk blood return and flushes easily with 10cc normal saline. Catheter capped. StatLock stabilization device applied. Site dressing per hospital policy. Patient tolerated procedure well. Line started by Shannan Madrigal RN SIGNATURE: Tl Randle RN PATIENT NAME: Domingo Gillis DATE: January 21, 2024 TIME: 2:36 PM PAGER/CONTACT #: [phone] [facility] 01-21-2024 Note HNO ID: [id number] Author: PADMINI DORADO RN Service: Care Management Author Type: Registered Nurse Type: Care Mgt Progress Note Filed: 01/21/2024 12:57 Note Text: CARE MANAGEMENT PROGRESS NOTE SERVICE DATE: 01/21/2024 SERVICE TIME: 1255 LOS: 5 days Needs Prior to Discharge: To Be Determined Chart reviewed, patient admitted secondary to acute blood loss anemia, GI bleeding. Underwent colonoscopy today. Discharge plan is home with self care. Will continue to follow. SIGNATURE: Padmini Dorado RN PATIENT NAME: Domingo Gillis DATE: January 21, 2024 TIME: 12:55 PM PAGER/CONTACT #: [phone] [facility] 01-21-2024 Note HNO ID: [id number] Author: COREY ADAMS MD Service: Gastroenterology Author Type: Physician Type: Plan of Care Filed: 01/21/2024 12:17 Note Text: Colonoscopy: 1) small internal and external hemorrhoids 2) Rectal polyp 2 mm, removed 3) Normal colon 4) Normal TI No source of anemia identified Recommendations: 1) I will notify him of his pathology results via GLIIFhart when they return 2) Consider work-up of non-GI causes of anemia 3) If workup for non GI causes of anemia were to be negative, he can return to see GI as outpatient by calling [phone] 4) Check celiac panel with next blood draw GI to sign off Call with questions [facility] 01-20-2024 Note HNO ID: [id number] Author: SULLY VAN MD Service: Hospital Medicine Author Type: Physician Type: Progress Notes Filed: 01/20/2024 17:38 Note Text: DEPARTMENT OF HOSPITAL MEDICINE PROGRESS NOTE SERVICE DATE: 01/20/2024 SERVICE TIME: 5:31 PM Hospital Medicine/Primary Attending: Sully Van MD NIGHT AND WEEKEND COVERAGE: [place] COVERAGE: From 7am - 7pm, please call After 7pm, please call cross cover pager #[phone] Subjective INTERVAL HPI: Patient was seen and examined. He denied abdominal pain, nausea or vomiting. Has no bowel movements today and no bloody stool. Current Facility-Administered Medications Medication Dose Route Frequency NaCl 0.9% iv flush bag 20 mL INTRAVENOUS PRN dextrose 15 gram/32 mL 15 g (TRUEPLUS) 15 g ORAL PRN Or glucagon 1 mg injection 1 mg INTRAMUSCULAR PRN Or dextrose 10% iv bolus 12.5 g INTRAVENOUS PRN pantoprazole 40 mg injection (PROTONIX) 40 mg INTRAVENOUS BID AC (0600/1600) insulin lispro injection (rapid acting) (ADMElog) SUBCUTANEOUS w MEALS acetaminophen 650 mg tab(s) (TYLENOL) 650 mg ORAL q 4 H PRN insulin lispro 12 Units injection (rapid acting) (ADMElog) 12 Units SUBCUTANEOUS w MEALS insulin NPH 24 Units injection (intermediate acting) 24 Units SUBCUTANEOUS BID 8A/BEDTIME metoprolol tartrate (short acting) 12.5 mg tab(s) (LOPRESSOR) 12.5 mg ORAL q 12 H Objective PHYSICAL EXAM: BP 124/71 Pulse 97 Temp (Src) 97 (Temporal) Resp 16 Ht 5' 8 (1.73m) Wt 194 lb 0.1 oz (88.0kg) SpO2 98% BMI 29.51 kg/(m2). O2 Therapy: Room Air Physical Exam Performed GENERAL: Alert, no distress, cooperative LUNGS: Lungs clear to auscultation, Good diaphragmatic excursion CARDIAC: Normal S1 and S2; no rubs, murmurs, or gallops ABDOMEN: Right upper quadrant and epigastric tenderness, Lowery's negative no rebound or rigidity. Lines, Drains, and Airways Line Duration Peripheral 01/17/24 0100 Left Antecubital 20 Gauge 3 days Peripheral 01/19/24 0000 Right Forearm 20 Gauge 1 day Peripheral 01/19/24 1900 [facility] Left Neck 18 Gauge <1 day DATA: Diagnostic tests reviewed for today's visit: Most recent labs Most recent imaging Assessment/Plan Problem List Assessment AND Plan Acute blood loss anemia DKA, type 2, not at goal ([facility]) SHY (acute kidney injury) ([facility]) Nicotine use disorder, F17.2 Type 2 diabetes mellitus with hyperglycaemia ([facility]) Type 2 diabetes mellitus with hyperglycemia, with long-term current use of insulin ([facility]) Acute GI bleeding Class 1 obesity due to excess calories with serious comorbidity and body mass index (BMI) of 30.0 to 30.9 in adult HOSPITAL COURSE: - Acute blood loss anemia Check iron panel and ferritin, B12 and folate. Monitor hemoglobin and transfuse for Hb less than 7. EGD is negative. Colonoscopy on 01/20. GI is following. -Active Problems: DKA, type 2, not at goal ([facility]) S/p insulin drip in ICU. Endocrinology is following. - SHY (acute kidney injury) ([facility]) Resolved. Creatinine 0.87. Avoid nephrotoxic medication. - Type 2 diabetes mellitus with hyperglycaemia ([facility]) Insuline NPH 24 unit BID Lispro 12 units 3 times daily with meals. SSI - Class 1 obesity due to excess calories with serious comorbidity and body mass index (BMI) of 30.0 to 30.9 in adult Weight loss and lifestyle modification Medication and Non-Pharmacologic VTE Prophylaxis/Anticoagulants 01/17/24 vte pharmacologic prophylaxis contraindicated (ga,wa) 01/17/24 pneumatic compression stockings (ga,wa) 01/17/24 graduated compression stockings (ga,wa) 01/17/24 activity - mobilize patient ([place]) VTE Prophylaxis: Contraindicated Disposition: Home Plan of care discussed with Provider, RN, Patient SIGNATURE: Sully Van MD PATIENT NAME: Domingo Gillis DATE: January 20, 2024 TIME: 5:31 PM [facility] 01-19-2024 Note HNO ID: [id number] Author: COREY ADAMS MD Service: Gastroenterology Author Type: Physician Type: Plan of Care Filed: 01/19/2024 18:34 Note Text: EGD: Normal NO source of anemia or bleeding noted. Consideration for colonoscopy given negative EGD Also, consider non-GI sources of anemia as patient does not recount any rectal bleeding noted at home. From GI standpoint: OK to advance diet tonight Will defer to MICU team about discharge from ICU Earliest available colonoscopy Friday this week, unless decompensates, so will discuss with patient tomorrow once he has not been sedated. Monitor H/H and transfuse as needed. [facility] 01-19-2024 Note HNO ID: [id number] Author: ANUJA WISE RN Service: Care Management Author Type: Registered Nurse Type: Care Mgt Initial Assessment Filed: 01/19/2024 10:46 Note Text: CARE MANAGEMENT: ASSESSMENT AND DISCHARGE PLAN SERVICE DATE: January 19, 2024 SERVICE TIME: 10:44 AM PCP: Steve Gonzalez DO Primary Contact: Extended Emergency Contact Information Primary Emergency Contact: Janay Gillis Mobile Relation: Spouse Admission Status: Inpatient Insurance Provider: N/A Discharge Planning requested by: Per Department Practice Potential Transition Plans Home Advance Directives Current Living Arrangements and Support Lives with: Spouse/significant other Type of Residence: Private Residence (House) Does the patient have to climb stairs at home?: Yes Support: Family members How do you manage to accomplish the following: Independent: Ambulation;Transportation to appointments/community;Bathe/Shower;Dr ess;Meals/Meal Prep;Going to the bathroom;Medication Management Current Services/Equipment Current Post-Acute Service(s): None Discharge Planning Patient Goal(s): Be able to go home, General wellness Chemult of Choice Explained: Chemult of Choice Given: No Reason Not Given: No placements necessary Are you interested in bedside delivery of your medications? No Discharge Planning Participant(s): Patient Caregiver Assessment: Caregiver is ready, willing and able to meet the patient's needs as recommended by the inter-professional team: Yes Name of Caregiver: janay Transport at Discharge: Transportation Arrangements: Car Needs Prior to Discharge: Needs Prior to Discharge: To Be Determined Post-Acute Discharge Plan: Pt lives with spouse. Insurance is [employer]- to bring card today. 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 No needs identified. SIGNATURE: Anuja Wise RN PATIENT NAME: Domingo Gillis DATE: January 19, 2024 TIME: 10:44 AM CONTACT #: [phone] [facility] 01-19-2024 Note HNO ID: [id number] Author: ZOILA KELLOGG APRN.[employer]PER[employer]OR Service: Gastroenterology Author Type: Nurse Practitioner Type: Progress Notes Filed: 01/19/2024 11:46 Note Text: GI CONSULT PROGRESS NOTE SERVICE DATE: 01/19/2024 SERVICE TIME: 0901 AM CONSULTING SERVICE: Gastroenterology Subjective INTERVAL HPI: GI following for anemia. Pt seen and examined in ICU. No longer on insuline drip- endo following. Family present at bedside. Pt denies any abd pain or n/v. No overt GI bleeding this am. Hgb 7.6 s/p 5 total units PRBC since admission. VSS. NPO Current Facility-Administered Medications Medication Dose Route Frequency NaCl 0.9% iv flush bag 20 mL INTRAVENOUS PRN dextrose 15 gram/32 mL 15 g (TRUEPLUS) 15 g ORAL PRN Or glucagon 1 mg injection 1 mg INTRAMUSCULAR PRN Or dextrose 10% iv bolus 12.5 g INTRAVENOUS PRN pantoprazole 40 mg injection (PROTONIX) 40 mg INTRAVENOUS BID AC (0600/1600) insulin lispro injection (rapid acting) (ADMElog) SUBCUTANEOUS w MEALS acetaminophen 650 mg tab(s) (TYLENOL) 650 mg ORAL q 4 H PRN insulin lispro 12 Units injection (rapid acting) (ADMElog) 12 Units SUBCUTANEOUS w MEALS insulin NPH 24 Units injection (intermediate acting) 24 Units SUBCUTANEOUS BID 8A/BEDTIME Objective PHYSICAL EXAM: Physical Exam Performed: GENERAL: AANDO x 3 ABDOMEN: soft, non-tender to palpation BP 120/73 Pulse 106 Temp (Src) 98.6 (Oral) Resp 15 Ht 5' 8 (1.73m) Wt 194 lb 0.1 oz (88.0kg) SpO2 96% BMI 29.51 kg/(m2). O2 Therapy: Room Air DATA: Diagnostic tests reviewed for today's visit: Most recent labs WBC (k/uL) Date Value 01/19/2024 15.30 (H) RBC (m/uL) Date Value 01/19/2024 2.52 (L) Hemoglobin (g/dL) Date Value 01/19/2024 7.6 (L) Hematocrit (%) Date Value 01/19/2024 23.0 (L) MCV (fL) Date Value 01/19/2024 91.3 MCH (pg) Date Value 01/19/2024 30.2 MCHC (g/dL) Date Value 01/19/2024 33.0 RDW-CV (%) Date Value 01/19/2024 16.6 (H) Platelet Count (k/uL) Date Value 01/19/2024 210 MPV (fL) Date Value 01/19/2024 9.8 Glucose (mg/dL) Date Value 01/18/2024 219 (H) BUN (mg/dL) Date Value 01/18/2024 33 (H) Creatinine (mg/dL) Date Value 01/18/2024 0.87 Sodium (mmol/L) Date Value 01/18/2024 135 (L) Potassium (mmol/L) Date Value 01/18/2024 4.6 Chloride (mmol/L) Date Value 01/18/2024 102 CO2 (mmol/L) Date Value 01/18/2024 24 Protein, Total (g/dL) Date Value 01/17/2024 4.8 (L) Albumin (g/dL) Date Value 01/17/2024 3.3 (L) Calcium, Total (mg/dL) Date Value 01/18/2024 8.3 (L) Alkaline Phosphatase (U/L) Date Value 01/17/2024 74 Bilirubin, Total (mg/dL) Date Value 01/17/2024 0.4 AST (U/L) Date Value 01/17/2024 24 ALT (U/L) Date Value 01/17/2024 17 Impression/Recommendations Anemia- with concern for UGIB with melena on meloxicam at home. NO OAC. No current overt GI bleeding. Hgb 7.6 s/p 5 total units PRBC since admission. No prior EGD. Per pt colon 7 years ago with polyps -Monitor H/H- transfuse as needed -Monitor and document all episodes GI bleeding -Continue PPI BID IV -NPO -Discussed with GI attending and ICU team. Will plan for EGD today for further evaluation. Further recs following EGD DKA- s/p insulin drip in ICU. Endocrinology following GI attending: Dr. 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 I have discussed the case and management of the patient's care. The following comments revise or confirm relevant kessler components of the note and have added additional documentation as needed. Impression: Mr Gillis is a 58 year old white gentleman with PMH of DM-II, HTN, HL, depression, arthritic on chronic meloxicam, and colon polyp presented for complaints of dizziness and syncope, and found to have the following. Acute blood loss anemia needing PRBC transfusions Acute GI bleed, likely upper - related to chronic NSAIDs use Chronic NSAIDs use for arthritis Resolved DKA Reactive leukocytosis IV access issues Resolved SHY Medical problems as listed Recs: - a/w EGD - PPI BID - NPO for now - follow H/H and transfuse as needed - follow BS - SSI per now This patient has a high probability of sudden, clinically significant deterioration, which requires the highest level of physician preparedness to intervene urgently. I managed/supervised life or organ supporting interventions that required frequent physician assessment. I devoted my full attention to the direct care of this patient for the amount of time indicated below. Time I spent with family or surrogate(s) is included only if the patient was incapable of providing the necessary information or participating in medical decision making. Time devoted to teaching and to any procedures I billed separately is not included. Critical Care Documentation: The patient has the following organ/system impairment(s): Acute blood loss, Complex life-threatening medical problem(s), and acute GI bleed Time spent providing critical care services: 33 minutes excluding any procedure time Adan Alas MD, [facility] Pulmonary and Critical Care Medicine PATIENT NAME: Domingo Gillis REASON FOR ADMISSION: Acute GI Bleed LOS: 3 Subjective HPI Mr. Domingo Gillis is a 58 year old male with PMH: -Arthritis, on meloxicam 15 mg -Diabetes mellitus type 2, Metformin 1 g twice daily, glimepiride 4 mg, NPH 35 units twice daily -Hyperlipidemia, -Hypertension, lisinopril 10 mg, metoprolol 50 mg -GERD, -Depression, -Erectile dysfunction, -Benign colon polyp, s/t polypectomy about 7 years ago Patient presented to [facility] from [place] on 01/16/2024 with complaints of Dizziness and syncope. Patient has been complaining of dizzy spells for the past 5 days. His PCP started him on prednisone because of dizzy spells, ear discomfort exacerbated by standing and turning his head, associated with nausea and vomiting. Patient woke up on 01/15 with severe dizziness and had difficulty getting out of bed, patient had a syncopal episode while standing, fell to the ground and was unconscious for about 2 minutes without loss of sphincter control, abnormal movements, or postictal status. In [place] ED, patient was sinus tachycardic (136), hypotensive (102/62). labs were significant for leukocytosis (52,000), low hemoglobin (5.5), hyperglycemia (496), HAGMA (21), BUN (54), creatinine(1.89), Troponemia (979), INR (1.8), PT (20.8). Rectal exam was remarkable for maroon-colored stool and black tarry stool. Patient was started on Protonix IV, given 2 L normal saline, started on insulin drip, transfused 1 unit of blood, and transferred to [facility] via helicopter where he was transfused 2 unit of blood. INTERVAL EVENTS Received 1 unit pRBC overnight when hgb was 6.6, otherwise no other acute events. Pt fatigued, but otherwise feels well. No recurrent dizziness, lightheadedness, or syncope. No recurrent melena since admission, though has not had any BM's. Tachycardic(120s, 130s), blood pressure soft but MAP stable, Patient AANDOx3 in 2L NC UOP adequate Hgb 7.3 (5.9) Received total 4U PRBC WBC 23.75 (34.46) A1c 6.2 (nph 24U, lispro 6u with meals, lispro ss1, glucose 219) Gastro consult: Plan EGD, colonoscopy once out of DKA Objective OBJECTIVE BP 112/68 Pulse 112 Temp 37 ?C (98.6 ?F) (Oral) Resp 15 Ht 172.7 cm (5' 8 ) Wt 88 kg (194 lb 0.1 oz) SpO2 96% BMI 29.50 kg/m? Temp (24hrs), Av.2 ?C (98.9 ?F), Min:37 ?C (98.6 ?F), Max:37.4 ?C (99.3 ?F) Body mass index is 29.5 kg/m?., Hemoglobin A1C (%) Date Value 01/17/2024 6.2 Intake/Output Summary (Last 24 hours) at 01/19/2024 0740 Last data filed at 01/19/2024 0720 Gross per 24 hour Intake 2450 ml Output 3200 ml Net -750 ml LABORATORY: BLOOD GAS: CBC: Recent Labs 01/19/24 0432 01/19/24 0009 01/18/24 17 (more content not included)... [facility] 01-18-2024 Note HNO ID: [id number] Author: NATHALIE FALK MD Service: Critical Care Author Type: Physician Type: Progress Notes Filed: 01/18/2024 10:36 Note Text: [facility] STAFF PHYSICIAN NOTE OF PERSONAL INVOLVEMENT IN CARE IMPRESSION: Mr. Domingo Gillis is a 58 year old male with DM II, HTN present to [place] ED from home with 5 day history of lightheadedness, dizziness, 1 episode of dark stool a syncopal episode today. He was transferred to ICU for management of GI bleed and DKA. Acute blood loss anemia in the setting of UGIB SHY - pre-renal. S/p fluid resuscitation. Has adequate urinary output - improving HAGMA - gap closed DKA Leukocytosis - possible inner ear infection per family? Improving off of abx PLAN: -S/p 2 PRBC - another given yesterday -IV PPI -Follow HH -Transfuse hgb <7 -GI on board - plan for scope tomorrow? NPO after midnight -monitor off abx - reassess -SQ insulin -endo on board, appreciate recs -hold BB -resume other home meds as appropriate -DVT ppx: SCDs -HCPOA/NOK: Janay Gillis (Spouse) -Goals of care: Full Code Portions of this note have been copied forward from the previous day's documentation. This patient has a high probability of sudden, clinically significant deterioration, which requires the highest level of physician preparedness to intervene urgently. I managed/supervised life or organ supporting interventions that required frequent physician assessment. I devoted my full attention to the direct care of this patient for the amount of time indicated below. Time I spent with family or surrogate(s) is included only if the patient was incapable of providing the necessary information or participating in medical decision making. Time devoted to teaching is not included. Critical Care Documentation: The patient has the following organ/system impairment(s): Acute blood loss Patient/Family/Staff Updated Time spent providing critical care services: 40 minutes excluding procedures. SIGNATURE: Nathalie Falk MD [facility] PAGER:[phone] DATE of SERVICE: January 18, 2024 [facility] 01-18-2024 Note HNO ID: [id number] Author: NATHALIE FALK MD Service: Critical Care Author Type: Resident Type: Progress Notes Filed: 01/18/2024 11:29 Note Text: ---- Attestation signed by Nathalie Falk MD at 01/18/2024 11:29 AM [facility] STAFF PHYSICIAN NOTE OF PERSONAL INVOLVEMENT IN CARE I have reviewed the progress note obtained and documented by the resident and I personally participated in the kessler components. I have discussed the case and management of the patient's care. Plan of care rounds were performed and the ICU checklist was reviewed and completed. See my note documented separately. ICU Checklist Last Documented/Reviewed time: 01/18/2024 11:05 AM ICU Consent Complete?: Yes ICU Code Status History assess/Full code by default: No, active code status present ---- ---- A= Assess, Prevent, Manage Pain Pain adequately controlled?: Yes C= Choice of Sedation and Analgesia RASS at Goal?: Yes B= Both Spontaneous Awakening and Breathing Trials Ventilator: None D= Delirium: Assess, Prevent and Manage ICU Delirium Status: CAM Negative - no action required Sleep adequate?: Yes Restraint Status: None E= Early Mobility/Excercise ICU Mobility: ICU Mobility Goal: Bed rest/turns only F= Family Engagement and Empowerment ICU plan of care visit at bedside in last 24 hours: Yes, Provider, RN, Patient/ designee ICU Disposition: ICU Disposition-POC Detail: To be determined Prevention: Line Status: None Berger Status: None Pressure Injury Status: None GI/Stress Ulcer Prophylaxis: PPI Nutrition is at Goal: Advancing to goal VTE Prophylaxis: Chemoprophylaxis: No chemoprophylaxis Mechanical Prophylaxis: Knee high SCD No Chemoprophylaxis Reason: Active bleeding Nathalie Falk MD 11:29 AM January 18, 2024 ---- MICU PROGRESS NOTE PATIENT NAME: Domingo Gillis REASON FOR ADMISSION: Acuter GI Bleed LOS: 2 Subjective HPI Mr. Domingo Gillis is a 58 year old male with PMH: -Arthritis, on meloxicam 15 mg -Diabetes mellitus type 2, Metformin 1 g twice daily, glimepiride 4 mg, NPH 35 units twice daily -Hyperlipidemia, -Hypertension, lisinopril 10 mg, metoprolol 50 mg -GERD, -Depression, -Erectile dysfunction, -Benign colon polyp, s/t polypectomy about 7 years ago Patient presented to [facility] from [place] on 01/16/2024 with complaints of Dizziness and syncope. Patient has been complaining of dizzy spells for the past 5 days. His PCP started him on prednisone because of dizzy spells, ear discomfort exacerbated by standing and turning his head, associated with nausea and vomiting. Patient woke up on 01/15 with severe dizziness and had difficulty getting out of bed, patient had a syncopal episode while standing, fell to the ground and was unconscious for about 2 minutes without loss of sphincter control, abnormal movements, or postictal status. In [place] ED, patient was sinus tachycardic (136), hypotensive (102/62). labs were significant for leukocytosis (52,000), low hemoglobin (5.5), hyperglycemia (496), HAGMA (21), BUN (54), creatinine(1.89), Troponemia (979), INR (1.8), PT (20.8). Rectal exam was remarkable for maroon-colored stool and black tarry stool. Patient was started on Protonix IV, given 2 L normal saline, started on insulin drip, transfused 1 unit of blood, and transferred to [facility] via helicopter where he was transfused 2 unit of blood. INTERVAL EVENTS No acute event overnight. Tachycardic(120s, 130s), blood pressure soft but MAP stable, Patient AANDOx3 in 2L NC UOP adequate Hgb 7.3 (5.9) Received 3U PRBC WBC 23.75 (34.46) A1c 6.2 (nph 24U, lispro 6u with meals, lispro ss1, glucose 219) Gastro consult: Plan EGD, colonoscopy once out of DKA Objective OBJECTIVE BP 93/54 Pulse (!) 123 Temp 37.6 ?C (99.7 ?F) (Oral) Resp 22 Ht 172.7 cm (5' 8 ) Wt 89.5 kg (197 lb 5 oz) SpO2 94% BMI 30.00 kg/m? Temp (24hrs), Av.1 ?C (98.8 ?F), Min:36.3 ?C (97.3 ?F), Max:37.6 ?C (99.7 ?F) Body mass index is 30 kg/m?., Hemoglobin A1C (%) Date Value 01/17/2024 6.2 Intake/Output Summary (Last 24 hours) at 01/18/2024 0750 Last data filed at 01/18/2024 0611 Gross per 24 hour Intake 4185.8 ml Output 3325 ml Net 860.8 ml LABORATORY: BLOOD GAS: CBC: Recent Labs 01/18/24 0518 01/17/24 2307 01/17/24 1703 01/17/24 1236 01/17/24 0543 01/17/24 0339 01/17/24 0122 WBC 23.75* -- -- -- -- -- 34.46* HB 7.3* 7.5* 7.9* 6.3* 7.1* 6.4* 5.9* HCT 22.2* -- -- -- -- -- 18.1* PLT 244 -- -- -- -- -- 307 MCV 91.4 -- -- -- -- -- 96.8 RDWCV 17.4* -- -- -- -- -- 16.1* COAG: Recent Labs 01/17/24 0339 INR 1.1 CMP: Recent Labs 01/18/24 0518 01/17/24 (more content not included)... [facility] 01-17-2024 Note HNO ID: [id number] Author: ?, ?, ? Service: ? Author Type: Offset Printer Type: Plan of Care Filed: 01/17/2024 15:07 Note Text: PHARMACY MEDICATION REVIEW Patient Name: Domingo Gillis : 1965 The following medications were updated within the [facility] medication list: Medications ADDED to [facility] medication list Ferrous Gluconate (FERGON) 324 mg (38 mg iron) tablet Yes Yes cholecalciferol (VITAMIN D-3) 50 mcg (2,000 unit) tablet Yes Yes cyanocobalamin (VITAMIN B-12) 1,000 mcg tab Yes Yes rosuvastatin (CRESTOR) 10 mg tablet Yes Yes sildenafil (REVATIO) 20 mg tablet Yes Yes Medications CHANGED on [facility] medication list insulin NPH human isophane (INSULIN NPH ISOPH U-100 HUMAN SUBCUTANEOUS) Yes Yes Sig: Inject 32 Units subcutaneously once daily. RX written for 35 units BID but pt. states he takes 32 units daily at 2pm Medications REMOVED from DISTRIBUTION SPECIALIST medication list Additional comments: I was able to talk with pt. and later his Janay about home medications. Verified medication information with e-scripts/dispense report. Confirmed medications with pt. and . I have added 5 medications to the DISTRIBUTION SPECIALIST list- Crestor, sildenafil (RX taking per and pt.) and Vit b12 and Vit D3 (OTC taking per and pt.). I have not removed any RX medications. I have noted a change in how the pt. reports he takes one medication- NPH insulin (pt. states he takes 32 units daily and pharmacy RX is 35 units BID). Pt. only uses [facility] in [facility]. Medication history completed by Historian. No nursing follow up required. The below information represents the best possible medication history: Yes Medication history completed by: Offset Printer: Martin Joe (Weatherization Installer) Source of history: Patient: Reliability of source: Appears reliable, clearly identified: Medication name, Medication dose, Medication route, and Medication frequency, Pharmacy records: Epic e-script [facility], and Medication nonadherence identified: No barriers noted Reconciliation completed: No, pharmacist not yet reviewed Patient interested in Bedside Delivery Services or using OP Pharmacy at discharge? Unable to assess Preferred outpatient pharmacy: [facility] [address] [place] [address] [phone] [facility] [phone] Allergies: No Known Allergies Prior to Admission Medications Prescriptions Last Dose Informant Patient Reported? Taking? Ferrous Gluconate (FERGON) 324 mg (38 mg iron) tablet Yes Yes Sig: Take 324 mg by mouth once daily. cholecalciferol (VITAMIN D-3) 50 mcg (2,000 unit) tablet Yes Yes Sig: Take 2,000 Units by mouth once daily. cyanocobalamin (VITAMIN B-12) 1,000 mcg tab Yes Yes Sig: Take 1,000 mcg by mouth once daily. glimepiride (AMARYL) 4 mg tablet Yes Yes Sig: Take 4 mg by mouth once daily. insulin NPH human isophane (INSULIN NPH ISOPH U-100 HUMAN SUBCUTANEOUS) Yes Yes Sig: Inject 32 Units subcutaneously once daily. lisinopril (ZESTRIL) 10 mg tablet Yes Yes Sig: Take 10 mg by mouth once daily. meloxicam (MOBIC) 15 mg tablet Yes Yes Sig: Take 15 mg by mouth once daily. metFORMIN (GLUCOPHAGE) 1,000 mg tablet Yes Yes Sig: Take 1,000 mg by mouth two times a day. metoprolol succinate ER (TOPROL XL) 50 mg 24 hr tablet Yes Yes Sig: Take 50 mg by mouth two times a day. rosuvastatin (CRESTOR) 10 mg tablet Yes Yes Sig: Take 10 mg by mouth once daily. sildenafil (REVATIO) 20 mg tablet Yes Yes Sig: Take 20 mg by mouth. Take 1-5 tablets as needed as instructed Facility-Administered Medications: None Martin Joe (Weatherization Installer) phone [phone] 01/17/2024 [facility] 01-17-2024 Note HNO ID: [id number] Author: NATHALIE FALK MD Service: Critical Care Author Type: Physician Type: Progress Notes Filed: 01/17/2024 11:51 Note Text: [facility] STAFF PHYSICIAN NOTE OF PERSONAL INVOLVEMENT IN CARE IMPRESSION: Mr. Domingo Gillis is a 58 year old male with DM II, HTN present to [place] ED from home with 5 day history of lightheadedness, dizziness, 1 episode of dark stool a syncopal episode today. He was transferred to ICU for management of GI bleed and DKA. Acute blood loss anemia in the setting of UGIB SHY - pre-renal. S/p fluid resuscitation. Has adequate urinary output HAGMA - gap closed DKA Leukocytosis - possible inner ear infection per family? PLAN: -S/p 2 PRBC -IV PPI -Follow HH -Transfuse hgb <7 -GI evaluation -monitor off abx - reassess need/ear infection? -SQ insulin -f/u A1C - consider endo eval prior to DC -hold BB -resume other home meds as appropriate -DVT ppx: SCDs -HCPOA/NOK: Janay Gillis (Spouse) -Goals of care: Full Code Portions of this note have been copied forward from the previous day's documentation. This patient has a high probability of sudden, clinically significant deterioration, which requires the highest level of physician preparedness to intervene urgently. I managed/supervised life or organ supporting interventions that required frequent physician assessment. I devoted my full attention to the direct care of this patient for the amount of time indicated below. Time I spent with family or surrogate(s) is included only if the patient was incapable of providing the necessary information or participating in medical decision making. Time devoted to teaching is not included. Critical Care Documentation: The patient has the following organ/system impairment(s): Acute blood loss Patient/Family/Staff Updated Time spent providing critical care services: 40 minutes excluding procedures. SIGNATURE: Nathalie Falk MD [facility]:[phone] DATE of SERVICE: January 17, 2024 [facility] 01-17-2024 Note HNO ID: [id number] Author: NATHALIE FALK MD Service: Critical Care Author Type: Resident Type: Progress Notes Filed: 01/17/2024 11:48 Note Text: ---- Attestation signed by Nathalie Falk MD at 01/17/2024 11:48 AM [facility] STAFF PHYSICIAN NOTE OF PERSONAL INVOLVEMENT IN CARE I have reviewed the progress note obtained and documented by the resident and I personally participated in the kessler components. I have discussed the case and management of the patient's care. Plan of care rounds were performed and the ICU checklist was reviewed and completed. See my note documented separately. ICU Checklist Last Documented/Reviewed time: 01/17/2024 11:48 AM ICU Consent Complete?: Yes ICU Code Status History assess/Full code by default: No, active code status present ---- ---- A= Assess, Prevent, Manage Pain Pain adequately controlled?: Yes C= Choice of Sedation and Analgesia RASS at Goal?: Yes B= Both Spontaneous Awakening and Breathing Trials Ventilator: None D= Delirium: Assess, Prevent and Manage ICU Delirium Status: CAM Negative - no action required Sleep adequate?: Yes Restraint Status: None E= Early Mobility/Excercise ICU Mobility: ICU Mobility Goal: Bed rest/turns only F= Family Engagement and Empowerment ICU plan of care visit at bedside in last 24 hours: Yes, Provider, RN, Patient/ designee ICU Disposition: ICU Disposition-POC Detail: To be determined Prevention: Line Status: None Berger Status: None Pressure Injury Status: None GI/Stress Ulcer Prophylaxis: PPI Nutrition is at Goal: NPO VTE Prophylaxis: Chemoprophylaxis: No chemoprophylaxis Mechanical Prophylaxis: Knee high SCD No Chemoprophylaxis Reason: Active bleeding Nathalie Falk MD 11:48 AM January 17, 2024 ---- MICU PROGRESS NOTE PATIENT NAME: Domingo Gillis REASON FOR ADMISSION: Acuter GI Bleed LOS: 1 Subjective HPI Mr. Domingo Gillis is a 58 year old male with PMH: -Arthritis, on meloxicam 15 mg -Diabetes mellitus type 2, Metformin 1 g twice daily, glimepiride 4 mg, NPH 35 units twice daily -Hyperlipidemia, -Hypertension, lisinopril 10 mg, metoprolol 50 mg -GERD, -Depression, -Erectile dysfunction, -Benign colon polyp, s/t polypectomy about 7 years ago Patient presented to [facility] from [place] on 01/16/2024 with complaints of Dizziness and syncope. Patient has been complaining of dizzy spells for the past 5 days. His PCP started him on prednisone because of dizzy spells, ear discomfort exacerbated by standing and turning his head, associated with nausea and vomiting. Patient woke up on 01/15 with severe dizziness and had difficulty getting out of bed, patient had a syncopal episode while standing, fell to the ground and was unconscious for about 2 minutes without loss of sphincter control, abnormal movements, or postictal status. In [place] ED, patient was sinus tachycardic (136), hypotensive (102/62). labs were significant for leukocytosis (52,000), low hemoglobin (5.5), hyperglycemia (496), HAGMA (21), BUN (54), creatinine(1.89), Troponemia (979), INR (1.8), PT (20.8). Rectal exam was remarkable for maroon-colored stool and black tarry stool. Patient was started on Protonix IV, given 2 L normal saline, started on insulin drip, transfused 1 unit of blood, and transferred to [facility] via helicopter where he was transfused 2 unit of blood. INTERVAL EVENTS No acute event overnight. This morning, patient is doing well, no new complaints. Metoprolol 12.5 given this morning for tachycardia. Transitioned off insulin drip. Objective OBJECTIVE BP 102/53 Pulse (!) 160 Temp 37.4 ?C (99.3 ?F) Resp 16 Ht 172.7 cm (5' 8 ) Wt 92.3 kg (203 lb 7.8 oz) SpO2 99% BMI 30.94 kg/m? Temp (24hrs), Av.3 ?C (99.2 ?F), Min:37.3 ?C (99.1 ?F), Max:37.4 ?C (99.3 ?F) Body mass index is 30.94 kg/m?., No results found for: HBA1C Intake/Output Summary (Last 24 hours) at 01/17/2024 0759 Last data filed at 01/17/2024 0530 Gross per 24 hour Intake 730 ml Output 500 ml Net 230 ml LABORATORY: BLOOD GAS: CBC: Recent Labs 01/17/2454201/17/2433801/17/24121 WBC -- -- 34.46* HB 7.1* 6.4* 5.9* HCT -- -- 18.1* PLT -- -- 307 MCV -- -- 96.8 RDWCV -- -- 16.1* COAG: Recent Labs 01/17/24338 INR 1.1 CMP: Recent Labs 01/17/2454201/17/2412201/17/24121 GLUC 236* 294* 282* NA 140 140 138 K 5.0 5.1 5.1 CHLOR 109* 108* 106 CO2 21* 20* 20* ANION 10 12 BUN 52* 56* 56* CREAT 1.17 1.26* 1.27* ALB -- 3.3* -- TBILI -- 0.4 -- ALKPHOS -- 74 -- AST -- 24 -- ALT -- 17 -- TPROT -- 4.8* -- URINALYSIS: Recent Labs 01/17/24127 SPGR 1. (more content not included)... [facility] 01-17-2024 Note SARS-COV-2 (AGENT OF COVID-19) RNA: Not detected INFLUENZA A RNA: Not detected INFLUENZA B RNA: Not detected RESPIRATORY SYNCYTIAL VIRUS (RSV) RNA: Not detected [facility] Comment on above: Performed By: #### 9 [id number] ####[facility] LABORATORYCLIA [id number] [address] [place] [facility] Summary Purpose Family History No Family History Records FoundNo Family History Records Found Advance Directives No Advanced Directives Records FoundNo Advanced Directives Records Found Additional Source Comments (unrecognized sect ion and content) No Status Records FoundNo Status Records Found INFORMATION SOURCE (unrecogn ized section and content) DATE CREATED AUTHOR 01/19/2024 [employer] DATE CREATED AUTHOR 'S ORGANIZ ATEUGENIE 01/29/2024 [facility] FOR RECORDS PERTAINING TO PATIENTS WHO ARE [...] BE BASED ON THE PRIMARY CLINICAL RECORDS. [facility], [facility]. provides no warranty or guarantee of the accuracy or completeness of information in this document.
[2024-01-30 17:31] LABS: Absolute Lymphocyte Count 1.26 X10^3/uL (0.83-4.51); Absolute Neutrophil Count 4.8 X10^3/uL (2.0-7.7); Basophil# 0.06 X10^3/uL; Basophil% 0.9 % (0-1); Eosinophil# 0.33 X10^3/uL; Eosinophils% 4.7 % (0-5); Hematocrit 30.8 % (40-54); Hemoglobin 8.8 g/dL (13.0-16.5); Lymphocyte # 1.26 X10^3/ul (0.83-4.51); Lymphocyte % 17.9 % (19-41); Mean Corp Hgb Conc 28.6 g/dL (32-36); Mean Corpuscular Hgb 27.1 pg (27.0-32.0); Mean Corpuscular Volume 94.8 fL (80-94); Mean Platelet Vol. 9.3 fl (6.2-12.0); Monocyte# 0.58 X10^3/uL; Monocyte% 8.3 % (0-10); NRBC Flagged by Analyzer 0 % (0-5); Neutrophil # 4.77 X10^3/uL (2.7-7.7); Neutrophil % 67.8 % (47-70); Platelet Count 427 K/mm3 (150-450); RBC Distribution Width CV 14.8 % (11.6-14.6); RBC Distribution Width SD 51.6 fl (35.1-43.9); Red Blood Count 3.25 M/mm3 (4.6-6.2)
[2024-01-30 17:49] LABS: Cholesterol 140 mg/dL (200); High Density Lipoprotein 45 mg/dL; PSA,Total - Annual Screen 1.31 ng/mL (0.00-4.00); Triglycerides 186 mg/dL; Very Low Density Lipoprotein 37 mg/dL (5-40)
== END | disposition home or self-care (01) ==
LOC: BFHLAB 14:12
PROVIDERS: PCP Family Medicine; Referring Provider Family Medicine; Visit Provider Family Medicine
DX: Z12.5 Encounter for screening for malignant neoplasm of prostate (principal); E11.49 Type 2 diabetes mellitus with other diabetic neurological complication; I10 Essential (primary) hypertension; D64.9 Anemia, unspecified; E61.1 Iron deficiency; E53.8 Deficiency of other specified B group vitamins
CPT/HCPCS: 36415; 80061; 84153; 85025; G0103

== ENCOUNTER → 2024-04-13 | Outpatient (CLI) | payer BC, SELFPAY ==
[2024-04-13 13:38] LABS: Absolute Lymphocyte Count 2.19 X10^3/uL (0.83-4.51); Absolute Neutrophil Count 12.3 X10^3/uL (2.0-7.7); Basophil# 0.09 X10^3/uL; Basophil% 0.6 % (0-1); Eosinophil# 0.45 X10^3/uL; Eosinophils% 2.8 % (0-5); Hemoglobin 17.3 g/dL (13.0-16.5); Lymphocyte # 2.19 X10^3/ul (0.83-4.51); Lymphocyte % 13.5 % (19-41); Mean Corp Hgb Conc 30.1 g/dL (32-36); Mean Corpuscular Hgb 25.1 pg (27.0-32.0); Mean Corpuscular Volume 83.5 fL (80-94); Mean Platelet Vol. 8.8 fl (6.2-12.0); Monocyte# 1.22 X10^3/uL; Monocyte% 7.5 % (0-10); NRBC Flagged by Analyzer 0 % (0-5); Neutrophil # 12.29 X10^3/uL (2.7-7.7); Neutrophil % 75.4 % (47-70); Platelet Count 242 K/mm3 (150-450); RBC Distribution Width CV 17.6 % (11.6-14.6); RBC Distribution Width SD 49.5 fl (35.1-43.9); Red Blood Count 6.89 M/mm3 (4.6-6.2); White Blood Count 16.3 K/mm3 (4.4-11.0)
[2024-04-13 13:40] LABS: Hematocrit 57.5 % (40-54)
== END | disposition home or self-care (01) ==
PROVIDERS: PCP Family Medicine; Referring Provider Family Medicine; Visit Provider Family Medicine
DX: D50.0 Iron deficiency anemia secondary to blood loss (chronic) (principal)
CPT/HCPCS: 36415; 85025

== ENCOUNTER → 2024-04-30 | Outpatient (CLI) | payer BC, SELFPAY ==
[2024-04-30 17:05] LABS: Absolute Lymphocyte Count 1.86 X10^3/uL (0.83-4.51); Absolute Neutrophil Count 6.8 X10^3/uL (2.0-7.7); Basophil# 0.07 X10^3/uL; Basophil% 0.7 % (0-1); Eosinophil# 0.35 X10^3/uL; Eosinophils% 3.5 % (0-5); Hematocrit 53.1 % (40-54); Hemoglobin 16.7 g/dL (13.0-16.5); Lymphocyte # 1.86 X10^3/ul (0.83-4.51); Lymphocyte % 18.6 % (19-41); Mean Corp Hgb Conc 31.5 g/dL (32-36); Mean Corpuscular Hgb 26.2 pg (27.0-32.0); Mean Corpuscular Volume 83.4 fL (80-94); Mean Platelet Vol. 9.8 fl (6.2-12.0); Monocyte# 0.85 X10^3/uL; Monocyte% 8.5 % (0-10); NRBC Flagged by Analyzer 0 % (0-5); Neutrophil # 6.83 X10^3/uL (2.7-7.7); Neutrophil % 68.3 % (47-70); Platelet Count 214 K/mm3 (150-450); RBC Distribution Width CV 17.5 % (11.6-14.6); RBC Distribution Width SD 50.9 fl (35.1-43.9); Red Blood Count 6.37 M/mm3 (4.6-6.2)
[2024-04-30 17:11] LABS: Color, Urine Yellow (Yellow); Glucose, Dipstick 1000 mg/dl (Normal); Ketone-Dipstick Negative (Negative); Leukocyte Esterase-Dipstick Negative /ul (Negative); Nitrite-Dipstick Negative (Negative); Occult Blood-Urine Negative /ul (Negative); Protein-Dipstick Negative (Negative); Specific Gravity, Urine 1.015 (1.002-1.030); Urine Bilirubin Dipstick Negative (Negative); Urine Clarity Clear (Clear); Urine Urobilinogen Normal (Normal)
[2024-04-30 17:23] LABS: AST(SGOT) 20 U/L (15-37); Alanine Aminotransfer ALT/SGPT 42 U/L (16-61); Albumin, Serum 3.6 g/dL (3.2-5.0); Alkaline Phosphatase 122 U/L (45-117); Anion Gap 10 (5-15); BUN 18 mg/dL (7-18); BUN/Creat Ratio 15.8 RATIO (10-20); CRP < 2.90 mg/L (0.0-3.0); Calcium,Total 9.3 mg/dL (8.5-10.1); Chloride 104 mmol/L (98-107); Creatinine, Serum 1.14 mg/dL (0.70-1.30); EST Glomerular Filtration Rate 69 mL/min (>60); Erythrocyte Sedimentation Rate 13 mm/hr (0-20); Est Glom Filt Rate - Afr Amer 84 mL/min (>60); Globulin 3.5 g/dL (2.2-4.2); Glucose 304 mg/dL (74-106); Potassium 4.1 mmol/L (3.5-5.1); Protein, Total 7.1 g/dL (6.4-8.2); Sodium Level 136 mmol/L (136-145)
[2024-04-30 17:35] LABS: Hemoglobin A1c 9.6 % (3.8-5.6)
== END | disposition home or self-care (01) ==
LOC: BFHLAB 14:36
PROVIDERS: PCP Family Medicine; Visit Provider Family Medicine
DX: I10 Essential (primary) hypertension (principal); E11.49 Type 2 diabetes mellitus with other diabetic neurological complication; D72.829 Elevated white blood cell count, unspecified; R35.89 Other polyuria
CPT/HCPCS: 36415; 80053; 81002; 83036; 85025; 85652; 86140

== ENCOUNTER → 2024-06-01 | Outpatient (CLI) | payer BC, SELFPAY ==
--- NOTE | 2024-06-01 10:57 | ART_ITS ---
Reason For Study Reason For Study: PVD Procedure A bilateral lower extremity continuous wave Doppler with analog waveform analysis and ankle brachial indexes. Left Segmental Pressures Left brachial= 132mmHg. Left posterior tibial artery = 160mmHg. Left dorsalis pedis artery = 143mmHg. Left digit = 78 mmHg. The left posterior tibial artery waveforms are triphasic. The left dorsalis pedis waveforms are triphasic. Right Segmental Pressures Right brachial= 130mmHg. Right posterior tibial artery = 149mmHg. Right dorsalis pedis artery = 125mmHg. Right digit = 53 mmHg. The right posterior tibial artery waveforms are triphasic. The right dorsalis pedis waveforms are biphasic. Indices The right ankle brachial index by the posterior tibial artery is 1.13. The right ankle brachial index by the dorsalis pedis is 0.95. The right digital-brachial index is 0.40. The left ankle brachial index by the posterior tibial artery is 1.21. The left ankle brachial index by the dorsalis pedis is 1.08. The left digital-brachial index is 0.59. VL/Ankle Brachial Index Interpretation Summary Right BRETT 1.13, normal. Doppler/PVR waveforms of the right ankle normal at rest . TBI and digit waveforms diminished, pedal/digit disease vs spasm. Left BRETT 1.21, normal. Doppler/PVR waveforms of the left ankle normal at rest. TBI diminished, pedal/digit disease vs spasm. Ordering Physician: Steve Gonzalez Referring Physician: STEVE GONZALEZ DO Performed By: Zhen Espinoza, RVT
== END | disposition home or self-care (01) ==
LOC: CVS 10:51
PROVIDERS: PCP Family Medicine; Referring Provider Family Medicine; Visit Provider Family Medicine
DX: I73.9 Peripheral vascular disease, unspecified (principal)
CPT/HCPCS: 93922